=== PATIENT | male | born 1965 | race African-American/Black ===

== ENCOUNTER 2017-04-01 13:53 | Inpatient (IN) | payer OTHER ==
[2017-04-01 14:19] VITALS: BMI 39.5
[2017-04-01] MEDS ORDERED: NITROGLYCERIN SUBLINGUAL 1/150 0.4 MG TAB SL ONE (14:21)
[2017-04-01] MEDS ORDERED: ASPIRIN 325 MG TABLET PO ONE (14:21)
--- NOTE | 2017-04-01 14:27 | PDOC ---
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 He had the same symptom yesterday which resolved with rest and 81 mg ASA, and positioning on his side. He notes SOB ( like he is unable to take a full breath) and mild nausea, but denies any sweats , arm pain, shoulder pain, neck pain, or jaw pain. He has had similar pain before in his life but it has always resolved within minutes. He took an 81 mg ASA yesterday and tried TUMS, both without relief. He also has had worsening leg edema over the past several days and took a Lasix pill yesterday as well as Thursday. He denies recent fever, chills, cough, sore throat, vomiting, diarrhea, constipation (last BM today was small but dark brown and nonbloody), or other symptoms. Past History - Past Medical History Allergies/Adverse Reactions: Allergies Allergy/AdvReac Type Severity Reaction Status Date / Time No Known Allergies Allergy Verified 04/01/17 15:39 Home Medications: Ambulatory Orders NK [No Known Home Medication] 04/01/17 CVA: No COPD: No Disorders: Yes (chronic kidney) HTN: Yes Hypercholesterolemia: Yes - Suicide/Smoking/Psychosocial Hx Smoking History: Former smoker Have you smoked in the past 12 months: No Information on smoking cessation initiated: No Hx Alcohol Use: No (past) Drug/Substance Use Hx: No (past) Review of Systems - Review of Systems Able to Perform ROS?: Yes Constitutional: No: Chills, Fever, Unexplained wgt Loss HEENTM: No: Nose Congestion, Throat Pain Respiratory: Yes: Shortness of Breath. No: Cough Cardiac (ROS): Yes: Chest Pain, Edema. No: Palpitations ABD/GI: Yes: Nausea. No: Constipated, Diarrhea, Vomiting : No: Burning, Dysuria Musculoskeletal: No: Back Pain, Neck Pain Integumentary: No: Bruising, Rash Neurological: No: Headache, Numbness, Tingling, Weakness, Dizziness Endocrine: No: Unexplained Weight Gain, Unexplained Weight Loss *Physical Exam - Vital Signs Last Vital Signs Temp Pulse Resp BP Pulse Ox 70 15 191/94 100 04/01/17 17:00 04/01/17 17:00 04/01/17 17:00 04/01/17 17:00 - Physical Exam General Appearance: Yes: Nourished, Appropriately Dressed, Obese, Other (very pleasant adult male answering questions appropriately). No: Apparent Distress HEENT: positive: EOMI, Normal Voice, Hearing Grossly Normal. negative: Scleral Icterus (R), Scleral Icterus (L), Nasal Congestion Neck: positive: Trachea midline, Supple. negative: Tender, Rigid, Stridor Respiratory/Chest: positive: Lungs Clear, Normal Breath Sounds. negative: Chest Tender, Respiratory Distress, Crackles, Rhonchi, Stridor, Wheezing Cardiovascular: positive: Regular Rhythm, Regular Rate, S1, S2, Edema (2+ to 3+ pitting edema BLE). negative: Murmur Gastrointestinal/Abdominal: positive: Normal Bowel Sounds, Soft. negative: Tender, Organomegaly, Pulsatile Mass, Guarding Musculoskeletal: positive: Normal Inspection. negative: Decreased Range of Motion, Vertebral Tenderness Extremity: positive: Normal Capillary Refill, Normal Inspection, Normal Range of Motion. negative: Tender, Cyanosis Integumentary: positive: Normal Color, Dry, Warm. negative: Erythema, Rash, Bruising Neurologic: positive: workers compensation coordinator II-XII NML intact, Fully Oriented, Alert, Normal Mood/ Affect, Normal Response, Motor Strength 5/5 Heart Score/ECG Review - History History: Moderately suspicious - Electrocardiogram EKG: Significant ST-depression - Age Age: 45-65 - Risk Factors Risk Factors Heart Score: Yes Hx Hypercholesterolemia, Yes Hx Hypertension, Yes Hx Diabetes, Yes Smoking History, Yes Hx Obesity Based on the list above the patient has:: >/=3 risk factors or Hx atherosclerotic disease #1 ECG reviewed & interpreted by me at: 14:45 Sinus rhythm, rate of 79, flipped t-waves in I, II, aVL, V5, and V6, prolonged QTc at 495 ED Treatment Course - LABORATORY CBC & Chemistry Diagram: 04/01/17 14:50 04/01/17 14:50 - ADDITIONAL ORDERS Additional order review: Laboratory Results 04/01/17 04/01/17 04/01/17 14:50 14:50 14:21 PT with INR 10.70 INR 0.95 D-Dimer 827 H Sodium 142 Potassium 3.6 Chloride 107 Carbon Dioxide 26 Anion Gap 9 BUN 33 H Creatinine 6.3 H Creat Clearance w eGFR 9.34 Random Glucose 143 H Calcium 6.8 L* Magnesium 1.8 Total Bilirubin 0.2 AST 11 L ALT 18 Alkaline Phosphatase 83 Creatine Kinase 632 H Creatine Kinase Index 1.3 CK-MB (CK-2) 8.264 H Troponin I 0.10 H B-Natriuretic Peptide 4353.80 H Total Protein 5.6 L Albumin 2.4 L Lipase 135 Blood Type O POSITIVE Antibody Screen Negative 04/01/17 14:50 RBC 5.08 MCV 67.6 L MCHC 30.9 L RDW 17.6 H MPV 9.6 Neutrophils % 67.1 Lymphocytes % 24.3 Monocytes % 5.6 Eosinophils % 2.4 Basophils % 0.6 - RADIOLOGY Radiology Studies Ordered: Category Date Time Status CHEST X-RAY PORTABLE* [RAD] Stat Radiology 04/01/17 14:21 Completed - Medications Given in the ED: ED Medications Discontinued Medications Generic Name Dose Route Start Last Admin Trade Name Sergoq PRN Reason Stop Dose Admin Aspirin 325 mg 04/01/17 14:21 04/01/17 14:30 Asa - PO 04/01/17 14:22 325 mg ONCE ONE Administration Calcium Gluconate 1,000 mg 04/01/17 15:48 04/01/17 16:52 Calcium Gluconate 10% - IVPB 04/01/17 15:49 1,000 mg ONCE ONE Administration Labetalol HCl 10 mg 04/01/17 15:22 04/01/17 15:37 Normodyne Injection - IVPUSH 04/01/17 15:23 10 mg ONCE ONE Administration Labetalol HCl 200 mg 04/01/17 16:35 04/01/17 16:52 Normodyne - PO 04/01/17 16:36 200 mg ONCE ONE Administration Labetalol HCl 10 mg 04/01/17 16:35 04/01/17 16:52 Normodyne Injection - IVPUSH 04/01/17 16:36 10 mg ONCE ONE Administration Nitroglycerin 0.4 mg 04/01/17 14:21 04/01/17 14:25 Nitrostat - SL 04/01/17 14:22 0.4 mg ONCE ONE Administration Medical Decision Making - Medical Decision Making 52 YOM with CKD, HTN, HLD, DM, p/w left lower chest pressure x1 day. On exam he is very hypertensive (217/123), otherwise VS wnl. 04/01/17 16:[address] Sanchez who states very high risk of contrast-induced nephropathy. If suspicion for AD is very high, may give bicarb drip for 1-2 hours. If no widened mediastinum on CXR or suspicion is low and CTA can wait, can do NS for 5-6 hours. 04/01/17 16:43 Dr. Sanchez seeing patient in the ED now, recs appreciated. Consult order placed. Symphony microblogged for admission to IP tele. 04/01/17 17:21 Patient has been admitted to Dr. Costello, IP Tele. *DC/Admit/Observation/Transfer Diagnosis at time of Disposition: Hypertensive emergency, Hypocalcemia, Troponin level elevated, D-dimer, elevated Chronic kidney disease (CKD) Qualifiers: Chronic kidney disease stage: unspecified stage Qualified Code(s): N18.9 - Chronic kidney disease, unspecified Chest pain Qualifiers: Chest pain type: unspecified Qualified Code(s): R07.9 - Chest pain, unspecified CHF (congestive heart failure) Qualifiers: Congestive heart failure type: unspecified Congestive heart failure chronicity : unspecified Qualified Code(s): I50.9 - Heart failure, unspecified - Discharge Dispostion Condition at time of disposition: Guarded Admit: Yes Decision to Admit order Date/Time: Decision to Admit Order Category Date Time Status Decision to Admit to Hospital Routine Admission 04/01/17 17:12 Ordered - Referrals Referrals: Ángela Worthington [Primary Care Provider] - - Patient Instructions - Post Discharge Activity
[2017-04-01 15:09] LABS: BASO % 0.6 % (0-2.0); EOS % 2.4 % (0-4.5); HEMATOCRIT 34.3 % (35.4-49); HEMOGLOBIN 10.6 GM/dL (11.7-16.9); LYMPH % 24.3 % (8-40); MCH 20.9 pg (25.7-33.7); MCHC 30.9 g/dl (32.0-35.9); MEAN CELL VOLUME 67.6 fl (80-96); MEAN PLT VOLUME 9.6 fl (7.5-11.1); MONO % 5.6 % (3.8-10.2); NEUT % 67.1 % (42.8-82.8); PLATELET COUNT 253 K/MM3 (134-434); RBC 5.08 M/mm3 (4.00-5.60); RDW 17.6 % (11.9-15.9); WHITE BLOOD COUNT 7.2 K/mm3 (4.0-10.0)
[2017-04-01 15:14] LABS: ADD RBC MORPHOLOGY YES
[2017-04-01] MEDS ORDERED: LABETALOL HCL 5 MG/1 ML (100MG/20 ML VIAL) IVPUSH ONE ×2 (15:22→16:35)
[2017-04-01 15:23] LABS: INR 0.95 (0.82-1.09); PROTHROMBIN TIME (PATIENT) 10.7 SEC (9.98-11.88)
[2017-04-01 15:29] LABS: ALBUMIN 2.4 g/dl (3.4-5.0); ANION GAP 9 (8-16); BILIRUBIN,TOTAL 0.2 mg/dL (0.2-1.0); BLOOD UREA NITROGEN 33 mg/dL (7-18); CHLORIDE 107 mmol/L (98-107); CO2 26 mmol/L (21-32); CREATININE 6.3 mg/dL (0.7-1.3); GLUCOSE,RANDOM 143 mg/dL (74-106); LIPASE 135 U/L (73-393); MAGNESIUM 1.8 mg/dL (1.8-2.4); POTASSIUM 3.6 mmol/L (3.5-5.1); SGOT/AST 11 U/L (15-37); SGPT/ALT 18 U/L (12-78); SODIUM 142 mmol/L (136-145); TOT PROT 5.6 g/dl (6.4-8.2)
[2017-04-01 15:32] LABS: ALK PHOS 83 U/L (45-117)
[2017-04-01] MEDS ORDERED: LABETALOL HCL 5 MG/1 ML (200MG/40ML VIAL) IVPB ONE (15:32)
[2017-04-01 15:34] LABS: CALCIUM 6.8 mg/dL (8.5-10.1)
[2017-04-01] MEDS ORDERED: CALCIUM GLUCONATE 10% - 1,000 MG/10 ML VIAL IVPB ONE (15:48)
[2017-04-01] MEDS ORDERED: LABETALOL HCL 200 MG TABLET (FP) PO ONE (16:35)
--- NOTE | 2017-04-01 16:37 | PDOC ---
Attending Attestation - Resident Resident Name: Lubna Tinoco - ED Attending Attestation I have performed the following: I have examined & evaluated the patient, The case was reviewed & discussed with the resident, I agree w/resident's findings & plan, Exceptions are as noted - HPI HPI: 04/01/17 16:31 The patient is a 52 year old male, with a significant past medical history of diabetes, CKD, hypertension, hypercholesterolemia, who presents to the emergency department with left sided chest pain since yesterday. He reports the pain is located to the left chest wrapping around his side, 5/10 in severity now. He denies arm or jaw pain or tingling. He endorses mild OLVERA but no SOB at rest. He also reports slight increase in his bilateral lower extremity edema recently. The patient states he has not been taking any of his medications due to "feeling healthy". He reportedly does not follow-up with his primary physicians. He states he took lasix yesterday for his leg swelling with minimal improvement. LNBM: today The patient denies headache and dizziness. The patient denies fever, chills, nausea, vomit, diarrhea and constipation. The patient denies dysuria, frequency, urgency and hematuria. Allergies: NKDA " - Physicial Exam PE: 04/01/17 16:34 """GENERAL: Awake, alert, and fully oriented, in no acute distress HEAD: No signs of trauma EYES: PERRLA, EOMI, sclera anicteric, conjunctiva clear ENT: Auricles normal inspection, hearing grossly normal, nares patent, oropharynx clear without exudates. Moist mucosa NECK: Nontender, no stepoffs, Normal ROM, supple, no lymphadenopathy, JVD, or masses LUNGS: Breath sounds equal, clear to auscultation bilaterally. No wheezes, and no crackles HEART: Regular rate and rhythm, normal S1 and S2, no murmurs, rubs or gallops ABDOMEN: Soft, nontender, normoactive bowel sounds. No guarding, no rebound. No masses EXTREMITIES: (+) +2 pitting edema to bilateral lower extremties. Normal range of motion, No clubbing or cyanosis. No cords, erythema, or tenderness NEUROLOGICAL: Cranial nerves II through XII intact. 5/5 strength and sensation in all extremities, Normal speech, normal gait SKIN: Warm, Dry, normal turgor, no rashes or lesions noted. """ - Medical Decision Making 04/01/17 16:34 52 M with chest pain, found to be hypertensive to >200 systolic in ED. Possible hypertensive emergency. PE is consideration but less likely as pt with no asymmetric leg swelling, no hypoxia, no tachycardia. Pt is at risk for dissection given severely elevated BP, but does not have tearing chest pain and has equal pulses in both arms. Pt also at high risk for ICH but has no BOSS/N/V, with normal neuro exam. - Labs - Labetalol IV PRN for BP control Labs notable for Cr 6, Trop 0.10 Pt admitted to hospitalist for further management of BP and hypertensive emergency. <Alfie Acuna - Last Filed: 04/02/17 14:29> - HPI HPI: 04/02/17 18:33 Dr. Feldman was paged and notified via phone service. <Kassie Vallecillo - Last Filed: 04/02/17 18:33>
[2017-04-01] MEDS ORDERED: LABETALOL HCL 100 MG TABLET (FP) ONE ×2 (16:48→22:29)
[2017-04-01] MEDS ORDERED: CALCIUM GLUCONATE 10% - 1,000 MG/10 ML VIAL ONE (16:48)
--- NOTE | 2017-04-01 16:50 | PN ---
Progress Note (short form) - Note Progress Note: Renal Consult for Hypertensive Emergency and BRITT/CKD This is a 52 year old gentleman with PMhx of Hypertension, DM, HLD who presented with complains of left sided chest pain with some radiation to back/ flank and found to have hypertensive emergency and BUN/Cr of 33/6.3.Pt reports stopping all his meds including diuretics about 2 months ago. Denies any NSIAD use, ingestions. PMHx: as above Allergies: NKDA Family Hx: [place] Social Hx: Former drug user, clean for 19 years. No Tobacco or Alochol use. Not currently taking any medications. Vital Signs Temperature Pulse Rate 73 04/01/17 15:37 Respiratory Rate 20 04/01/17 15:37 Blood Pressure 208/108 04/01/17 15:37 O2 Sat by Pulse Oximetry (%) 100 04/01/17 15:37 Intake & Output 03/29/17 03/30/17 03/31/17 04/01/17 23:59 23:59 23:59 23:59 Weight 136.078 kg CBC, BMP 04/01/17 14:50 04/01/17 14:50 Laboratory Tests 04/01/17 14:50 Calcium 6.8 L* Magnesium 1.8 Albumin 2.4 L 52 year old gentleman with PMhx of Hypertension, DM, HLD who presented with complains of left sided chest pain with some radiation to back/flank and found to have hypertensive emergency and BUN/Cr of 33/6.3 #Hypertensive Emergency s/p Labetalol IV and PO in the ED if not getting a significant response would consider starting nicardipine gtt would want to reduce BP by 20-25% from presentation would not start TIARA/ARB now given very low eGFR Consider ICU admission #Britt vs. CKD Unknown baseline kidney function was told that he had CKD in the past but was told that he was not close to dialysis check urine studies for feNa and UPCR check US of kidneys to access kidney size and texture pt does not appear hypovolemic and BUN/Cr ratio does not support volume depletion trend BP closely with BP control no acute indication for PERSONAL INSURANCE ADVISOR #Hypocalcemia Corrected Ca is 8.08 no indication for IV Calcium Case discussed with ED resident Full consult to follow Severino Sanchez DO
--- NOTE | 2017-04-01 17:58 | HP ---
Admitting History and Physical - Admission Chief Complaint: left sided chest pain History of Present Illness: This is a 52 year old male with pmhx of HTN, HLD, DM II presented with left sided chest pain since yesterday. He states it felt like gas bubbles yesterday and today a pressure/clogged feeling. Pt reports active symptoms currently with deep breaths and specifically when he moves to the left. He denies OLVERA, sob, cough, lower ext edema. He stopped taking his meds because he felt fine. He was found to have hypertensive emergency on presentation. Pt denies sahni, blurry vision, ams. History Source: Patient Limitations to Obtaining History: No Limitations - Past Medical History Cardiovascular: Yes: HTN, Hyperlipdemia Renal/: Yes: Renal Inusuff Endocrine: Yes: Diabetes Mellitus - Smoking History Smoking history: Former smoker Have you smoked in the past 12 months: No - Alcohol/Substance Use Hx Alcohol Use: No (past) History of Substance Use: reports: None - Social History Usual Living Arrangement: Yes: Alone ADL: Independent Home Medications - Allergies Allergies/Adverse Reactions: Allergies Allergy/AdvReac Type Severity Reaction Status Date / Time No Known Allergies Allergy Verified 04/01/17 15:39 - Home Medications Home Medications: Ambulatory Orders NK [No Known Home Medication] 04/01/17 Review of Systems - Review of Systems Constitutional: reports: No Symptoms Eyes: reports: No Symptoms HENT: reports: No Symptoms Neck: reports: No Symptoms Cardiovascular: reports: Chest Pain Respiratory: reports: No Symptoms Gastrointestinal: reports: No Symptoms Genitourinary: reports: No Symptoms Musculoskeletal: reports: No Symptoms Integumentary: reports: No Symptoms Neurological: reports: No Symptoms Endocrine: reports: No Symptoms Hematology/Lymphatic: reports: No Symptoms Psychiatric: reports: No Symptoms Physical Examination Vital Signs: Vital Signs Temperature Pulse Rate 70 04/01/17 17:00 Respiratory Rate 15 04/01/17 17:00 Blood Pressure 191/94 04/01/17 17:00 O2 Sat by Pulse Oximetry (%) 100 04/01/17 17:00 Constitutional: Yes: Calm Eyes: Yes: Conjunctiva Clear HENT: Yes: Atraumatic Neck: Yes: Supple Cardiovascular: Yes: Regular Rate and Rhythm, S1, S2 Respiratory: Yes: Regular, CTA Bilaterally Gastrointestinal: Yes: Normal Bowel Sounds, Soft Musculoskeletal: Yes: WNL Extremities: Yes: WNL Edema: Yes (non pitting ) Integumentary: Yes: WNL Neurological: Yes: Alert, Oriented, Cran Nerves II-XII Intact Labs: CBC, BMP 04/01/17 14:50 04/01/17 14:50 Imaging - Results Chest X-ray: Report Reviewed, Image Reviewed Problem List - Problems (1) Chest pain Code(s): R07.9 - CHEST PAIN, UNSPECIFIED Qualifiers: Chest pain type: unspecified Qualified Code(s): R07.9 - Chest pain, unspecified (2) Chronic kidney disease (CKD) Code(s): N18.9 - CHRONIC KIDNEY DISEASE, UNSPECIFIED Qualifiers: Chronic kidney disease stage: unspecified stage Qualified Code(s): N18.9 - Chronic kidney disease, unspecified (3) Hypertensive emergency Code(s): I16.1 - HYPERTENSIVE EMERGENCY (4) CHF (congestive heart failure) Code(s): I50.9 - HEART FAILURE, UNSPECIFIED Qualifiers: Congestive heart failure type: unspecified Congestive heart failure chronicity: unspecified Qualified Code(s): I50.9 - Heart failure, unspecified (5) Troponin level elevated Code(s): R74.8 - ABNORMAL LEVELS OF OTHER SERUM ENZYMES Assessment/Plan Assessment: 52 year old male admitted with HTN emergency and chest pain Plan: 1. Chest pain - Elevated trop, continue serial cardiac markers - Admit for ICU monitoring - EKG shows NSR w/ inverted T: I, II, AVL, V5, V6 - ASA given, cont daily - Lipid panel - TSH, hgba1c - ECHO - Cardiology consulted 2. HTN Emergency - s/p labetalol IV and PO in ED - Labetalol 200mg q8hr startr @2200 - Give amlodipine 10mg x1 now - If no improvement start nicardipine gttt - Do not lower more than 25% in 24hrs, goal ~180 systolic 3. LIGIA vs CKD - Urine studies ordered, FeNA - US kidney bladder - Renal consult appreciated 4 Hypocalcemia - Corrected Ca is 8.08 5. DVT - SQ heparin Visit type - Emergency Visit Emergency Visit: Yes Care time: The patient presented to the Emergency Department on the above date and was hospitalized for further evaluation of their emergent condition. - New Patient This patient is new to me today: Yes Date on this admission: 04/01/17 - Critical Care Critical Care patient: No
[2017-04-01] MEDS ORDERED: amLODIPine BESYLATE 10 MG TABLET (FP) PO ONE (18:30)
[2017-04-01] MEDS ORDERED: amLODIPine BESYLATE 5 MG TABLET (FP) ONE (19:54)
[2017-04-01] MEDS: LABETALOL HCL 200 MG TABLET (FP) PO SCH (22:36)
[2017-04-01] MEDS ORDERED: MELATONIN 5 MG TABLETS PO ONE (22:45)
[2017-04-02] MEDS ORDERED: INSULIN (NOVOLOG) ASPART 100 UNITS/ML 10ML VIAL ONE ×3 (00:16→22:24)
[2017-04-02] MEDS: INSULIN SLIDING SCALE (NOVOLOG) 1 VIAL SQ SCH ×5 (00:18→22:28)
[2017-04-02] MEDS: HEPARIN NA (PORCINE) 5,000 UNITS/ML 1ML VIAL SQ SCH ×3 (06:03→22:28)
[2017-04-02] MEDS: LABETALOL HCL 200 MG TABLET (FP) PO SCH ×2 (06:10→13:20)
[2017-04-02 07:14] LABS: BASO % 0.7 % (0-2.0); EOS % 2.5 % (0-4.5); HEMATOCRIT 31.2 % (35.4-49); HEMOGLOBIN 9.7 GM/dL (11.7-16.9); LYMPH % 23.9 % (8-40); MEAN CELL VOLUME 67.8 fl (80-96); MEAN PLT VOLUME 9.5 fl (7.5-11.1); MONO % 6.7 % (3.8-10.2); NEUT % 66.2 % (42.8-82.8); PLATELET COUNT 227 K/MM3 (134-434); RDW 17.2 % (11.9-15.9); WHITE BLOOD COUNT 7.9 K/mm3 (4.0-10.0)
[2017-04-02 08:11] LABS: CHLORIDE 107 mmol/L (98-107); POTASSIUM 3.7 mmol/L (3.5-5.1); SODIUM 142 mmol/L (136-145)
[2017-04-02 08:23] LABS: ALBUMIN 2.2 g/dl (3.4-5.0); ALK PHOS 72 U/L (45-117); ANION GAP 10 (8-16); BILIRUBIN,TOTAL 0.4 mg/dL (0.2-1.0); BLOOD UREA NITROGEN 32 mg/dL (7-18); CHOLESTEROL 218 mg/dL (50-200); CO2 25 mmol/L (21-32); CREATININE 6.2 mg/dL (0.7-1.3); GLUCOSE,RANDOM 143 mg/dL (74-106); HDL CHOLESTEROL 45 mg/dL (40-60); LDL CHOLESTEROL (ONLY SJRH) 158 mg/dL (5-100); MAGNESIUM 1.9 mg/dL (1.8-2.4); PHOSPHOROUS 5.8 mg/dL (2.5-4.9); SGOT/AST 9 U/L (15-37); SGPT/ALT 15 U/L (12-78); TOT PROT 5.1 g/dl (6.4-8.2); TRIGLYCERIDES 80 mg/dL (35-160)
[2017-04-02 08:55] LABS: CALCIUM 6.6 mg/dL (8.5-10.1)
--- NOTE | 2017-04-02 10:24 | CON.CARD ---
Consult Consult Specialty:: Cardiology Referred by:: Hospitalist Medicine Reason for Consultation:: Chest pain, hypertensive urgency - History of Present Illness Chief Complaint: Chest pain, hypertension History of Present Illness: l This is a 52 year old male with pmhx of HTN, HLD, DM II presented with atypical left sided chest pain feeling like indigestion worse lying on left side vs right side. Pt reports active symptoms currently with deep breaths and specifically when he moves to the left. He reports LE edema, denies OLVERA, sob, cough. He stopped taking his meds because he felt fine. He was found to have hypertensive emergency on presentation. Pt denies sahni, blurry vision, ams, NSAID use. - History Source History Provided By: Patient Limitations to Obtaining History: No Limitations - Past Medical History Cardio/Vascular: Yes: HTN, Hyperlipdemia Renal/: Yes: Renal Inusuff Endocrine: Yes: Diabetes Mellitus - Alcohol/Substance Use Hx Alcohol Use: No (past) History of Substance Use: reports: None - Smoking History Smoking history: Former smoker Have you smoked in the past 12 months: No - Social History ADL: Independent Home Medications - Allergies Allergies/Adverse Reactions: Allergies Allergy/AdvReac Type Severity Reaction Status Date / Time No Known Allergies Allergy Verified 04/01/17 15:39 - Home Medications Home Medications: Ambulatory Orders NK [No Known Home Medication] 04/01/17 Review of Systems - Review of Systems Cardiovascular: reports: Chest Pain Vital Signs: Vital Signs Temperature 98.1 F 04/02/17 07:25 Pulse Rate 74 04/02/17 08:32 Respiratory Rate 18 04/02/17 08:32 Blood Pressure 184/100 04/02/17 08:32 O2 Sat by Pulse Oximetry (%) 100 04/02/17 08:32 Constitutional: Yes: No Distress, Calm Neck: Yes: Supple Respiratory: Yes: Regular, Diminished Gastrointestinal: Yes: Normal Bowel Sounds, Soft Cardiovascular: Yes: Regular Rate and Rhythm JVD: No Carotid Bruit: No Heart Sounds: Yes: S1, S2 Murmur: Yes: Systolic Murmur, Grade 1 Edema: Yes Edema: LLE: 1+, RLE: 1+ - Other Data Labs, Other Data: CBC, BMP 04/02/17 06:30 04/02/17 06:30 INR, PTT INR 0.95 (0.82-1.09) 04/01/17 14:50 Troponin, BNP 04/01/17 04/01/17 04/02/17 14:50 21:45 06:30 Troponin I 0.10 H 0.07 H D 0.10 H D B-Natriuretic Peptide 4353.80 H Troponin, BNP 04/01/17 04/01/17 04/02/17 14:50 21:45 06:30 Troponin I 0.10 H 0.07 H D 0.10 H D B-Natriuretic Peptide 4353.80 H Unavailable for review Echo: Pending Ejection Fraction %: LVEF > or = 40 % Imaging - Results Chest X-ray: Report Reviewed (NAD) Cat Scan: Report Reviewed (Chest CT: Small pericardial effusion, mod calcifications along LAD) Problem List - Problems (1) Demand ischemia Code(s): I24.8 - OTHER FORMS OF ACUTE ISCHEMIC HEART DISEASE (2) Hyperlipidemia associated with type 2 diabetes mellitus Code(s): E11.69 - TYPE 2 DIABETES MELLITUS WITH OTHER SPECIFIED COMPLICATION; E78.5 - HYPERLIPIDEMIA, UNSPECIFIED (3) Type 2 diabetes mellitus Code(s): E11.9 - TYPE 2 DIABETES MELLITUS WITHOUT COMPLICATIONS Qualifiers: Diabetes mellitus complication status: with kidney complications Diabetes mellitus complication detail: with chronic kidney disease Diabetes mellitus predatory animal exterminator insulin use: without predatory animal exterminator use Chronic kidney disease stage: stage 5, not on chronic dialysis Qualified Code(s): E11.22 - Type 2 diabetes mellitus with diabetic chronic kidney disease; N18.5 - Chronic kidney disease, stage 5; N18.5 - Chronic kidney disease, stage 5; N18.5 - Chronic kidney disease , stage 5; N18.5 - Chronic kidney disease, stage 5 (4) Chest pain Code(s): R07.9 - CHEST PAIN, UNSPECIFIED Qualifiers: Chest pain type: chest pain on breathing Qualified Code(s): R07.1 - Chest pain on breathing; R07.81 - Pleurodynia (5) Chronic kidney disease (CKD) Code(s): N18.9 - CHRONIC KIDNEY DISEASE, UNSPECIFIED Qualifiers: Chronic kidney disease stage: unspecified stage Qualified Code(s): N18.9 - Chronic kidney disease, unspecified (6) Hypertensive emergency Code(s): I16.1 - HYPERTENSIVE EMERGENCY (7) Troponin level elevated Code(s): R74.8 - ABNORMAL LEVELS OF OTHER SERUM ENZYMES (8) Anemia in chronic kidney disease (CKD) Code(s): N18.9 - CHRONIC KIDNEY DISEASE, UNSPECIFIED; D63.1 - ANEMIA IN CHRONIC KIDNEY DISEASE Qualifiers: Chronic kidney disease stage: stage 5, not on chronic dialysis Qualified Code(s): N18.5 - Chronic kidney disease, stage 5; D63.1 - Anemia in chronic kidney disease; D63.1 - Anemia in chronic kidney disease Assessment/Plan 1. Chest pain syndrome 2. Hypertensive urgency 3. Acute on CKD 4. Medication noncompliance 5. Type 2 DM, poorly controlled 6. Hyperlipidemia 7. Demand ischemia 8. Anemia of CKD P:1. Trops have peaked, f/u echo results, TSH 2. Started on labetolol, ASA, add Procardia with uptitration as tolerated, start Lipitor 3. Given multiple cardiac risk factors, MPI once clinically stable r/o ischemia 4. Thank you for consultative opportunity
[2017-04-02] MEDS ORDERED: NIFEdipine E.R 60 MG TABLET (UD) PO SCH (10:45)
[2017-04-02] MEDS: ASPIRIN COATED 81 MG TABLET.EC PO SCH (11:25)
--- NOTE | 2017-04-02 12:03 | PN ---
Progress Note, Physician Chief Complaint: patient seen and examined awake alert no CP no SOB - Current Medication List Current Medications: Active Medications Aspirin (Ecotrin -) 81 mg PO DAILY [facility] Last Admin: 04/02/17 11:25 Dose: 81 mg Atorvastatin Calcium (Lipitor -) 20 mg PO HS [facility] Heparin Sodium (Porcine) (Heparin -) 5,000 unit SQ TID [facility] Last Admin: 04/02/17 06:03 Dose: 5,000 unit Insulin Aspart (Novolog Vial Sliding Scale -) 1 vial SQ ACHS [facility] PRN Reason: Protocol Labetalol HCl (Normodyne -) 200 mg PO TID [facility] Last Admin: 04/02/17 06:10 Dose: 200 mg Nifedipine (Procardia Xl -) 60 mg PO DAILY [facility] - Objective Vital Signs: Vital Signs Temperature 98.1 F 04/02/17 07:25 Pulse Rate 74 04/02/17 08:32 Respiratory Rate 18 04/02/17 08:32 Blood Pressure 184/100 04/02/17 08:32 O2 Sat by Pulse Oximetry (%) 100 04/02/17 08:32 Constitutional: Yes: Calm Cardiovascular: Yes: Regular Rate and Rhythm, S1, S2 Respiratory: Yes: CTA Bilaterally Gastrointestinal: Yes: Normal Bowel Sounds, Soft Edema: Yes Neurological: Yes: Alert, Oriented Labs: CBC, BMP 04/02/17 06:30 04/02/17 06:30 INR, PTT INR 0.95 (0.82-1.09) 04/01/17 14:50 Problem List - Problems (1) Hypertensive emergency Assessment/Plan: admit to ICU for BP monitoring still elevated will need to monitor closely appreciate cardiology evaluation labetolol and procardia Code(s): I16.1 - HYPERTENSIVE EMERGENCY (2) Anemia in chronic kidney disease (CKD) Assessment/Plan: iron order tracer h/h Code(s): N18.9 - CHRONIC KIDNEY DISEASE, UNSPECIFIED; D63.1 - ANEMIA IN CHRONIC KIDNEY DISEASE Qualifiers: Chronic kidney disease stage: stage 5, not on chronic dialysis Qualified Code(s): N18.5 - Chronic kidney disease, stage 5; D63.1 - Anemia in chronic kidney disease; D63.1 - Anemia in chronic kidney disease (3) Chronic kidney disease (CKD) Assessment/Plan: renal evaluation renal sono Code(s): N18.9 - CHRONIC KIDNEY DISEASE, UNSPECIFIED Qualifiers: Chronic kidney disease stage: unspecified stage Qualified Code(s): N18.9 - Chronic kidney disease, unspecified (4) Hypocalcemia Assessment/Plan: got calcium 1gm yesterday renal on board corrected calcium 8.0 Code(s): E83.51 - HYPOCALCEMIA (5) Troponin level elevated Assessment/Plan: level noted monitoring ck and CKMB trending down Code(s): R74.8 - ABNORMAL LEVELS OF OTHER SERUM ENZYMES (6) Type 2 diabetes mellitus Assessment/Plan: sliding scale hgba1c noted Code(s): E11.9 - TYPE 2 DIABETES MELLITUS WITHOUT COMPLICATIONS Qualifiers: Diabetes mellitus complication status: with kidney complications Diabetes mellitus complication detail: with chronic kidney disease Diabetes mellitus prison insulin use: without termite treater helper use Chronic kidney disease stage: stage 5, not on chronic dialysis Qualified Code(s): E11.22 - Type 2 diabetes mellitus with diabetic chronic kidney disease; N18.5 - Chronic kidney disease, stage 5; N18.5 - Chronic kidney disease, stage 5; N18.5 - Chronic kidney disease , stage 5; N18.5 - Chronic kidney disease, stage 5
--- NOTE | 2017-04-02 12:09 | EKG ---
Test Reason : Blood Pressure : / mmHG Vent. Rate : 079 BPM Atrial Rate : 079 BPM P-R Int : 124 ms QRS Dur : 096 ms QT Int : 432 ms P-R-T Axes : 056 -27 155 degrees QTc Int : 495 ms NORMAL SINUS RHYTHM MINIMAL VOLTAGE CRITERIA FOR LVH, MAY BE NORMAL VARIANT T WAVE ABNORMALITY, CONSIDER LATERAL ISCHEMIA PROLONGED QT ABNORMAL ECG NO PREVIOUS ECGS AVAILABLE Confirmed by JERONIMO SERVIN, TOMAS ([id number]) on 04/02/2017 12:09:17 PM Referred By: Confirmed By:TOMAS DECKER MD
--- NOTE | 2017-04-02 14:06 | PDOC ---
*Physical Exam - Vital Signs Last Vital Signs Temp Pulse Resp BP Pulse Ox 98.1 F 74 18 184/100 100 04/02/17 07:25 04/02/17 08:32 04/02/17 08:32 04/02/17 08:32 04/02/17 08:32 ED Treatment Course - LABORATORY CBC & Chemistry Diagram: 04/06/17 06:40 04/07/17 06:41 - ADDITIONAL ORDERS Additional order review: 04/01/17 14:50 RBC 5.08 MCV 67.6 L MCHC 30.9 L RDW 17.6 H MPV 9.6 Neutrophils % 67.1 Lymphocytes % 24.3 Monocytes % 5.6 Eosinophils % 2.4 Basophils % 0.6 - Medications Given in the ED: ED Medications Discontinued Medications Generic Name Dose Route Start Last Admin Trade Name Freq PRN Reason Stop Dose Admin Amlodipine Besylate 10 mg 04/01/17 18:30 04/01/17 20:24 Norvasc - PO 04/01/17 18:31 10 mg ONCE ONE Administration Aspirin 325 mg 04/01/17 14:21 04/01/17 14:30 Asa - PO 04/01/17 14:22 325 mg ONCE ONE Administration Calcium Gluconate 1,000 mg 04/01/17 15:48 04/01/17 16:52 Calcium Gluconate 10% - IVPB 04/01/17 15:49 1,000 mg ONCE ONE Administration Insulin Aspart 1 vial 04/01/17 22:45 04/02/17 07:10 Novolog Vial Sliding Scale - SQ Not [facility] Protocol Labetalol HCl 10 mg 04/01/17 15:22 04/01/17 15:37 Normodyne Injection - IVPUSH 04/01/17 15:23 10 mg ONCE ONE Administration Labetalol HCl 200 mg 04/01/17 16:35 04/01/17 16:52 Normodyne - PO 04/01/17 16:36 200 mg ONCE ONE Administration Labetalol HCl 10 mg 04/01/17 16:35 04/01/17 16:52 Normodyne Injection - IVPUSH 04/01/17 16:36 10 mg ONCE ONE Administration Melatonin 5 mg 04/01/17 22:45 04/02/17 01:25 Melatonin PO 04/01/17 22:46 5 mg ONCE ONE Administration Nitroglycerin 0.4 mg 04/01/17 14:21 04/01/17 14:25 Nitrostat - SL 04/01/17 14:22 0.4 mg ONCE ONE Administration Medical Decision Making - Medical Decision Making 04/02/17 14:01 52 M admitted yesterday for hypertensive emergency. I was called to the bedside at 1:50PM for acute onset slurred speech and facial droop. Per RN, last known normal was 1:30PM, when she went to check on him. At 1:45, RN noticed the facial droop and slurred speech. Exam at 1:50PM notable for: R facial droop + RUE and RLE weakness + slurred speech Fingerstick at this time 200 BP 115/80 Code Suarez activated. Pt taken for stat head CT. 04/02/17 14:11 CTH without evidence of bleed. Review of medication administration shows pt received labetalol 200mg at 1:20 PM and nifedipine 60mg at 11:30 AM. Last documented BP was 184/100 @ 8:32am. BP now 119/90. Spoke with Dr. Katz, neuro portfolio consultant. Pt likely having ischemic stroke 2/2 hypoperfusion caused by relative hypotension and overly aggressive BP reduction Per discussion with Dr. Katz, will tx with fluid bolus - will hold off on pressors due to evidence of cardiac injury Pt placed in trendelenberg position, NS bolus initiated. TPA NOT indicated as pt's CVA is unlikely to be thromboembolic. Will hold all antihypertensives for now. MRI brain ordered 04/02/17 18:37 Pt reassessed - BP now 130s systolic. Repeat examination shows significant improvement in neuro deficits. Now with mild R facial droop and dysarthria and improved RUE and RLE strength. Discussed case with Dr. Bucio and Dr. Feldman, who agree with plan to downgrade from ICU admission to stroke floor. *DC/Admit/Observation/Transfer Diagnosis at time of Disposition: Hypertensive emergency, Hypocalcemia, Troponin level elevated, D-dimer, elevated Chronic kidney disease (CKD) Qualifiers: Chronic kidney disease stage: unspecified stage Qualified Code(s): N18.9 - Chronic kidney disease, unspecified Chest pain Qualifiers: Chest pain type: chest pain on breathing Qualified Code(s): R07.1 - Chest pain on breathing CHF (congestive heart failure) Qualifiers: Qualified Code(s): I50.9 - Heart failure, unspecified - Discharge Dispostion Disposition: VNS/HOME HEALTH CARE Condition at time of disposition: Improved - Prescriptions - Referrals - Patient Instructions - Post Discharge Activity NIH Stroke Scale - Last Known Well Date/Time & Onset Date Last Known Well: 04/02/17 Time Last Known Well: 13:30 - Initial Evaluation Level of consciousness: Alert Ask patient the month and their age: Answers both correctly Ask patient to open & close eyes; make fist and let go: Obeys both correctly Best gaze (horizontal eye movement): Normal Visual field testing: No visual field loss Facial paresis (Show teeth/raise eyebrows/close eyes tight): Complete paralysis of one or both sides (Upper and lower face) Motor Function: Left Arm: Normal Motor Function: Right Arm: Drift Motor Function: Left Leg: Normal (extends leg 30 degrees for 5 seconds without drift) Motor Function: Right Leg: Drift Limb Ataxia: No ataxia Sensory(Use pinprick test arms,legs,trunk,face/side to side): Normal Best language (Describe picture, name items, read sentences): No Aphasia Dysarthria (read several words): Mild to moderate slurring of words Extinction and Inattention: No abnormality - Total Score NIH Stroke Scale Score: 6
[2017-04-02] MEDS ORDERED: FUROSEMIDE 40 MG/4 ML INJECTABLE VIAL IVPUSH SCH (14:30)
[2017-04-02] MEDS ORDERED: SODIUM CHLORIDE 1,000 ML IV STA (14:54)
--- NOTE | 2017-04-02 15:05 | PN ---
Progress Note (short form) - Note Progress Note: got call from ER attending that patient is slurring ct head done neurology consulted hold anti htn meds( procardia and labetolol) icu mointiring MRI brain carotid doppler Problem List - Problems (1) Hypertensive emergency Code(s): I16.1 - HYPERTENSIVE EMERGENCY (2) Anemia in chronic kidney disease (CKD) Code(s): N18.9 - CHRONIC KIDNEY DISEASE, UNSPECIFIED; D63.1 - ANEMIA IN CHRONIC KIDNEY DISEASE Qualifiers: Chronic kidney disease stage: stage 5, not on chronic dialysis Qualified Code(s): N18.5 - Chronic kidney disease, stage 5; D63.1 - Anemia in chronic kidney disease; D63.1 - Anemia in chronic kidney disease (3) Chronic kidney disease (CKD) Code(s): N18.9 - CHRONIC KIDNEY DISEASE, UNSPECIFIED Qualifiers: Chronic kidney disease stage: unspecified stage Qualified Code(s): N18.9 - Chronic kidney disease, unspecified (4) Hypocalcemia Code(s): E83.51 - HYPOCALCEMIA (5) Troponin level elevated Code(s): R74.8 - ABNORMAL LEVELS OF OTHER SERUM ENZYMES (6) Type 2 diabetes mellitus Code(s): E11.9 - TYPE 2 DIABETES MELLITUS WITHOUT COMPLICATIONS Qualifiers: Diabetes mellitus complication status: with kidney complications Diabetes mellitus complication detail: with chronic kidney disease Diabetes mellitus detention insulin use: without detention use Chronic kidney disease stage: stage 5, not on chronic dialysis Qualified Code(s): E11.22 - Type 2 diabetes mellitus with diabetic chronic kidney disease; N18.5 - Chronic kidney disease, stage 5; N18.5 - Chronic kidney disease, stage 5; N18.5 - Chronic kidney disease , stage 5; N18.5 - Chronic kidney disease, stage 5
[2017-04-02 16:25] LABS: BASO % 0.7 % (0-2.0); EOS % 2.6 % (0-4.5); HEMATOCRIT 34.2 % (35.4-49); HEMOGLOBIN 10.6 GM/dL (11.7-16.9); LYMPH % 24.1 % (8-40); MCHC 30.9 g/dl (32.0-35.9); MEAN PLT VOLUME 10.3 fl (7.5-11.1); MONO % 5.2 % (3.8-10.2); NEUT % 67.4 % (42.8-82.8); PLATELET COUNT 253 K/MM3 (134-434); RBC 5.03 M/mm3 (4.00-5.60); RDW 17.6 % (11.9-15.9); WHITE BLOOD COUNT 7.4 K/mm3 (4.0-10.0)
--- NOTE | 2017-04-02 16:27 | PN ---
Progress Note, Physician Chief Complaint: The patient seen in his bed. Says that he is feeeling "well". " I dont think I have anything really wrong with my kidneys". Reports that several years ago he was seen by a Insurance Follow Up Representative in the [place], ? Name, and he refused to go back there because he did not like the office staff!! ! Has goos urine output. - Current Medication List Current Medications: Active Medications Aspirin (Ecotrin -) 81 mg PO DAILY [facility] Last Admin: 04/02/17 11:25 Dose: 81 mg Atorvastatin Calcium (Lipitor -) 20 mg PO HS [facility] Chlorhexidine Gluconate (Hibiclens For Decolonization -) 1 applic TP HS [facility] Heparin Sodium (Porcine) (Heparin -) 5,000 unit SQ TID [facility] Last Admin: 04/02/17 13:19 Dose: 5,000 unit Insulin Aspart (Novolog Vial Sliding Scale -) 1 vial SQ ACHS [facility] PRN Reason: Protocol Last Admin: 04/02/17 13:19 Dose: 4 units Labetalol HCl (Normodyne -) 200 mg PO TID [facility] Last Admin: 04/02/17 13:20 Dose: 200 mg Melatonin (Melatonin) 5 mg PO HS PRN PRN Reason: INSOMNIA Mupirocin (Bactroban Ointment (For Decolonization) -) 1 applic NS BID [facility] Stop: 04/07/17 21:59 Nifedipine (Procardia Xl -) 60 mg PO DAILY [facility] Last Admin: 04/02/17 11:32 Dose: 60 mg - Objective Vital Signs: Vital Signs Temperature 97.8 F 04/02/17 15:50 Pulse Rate 78 04/02/17 15:50 Respiratory Rate 20 04/02/17 15:50 Blood Pressure 126/80 04/02/17 15:50 O2 Sat by Pulse Oximetry (%) 100 04/02/17 15:50 Constitutional: Yes: Well Nourished, Mild Distress Eyes: Yes: Conjunctiva Clear HENT: Yes: Normocephalic Neck: Yes: Trachea Midline Cardiovascular: Yes: Regular Rate and Rhythm, S1, S2 Respiratory: Yes: Regular, CTA Bilaterally Gastrointestinal: Yes: Normal Bowel Sounds, Soft Genitourinary: No: CVA Tenderness - Left, CVA Tenderness - Right Extremities: No: Calf Tenderness Edema: Yes Edema: LLE: 2+, RLE: 2+ Neurological: Yes: Alert, Oriented Psychiatric: Yes: Alert, Oriented Labs: CBC, BMP 04/02/17 06:30 04/02/17 06:30 INR, PTT INR 0.95 (0.82-1.09) 04/01/17 14:50 Problem List - Problems (1) Stage 4 chronic kidney disease Code(s): N18.4 - CHRONIC KIDNEY DISEASE, STAGE 4 (SEVERE) (2) Anemia in chronic kidney disease (CKD) Code(s): N18.9 - CHRONIC KIDNEY DISEASE, UNSPECIFIED; D63.1 - ANEMIA IN CHRONIC KIDNEY DISEASE Qualifiers: Chronic kidney disease stage: stage 5, not on chronic dialysis Qualified Code(s): N18.5 - Chronic kidney disease, stage 5; D63.1 - Anemia in chronic kidney disease; D63.1 - Anemia in chronic kidney disease (3) CHF (congestive heart failure) Code(s): I50.9 - HEART FAILURE, UNSPECIFIED Qualifiers: Congestive heart failure type: unspecified Congestive heart failure chronicity: unspecified Qualified Code(s): I50.9 - Heart failure, unspecified (4) Chronic kidney disease (CKD) Code(s): N18.9 - CHRONIC KIDNEY DISEASE, UNSPECIFIED Qualifiers: Chronic kidney disease stage: unspecified stage Qualified Code(s): N18.9 - Chronic kidney disease, unspecified (5) Hypocalcemia Code(s): E83.51 - HYPOCALCEMIA (6) Type 2 diabetes mellitus Code(s): E11.9 - TYPE 2 DIABETES MELLITUS WITHOUT COMPLICATIONS Qualifiers: Diabetes mellitus complication status: with kidney complications Diabetes mellitus complication detail: with chronic kidney disease Diabetes mellitus imaging services director insulin use: without [place] [facility] use Chronic kidney disease stage: stage 5, not on chronic dialysis Qualified Code(s): E11.22 - Type 2 diabetes mellitus with diabetic chronic kidney disease; N18.5 - Chronic kidney disease, stage 5; N18.5 - Chronic kidney disease, stage 5; N18.5 - Chronic kidney disease , stage 5; N18.5 - Chronic kidney disease, stage 5 Assessment/Plan This is a 52 year old gentleman with PMhx of Hypertension, Type 2 DM, HLD who presented with complains of left sided chest pain with some radiation to back/ flank and found to have hypertensive emergency and BUN/Cr of 33/6.3. Pt reports stopping all his meds including diuretics about 2 months ago. Has Bialteral edema of the LE. The patient has very poor insight about any of his medical problems. Says that he does not want any specific interventions done at this point. BP better controlled on the current regimen. Should be able to restart the Loop diuretics soon. If the patient agrees, starting dialysis is justified. Will follow with you. Thank you. Irma Rachel MD
--- NOTE | 2017-04-02 19:01 | CON.NEURO ---
Consult - Past Medical History Cardio/Vascular: Yes: HTN, Hyperlipdemia Renal/: Yes: Renal Inusuff Endocrine: Yes: Diabetes Mellitus - Alcohol/Substance Use Hx Alcohol Use: No (past) History of Substance Use: reports: None - Smoking History Smoking history: Former smoker Have you smoked in the past 12 months: No - Social History ADL: Independent Home Medications - Allergies Allergies/Adverse Reactions: Allergies Allergy/AdvReac Type Severity Reaction Status Date / Time No Known Allergies Allergy Verified 04/01/17 15:39 - Home Medications Home Medications: Ambulatory Orders NK [No Known Home Medication] 04/01/17 Physical Exam-Neuro Vital Signs: Vital Signs Temperature 97.8 F 04/02/17 15:50 Pulse Rate 78 04/02/17 15:50 Respiratory Rate 20 04/02/17 15:50 Blood Pressure 126/80 04/02/17 15:50 O2 Sat by Pulse Oximetry (%) 100 04/02/17 15:50 Labs: CBC, BMP 04/02/17 15:43 04/02/17 06:30 INR, PTT INR 0.95 (0.82-1.09) 04/01/17 14:50 Assessment/Plan cc right arm weakness and slurring of speech HPI 52 year old male history of htn, dm, hld , ckd came with very high blood pressure. He also had chest pain and shortness of breadth and his bp was in 200s. He was given labetalol and his blood pressure dropped to 110s and he developed right arm weakness and slurring of speech. Following that he had ct scan was unremarkable and medication were on hold and he is feeling better and weakness of arm got better. Patient was not given tpa as it was thouhgt to be related to low blood pressure. Past Medical History as above SH, ROS FH reviewed in chart Medication- procardia, lipitor, lasix, aspirin NKDA Neurological Examination BP 138/86 Alert oriented x 3, speech is dysarthric and able to follow command CN all intact, eomi, pupils is reactive and no face asymmetry right upper extreity is grade 5- lower extremity is normal strength ct head unremarkable Assessment- Right sided weakness and dysarthria due to cerebral ischemia due to sudden onset hypotension, since his bp medication were held and was given iv fluid his symptoms has improved. He was not given tpa , as pathophysilogy was thought to be due to hypotension. Spoke to ED attending and we concur with managment Plan-- MRI of brain - carotid ultrasound is unremarkable - hold antihypertensive mediation for 24 hour - speech, dvt prophylaxis, and pt - continue aspirin and statin Thanking you so much Jaspreet Katz MD
[2017-04-02] MEDS ORDERED: LORazepam 2 MG/ML SDV VIAL ONE (19:42)
[2017-04-02 20:40] LABS: ADD RBC MORPHOLOGY YES
[2017-04-02 20:41] LABS: ANISOCYTOSIS 2+; PLATELET ESTIMATE ADEQUATE
[2017-04-02] MEDS ORDERED: CHLORHEXIDINE GLUCONATE 4% CLEANSER FOR DECOLONIZATION TP SCH (22:00)
[2017-04-02] MEDS ORDERED: MUPIROCIN 2% TOPICAL OINTMENT FOR DECOLONIZATION NS SCH (22:00)
[2017-04-02] MEDS: ATORVASTATIN CA 20 MG TABLET (FP) PO SCH (22:28)
[2017-04-02] MEDS: MELATONIN 5 MG TABLETS PO PRN (23:18)
[2017-04-03] MEDS: INSULIN SLIDING SCALE (NOVOLOG) 1 VIAL SQ SCH ×4 (06:42→22:23)
[2017-04-03] MEDS: HEPARIN NA (PORCINE) 5,000 UNITS/ML 1ML VIAL SQ SCH ×3 (06:42→22:23)
[2017-04-03 07:51] LABS: PHOSPHOROUS 5.8 mg/dL (2.5-4.9); URIC ACID 6.5 mg/dL (2.6-7.2)
[2017-04-03 07:52] LABS: ALBUMIN 2.3 g/dl (3.4-5.0); ANION GAP 11 (8-16); BILIRUBIN,TOTAL 0.2 mg/dL (0.2-1.0); BLOOD UREA NITROGEN 33 mg/dL (7-18); CHLORIDE 108 mmol/L (98-107); CO2 24 mmol/L (21-32); CREATININE 6.3 mg/dL (0.7-1.3); GLUCOSE,RANDOM 142 mg/dL (74-106); POTASSIUM 3.5 mmol/L (3.5-5.1); SGOT/AST 8 U/L (15-37); SGPT/ALT 15 U/L (12-78); SODIUM 143 mmol/L (136-145); TOT PROT 5.1 g/dl (6.4-8.2)
[2017-04-03 07:57] LABS: ALK PHOS 75 U/L (45-117)
[2017-04-03 08:19] LABS: CALCIUM 6.6 mg/dL (8.5-10.1)
--- NOTE | 2017-04-03 09:31 | PN ---
Progress Note, Physician - Current Medication List Current Medications: Active Medications Aspirin (Ecotrin -) 81 mg PO DAILY [facility] Last Admin: 04/02/17 11:25 Dose: 81 mg Atorvastatin Calcium (Lipitor -) 20 mg PO HS [facility] Last Admin: 04/02/17 22:28 Dose: 20 mg Heparin Sodium (Porcine) (Heparin -) 5,000 unit SQ TID [facility] Last Admin: 04/03/17 06:42 Dose: 5,000 unit Insulin Aspart (Novolog Vial Sliding Scale -) 1 vial SQ ACHS [facility] PRN Reason: Protocol Last Admin: 04/03/17 06:42 Dose: 2 units Labetalol HCl (Normodyne -) 200 mg PO TID [facility] Last Admin: 04/02/17 13:20 Dose: 200 mg Melatonin (Melatonin) 5 mg PO HS PRN PRN Reason: INSOMNIA Last Admin: 04/02/17 23:18 Dose: 5 mg Nifedipine (Procardia Xl -) 60 mg PO DAILY [facility] Last Admin: 04/02/17 11:32 Dose: 60 mg - Objective Vital Signs: Vital Signs Temperature 98.2 F 04/03/17 09:00 Pulse Rate 74 04/03/17 09:00 Respiratory Rate 16 04/03/17 09:00 Blood Pressure 188/96 04/03/17 09:00 O2 Sat by Pulse Oximetry (%) 99 04/02/17 21:00 Labs: CBC, BMP 04/02/17 15:43 04/03/17 06:20 INR, PTT INR 0.95 (0.82-1.09) 04/01/17 14:50 Assessment/Plan - Problems (1) Hypertensive emergency Assessment/Plan: admited to tele still elevated will need to monitor closely appreciate cardiology evaluation restart labetolol 100 bid if ok with neuro Code(s): I16.1 - HYPERTENSIVE EMERGENCY (2) Anemia in chronic kidney disease (CKD) Assessment/Plan: iron quality assurance monitor final h/h Code(s): N18.9 - CHRONIC KIDNEY DISEASE, UNSPECIFIED; D63.1 - ANEMIA IN CHRONIC KIDNEY DISEASE Qualifiers: Chronic kidney disease stage: stage 5, not on chronic dialysis Qualified Code(s): N18.5 - Chronic kidney disease, stage 5; D63.1 - Anemia in chronic kidney disease; D63.1 - Anemia in chronic kidney disease (3) Chronic kidney disease (CKD) Assessment/Plan: renal evaluation renal sono Code(s): N18.9 - CHRONIC KIDNEY DISEASE, UNSPECIFIED Qualifiers: Chronic kidney disease stage: unspecified stage Qualified Code(s): N18.9 - Chronic kidney disease, unspecified (4) Hypocalcemia Assessment/Plan: got calcium 1gm renal on board corrected calcium 8.0 endo Code(s): E83.51 - HYPOCALCEMIA (5) Troponin level elevated Assessment/Plan: level noted monitoring ck and CKMB trending down Code(s): R74.8 - ABNORMAL LEVELS OF OTHER SERUM ENZYMES (6) Type 2 diabetes mellitus Assessment/Plan: sliding scale endo hgba1c noted Code(s): E11.9 - TYPE 2 DIABETES MELLITUS WITHOUT COMPLICATIONS Qualifiers: Diabetes mellitus complication status: with kidney complications Diabetes mellitus complication detail: with chronic kidney disease Diabetes mellitus fpc insulin use: without terminal operator use Chronic kidney disease stage: stage 5, not on chronic dialysis Qualified Code(s): E11.22 - Type 2 diabetes mellitus with diabetic chronic kidney disease; N18.5 - Chronic kidney disease, stage 5; N18.5 - Chronic kidney disease, stage 5; N18.5 - Chronic kidney disease , stage 5; N18.5 - Chronic kidney disease, stage 5 (7) CVA--Acute Assessment/Plan: on asa monitor bp neuro on board on statin
[2017-04-03] MEDS: ASPIRIN COATED 81 MG TABLET.EC PO SCH (09:47)
--- NOTE | 2017-04-03 10:04 | PN ---
Progress Note, Physician History of Present Illness: l Atypical left sided chest pain, right sided weakness and dysarthria resolved, BP elevated once again, reports bilateral lower extremity edema, requests diuresis. - Current Medication List Current Medications: Active Medications Aspirin (Ecotrin -) 81 mg PO DAILY [facility] Last Admin: 04/03/17 09:47 Dose: 81 mg Atorvastatin Calcium (Lipitor -) 20 mg PO HS [facility] Last Admin: 04/02/17 22:28 Dose: 20 mg Heparin Sodium (Porcine) (Heparin -) 5,000 unit SQ TID [facility] Last Admin: 04/03/17 06:42 Dose: 5,000 unit Insulin Aspart (Novolog Vial Sliding Scale -) 1 vial SQ ACHS [facility] PRN Reason: Protocol Last Admin: 04/03/17 06:42 Dose: 2 units Labetalol HCl (Normodyne -) 100 mg PO BID [facility] Melatonin (Melatonin) 5 mg PO HS PRN PRN Reason: INSOMNIA Last Admin: 04/02/17 23:18 Dose: 5 mg - Objective Vital Signs: Vital Signs Temperature 98.2 F 04/03/17 09:00 Pulse Rate 74 04/03/17 09:00 Respiratory Rate 16 04/03/17 09:00 Blood Pressure 188/96 04/03/17 09:00 O2 Sat by Pulse Oximetry (%) 99 04/02/17 21:00 Constitutional: Yes: No Distress, Calm Neck: Yes: Supple Cardiovascular: Yes: Regular Rate and Rhythm Respiratory: Yes: Regular, Diminished Gastrointestinal: Yes: Normal Bowel Sounds, Soft Edema: Yes Edema: LLE: 2+, RLE: 2+ Labs: CBC, BMP 04/02/17 15:43 04/03/17 06:20 INR, PTT INR 0.95 (0.82-1.09) 04/01/17 14:50 - ....Imaging Ultrasound: Report Reviewed (No sig stenosis) MRI: Report Reviewed (04/02/2017 Small acute left thalamic and right globus pallidus infarcts) EKG: Report Reviewed (Tele: SR w/o PAF) Problem List - Problems (1) Demand ischemia Code(s): I24.8 - OTHER FORMS OF ACUTE ISCHEMIC HEART DISEASE (2) Hyperlipidemia associated with type 2 diabetes mellitus Code(s): E11.69 - TYPE 2 DIABETES MELLITUS WITH OTHER SPECIFIED COMPLICATION; E78.5 - HYPERLIPIDEMIA, UNSPECIFIED (3) Type 2 diabetes mellitus Code(s): E11.9 - TYPE 2 DIABETES MELLITUS WITHOUT COMPLICATIONS Qualifiers: Diabetes mellitus complication status: with kidney complications Diabetes mellitus complication detail: with chronic kidney disease Diabetes mellitus group home insulin use: without group home use Chronic kidney disease stage: stage 5, not on chronic dialysis Qualified Code(s): E11.22 - Type 2 diabetes mellitus with diabetic chronic kidney disease; N18.5 - Chronic kidney disease, stage 5; N18.5 - Chronic kidney disease, stage 5; N18.5 - Chronic kidney disease , stage 5; N18.5 - Chronic kidney disease, stage 5 (4) Chest pain Code(s): R07.9 - CHEST PAIN, UNSPECIFIED Qualifiers: Chest pain type: chest pain on breathing Qualified Code(s): R07.1 - Chest pain on breathing; R07.81 - Pleurodynia (5) Chronic kidney disease (CKD) Code(s): N18.9 - CHRONIC KIDNEY DISEASE, UNSPECIFIED Qualifiers: Chronic kidney disease stage: unspecified stage Qualified Code(s): N18.9 - Chronic kidney disease, unspecified (6) Hypertensive emergency Code(s): I16.1 - HYPERTENSIVE EMERGENCY (7) Troponin level elevated Code(s): R74.8 - ABNORMAL LEVELS OF OTHER SERUM ENZYMES (8) Anemia in chronic kidney disease (CKD) Code(s): N18.9 - CHRONIC KIDNEY DISEASE, UNSPECIFIED; D63.1 - ANEMIA IN CHRONIC KIDNEY DISEASE Qualifiers: Chronic kidney disease stage: stage 5, not on chronic dialysis Qualified Code(s): N18.5 - Chronic kidney disease, stage 5; D63.1 - Anemia in chronic kidney disease; D63.1 - Anemia in chronic kidney disease (9) Cerebrovascular small vessel disease Code(s): I67.9 - CEREBROVASCULAR DISEASE, UNSPECIFIED Assessment/Plan 04/02/2017 Echo: severe cLVH, normal biventricular size and fxn, mild MR, TR 1. Cerebral ischemia and hypoperfusion due to hemodynamic alterations since resolved 2. Chest pain syndrome 2. Hypertensive urgency 3. Acute on CKD 4. Medication noncompliance 5. Type 2 DM, poorly controlled 6. Hyperlipidemia 7. Demand ischemia 8. Anemia of CKD P: 1. Resumed labetolol 100 bid, ASA 81 qd, Lipitor 20 qhs with judicious uptitration as tolerated 2. Diuretics per renal input 3. Given multiple cardiac risk factors, MPI once clinically stable r/o ischemia 4. DVT prophylaxis
[2017-04-03] MEDS: LABETALOL HCL 100 MG TABLET (FP) PO SCH ×3 (10:53→22:23)
[2017-04-03] MEDS: FUROSEMIDE 40 MG TABLET (FP) PO SCH (11:00)
[2017-04-03] MEDS ORDERED: INSULIN (NOVOLOG) ASPART 100 UNITS/ML 10ML VIAL ONE (11:37)
--- NOTE | 2017-04-03 12:16 | CONSULT ---
Admitting History and Physical - Primary Care Physician PCP: Ramu Gatica - Admission History Source: Patient, Medical Record Limitations to Obtaining History: No Limitations - Past Medical History Cardiovascular: Yes: HTN, Hyperlipdemia Renal/: Yes: Renal Inusuff Endocrine: Yes: Diabetes Mellitus - Smoking History Smoking history: Former smoker Have you smoked in the past 12 months: No - Alcohol/Substance Use Hx Alcohol Use: No (past) History of Substance Use: reports: None - Social History ADL: Independent History - Admission Reason For Visit: HYPERTENSIVE EMERGENCY; CHF; CKD; HYPOCALEMIA - Diagnostics X-ray: Report Reviewed CT Scan: Report Reviewed MRI: Report Reviewed - General Mental Status: Alert and Oriented, Awake and Alert, Able to Follow Commands Attention: Intact Ability to Follow Directions: Good Head/Neck Control: WFL - Hearing Hearing: Normal Speech Evaluation - Communication Primary Language: FAROESE Communication: Yes: Dysarthria Oral Expression Ability: Yes: Mild Impairment (Speech production improving.) - Speech Production Able to Make Needs Known: Yes: Mildly Impaired Intelligibility: Yes: Mildly Impaired - Speech Characteristics Voice Loudness: Normal Voice Pitch: Yes: Normal Voice Phonatory-based Quality: Yes: Normal Speech Clarity: < 75% Nasal Resonance: Normal Articulation: Yes: Imprecise (edentulous. May be close to baseline, per pt. Rapid, imprecise articulation.No clear evidence of articulatory weakness or assymetry.) Rate of Speech: Too Fast - Language/Auditory Comprehension Follows: Yes: 1 Stage Simple Commands - Language/Verbal Expression Able to Respond to Simple Queries: Yes: WNL Able to Communicate Wants and Needs: Yes: WNL Functional Communication Status: Yes: WNL Attention: Yes: Intact - Memory/Perception CH[facility] Memory: Yes: WNL Short Term Memory: Yes: WNL - Swallow Evaluation/Bedside Assessment Current Nutritional Intake: Regular, Thin Liquids Oral Secretions: Yes: WFL Dentition: Yes: Edentulous Facial Symmetry at Rest: Symmetrical Facial Symmetry on Retraction: Symmetrical Facial Movement: Controlled Against Resistance Opening: Normal Against Resistance Closing: Normal Pucker Lips: Normal Smile: Normal Lingual Movement: Normal, Symmetric Lingual Speed of Movement: Normal Lingual Movement Strgth Against Opposition: Normal Lingual Movement Characteristics: Normal Velopharyngeal Movement: Normal Laryngeal Elevation: WFL Laryngeal Movement: Able to Palpate Rate of Intake: WFL Bolus Size: WFL Labial Seal: WFL Chewing: WFL (suspected at baseline.) Oral Prep Time: WFL A-P Transit: WFL Pocketing: None Timing of Swallow: WFL Coughing/Throat Clear: No Change in Voice: No Recommendations - Speech Evaluation, Impression/Plan Impression: Acute BG infarct. M/V changes.Pt is edentulous.Mild dysarthria, improving spontaneously. Speech may be close to baseline, per pt. Rapid, imprecise articulation.No clear evidence of articulatory weakness or assymetry. Swallowing overtly intact. - Dysphagia Impressions/Plan Dysphagia Impressions: Minimal Impairment *Silent aspiration: cannot be R/O at bedside Recommendations: Other (OPD speech therapy if determined persistent dysarthria.) - Recommendations Diet Consistency: Regular (soft) Medication Administration: Whole with water Liquids: Thin Liquids
--- NOTE | 2017-04-03 12:58 | PN ---
Progress Note (short form) - Note Progress Note: Renal Follow up for BRITT/CKD with hypertensive emergency Pt seen and examined at the bedside reports feeling better no sob, chest pain, abd pain, N/V making urine Vital Signs Temperature 98.2 F 04/03/17 09:00 Pulse Rate 74 04/03/17 09:00 Respiratory Rate 16 04/03/17 09:00 Blood Pressure 188/96 04/03/17 09:00 O2 Sat by Pulse Oximetry (%) 99 04/02/17 21:00 NAD awake and alert RRR CTA 2+ LE edmea no clubbing or cyanosis CBC, BMP 04/02/17 15:43 04/03/17 06:20 Current Medications Aspirin (Ecotrin -) 81 mg PO DAILY [facility] Last Admin: 04/03/17 09:47 Dose: 81 mg Atorvastatin Calcium (Lipitor -) 20 mg PO HS [facility] Last Admin: 04/02/17 22:28 Dose: 20 mg Furosemide (Lasix -) 80 mg PO DAILY [facility] Last Admin: 04/03/17 11:00 Dose: 80 mg Heparin Sodium (Porcine) (Heparin -) 5,000 unit SQ TID [facility] Last Admin: 04/03/17 06:42 Dose: 5,000 unit Insulin Aspart (Novolog Vial Sliding Scale -) 1 vial SQ ACHS [facility] PRN Reason: Protocol Last Admin: 04/03/17 11:48 Dose: 4 units Labetalol HCl (Normodyne -) 100 mg PO BID [facility] Last Admin: 04/03/17 10:53 Dose: 100 mg Melatonin (Melatonin) 5 mg PO HS PRN PRN Reason: INSOMNIA Last Admin: 04/02/17 23:18 Dose: 5 mg 52 year old gentleman with PMhx of Hypertension, DM, HLD who presented with complains of left sided chest pain with some radiation to back/flank and found to have hypertensive emergency and BUN/Cr of 33/6.3 #Hypertensive Emergency BP improved on oral meds continue Labetalol and titrate dose to obtain goal BP of < 140/90 start Lasix 80mg PO Daily #Britt vs. CKD Renal function unchanged thus far as inpatient US showed preserved kidney size urine studies are pending likely has underlying CKD due to diabetic nephropathy check JORDAN, HIV, Hepatitis, SPEP to r/o other etiologies fo CKD with preserved kidney size no acute indication for dialysis at this time but pt will likely warrent dialysis in the near future if there is no significant improvement in kidney function Severino Sanchez DO
--- NOTE | 2017-04-03 13:10 | PN ---
Progress Note (short form) - Note Progress Note: PULMONARY CONSULTATION DICTATED 04/03/17 IMP HYPERTENSIVE EMERGENCY CHEST PAIN SYNDROME + TROPONINS CEREBRAL ISCGEMIA DM MEDISTIONAL ADENOPATHY ?INFLAMMATORY,? SARCOID,MALIGNANT OSAS NOT ON CPAP CKD PLAN TITRATE BP MEDS PER CARDIOLOGY MONITOR LYTES,RENAL FUNCTION,BLOOD SUGARS MONITOR BP SLEEP STUDIES OUTPATIENT F/U CHEST CT OUTPATIENT DR LUCAS Problem List - Problems (1) Mediastinal adenopathy Code(s): R59.0 - LOCALIZED ENLARGED LYMPH NODES (2) Anemia in chronic kidney disease (CKD) Code(s): N18.9 - CHRONIC KIDNEY DISEASE, UNSPECIFIED; D63.1 - ANEMIA IN CHRONIC KIDNEY DISEASE Qualifiers: Chronic kidney disease stage: stage 5, not on chronic dialysis Qualified Code(s): N18.5 - Chronic kidney disease, stage 5; D63.1 - Anemia in chronic kidney disease; D63.1 - Anemia in chronic kidney disease (3) Chest pain Code(s): R07.9 - CHEST PAIN, UNSPECIFIED Qualifiers: Chest pain type: chest pain on breathing Qualified Code(s): R07.1 - Chest pain on breathing; R07.81 - Pleurodynia (4) Chronic kidney disease (CKD) Code(s): N18.9 - CHRONIC KIDNEY DISEASE, UNSPECIFIED Qualifiers: Chronic kidney disease stage: unspecified stage Qualified Code(s): N18.9 - Chronic kidney disease, unspecified (5) Demand ischemia Code(s): I24.8 - OTHER FORMS OF ACUTE ISCHEMIC HEART DISEASE (6) Hyperlipidemia associated with type 2 diabetes mellitus Code(s): E11.69 - TYPE 2 DIABETES MELLITUS WITH OTHER SPECIFIED COMPLICATION; E78.5 - HYPERLIPIDEMIA, UNSPECIFIED (7) Hypertensive emergency Code(s): I16.1 - HYPERTENSIVE EMERGENCY (8) Troponin level elevated Code(s): R74.8 - ABNORMAL LEVELS OF OTHER SERUM ENZYMES
--- NOTE | 2017-04-03 13:45 | CONS ---
DATE OF CONSULTATION: 04/03/2017 REFERRING PHYSICIAN: Kassie Costello MD The patient is a 52-year-old black male with a past medical history of hypertension, hyperlipidemia, type 2 diabetes, obstructive sleep apnea, not on CPAP, admitted to [facility] with complaint of atypical left-sided chest pain associated with lying down and lying on the left side. He also complained of shortness of breath with occasional increasing with deep breaths. He denied any fevers, chills, nausea, vomiting. In the emergency room the patient was found to be markedly hypertensive on admission with a blood pressure of 217/123. At the time he was started on labetalol with good clinical response. He denied any visual problems or headaches at the time. He was admitted to the floor for further management. The patient underwent a CT scan of the chest which revealed evidence of mediastinal adenopathy of indeterminate etiology. Patient denies a history of COPD or asthma in the past, denies any history of occupational exposures, and he is a nonsmoker. HOSPITALIZATIONS: He was also evaluated by Dr. Acuña for cardiology consultation as well as Dr. Rachel for renal consultation. PAST MEDICAL HISTORY: Includes hypertension; obstructive sleep apnea, not on CPAP; hyperlipidemia, type 2 diabetes mellitus, chronic kidney disease. SOCIAL HISTORY: Nonsmoker, history of no occupational exposures. CURRENT MEDICATIONS: Include , Lipitor, NovoLog, Lasix, Ecotrin, and melatonin. REVIEW OF SYSTEMS: No orthopnea, no PND, no chest pain, no palpitation, no shortness of breath, no cough, no hemoptysis, no abdominal pain. PHYSICAL EXAMINATION: General: The patient is a well-developed, well-nourished male, awake, alert, in no acute distress. Vital Signs: He is currently afebrile. Blood pressure 188/96, respiratory rate 16, O2 saturation 99% on room air. HEENT: His head is normocephalic, atraumatic. Neck: Supple. Heart: Regular with S1, S2. Chest: Clear. Abdomen: Soft. Bowel sounds positive. Extremities: No cyanosis or edema. LABORATORY: WBC 7.4, hemoglobin 10.6, hematocrit 34.2, with a platelet count of 253,000. INR is 1.95, D-dimer 827, BUN 33, creatinine 6.3. Troponin is 0.08. Chest CT again as noted. There is evidence of mediastinal adenopathy. No masses are appreciated. There is a small cluster of noncalcified nodular opacities of the apex, 3 mm. IMPRESSION: 1. Hypertensive emergency. 2. Positive troponins. 3. Obstructive sleep apnea, not on continuous positive airway pressure. 4. Mediastinal adenopathy, etiology to be determined, inflammatory, possible sarcoid, or possible malignancy. 5. Chronic kidney disease. 6. Positive troponins. 7. Diabetes mellitus, poorly controlled. PLAN: 1. BP control as per cardiology. 2. Monitor kidney function. 3. Monitor troponins. 4. Get a followup sleep study as outpatient. 5. DVT prophylaxis. 6. Monitor blood sugars. Thank you. Will follow closely with you. GENARO LUCAS M.D. [id number]
--- NOTE | 2017-04-03 14:16 | EKG ---
Test Reason : Blood Pressure : / mmHG Vent. Rate : 079 BPM Atrial Rate : 079 BPM P-R Int : 136 ms QRS Dur : 104 ms QT Int : 448 ms P-R-T Axes : 055 -07 172 degrees QTc Int : 513 ms NORMAL SINUS RHYTHM T WAVE ABNORMALITY, CONSIDER INFEROLATERAL ISCHEMIA PROLONGED QT ABNORMAL ECG WHEN COMPARED WITH ECG OF 01-APR-2017 14:11, NO SIGNIFICANT CHANGE WAS FOUND Confirmed by SONIA CARMONA MD ([id number]) on 04/03/2017 2:16:03 PM Referred By: Confirmed By:SONIA CARMONA MD
--- NOTE | 2017-04-03 17:04 | PN ---
Progress Note (short form) - Note Progress Note: 52 year old male history of htn, dm, hld , ckd came with very high blood pressure. He also had chest pain and shortness of breadth and his bp was in 200s. He was given labetalol and his blood pressure dropped to 110s and he developed right arm weakness and slurring of speech. Following that he had ct scan was unremarkable and medication were on hold and he is feeling better and weakness of arm got better. Patient was not given tpa as it was thouhgt to be related to low blood pressure. mri of brain showed left basal ganglia stroke, now symptoms are resolved and his speech is normal and arm is normal Neurological Examination BP 166/88 Alert oriented x 3, speech is back to normal CN all intact, eomi, pupils is reactive and no face asymmetry right upper extremity is back to normal lower extremity is normal strength ct head unremarkable carotid ultrasound was normal mri showed left sided basal ganglia ischemic lesion Assessment- Right sided weakness and dysarthria due to cerebral ischemia due to sudden onset hypotension, s symptoms resolved and mri of brain reviewed there is no carotid stenosis Plan-- MRI of brain - now symptoms resolved and bp medication can be resumed - continue aspirin and statin Thanking you so much Jaspreet Katz MD
[2017-04-03 17:09] LABS: BASO % 0.8 % (0-2.0); EOS % 3.1 % (0-4.5); HEMATOCRIT 30.2 % (35.4-49); HEMOGLOBIN 9.5 GM/dL (11.7-16.9); LYMPH % 27.6 % (8-40); MCH 21.2 pg (25.7-33.7); MCHC 31.4 g/dl (32.0-35.9); MEAN CELL VOLUME 67.6 fl (80-96); MEAN PLT VOLUME 9.8 fl (7.5-11.1); MONO % 4.9 % (3.8-10.2); NEUT % 63.6 % (42.8-82.8); PLATELET COUNT 235 K/MM3 (134-434); RBC 4.47 M/mm3 (4.00-5.60); RDW 17.6 % (11.9-15.9); WHITE BLOOD COUNT 6.9 K/mm3 (4.0-10.0)
[2017-04-03 19:52] LABS: URINE APPEARANCE CLEAR; URINE BILIRUBIN NEGATIVE (NEGATIVE); URINE BLOOD NEGATIVE (NEGATIVE); URINE COLOR COLORLESS; URINE GLUCOSE (UA) 2+ (NEGATIVE); URINE KETONE NEGATIVE (NEGATIVE); URINE LEUK ESTERASE NEGATIVE (NEGATIVE); URINE NITRITE NEGATIVE (NEGATIVE); URINE UROBILINOGEN NEGATIVE mg/dL (0.2-1.0)
[2017-04-03 19:58] LABS: URINE PROTEIN 3+ (NEGATIVE)
[2017-04-03 20:00] LABS: EPI CELLS RARE /HPF (FEW); URINE MUCUS RARE
[2017-04-03 20:36] LABS: URINE CREATININE 48.8 mg/dL (20-370)
[2017-04-03] MEDS ORDERED: PT OWN MED DRAWER 7, Y5N ONE (22:21)
[2017-04-03] MEDS: ATORVASTATIN CA 20 MG TABLET (FP) PO SCH (22:23)
[2017-04-03] MEDS: MELATONIN 5 MG TABLETS PO PRN (23:00)
[2017-04-04 06:07] LABS: HBsAG SCREEN Negative (Negative); SERUM IRON SATURATION 10 % (15-55); TOTAL IRON BINDING CAPACITY 253 ug/dL (250-450); UIBC 227 ug/dL (111-343)
[2017-04-04 06:40] LABS: BASO % 0.7 % (0-2.0); EOS % 2.7 % (0-4.5); HEMATOCRIT 31.9 % (35.4-49); HEMOGLOBIN 10.1 GM/dL (11.7-16.9); LYMPH % 27.3 % (8-40); MCH 21.3 pg (25.7-33.7); MCHC 31.5 g/dl (32.0-35.9); MEAN CELL VOLUME 67.6 fl (80-96); MEAN PLT VOLUME 10.2 fl (7.5-11.1); MONO % 4.8 % (3.8-10.2); NEUT % 64.5 % (42.8-82.8); PLATELET COUNT 263 K/MM3 (134-434); RBC 4.72 M/mm3 (4.00-5.60); RDW 17.6 % (11.9-15.9); WHITE BLOOD COUNT 6.7 K/mm3 (4.0-10.0)
[2017-04-04 07:03] LABS: CHLORIDE 108 mmol/L (98-107); POTASSIUM 3.8 mmol/L (3.5-5.1); SODIUM 143 mmol/L (136-145)
[2017-04-04] MEDS: HEPARIN NA (PORCINE) 5,000 UNITS/ML 1ML VIAL SQ SCH ×3 (07:03→21:58)
[2017-04-04] MEDS: INSULIN SLIDING SCALE (NOVOLOG) 1 VIAL SQ SCH ×4 (07:03→21:58)
[2017-04-04 07:15] LABS: ALBUMIN 2.3 g/dl (3.4-5.0); ALK PHOS 73 U/L (45-117); ANION GAP 7 (8-16); BILIRUBIN,TOTAL 0.3 mg/dL (0.2-1.0); BLOOD UREA NITROGEN 33 mg/dL (7-18); CO2 28 mmol/L (21-32); CREATININE 6.6 mg/dL (0.7-1.3); GLUCOSE,RANDOM 147 mg/dL (74-106); MAGNESIUM 1.9 mg/dL (1.8-2.4); PHOSPHOROUS 6.1 mg/dL (2.5-4.9); SGOT/AST 6 U/L (15-37); SGPT/ALT 14 U/L (12-78); TOT PROT 5.2 g/dl (6.4-8.2)
[2017-04-04 07:33] LABS: CALCIUM 6.9 mg/dL (8.5-10.1)
[2017-04-04] MEDS: LABETALOL HCL 100 MG TABLET (FP) PO SCH (08:45)
[2017-04-04] MEDS: ASPIRIN COATED 81 MG TABLET.EC PO SCH (09:51)
[2017-04-04] MEDS: FUROSEMIDE 40 MG TABLET (FP) PO SCH (09:51)
--- NOTE | 2017-04-04 10:14 | PN ---
Progress Note, Physician History of Present Illness: PULMONARY ALERT,FEELING BETTER,-CP,-SOB,-HEADACHE - Current Medication List Current Medications: Active Medications Aspirin (Ecotrin -) 81 mg PO DAILY [facility] Last Admin: 04/04/17 09:51 Dose: 81 mg Atorvastatin Calcium (Lipitor -) 20 mg PO HS [facility] Last Admin: 04/03/17 22:23 Dose: 20 mg Furosemide (Lasix -) 80 mg PO DAILY [facility] Last Admin: 04/04/17 09:51 Dose: 80 mg Heparin Sodium (Porcine) (Heparin -) 5,000 unit SQ TID [facility] Last Admin: 04/04/17 07:03 Dose: 5,000 unit Insulin Aspart (Novolog Vial Sliding Scale -) 1 vial SQ ACHS [facility] PRN Reason: Protocol Last Admin: 04/04/17 07:03 Dose: Not Given Labetalol HCl (Normodyne -) 200 mg PO BID [facility] Melatonin (Melatonin) 5 mg PO HS PRN PRN Reason: INSOMNIA Last Admin: 04/03/17 23:00 Dose: 5 mg - Objective Vital Signs: Vital Signs Temperature 98.2 F 04/04/17 08:20 Pulse Rate 74 04/04/17 08:20 Respiratory Rate 16 04/04/17 08:20 Blood Pressure 184/90 04/04/17 08:20 O2 Sat by Pulse Oximetry (%) 99 04/03/17 09:00 Constitutional: Yes: Well Nourished, Calm Eyes: Yes: WNL HENT: Yes: WNL Neck: Yes: WNL Cardiovascular: Yes: Regular Rate and Rhythm, S1, S2 Respiratory: Yes: CTA Bilaterally Gastrointestinal: Yes: Normal Bowel Sounds, Soft Extremities: Yes: WNL Edema: No Labs: CBC, BMP 04/04/17 05:05 04/04/17 05:05 INR, PTT INR 0.95 (0.82-1.09) 04/01/17 14:50 Problem List - Problems (1) Mediastinal adenopathy Code(s): R59.0 - LOCALIZED ENLARGED LYMPH NODES (2) Anemia in chronic kidney disease (CKD) Code(s): N18.9 - CHRONIC KIDNEY DISEASE, UNSPECIFIED; D63.1 - ANEMIA IN CHRONIC KIDNEY DISEASE Qualifiers: Chronic kidney disease stage: stage 5, not on chronic dialysis Qualified Code(s): N18.5 - Chronic kidney disease, stage 5; D63.1 - Anemia in chronic kidney disease; D63.1 - Anemia in chronic kidney disease (3) Chest pain Code(s): R07.9 - CHEST PAIN, UNSPECIFIED Qualifiers: Chest pain type: chest pain on breathing Qualified Code(s): R07.1 - Chest pain on breathing; R07.81 - Pleurodynia (4) Chronic kidney disease (CKD) Code(s): N18.9 - CHRONIC KIDNEY DISEASE, UNSPECIFIED Qualifiers: Chronic kidney disease stage: unspecified stage Qualified Code(s): N18.9 - Chronic kidney disease, unspecified (5) Demand ischemia Code(s): I24.8 - OTHER FORMS OF ACUTE ISCHEMIC HEART DISEASE (6) Hyperlipidemia associated with type 2 diabetes mellitus Code(s): E11.69 - TYPE 2 DIABETES MELLITUS WITH OTHER SPECIFIED COMPLICATION; E78.5 - HYPERLIPIDEMIA, UNSPECIFIED (7) Hypertensive emergency Code(s): I16.1 - HYPERTENSIVE EMERGENCY (8) Troponin level elevated Code(s): R74.8 - ABNORMAL LEVELS OF OTHER SERUM ENZYMES Assessment/Plan IMP HYPERTENSIVE EMERGENCY CHEST PAIN SYNDROME + TROPONINS CEREBRAL ISCGEMIA DM MEDISTIONAL ADENOPATHY ?INFLAMMATORY,? SARCOID,MALIGNANT OSAS NOT ON CPAP CKD PLAN TITRATE BP MEDS PER CARDIOLOGY MONITOR LYTES,RENAL FUNCTION,BLOOD SUGARS MONITOR BP SLEEP STUDIES OUTPATIENT SLEEP SCREEM ONIGHT F/U CHEST CT OUTPATIENT DR LUCAS Problem List - Problems (1) Mediastinal adenopathy Code(s): R59.0 - LOCALIZED ENLARGED LYMPH NODES (2) Anemia in chronic kidney disease (CKD) Code(s): N18.9 - CHRONIC KIDNEY DISEASE, UNSPECIFIED; D63.1 - ANEMIA IN CHRONIC KIDNEY DISEASE Qualifiers: Chronic kidney disease stage: stage 5, not on chronic dialysis Qualified Code(s): N18.5 - Chronic kidney disease, stage 5; D63.1 - Anemia in chronic kidney disease; D63.1 - Anemia in chronic kidney disease (3) Chest pain Code(s): R07.9 - CHEST PAIN, UNSPECIFIED Qualifiers: Chest pain type: chest pain on breathing Qualified Code(s): R07.1 - Chest pain on breathing; R07.81 - Pleurodynia (4) Chronic kidney disease (CKD) Code(s): N18.9 - CHRONIC KIDNEY DISEASE, UNSPECIFIED Qualifiers: Chronic kidney disease stage: unspecified stage Qualified Code(s): N18.9 - Chronic kidney disease, unspecified (5) Demand ischemia Code(s): I24.8 - OTHER FORMS OF ACUTE ISCHEMIC HEART DISEASE (6) Hyperlipidemia associated with type 2 diabetes mellitus Code(s): E11.69 - TYPE 2 DIABETES MELLITUS WITH OTHER SPECIFIED COMPLICATION; E78.5 - HYPERLIPIDEMIA, UNSPECIFIED (7) Hypertensive emergency Code(s): I16.1 - HYPERTENSIVE EMERGENCY (8) Troponin level elevated Code(s): R74.8 - ABNORMAL LEVELS OF OTHER SERUM ENZYMES
--- NOTE | 2017-04-04 11:26 | PN ---
Progress Note, Physician Chief Complaint: The patient seen in Telemetry. Comfortable. BP tends to run high. Denies any chest pain, shortness of breath. No urinary complaints. - Current Medication List Current Medications: Active Medications Aspirin (Ecotrin -) 81 mg PO DAILY [facility] Last Admin: 04/04/17 09:51 Dose: 81 mg Atorvastatin Calcium (Lipitor -) 20 mg PO HS [facility] Last Admin: 04/03/17 22:23 Dose: 20 mg Furosemide (Lasix -) 80 mg PO DAILY [facility] Last Admin: 04/04/17 09:51 Dose: 80 mg Heparin Sodium (Porcine) (Heparin -) 5,000 unit SQ TID [facility] Last Admin: 04/04/17 07:03 Dose: 5,000 unit Insulin Aspart (Novolog Vial Sliding Scale -) 1 vial SQ ACHS [facility] PRN Reason: Protocol Last Admin: 04/04/17 07:03 Dose: Not Given Labetalol HCl (Normodyne -) 200 mg PO BID [facility] Melatonin (Melatonin) 5 mg PO HS PRN PRN Reason: INSOMNIA Last Admin: 04/03/17 23:00 Dose: 5 mg Nifedipine (Procardia Xl -) 30 mg PO DAILY [facility] - Objective Vital Signs: Vital Signs Temperature 98.2 F 04/04/17 08:20 Pulse Rate 74 04/04/17 08:20 Respiratory Rate 16 04/04/17 08:20 Blood Pressure 184/90 04/04/17 08:20 O2 Sat by Pulse Oximetry (%) 99 04/03/17 09:00 Constitutional: Yes: Calm HENT: Yes: Atraumatic Neck: Yes: Trachea Midline Cardiovascular: Yes: S1, S2 Respiratory: Yes: CTA Bilaterally, Diminished Gastrointestinal: Yes: Normal Bowel Sounds, Soft Genitourinary: No: CVA Tenderness - Left, CVA Tenderness - Right, Hematuria Musculoskeletal: Yes: Back Pain Edema: Yes Edema: LLE: 2+, RLE: 2+ Labs: CBC, BMP 04/04/17 05:05 04/04/17 05:05 INR, PTT INR 0.95 (0.82-1.09) 04/01/17 14:50 Problem List - Problems (1) Stage 4 chronic kidney disease Code(s): N18.4 - CHRONIC KIDNEY DISEASE, STAGE 4 (SEVERE) (2) Anemia in chronic kidney disease (CKD) Code(s): N18.9 - CHRONIC KIDNEY DISEASE, UNSPECIFIED; D63.1 - ANEMIA IN CHRONIC KIDNEY DISEASE Qualifiers: Chronic kidney disease stage: stage 5, not on chronic dialysis Qualified Code(s): N18.5 - Chronic kidney disease, stage 5; D63.1 - Anemia in chronic kidney disease; D63.1 - Anemia in chronic kidney disease (3) CHF (congestive heart failure) Code(s): I50.9 - HEART FAILURE, UNSPECIFIED Qualifiers: Congestive heart failure type: unspecified Congestive heart failure chronicity: unspecified Qualified Code(s): I50.9 - Heart failure, unspecified (4) Chronic kidney disease (CKD) Code(s): N18.9 - CHRONIC KIDNEY DISEASE, UNSPECIFIED Qualifiers: Chronic kidney disease stage: unspecified stage Qualified Code(s): N18.9 - Chronic kidney disease, unspecified (5) Hypocalcemia Code(s): E83.51 - HYPOCALCEMIA (6) Type 2 diabetes mellitus Code(s): E11.9 - TYPE 2 DIABETES MELLITUS WITHOUT COMPLICATIONS Qualifiers: Diabetes mellitus complication status: with kidney complications Diabetes mellitus complication detail: with chronic kidney disease Diabetes mellitus longterm insulin use: without termite exterminator use Chronic kidney disease stage: stage 5, not on chronic dialysis Qualified Code(s): E11.22 - Type 2 diabetes mellitus with diabetic chronic kidney disease; N18.5 - Chronic kidney disease, stage 5; N18.5 - Chronic kidney disease, stage 5; N18.5 - Chronic kidney disease , stage 5; N18.5 - Chronic kidney disease, stage 5 Assessment/Plan This is a 52 year old gentleman with PMhx of Hypertension, Type 2 DM, HLD who presented with complains of left sided chest pain with some radiation to back/ flank and found to have hypertensive emergency and BUN/Cr of 33/6.3. The patient was taking no medications on admission. The patient has very poor insight about any of his medical problems. BP remains suboptimally controlled. On Lasix 80 mg daily. Will add Procardia XL, and titrate the dose. 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 Will follow with you. Thank you. Irma Rachel MD
[2017-04-04] MEDS: NIFEdipine E.R. 30 MG TABLET (FP) PO SCH (11:46)
--- NOTE | 2017-04-04 13:19 | PN ---
Progress Note, Physician - Current Medication List Current Medications: Active Medications Aspirin (Ecotrin -) 81 mg PO DAILY [facility] Last Admin: 04/04/17 09:51 Dose: 81 mg Atorvastatin Calcium (Lipitor -) 20 mg PO HS [facility] Last Admin: 04/03/17 22:23 Dose: 20 mg Furosemide (Lasix -) 80 mg PO DAILY [facility] Last Admin: 04/04/17 09:51 Dose: 80 mg Heparin Sodium (Porcine) (Heparin -) 5,000 unit SQ TID [facility] Last Admin: 04/04/17 07:03 Dose: 5,000 unit Insulin Aspart (Novolog Vial Sliding Scale -) 1 vial SQ ACHS [facility] PRN Reason: Protocol Last Admin: 04/04/17 11:46 Dose: 2 units Labetalol HCl (Normodyne -) 200 mg PO BID [facility] Melatonin (Melatonin) 5 mg PO HS PRN PRN Reason: INSOMNIA Last Admin: 04/03/17 23:00 Dose: 5 mg Nifedipine (Procardia Xl -) 30 mg PO DAILY [facility] Last Admin: 04/04/17 11:46 Dose: 30 mg - Objective Vital Signs: Vital Signs Temperature 98.2 F 04/04/17 08:20 Pulse Rate 74 04/04/17 08:20 Respiratory Rate 16 04/04/17 09:00 Blood Pressure 184/90 04/04/17 08:20 O2 Sat by Pulse Oximetry (%) 99 04/04/17 09:00 Cardiovascular: Yes: S1, S2 Respiratory: Yes: Regular, CTA Bilaterally Gastrointestinal: Yes: Normal Bowel Sounds, Soft Edema: No Labs: CBC, BMP 04/04/17 05:05 04/04/17 05:05 INR, PTT INR 0.95 (0.82-1.09) 04/01/17 14:50 Assessment/Plan - Problems (1) Hypertensive emergency Assessment/Plan: admitted to [facility] still elevated will need to monitor closely appreciate cardiology evaluation restart labetolol 100 bid if ok with neuro Code(s): I16.1 - HYPERTENSIVE EMERGENCY (2) Anemia in chronic kidney disease (CKD) 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 Code(s): N18.9 - CHRONIC KIDNEY DISEASE, UNSPECIFIED; D63.1 - ANEMIA IN CHRONIC KIDNEY DISEASE Qualifiers: Chronic kidney disease stage: stage 5, not on chronic dialysis Qualified Code(s): N18.5 - Chronic kidney disease, stage 5; D63.1 - Anemia in chronic kidney disease; D63.1 - Anemia in chronic kidney disease (3) Chronic kidney disease (CKD) Assessment/Plan: renal evaluation renal sono Code(s): N18.9 - CHRONIC KIDNEY DISEASE, UNSPECIFIED Qualifiers: Chronic kidney disease stage: unspecified stage Qualified Code(s): N18.9 - Chronic kidney disease, unspecified (4) Hypocalcemia Assessment/Plan: got calcium 1gm renal on board corrected calcium 8.0 endo Code(s): E83.51 - HYPOCALCEMIA (5) Troponin level elevated Assessment/Plan: level noted monitoring ck and CKMB trending down Code(s): R74.8 - ABNORMAL LEVELS OF OTHER SERUM ENZYMES (6) Type 2 diabetes mellitus Assessment/Plan: sliding scale endo [id number] noted Code(s): E11.9 - TYPE 2 DIABETES MELLITUS WITHOUT COMPLICATIONS Qualifiers: Diabetes mellitus complication status: with kidney complications Diabetes mellitus complication detail: with chronic kidney disease Diabetes mellitus intermediate insulin use: without intermediate use Chronic kidney disease stage: stage 5, not on chronic dialysis Qualified Code(s): E11.22 - Type 2 diabetes mellitus with diabetic chronic kidney disease; N18.5 - Chronic kidney disease, stage 5; N18.5 - Chronic kidney disease, stage 5; N18.5 - Chronic kidney disease , stage 5; N18.5 - Chronic kidney disease, stage 5 (7) CVA--Acute Assessment/Plan: on asa monitor bp neuro on board on statin
--- NOTE | 2017-04-04 14:21 | PN ---
Progress Note, Physician History of Present Illness: l Chest pain, dyspnea and bilateral lower extremity edema improving with diuresis and BP control. - Current Medication List Current Medications: Active Medications Aspirin (Ecotrin -) 81 mg PO DAILY [facility] Last Admin: 04/04/17 09:51 Dose: 81 mg Atorvastatin Calcium (Lipitor -) 20 mg PO HS [facility] Last Admin: 04/03/17 22:23 Dose: 20 mg Furosemide (Lasix -) 80 mg PO DAILY [facility] Last Admin: 04/04/17 09:51 Dose: 80 mg Heparin Sodium (Porcine) (Heparin -) 5,000 unit SQ TID [facility] Last Admin: 04/04/17 07:03 Dose: 5,000 unit Insulin Aspart (Novolog Vial Sliding Scale -) 1 vial SQ ACHS [facility] PRN Reason: Protocol Last Admin: 04/04/17 11:46 Dose: 2 units Labetalol HCl (Normodyne -) 200 mg PO BID [facility] Melatonin (Melatonin) 5 mg PO HS PRN PRN Reason: INSOMNIA Last Admin: 04/03/17 23:00 Dose: 5 mg Nifedipine (Procardia Xl -) 30 mg PO DAILY [facility] Last Admin: 04/04/17 11:46 Dose: 30 mg - Objective Vital Signs: Vital Signs Temperature 98.2 F 04/04/17 08:20 Pulse Rate 74 04/04/17 08:20 Respiratory Rate 16 04/04/17 09:00 Blood Pressure 184/90 04/04/17 08:20 O2 Sat by Pulse Oximetry (%) 99 04/04/17 09:00 Constitutional: Yes: No Distress, Calm Neck: Yes: Supple Cardiovascular: Yes: Regular Rate and Rhythm Respiratory: Yes: Regular, Diminished Gastrointestinal: Yes: Normal Bowel Sounds, Soft Edema: Yes Edema: LLE: 1+, RLE: 1+ Labs: CBC, BMP 04/04/17 05:05 04/04/17 05:05 INR, PTT INR 0.95 (0.82-1.09) 04/01/17 14:50 - ....Imaging EKG: Report Reviewed (Tele: NSR) Problem List - Problems (1) Demand ischemia Code(s): I24.8 - OTHER FORMS OF ACUTE ISCHEMIC HEART DISEASE (2) Hyperlipidemia associated with type 2 diabetes mellitus Code(s): E11.69 - TYPE 2 DIABETES MELLITUS WITH OTHER SPECIFIED COMPLICATION; E78.5 - HYPERLIPIDEMIA, UNSPECIFIED (3) Type 2 diabetes mellitus Code(s): E11.9 - TYPE 2 DIABETES MELLITUS WITHOUT COMPLICATIONS Qualifiers: Diabetes mellitus complication status: with kidney complications Diabetes mellitus complication detail: with chronic kidney disease Diabetes mellitus usp insulin use: without intermediate accountant use Chronic kidney disease stage: stage 5, not on chronic dialysis Qualified Code(s): E11.22 - Type 2 diabetes mellitus with diabetic chronic kidney disease; N18.5 - Chronic kidney disease, stage 5; N18.5 - Chronic kidney disease, stage 5; N18.5 - Chronic kidney disease , stage 5; N18.5 - Chronic kidney disease, stage 5 (4) Chest pain Code(s): R07.9 - CHEST PAIN, UNSPECIFIED Qualifiers: Chest pain type: chest pain on breathing Qualified Code(s): R07.1 - Chest pain on breathing; R07.81 - Pleurodynia (5) Chronic kidney disease (CKD) Code(s): N18.9 - CHRONIC KIDNEY DISEASE, UNSPECIFIED Qualifiers: Chronic kidney disease stage: unspecified stage Qualified Code(s): N18.9 - Chronic kidney disease, unspecified (6) Hypertensive emergency Code(s): I16.1 - HYPERTENSIVE EMERGENCY (7) Troponin level elevated Code(s): R74.8 - ABNORMAL LEVELS OF OTHER SERUM ENZYMES (8) Anemia in chronic kidney disease (CKD) Code(s): N18.9 - CHRONIC KIDNEY DISEASE, UNSPECIFIED; D63.1 - ANEMIA IN CHRONIC KIDNEY DISEASE Qualifiers: Chronic kidney disease stage: stage 5, not on chronic dialysis Qualified Code(s): N18.5 - Chronic kidney disease, stage 5; D63.1 - Anemia in chronic kidney disease; D63.1 - Anemia in chronic kidney disease (9) Cerebrovascular small vessel disease Code(s): I67.9 - CEREBROVASCULAR DISEASE, UNSPECIFIED Assessment/Plan 04/02/2017 Echo: severe cLVH, normal biventricular size and fxn, mild MR, TR 1. Cerebral ischemia and hypoperfusion due to hemodynamic alterations since resolved 2. Chest pain syndrome 2. Hypertensive urgency 3. Acute on CKD 4. Medication noncompliance 5. Type 2 DM, poorly controlled 6. Hyperlipidemia 7. Demand ischemia 8. Anemia of CKD 9. Possible OSAS P: 1. Continue on labetolol 200 bid, ASA 81 qd, Lipitor 20 qhs, Procardia XL 30 qd started with judicious uptitration as tolerated 2. Lasix 80 qd per renal input 3. Given multiple cardiac risk factors, MPI once clinically stable r/o ischemia 4. DVT prophylaxis 5. PSG as outpatient
--- NOTE | 2017-04-04 16:22 | PN ---
Progress Note (short form) - Note Progress Note: 52 year old male history of htn, dm, hld , ckd came with very high blood pressure. He also had chest pain and shortness of breadth and his bp was in 200s. He was given labetalol and his blood pressure dropped to 110s and he developed right arm weakness and slurring of speech. Following that he had ct scan was unremarkable and medication were on hold and he is feeling better and weakness of arm got better. Patient was not given tpa as it was thouhgt to be related to low blood pressure. mri of brain showed left basal ganglia stroke, now symptoms are resolved and his speech is normal and arm is normal no new symptoms since yesterday Neurological Examination Alert oriented x 3, speech is back to normal CN all intact, eomi, pupils is reactive and no face asymmetry right upper extremity is back to normal lower extremity is normal strength ct head unremarkable carotid ultrasound was normal mri showed left sided basal ganglia ischemic lesion Assessment- transient Right sided weakness and dysarthria due to cerebral ischemia due Low BP,symptoms resolved and mri of brain reviewed there is no carotid stenosis Plan-- - now symptoms resolved and bp medication can be resumed - continue aspirin and statin Thanking you so much Jaspreet Katz MD
[2017-04-04] MEDS: MELATONIN 5 MG TABLETS PO PRN (21:58)
[2017-04-04] MEDS: LABETALOL HCL 200 MG TABLET (FP) PO SCH (21:58)
[2017-04-04] MEDS: ATORVASTATIN CA 20 MG TABLET (FP) PO SCH (21:58)
[2017-04-05] MEDS: HEPARIN NA (PORCINE) 5,000 UNITS/ML 1ML VIAL SQ SCH ×3 (05:53→22:03)
[2017-04-05] MEDS: INSULIN SLIDING SCALE (NOVOLOG) 1 VIAL SQ SCH ×4 (06:23→22:03)
[2017-04-05] MEDS: NIFEdipine E.R. 30 MG TABLET (FP) PO SCH (09:03)
[2017-04-05] MEDS: LABETALOL HCL 200 MG TABLET (FP) PO SCH ×2 (09:03→22:02)
[2017-04-05] MEDS: ASPIRIN COATED 81 MG TABLET.EC PO SCH (09:03)
[2017-04-05] MEDS: FUROSEMIDE 40 MG TABLET (FP) PO SCH (09:05)
--- NOTE | 2017-04-05 10:45 | PN ---
Progress Note, Physician History of Present Illness: PULMONARY ALERT,NAD,-HEADACHES,-CP,-SOB. SLEEP SCREEN AHI 65.5 C/W SEVERE OSAS - Current Medication List Current Medications: Active Medications Aspirin (Ecotrin -) 81 mg PO DAILY [facility] Last Admin: 04/05/17 09:03 Dose: 81 mg Atorvastatin Calcium (Lipitor -) 20 mg PO HS [facility] Last Admin: 04/04/17 21:58 Dose: 20 mg Furosemide (Lasix -) 80 mg PO DAILY [facility] Last Admin: 04/05/17 09:05 Dose: 80 mg Heparin Sodium (Porcine) (Heparin -) 5,000 unit SQ TID [facility] Last Admin: 04/05/17 05:53 Dose: 5,000 unit Insulin Aspart (Novolog Vial Sliding Scale -) 1 vial SQ ACHS [facility] PRN Reason: Protocol Last Admin: 04/05/17 06:23 Dose: Not Given Labetalol HCl (Normodyne -) 200 mg PO BID [facility] Last Admin: 04/05/17 09:03 Dose: 200 mg Melatonin (Melatonin) 5 mg PO HS PRN PRN Reason: INSOMNIA Last Admin: 04/04/17 21:58 Dose: 5 mg Nifedipine (Procardia Xl -) 30 mg PO DAILY [facility] Last Admin: 04/05/17 09:03 Dose: 30 mg - Objective Vital Signs: Vital Signs Temperature 98.1 F 04/05/17 07:55 Pulse Rate 80 04/05/17 07:55 Respiratory Rate 20 04/05/17 07:55 Blood Pressure 191/112 04/05/17 07:55 O2 Sat by Pulse Oximetry (%) 97 04/04/17 20:37 Constitutional: Yes: Well Nourished, Calm Eyes: Yes: WNL HENT: Yes: WNL Neck: Yes: WNL Cardiovascular: Yes: Regular Rate and Rhythm, S1, S2 Respiratory: Yes: CTA Bilaterally Gastrointestinal: Yes: Normal Bowel Sounds, Soft Extremities: Yes: WNL Edema: No Labs: CBC, BMP 04/04/17 05:05 04/04/17 05:05 INR, PTT INR 0.95 (0.82-1.09) 04/01/17 14:50 Problem List - Problems (1) Mediastinal adenopathy Code(s): R59.0 - LOCALIZED ENLARGED LYMPH NODES (2) Anemia in chronic kidney disease (CKD) Code(s): N18.9 - CHRONIC KIDNEY DISEASE, UNSPECIFIED; D63.1 - ANEMIA IN CHRONIC KIDNEY DISEASE Qualifiers: Chronic kidney disease stage: stage 5, not on chronic dialysis Qualified Code(s): N18.5 - Chronic kidney disease, stage 5; D63.1 - Anemia in chronic kidney disease; D63.1 - Anemia in chronic kidney disease (3) Chest pain Code(s): R07.9 - CHEST PAIN, UNSPECIFIED Qualifiers: Chest pain type: chest pain on breathing Qualified Code(s): R07.1 - Chest pain on breathing; R07.81 - Pleurodynia (4) Chronic kidney disease (CKD) Code(s): N18.9 - CHRONIC KIDNEY DISEASE, UNSPECIFIED Qualifiers: Chronic kidney disease stage: unspecified stage Qualified Code(s): N18.9 - Chronic kidney disease, unspecified (5) Demand ischemia Code(s): I24.8 - OTHER FORMS OF ACUTE ISCHEMIC HEART DISEASE (6) Hyperlipidemia associated with type 2 diabetes mellitus Code(s): E11.69 - TYPE 2 DIABETES MELLITUS WITH OTHER SPECIFIED COMPLICATION; E78.5 - HYPERLIPIDEMIA, UNSPECIFIED (7) Hypertensive emergency Code(s): I16.1 - HYPERTENSIVE EMERGENCY (8) Troponin level elevated Code(s): R74.8 - ABNORMAL LEVELS OF OTHER SERUM ENZYMES Assessment/Plan IMP HYPERTENSIVE EMERGENCY CHEST PAIN SYNDROME + TROPONINS CEREBRAL ISCHEMIA DM MEDISTIONAL ADENOPATHY ?INFLAMMATORY,? SARCOID,MALIGNANT OSAS NOT ON CPAP CKD PLAN TITRATE BP MEDS PER CARDIOLOGY MONITOR LYTES,RENAL FUNCTION,BLOOD SUGARS MONITOR BP SLEEP STUDIES OUTPATIENT F/U CHEST CT OUTPATIENT BIPAP AT NIGHT DR LUCAS Problem List - Problems (1) Mediastinal adenopathy Code(s): R59.0 - LOCALIZED ENLARGED LYMPH NODES (2) Anemia in chronic kidney disease (CKD) Code(s): N18.9 - CHRONIC KIDNEY DISEASE, UNSPECIFIED; D63.1 - ANEMIA IN CHRONIC KIDNEY DISEASE Qualifiers: Chronic kidney disease stage: stage 5, not on chronic dialysis Qualified Code(s): N18.5 - Chronic kidney disease, stage 5; D63.1 - Anemia in chronic kidney disease; D63.1 - Anemia in chronic kidney disease (3) Chest pain Code(s): R07.9 - CHEST PAIN, UNSPECIFIED Qualifiers: Chest pain type: chest pain on breathing Qualified Code(s): R07.1 - Chest pain on breathing; R07.81 - Pleurodynia (4) Chronic kidney disease (CKD) Code(s): N18.9 - CHRONIC KIDNEY DISEASE, UNSPECIFIED Qualifiers: Chronic kidney disease stage: unspecified stage Qualified Code(s): N18.9 - Chronic kidney disease, unspecified (5) Demand ischemia Code(s): I24.8 - OTHER FORMS OF ACUTE ISCHEMIC HEART DISEASE (6) Hyperlipidemia associated with type 2 diabetes mellitus Code(s): E11.69 - TYPE 2 DIABETES MELLITUS WITH OTHER SPECIFIED COMPLICATION; E78.5 - HYPERLIPIDEMIA, UNSPECIFIED (7) Hypertensive emergency Code(s): I16.1 - HYPERTENSIVE EMERGENCY (8) Troponin level elevated Code(s): R74.8 - ABNORMAL LEVELS OF OTHER SERUM ENZYMES
[2017-04-05] MEDS ORDERED: INSULIN (NOVOLOG) ASPART 100 UNITS/ML 10ML VIAL ONE ×2 (12:31→21:57)
--- NOTE | 2017-04-05 13:56 | PN ---
Progress Note, Physician Chief Complaint: HTN, Stroke History of Present Illness: NAD< feeling better seen by Cardiology and Neurology - Current Medication List Current Medications: Active Medications Aspirin (Ecotrin -) 81 mg PO DAILY [facility] Last Admin: 04/05/17 09:03 Dose: 81 mg Atorvastatin Calcium (Lipitor -) 20 mg PO HS [facility] Last Admin: 04/04/17 21:58 Dose: 20 mg Furosemide (Lasix -) 80 mg PO DAILY [facility] Last Admin: 04/05/17 09:05 Dose: 80 mg Heparin Sodium (Porcine) (Heparin -) 5,000 unit SQ TID [facility] Last Admin: 04/05/17 05:53 Dose: 5,000 unit Insulin Aspart (Novolog Vial Sliding Scale -) 1 vial SQ ACHS [facility] PRN Reason: Protocol Last Admin: 04/05/17 12:23 Dose: 2 units Labetalol HCl (Normodyne -) 200 mg PO BID [facility] Last Admin: 04/05/17 09:03 Dose: 200 mg Melatonin (Melatonin) 5 mg PO HS PRN PRN Reason: INSOMNIA Last Admin: 04/04/17 21:58 Dose: 5 mg Nifedipine (Procardia Xl -) 30 mg PO DAILY [facility] Last Admin: 04/05/17 09:03 Dose: 30 mg - Objective Vital Signs: Vital Signs Temperature 98.1 F 04/05/17 07:55 Pulse Rate 80 04/05/17 07:55 Respiratory Rate 20 04/05/17 08:00 Blood Pressure 191/112 04/05/17 07:55 O2 Sat by Pulse Oximetry (%) 98 04/05/17 08:00 Constitutional: Yes: Well Nourished, No Distress, Calm Cardiovascular: Yes: Regular Rate and Rhythm Respiratory: Yes: Regular Gastrointestinal: Yes: Normal Bowel Sounds, Soft Musculoskeletal: Yes: WNL Extremities: Yes: WNL Edema: No Peripheral Pulses WNL: Yes Neurological: Yes: Alert, Oriented Psychiatric: Yes: Alert, Oriented Labs: CBC, BMP 04/04/17 05:05 04/04/17 05:05 INR, PTT INR 0.95 (0.82-1.09) 04/01/17 14:50 Problem List - Problems (1) CVA (cerebral vascular accident) Assessment/Plan: ct head unremarkable carotid ultrasound was normal mri showed left sided basal ganglia ischemic lesion Code(s): I63.9 - CEREBRAL INFARCTION, UNSPECIFIED (2) Anemia in chronic kidney disease (CKD) Assessment/Plan: -seen by nephrology -no Dialysis at this time -furosemide Code(s): N18.9 - CHRONIC KIDNEY DISEASE, UNSPECIFIED; D63.1 - ANEMIA IN CHRONIC KIDNEY DISEASE Qualifiers: Chronic kidney disease stage: stage 5, not on chronic dialysis Qualified Code(s): N18.5 - Chronic kidney disease, stage 5; D63.1 - Anemia in chronic kidney disease; D63.1 - Anemia in chronic kidney disease (3) Hypertensive emergency Assessment/Plan: fluctuating -seen by Cardiology -on Labetalol Code(s): I16.1 - HYPERTENSIVE EMERGENCY (4) Stage 4 chronic kidney disease Assessment/Plan: -nephrology consult Code(s): N18.4 - CHRONIC KIDNEY DISEASE, STAGE 4 (SEVERE) (5) Troponin level elevated Assessment/Plan: -likely secondary to CKD Code(s): R74.8 - ABNORMAL LEVELS OF OTHER SERUM ENZYMES (6) Type 2 diabetes mellitus Code(s): E11.9 - TYPE 2 DIABETES MELLITUS WITHOUT COMPLICATIONS Qualifiers: Diabetes mellitus complication status: with kidney complications Diabetes mellitus complication detail: with chronic kidney disease Diabetes mellitus prison insulin use: without ad terminal makeup operator use Chronic kidney disease stage: stage 5, not on chronic dialysis Qualified Code(s): E11.22 - Type 2 diabetes mellitus with diabetic chronic kidney disease; N18.5 - Chronic kidney disease, stage 5; N18.5 - Chronic kidney disease, stage 5; N18.5 - Chronic kidney disease , stage 5; N18.5 - Chronic kidney disease, stage 5 Assessment/Plan see problem list, walked well with PT
--- NOTE | 2017-04-05 14:43 | PN ---
Progress Note, Physician History of Present Illness: l Chest pain, dyspnea and bilateral lower extremity edema improving with diuresis and BP control. - Current Medication List Current Medications: Active Medications Aspirin (Ecotrin -) 81 mg PO DAILY [facility] Last Admin: 04/05/17 09:03 Dose: 81 mg Atorvastatin Calcium (Lipitor -) 20 mg PO HS [facility] Last Admin: 04/04/17 21:58 Dose: 20 mg Furosemide (Lasix -) 80 mg PO DAILY [facility] Last Admin: 04/05/17 09:05 Dose: 80 mg Heparin Sodium (Porcine) (Heparin -) 5,000 unit SQ TID [facility] Last Admin: 04/05/17 13:51 Dose: 5,000 unit Insulin Aspart (Novolog Vial Sliding Scale -) 1 vial SQ ACHS [facility] PRN Reason: Protocol Last Admin: 04/05/17 12:23 Dose: 2 units Labetalol HCl (Normodyne -) 200 mg PO BID [facility] Last Admin: 04/05/17 09:03 Dose: 200 mg Melatonin (Melatonin) 5 mg PO HS PRN PRN Reason: INSOMNIA Last Admin: 04/04/17 21:58 Dose: 5 mg Nifedipine (Procardia Xl -) 30 mg PO DAILY [facility] Last Admin: 04/05/17 09:03 Dose: 30 mg - Objective Vital Signs: Vital Signs Temperature 98.1 F 04/05/17 07:55 Pulse Rate 80 04/05/17 07:55 Respiratory Rate 20 04/05/17 08:00 Blood Pressure 191/112 04/05/17 07:55 O2 Sat by Pulse Oximetry (%) 98 04/05/17 08:00 Constitutional: Yes: No Distress, Calm Neck: Yes: Supple Cardiovascular: Yes: Regular Rate and Rhythm Respiratory: Yes: Regular, CTA Bilaterally Gastrointestinal: Yes: Normal Bowel Sounds, Soft Edema: No Labs: CBC, BMP 04/04/17 05:05 04/04/17 05:05 INR, PTT INR 0.95 (0.82-1.09) 04/01/17 14:50 Problem List - Problems (1) Demand ischemia Code(s): I24.8 - OTHER FORMS OF ACUTE ISCHEMIC HEART DISEASE (2) Hyperlipidemia associated with type 2 diabetes mellitus Code(s): E11.69 - TYPE 2 DIABETES MELLITUS WITH OTHER SPECIFIED COMPLICATION; E78.5 - HYPERLIPIDEMIA, UNSPECIFIED (3) Type 2 diabetes mellitus Code(s): E11.9 - TYPE 2 DIABETES MELLITUS WITHOUT COMPLICATIONS Qualifiers: Diabetes mellitus complication status: with kidney complications Diabetes mellitus complication detail: with chronic kidney disease Diabetes mellitus penitentiary insulin use: without penitentiary use Chronic kidney disease stage: stage 5, not on chronic dialysis Qualified Code(s): E11.22 - Type 2 diabetes mellitus with diabetic chronic kidney disease; N18.5 - Chronic kidney disease, stage 5; N18.5 - Chronic kidney disease, stage 5; N18.5 - Chronic kidney disease , stage 5; N18.5 - Chronic kidney disease, stage 5 (4) Chest pain Code(s): R07.9 - CHEST PAIN, UNSPECIFIED Qualifiers: Chest pain type: chest pain on breathing Qualified Code(s): R07.1 - Chest pain on breathing; R07.81 - Pleurodynia (5) Chronic kidney disease (CKD) Code(s): N18.9 - CHRONIC KIDNEY DISEASE, UNSPECIFIED Qualifiers: Chronic kidney disease stage: unspecified stage Qualified Code(s): N18.9 - Chronic kidney disease, unspecified (6) Hypertensive emergency Code(s): I16.1 - HYPERTENSIVE EMERGENCY (7) Troponin level elevated Code(s): R74.8 - ABNORMAL LEVELS OF OTHER SERUM ENZYMES (8) Anemia in chronic kidney disease (CKD) Code(s): N18.9 - CHRONIC KIDNEY DISEASE, UNSPECIFIED; D63.1 - ANEMIA IN CHRONIC KIDNEY DISEASE Qualifiers: Chronic kidney disease stage: stage 5, not on chronic dialysis Qualified Code(s): N18.5 - Chronic kidney disease, stage 5; D63.1 - Anemia in chronic kidney disease; D63.1 - Anemia in chronic kidney disease (9) Cerebrovascular small vessel disease Code(s): I67.9 - CEREBROVASCULAR DISEASE, UNSPECIFIED Assessment/Plan 04/02/2017 Echo: severe cLVH, normal biventricular size and fxn, mild MR, TR 1. Cerebral ischemia and hypoperfusion due to hemodynamic alterations since resolved 2. Chest pain syndrome 3. Hypertensive urgency 4. Acute on CKD 5. Medication noncompliance 6. Type 2 DM, poorly controlled 7. Hyperlipidemia 8. Demand ischemia 9. Anemia of CKD 10. Severe OSAS (AHI 65.5) not on cpap P: 1. Continue on labetolol 200 bid, ASA 81 qd, Lipitor 20 qhs, increase Procardia XL 60 qd with judicious uptitration as tolerated 2. Lasix 80 qd per renal input 3. Given multiple cardiac risk factors, MPI once clinically stable r/o ischemia 4. DVT prophylaxis 5. cpap 6. D/c planning I
[2017-04-05] MEDS ORDERED: NIFEdipine E.R. 30 MG TABLET (FP) PO ONE (14:48)
--- NOTE | 2017-04-05 15:25 | PN ---
Progress Note, Physician Chief Complaint: The patient seen in Telemetry.Comfortable. Overall doing much better. BP tends to run high. Denies any chest pain, shortness of breath. No urinary complaints. - Current Medication List Current Medications: Active Medications Aspirin (Ecotrin -) 81 mg PO DAILY [facility] Last Admin: 04/05/17 09:03 Dose: 81 mg Atorvastatin Calcium (Lipitor -) 20 mg PO HS [facility] Last Admin: 04/04/17 21:58 Dose: 20 mg Furosemide (Lasix -) 80 mg PO DAILY [facility] Last Admin: 04/05/17 09:05 Dose: 80 mg Heparin Sodium (Porcine) (Heparin -) 5,000 unit SQ TID [facility] Last Admin: 04/05/17 13:51 Dose: 5,000 unit Insulin Aspart (Novolog Vial Sliding Scale -) 1 vial SQ ACHS [facility] PRN Reason: Protocol Last Admin: 04/05/17 12:23 Dose: 2 units Labetalol HCl (Normodyne -) 200 mg PO BID [facility] Last Admin: 04/05/17 09:03 Dose: 200 mg Melatonin (Melatonin) 5 mg PO HS PRN PRN Reason: INSOMNIA Last Admin: 04/04/17 21:58 Dose: 5 mg Nifedipine (Procardia Xl -) 60 mg PO DAILY [facility] - Objective Vital Signs: Vital Signs Temperature 98.1 F 04/05/17 07:55 Pulse Rate 80 04/05/17 07:55 Respiratory Rate 20 04/05/17 08:00 Blood Pressure 191/112 04/05/17 07:55 O2 Sat by Pulse Oximetry (%) 98 04/05/17 08:00 Labs: CBC, BMP 04/04/17 05:05 04/04/17 05:05 INR, PTT INR 0.95 (0.82-1.09) 04/01/17 14:50 Problem List - Problems (1) Stage 4 chronic kidney disease Code(s): N18.4 - CHRONIC KIDNEY DISEASE, STAGE 4 (SEVERE) (2) Anemia in chronic kidney disease (CKD) Code(s): N18.9 - CHRONIC KIDNEY DISEASE, UNSPECIFIED; D63.1 - ANEMIA IN CHRONIC KIDNEY DISEASE Qualifiers: Chronic kidney disease stage: stage 5, not on chronic dialysis Qualified Code(s): N18.5 - Chronic kidney disease, stage 5; D63.1 - Anemia in chronic kidney disease; D63.1 - Anemia in chronic kidney disease (3) CHF (congestive heart failure) Code(s): I50.9 - HEART FAILURE, UNSPECIFIED Qualifiers: Congestive heart failure type: unspecified Congestive heart failure chronicity: unspecified Qualified Code(s): I50.9 - Heart failure, unspecified (4) Chronic kidney disease (CKD) Code(s): N18.9 - CHRONIC KIDNEY DISEASE, UNSPECIFIED Qualifiers: Chronic kidney disease stage: unspecified stage Qualified Code(s): N18.9 - Chronic kidney disease, unspecified (5) Hypocalcemia Code(s): E83.51 - HYPOCALCEMIA (6) Type 2 diabetes mellitus Code(s): E11.9 - TYPE 2 DIABETES MELLITUS WITHOUT COMPLICATIONS Qualifiers: Diabetes mellitus complication status: with kidney complications Diabetes mellitus complication detail: with chronic kidney disease Diabetes mellitus halfway insulin use: without exterminator helper termite use Chronic kidney disease stage: stage 5, not on chronic dialysis Qualified Code(s): E11.22 - Type 2 diabetes mellitus with diabetic chronic kidney disease; N18.5 - Chronic kidney disease, stage 5; N18.5 - Chronic kidney disease, stage 5; N18.5 - Chronic kidney disease , stage 5; N18.5 - Chronic kidney disease, stage 5 Assessment/Plan This is a 52 year old gentleman with PMhx of Hypertension, Type 2 DM, HLD who presented with complains of left sided chest pain with some radiation to back/ flank and found to have hypertensive emergency and BUN/Cr of 33/6.3. The patient was taking no medications on admission. The patient has very poor insight about any of his medical problems. BP remains suboptimally controlled. On Labetalol and Procardia XL. Will add Hydralazine. The patient not keen on starting [employer] at this time. Will follow with you. Thank you. Irma Rachel MD
--- NOTE | 2017-04-05 17:44 | PN ---
Progress Note (short form) - Note Progress Note: 52 year old male history of htn, dm, hld , ckd came with very high blood pressure. He also had chest pain and shortness of breadth and his bp was in 200s. He was given labetalol and his blood pressure dropped to 110s and he developed right arm weakness and slurring of speech. Following that he had ct scan was unremarkable and medication were on hold and he is feeling better and weakness of arm got better. Patient was not given tpa as it was thouhgt to be related to low blood pressure. mri of brain showed left basal ganglia stroke, now symptoms are resolved and his speech is normal and arm is normal denies any new symptoms and previous symptoms completely resolved Neurological Examination Alert oriented x 3, speech is back to normal CN all intact, eomi, pupils is reactive and no face asymmetry right upper extremity is back to normal lower extremity is normal strength ct head unremarkable carotid ultrasound was normal mri showed left sided basal ganglia ischemic lesion Assessment- transient Right sided weakness and dysarthria due to cerebral ischemia due Low BP, clinically stable , no new symptoms Plan-- - continue aspirin and statin Thanking you so much Jaspreet Katz MD
--- NOTE | 2017-04-05 19:56 | CONSULT ---
Consult Consult Specialty:: endocrine Referred by:: dr.ammir madrigal Reason for Consultation:: diabetes mellitus - History of Present Illness Chief Complaint: high sugars History of Present Illness: 52 year old male, with a significant past medical history of diabetes, CKD, hypertension, hypercholesterolemia, who presents to the emergency department with left sided chest pain since yesterday. He reports the pain is located to the left chest wrapping around his side, 5/10 in severity now. He denies arm or jaw pain or tingling. He endorses mild OLVERA but no SOB at rest. He also reports slight increase in his bilateral lower extremity edema recently. The patient states he has not been taking meds properly,will need to get back to healthy life style,check his sugars and maintain good diet. - History Source History Provided By: Patient - Past Medical History Cardio/Vascular: Yes: HTN, Hyperlipdemia Renal/: Yes: Renal Inusuff Endocrine: Yes: Diabetes Mellitus - Alcohol/Substance Use Hx Alcohol Use: No (past) History of Substance Use: reports: None - Smoking History Smoking history: Former smoker Have you smoked in the past 12 months: No - Social History ADL: Independent Home Medications - Allergies Allergies/Adverse Reactions: Allergies Allergy/AdvReac Type Severity Reaction Status Date / Time No Known Allergies Allergy Verified 04/01/17 15:39 - Home Medications Home Medications: Ambulatory Orders Aspirin [Aspirin EC] 81 mg PO DAILY 04/03/17 Calcium Carbonate 600 mg PO BID 04/03/17 Cholecalciferol (Vitamin D3) [Vitamin D3] 10,000 unit PO DAILY 04/03/17 Diltiazem HCl [Diltiazem 24Hr Cd] 300 mg PO DAILY 04/03/17 Doxazosin Mesylate 4 mg PO DAILY 04/03/17 Furosemide [Lasix] 80 mg PO BID 04/03/17 Gabapentin 300 mg PO TID 04/03/17 Hydralazine HCl 100 mg PO BID 04/03/17 Insulin Glargine,Hum.rec.anlog 30 units 04/03/17 Insulin Lispro [Humalog] 12 - 14 unit SQ 04/03/17 Labetalol HCl [Normodyne -] 200 mg PO BID 04/03/17 Metolazone 5 mg PO 04/03/17 Potassium Chloride 20 meq PO BID 04/03/17 Review of Systems - Review of Systems Constitutional: reports: Lethargy, Weakness Eyes: reports: No Symptoms HENT: reports: No Symptoms Neck: reports: No Symptoms Cardiovascular: reports: No Symptoms Respiratory: reports: No Symptoms Gastrointestinal: reports: No Symptoms Genitourinary: reports: No Symptoms Breasts: reports: No Symptoms Reported Musculoskeletal: reports: No Symptoms, Muscle Weakness Integumentary: reports: No Symptoms Neurological: reports: No Symptoms Endocrine: reports: Unexplained Weight Gain Physical Exam Vital Signs: Vital Signs Temperature 97.9 F 04/05/17 18:00 Pulse Rate 71 04/05/17 18:00 Respiratory Rate 20 04/05/17 18:00 Blood Pressure 176/111 04/05/17 18:00 O2 Sat by Pulse Oximetry (%) 98 04/05/17 08:00 Constitutional: Yes: Anxious Eyes: Yes: EOM Intact HENT: Yes: Normocephalic Neck: Yes: Trachea Midline Cardiovascular: Yes: Regular Rate and Rhythm Respiratory: Yes: CTA Bilaterally Gastrointestinal: Yes: Normal Bowel Sounds ...Rectal Exam: Yes: Deferred Renal/: Yes: WNL Breast(s): Yes: WNL Musculoskeletal: Yes: WNL, Muscle Pain, Muscle Weakness Edema: No Peripheral Pulses WNL: No ( ) Integumentary: Yes: WNL Neurological: Yes: Alert, Oriented Labs: CBC, BMP 04/04/17 05:05 04/04/17 05:05 Problem List - Problems (1) Diabetes Code(s): E11.9 - TYPE 2 DIABETES MELLITUS WITHOUT COMPLICATIONS (2) Anemia in chronic kidney disease (CKD) Code(s): N18.9 - CHRONIC KIDNEY DISEASE, UNSPECIFIED; D63.1 - ANEMIA IN CHRONIC KIDNEY DISEASE Qualifiers: Chronic kidney disease stage: stage 5, not on chronic dialysis Qualified Code(s): N18.5 - Chronic kidney disease, stage 5; D63.1 - Anemia in chronic kidney disease; D63.1 - Anemia in chronic kidney disease (3) CHF (congestive heart failure) Code(s): I50.9 - HEART FAILURE, UNSPECIFIED Qualifiers: Congestive heart failure type: unspecified Congestive heart failure chronicity: unspecified Qualified Code(s): I50.9 - Heart failure, unspecified (4) Cerebrovascular small vessel disease Code(s): I67.9 - CEREBROVASCULAR DISEASE, UNSPECIFIED (5) Chest pain Code(s): R07.9 - CHEST PAIN, UNSPECIFIED Qualifiers: Chest pain type: chest pain on breathing Qualified Code(s): R07.1 - Chest pain on breathing; R07.81 - Pleurodynia (6) Chronic kidney disease (CKD) Code(s): N18.9 - CHRONIC KIDNEY DISEASE, UNSPECIFIED Qualifiers: Chronic kidney disease stage: unspecified stage Qualified Code(s): N18.9 - Chronic kidney disease, unspecified (7) D-dimer, elevated Code(s): R79.89 - OTHER SPECIFIED ABNORMAL FINDINGS OF BLOOD CHEMISTRY Assessment/Plan Current Active Problems Anemia in chronic kidney disease (CKD) (Acute) CHF (congestive heart failure) (Acute) CVA (cerebral vascular accident) (Acute) Cerebrovascular small vessel disease (Acute) Chest pain (Acute) Chronic kidney disease (CKD) (Acute) D-dimer, elevated (Acute) Demand ischemia (Acute) Hyperlipidemia associated with type 2 diabetes mellitus (Acute) Hypertensive emergency (Acute) Hypocalcemia (Acute) Mediastinal adenopathy (Acute) Stage 4 chronic kidney disease (Acute) Troponin level elevated (Acute) Type 2 diabetes mellitus (Acute) diabetes mellitus hyperglycmia Laboratory Results - last 24 hr 04/05/17 04/05/17 04/05/17 05:40 11:47 16:54 POC Glucometer 123 155 140 Laboratory Tests 04/02/17 04/03/17 04/04/17 06:30 06:20 05:05 WBC 6.7 RBC 4.72 Hgb 10.1 L MCV 67.6 L MCH 21.3 L MCHC 31.5 L RDW 17.6 H Plt Count 263 MPV 10.2 Neutrophils % 64.5 Sodium Potassium Chloride Carbon Dioxide Anion Gap BUN Creatinine Creat Clearance w eGFR POC Glucometer Hemoglobin A1c % 8.8 H TSH 1.65 04/04/17 04/04/17 04/04/17 05:05 07:01 11:00 WBC RBC Hgb MCV MCH MCHC RDW Plt Count MPV Neutrophils % Sodium 143 Potassium 3.8 Chloride 108 H Carbon Dioxide 28 Anion Gap 7 L BUN 33 H Creatinine 6.6 H Creat Clearance w eGFR 8.86 POC Glucometer 154 189 Hemoglobin A1c % TSH 04/05/17 04/05/17 04/05/17 05:40 11:47 16:54 WBC RBC Hgb MCV MCH MCHC RDW Plt Count MPV Neutrophils % Sodium Potassium Chloride Carbon Dioxide Anion Gap BUN Creatinine Creat Clearance w eGFR POC Glucometer 123 155 140 Hemoglobin A1c % TSH plan: bgm ac hs novolog insulin dose schedule use levemir 10 units am
[2017-04-05] MEDS: MELATONIN 5 MG TABLETS PO PRN (22:01)
[2017-04-05] MEDS: ATORVASTATIN CA 20 MG TABLET (FP) PO SCH (22:01)
[2017-04-05] MEDS: hydrALAZINE HCL 25 MG TABLET (FP) PO SCH (22:02)
[2017-04-06] MEDS: HEPARIN NA (PORCINE) 5,000 UNITS/ML 1ML VIAL SQ SCH ×3 (06:27→21:18)
[2017-04-06] MEDS: INSULIN SLIDING SCALE (NOVOLOG) 1 VIAL SQ SCH ×4 (06:28→21:19)
[2017-04-06] MEDS: INSULIN DETEMIR 100 UNITS/ML MDV SQ SCH (06:46)
[2017-04-06 07:09] LABS: BASO % 0.7 % (0-2.0); HEMATOCRIT 32.6 % (35.4-49); HEMOGLOBIN 9.9 GM/dL (11.7-16.9); LYMPH % 32.4 % (8-40); MCH 20.7 pg (25.7-33.7); MCHC 30.5 g/dl (32.0-35.9); MEAN PLT VOLUME 9.7 fl (7.5-11.1); MONO % 5.6 % (3.8-10.2); NEUT % 58.3 % (42.8-82.8); PLATELET COUNT 234 K/MM3 (134-434); RBC 4.79 M/mm3 (4.00-5.60); RDW 17.4 % (11.9-15.9); WHITE BLOOD COUNT 8.2 K/mm3 (4.0-10.0)
[2017-04-06 07:27] LABS: ALBUMIN 2.3 g/dl (3.4-5.0); ANION GAP 9 (8-16); BLOOD UREA NITROGEN 40 mg/dL (7-18); CALCIUM 7.4 mg/dL (8.5-10.1); CHLORIDE 106 mmol/L (98-107); CO2 27 mmol/L (21-32); CREATININE 6.8 mg/dL (0.7-1.3); GLUCOSE,RANDOM 187 mg/dL (74-106); PHOSPHOROUS 5.7 mg/dL (2.5-4.9); POTASSIUM 3.7 mmol/L (3.5-5.1); SGOT/AST 9 U/L (15-37); SGPT/ALT 16 U/L (12-78); SODIUM 142 mmol/L (136-145)
[2017-04-06 07:29] LABS: ALK PHOS 80 U/L (45-117); BILIRUBIN,TOTAL 0.3 mg/dL (0.2-1.0); TOT PROT 5.5 g/dl (6.4-8.2)
[2017-04-06] MEDS: FUROSEMIDE 40 MG TABLET (FP) PO SCH (09:33)
[2017-04-06] MEDS: NIFEdipine E.R 60 MG TABLET (UD) PO SCH (09:40)
[2017-04-06] MEDS: ASPIRIN COATED 81 MG TABLET.EC PO SCH (09:40)
[2017-04-06] MEDS: LABETALOL HCL 200 MG TABLET (FP) PO SCH ×3 (09:41→21:32)
[2017-04-06] MEDS: hydrALAZINE HCL 25 MG TABLET (FP) PO SCH ×2 (09:41→21:19)
--- NOTE | 2017-04-06 10:26 | PN ---
Progress Note, Physician Chief Complaint: Events noted Not in distress History of Present Illness: Patient was seen and examined. Awake and alert. Chart was reviewed Denies chest pain, SOB or palpitations - Current Medication List Current Medications: Active Medications Aspirin (Ecotrin -) 81 mg PO DAILY [facility] Last Admin: 04/06/17 09:40 Dose: 81 mg Atorvastatin Calcium (Lipitor -) 20 mg PO HS [facility] Last Admin: 04/05/17 22:01 Dose: 20 mg Furosemide (Lasix -) 80 mg PO DAILY [facility] Last Admin: 04/06/17 09:33 Dose: 80 mg Heparin Sodium (Porcine) (Heparin -) 5,000 unit SQ TID [facility] Last Admin: 04/06/17 06:27 Dose: 5,000 unit Hydralazine HCl (Apresoline -) 25 mg PO BID [facility] Last Admin: 04/06/17 09:41 Dose: 25 mg Insulin Aspart (Novolog Vial Sliding Scale -) 1 vial SQ ACHS [facility] PRN Reason: Protocol Last Admin: 04/06/17 06:28 Dose: 4 units Insulin Detemir (Levemir Vial) 10 units SQ AM [facility] Last Admin: 04/06/17 06:46 Dose: 10 units Labetalol HCl (Normodyne -) 200 mg PO BID [facility] Last Admin: 04/06/17 09:41 Dose: 200 mg Melatonin (Melatonin) 5 mg PO HS PRN PRN Reason: INSOMNIA Last Admin: 04/05/17 22:01 Dose: 5 mg Nifedipine (Procardia Xl -) 60 mg PO DAILY [facility] Last Admin: 04/06/17 09:40 Dose: 60 mg - Objective Vital Signs: Vital Signs Temperature 98.1 F 04/06/17 05:49 Pulse Rate 72 04/06/17 05:49 Respiratory Rate 18 04/06/17 05:49 Blood Pressure 155/74 04/06/17 05:49 O2 Sat by Pulse Oximetry (%) 96 04/05/17 21:00 Eyes: Yes: PERRL HENT: Yes: Atraumatic Neck: Yes: Supple Cardiovascular: Yes: Regular Rate and Rhythm, S1, S2. No: Murmur Respiratory: Yes: CTA Bilaterally Gastrointestinal: Yes: Normal Bowel Sounds, Soft. No: Tenderness Edema: No Additional Findings/Remarks: - Review of Systems Constitutional: denies: Chills, Fever Cardiovascular: denies: Chest Pain, Palpitations, (+) Shortness of Breath Respiratory: denies: Cough, Hemoptysis, Orthopnea, PND, (-) SOB, SOB on Exertion Gastrointestinal: denies: Abdominal Pain, Constipation, Diarrhea, Melena, Nausea , Rectal Bleeding, Vomiting Neurological: denies: Weakness, (-) Dizziness, Headache, (-) Seizure, (-) Syncope Labs: CBC, BMP 04/06/17 06:40 04/06/17 06:40 Problem List - Problems (1) Anemia in chronic kidney disease (CKD) Code(s): N18.9 - CHRONIC KIDNEY DISEASE, UNSPECIFIED; D63.1 - ANEMIA IN CHRONIC KIDNEY DISEASE Qualifiers: Chronic kidney disease stage: stage 5, not on chronic dialysis Qualified Code(s): N18.5 - Chronic kidney disease, stage 5; D63.1 - Anemia in chronic kidney disease; D63.1 - Anemia in chronic kidney disease (2) CVA (cerebral vascular accident) Code(s): I63.9 - CEREBRAL INFARCTION, UNSPECIFIED Qualifiers: Precerebral and cerebral artery: unspecified precerebral artery (3) Chest pain Code(s): R07.9 - CHEST PAIN, UNSPECIFIED Qualifiers: Chest pain type: chest pain on breathing Qualified Code(s): R07.1 - Chest pain on breathing; R07.81 - Pleurodynia (4) Chronic kidney disease (CKD) Code(s): N18.9 - CHRONIC KIDNEY DISEASE, UNSPECIFIED Qualifiers: Chronic kidney disease stage: unspecified stage Qualified Code(s): N18.9 - Chronic kidney disease, unspecified (5) Demand ischemia Code(s): I24.8 - OTHER FORMS OF ACUTE ISCHEMIC HEART DISEASE (6) Hyperlipidemia associated with type 2 diabetes mellitus Code(s): E11.69 - TYPE 2 DIABETES MELLITUS WITH OTHER SPECIFIED COMPLICATION; E78.5 - HYPERLIPIDEMIA, UNSPECIFIED (7) Hypertensive emergency Code(s): I16.1 - HYPERTENSIVE EMERGENCY (8) Type 2 diabetes mellitus Code(s): E11.9 - TYPE 2 DIABETES MELLITUS WITHOUT COMPLICATIONS Qualifiers: Diabetes mellitus complication status: with kidney complications Diabetes mellitus complication detail: with chronic kidney disease Diabetes mellitus mcfp insulin use: without vermin exterminator use Chronic kidney disease stage: stage 5, not on chronic dialysis Qualified Code(s): E11.22 - Type 2 diabetes mellitus with diabetic chronic kidney disease; N18.5 - Chronic kidney disease, stage 5; N18.5 - Chronic kidney disease, stage 5; N18.5 - Chronic kidney disease , stage 5; N18.5 - Chronic kidney disease, stage 5 Assessment/Plan 1. Cerebral ischemia and hypoperfusion 2. Chest pain syndrome - currently stable 3. Hypertensive urgency 4. Acute on CKD 5. Medication noncompliance 6. Type 2 DM, poorly controlled 7. Hyperlipidemia 8. Demand ischemia 9. Anemia of CKD 10. Severe OSAS not on cpap PLAN: 1. Continue on Labetolol 200 bid, ASA 81 qd, Lipitor 20 qhs and Procardia XL 60 qd (uptitrate as needed) 2. Continue Lasix 3. Given multiple cardiac risk factors, nuclear myocardial perfusion imaging study once clinically stable 4. DVT prophylaxis 5. Consider CPAP Further plans are to follow Geronimo Gonzalez MD
--- NOTE | 2017-04-06 10:59 | PN ---
Progress Note, EMBEDDED DEVELOPER - Note Progress Note: Selected Entries 04/02/17 04/02/17 04/02/17 06:05 07:25 11:30 Breakfast Lunch Supper Temperature 97.7 F 98.1 F 97.9 F 04/02/17 04/02/17 04/03/17 15:50 21:00 02:00 Breakfast Lunch Supper Temperature 97.8 F 98.0 F 98.4 F 04/03/17 04/03/17 04/03/17 06:00 09:00 10:38 Breakfast 100% Lunch Supper Temperature 98.3 F 98.2 F 04/05/17 04/05/17 04/05/17 01:19 05:45 07:55 Breakfast Lunch Supper Temperature 98.6 F 979 F H 98.1 F 04/05/17 04/05/17 04/05/17 11:58 15:00 18:00 Breakfast 100% Lunch 100% Supper Temperature 98.2 F 97.9 F 04/05/17 04/05/17 04/06/17 19:56 22:05 02:02 Breakfast Lunch Supper 100% Temperature 98.1 F 98.1 F 04/06/17 05:49 Breakfast Lunch Supper Temperature 98.1 F Laboratory Tests 04/02/17 06:30 WBC 7.9 Speech still imprecise. Pt reports speech is at baseline.
--- NOTE | 2017-04-06 11:00 | PN ---
Progress Note, Physician History of Present Illness: PULMONARY ALERT,NAD,PT REFUSED USE BIPAP LAST NIGHT - Current Medication List Current Medications: Active Medications Aspirin (Ecotrin -) 81 mg PO DAILY [facility] Last Admin: 04/06/17 09:40 Dose: 81 mg Atorvastatin Calcium (Lipitor -) 20 mg PO HS [facility] Last Admin: 04/05/17 22:01 Dose: 20 mg Furosemide (Lasix -) 80 mg PO DAILY [facility] Last Admin: 04/06/17 09:33 Dose: 80 mg Heparin Sodium (Porcine) (Heparin -) 5,000 unit SQ TID [facility] Last Admin: 04/06/17 06:27 Dose: 5,000 unit Hydralazine HCl (Apresoline -) 25 mg PO BID [facility] Last Admin: 04/06/17 09:41 Dose: 25 mg Insulin Aspart (Novolog Vial Sliding Scale -) 1 vial SQ ACHS [facility] PRN Reason: Protocol Last Admin: 04/06/17 06:28 Dose: 4 units Insulin Detemir (Levemir Vial) 10 units SQ AM [facility] Last Admin: 04/06/17 06:46 Dose: 10 units Labetalol HCl (Normodyne -) 200 mg PO BID [facility] Last Admin: 04/06/17 09:41 Dose: 200 mg Melatonin (Melatonin) 5 mg PO HS PRN PRN Reason: INSOMNIA Last Admin: 04/05/17 22:01 Dose: 5 mg Nifedipine (Procardia Xl -) 60 mg PO DAILY [facility] Last Admin: 04/06/17 09:40 Dose: 60 mg - Objective Vital Signs: Vital Signs Temperature 98.1 F 04/06/17 05:49 Pulse Rate 72 04/06/17 05:49 Respiratory Rate 18 04/06/17 05:49 Blood Pressure 155/74 04/06/17 05:49 O2 Sat by Pulse Oximetry (%) 96 04/05/17 21:00 Constitutional: Yes: Well Nourished, Calm Eyes: Yes: WNL HENT: Yes: WNL Neck: Yes: WNL Cardiovascular: Yes: Regular Rate and Rhythm, S1, S2 Respiratory: Yes: CTA Bilaterally Gastrointestinal: Yes: Normal Bowel Sounds, Soft Extremities: Yes: WNL Edema: No Labs: CBC, BMP 04/06/17 06:40 04/06/17 06:40 INR, PTT INR 0.95 (0.82-1.09) 04/01/17 14:50 Problem List - Problems (1) Mediastinal adenopathy Code(s): R59.0 - LOCALIZED ENLARGED LYMPH NODES (2) Anemia in chronic kidney disease (CKD) Code(s): N18.9 - CHRONIC KIDNEY DISEASE, UNSPECIFIED; D63.1 - ANEMIA IN CHRONIC KIDNEY DISEASE Qualifiers: Chronic kidney disease stage: stage 5, not on chronic dialysis Qualified Code(s): N18.5 - Chronic kidney disease, stage 5; D63.1 - Anemia in chronic kidney disease; D63.1 - Anemia in chronic kidney disease (3) Chest pain Code(s): R07.9 - CHEST PAIN, UNSPECIFIED Qualifiers: Chest pain type: chest pain on breathing Qualified Code(s): R07.1 - Chest pain on breathing; R07.81 - Pleurodynia (4) Chronic kidney disease (CKD) Code(s): N18.9 - CHRONIC KIDNEY DISEASE, UNSPECIFIED Qualifiers: Chronic kidney disease stage: unspecified stage Qualified Code(s): N18.9 - Chronic kidney disease, unspecified (5) Demand ischemia Code(s): I24.8 - OTHER FORMS OF ACUTE ISCHEMIC HEART DISEASE (6) Hyperlipidemia associated with type 2 diabetes mellitus Code(s): E11.69 - TYPE 2 DIABETES MELLITUS WITH OTHER SPECIFIED COMPLICATION; E78.5 - HYPERLIPIDEMIA, UNSPECIFIED (7) Hypertensive emergency Code(s): I16.1 - HYPERTENSIVE EMERGENCY (8) Troponin level elevated Code(s): R74.8 - ABNORMAL LEVELS OF OTHER SERUM ENZYMES Assessment/Plan IMP HYPERTENSIVE EMERGENCY CHEST PAIN SYNDROME + TROPONINS CEREBRAL ISCHEMIA DM MEDISTIONAL ADENOPATHY ?INFLAMMATORY,? SARCOID,MALIGNANT SEVERE OSAS AHI 65.5 CKD PLAN TITRATE BP MEDS PER CARDIOLOGY MONITOR LYTES,RENAL FUNCTION,BLOOD SUGARS MONITOR BP FORMAL SLEEP STUDIES OUTPATIENT F/U CHEST CT OUTPATIENT BIPAP AT NIGHT IF PT COMPLIES DR LUCAS Problem List - Problems (1) Mediastinal adenopathy Code(s): R59.0 - LOCALIZED ENLARGED LYMPH NODES (2) Anemia in chronic kidney disease (CKD) Code(s): N18.9 - CHRONIC KIDNEY DISEASE, UNSPECIFIED; D63.1 - ANEMIA IN CHRONIC KIDNEY DISEASE Qualifiers: Chronic kidney disease stage: stage 5, not on chronic dialysis Qualified Code(s): N18.5 - Chronic kidney disease, stage 5; D63.1 - Anemia in chronic kidney disease; D63.1 - Anemia in chronic kidney disease (3) Chest pain Code(s): R07.9 - CHEST PAIN, UNSPECIFIED Qualifiers: Chest pain type: chest pain on breathing Qualified Code(s): R07.1 - Chest pain on breathing; R07.81 - Pleurodynia (4) Chronic kidney disease (CKD) Code(s): N18.9 - CHRONIC KIDNEY DISEASE, UNSPECIFIED Qualifiers: Chronic kidney disease stage: unspecified stage Qualified Code(s): N18.9 - Chronic kidney disease, unspecified (5) Demand ischemia Code(s): I24.8 - OTHER FORMS OF ACUTE ISCHEMIC HEART DISEASE (6) Hyperlipidemia associated with type 2 diabetes mellitus Code(s): E11.69 - TYPE 2 DIABETES MELLITUS WITH OTHER SPECIFIED COMPLICATION; E78.5 - HYPERLIPIDEMIA, UNSPECIFIED (7) Hypertensive emergency Code(s): I16.1 - HYPERTENSIVE EMERGENCY (8) Troponin level elevated Code(s): R74.8 - ABNORMAL LEVELS OF OTHER SERUM ENZYMES
[2017-04-06] MEDS ORDERED: FUROSEMIDE 40 MG/4 ML INJECTABLE VIAL ONE (13:45)
[2017-04-06] MEDS ORDERED: SODIUM CHLORIDE 500 ML IV ONE (14:30)
[2017-04-06] MEDS ORDERED: ASPIRIN 81 MG CHEWABLE TABLETS PO ONE (14:30)
[2017-04-06] MEDS ORDERED: ASPIRIN 81 MG CHEWABLE TABLETS ONE (14:40)
--- NOTE | 2017-04-06 15:05 | PN ---
Progress Note, Physician Chief Complaint: CHART AND EVENTS REVIEWED C/O RIGHT LEG WEAKNESS AND NUMBNESS NEUROLOGY NOTIFIED AND ASA GIVEN CT HEAD ORDERED PATIENT AWAKE ALERT TALKING AND SITTING UP NAD - Current Medication List Current Medications: Active Medications Aspirin (Ecotrin -) 81 mg PO DAILY [facility] Last Admin: 04/06/17 09:40 Dose: 81 mg Atorvastatin Calcium (Lipitor -) 20 mg PO HS [facility] Last Admin: 04/05/17 22:01 Dose: 20 mg Furosemide (Lasix -) 80 mg PO DAILY [facility] Last Admin: 04/06/17 09:33 Dose: 80 mg Heparin Sodium (Porcine) (Heparin -) 5,000 unit SQ TID [facility] Last Admin: 04/06/17 06:27 Dose: 5,000 unit Hydralazine HCl (Apresoline -) 25 mg PO BID [facility] Last Admin: 04/06/17 09:41 Dose: 25 mg Insulin Aspart (Novolog Vial Sliding Scale -) 1 vial SQ ACHS [facility] PRN Reason: Protocol Last Admin: 04/06/17 11:23 Dose: Not Given Insulin Detemir (Levemir Vial) 10 units SQ AM [facility] Last Admin: 04/06/17 06:46 Dose: 10 units Labetalol HCl (Normodyne -) 200 mg PO BID [facility] Last Admin: 04/06/17 09:41 Dose: 200 mg Melatonin (Melatonin) 5 mg PO HS PRN PRN Reason: INSOMNIA Last Admin: 04/05/17 22:01 Dose: 5 mg Nifedipine (Procardia Xl -) 60 mg PO DAILY [facility] Last Admin: 04/06/17 09:40 Dose: 60 mg - Objective Vital Signs: Vital Signs Temperature 98.2 F 04/06/17 10:00 Pulse Rate 73 04/06/17 10:00 Respiratory Rate 18 04/06/17 10:00 Blood Pressure 176/90 04/06/17 10:00 O2 Sat by Pulse Oximetry (%) 96 04/06/17 09:00 Constitutional: Yes: Mild Distress Eyes: Yes: WNL HENT: Yes: WNL Neck: Yes: WNL Cardiovascular: Yes: WNL Respiratory: Yes: WNL Gastrointestinal: Yes: WNL Genitourinary: Yes: WNL Musculoskeletal: Yes: Muscle Weakness Extremities: Yes: WNL Edema: No Peripheral Pulses WNL: Yes Integumentary: Yes: WNL Wound/Incision: Yes: Clean/Dry Neurological: Yes: Weakness ...Motor Strength: RUE, RLE Psychiatric: Yes: Other Labs: CBC, BMP 04/06/17 06:40 04/06/17 06:40 INR, PTT INR 0.95 (0.82-1.09) 04/01/17 14:50 Problem List - Problems (1) Anemia in chronic kidney disease (CKD) Code(s): N18.9 - CHRONIC KIDNEY DISEASE, UNSPECIFIED; D63.1 - ANEMIA IN CHRONIC KIDNEY DISEASE Qualifiers: Chronic kidney disease stage: stage 5, not on chronic dialysis Qualified Code(s): N18.5 - Chronic kidney disease, stage 5; D63.1 - Anemia in chronic kidney disease; D63.1 - Anemia in chronic kidney disease (2) CHF (congestive heart failure) Code(s): I50.9 - HEART FAILURE, UNSPECIFIED Qualifiers: Qualified Code(s): I50.9 - Heart failure, unspecified (3) CVA (cerebral vascular accident) Code(s): I63.9 - CEREBRAL INFARCTION, UNSPECIFIED Qualifiers: Precerebral and cerebral artery: unspecified precerebral artery (4) Cerebrovascular small vessel disease Code(s): I67.9 - CEREBROVASCULAR DISEASE, UNSPECIFIED (5) Chronic kidney disease (CKD) Code(s): N18.9 - CHRONIC KIDNEY DISEASE, UNSPECIFIED Qualifiers: Chronic kidney disease stage: unspecified stage Qualified Code(s): N18.9 - Chronic kidney disease, unspecified (6) D-dimer, elevated Code(s): R79.89 - OTHER SPECIFIED ABNORMAL FINDINGS OF BLOOD CHEMISTRY (7) Diabetes Code(s): E11.9 - TYPE 2 DIABETES MELLITUS WITHOUT COMPLICATIONS Qualifiers: Diabetes mellitus type: type 2 (8) Hyperlipidemia associated with type 2 diabetes mellitus Code(s): E11.69 - TYPE 2 DIABETES MELLITUS WITH OTHER SPECIFIED COMPLICATION; E78.5 - HYPERLIPIDEMIA, UNSPECIFIED (9) Type 2 diabetes mellitus Code(s): E11.9 - TYPE 2 DIABETES MELLITUS WITHOUT COMPLICATIONS Qualifiers: Diabetes mellitus complication status: with kidney complications Diabetes mellitus complication detail: with chronic kidney disease Diabetes mellitus usp insulin use: without usp use Chronic kidney disease stage: stage 5, not on chronic dialysis Qualified Code(s): E11.22 - Type 2 diabetes mellitus with diabetic chronic kidney disease; N18.5 - Chronic kidney disease, stage 5; N18.5 - Chronic kidney disease, stage 5; N18.5 - Chronic kidney disease , stage 5; N18.5 - Chronic kidney disease, stage 5 Assessment/Plan PATIENT WANTS TO STOP BP MEDS BC HE FEELS THATS CAUSING HIS SYMPTOMS OF NUMBNESS CT HEAD PENDING ASA GIVEN AGAIN AWAIT NEUROLOGY EVAL PT MARIAMAL WILL D/W CARDIOLOGY FOR BP MEDS
--- NOTE | 2017-04-06 16:53 | PN ---
Progress Note (short form) - Note Progress Note: Renal Follow up for BRITT/CKD with hypertensive emergency Pt seen and examined at the bedside awake and alert reports weakness in his legs when trying to stand no sob, chest pain, abd pain wants to go home Vital Signs Temperature 98 F 04/06/17 14:00 Pulse Rate 84 04/06/17 14:00 Respiratory Rate 20 04/06/17 14:00 Blood Pressure 170/87 04/06/17 14:00 O2 Sat by Pulse Oximetry (%) 96 04/06/17 09:00 Intake & Output 04/03/17 04/04/17 04/05/17 04/06/17 23:59 23:59 23:59 23:59 Intake Total 600 1700 1010 980 Output Total 400 500 Balance 200 1200 1010 980 Weight 130.09 kg 127.55 kg 128.026 kg 126.552 kg NAD awake and alert RRR CTA + edema CBC, BMP 04/06/17 06:40 02 06:40 Current Medications Aspirin (Ecotrin -) 81 mg PO DAILY [facility] Last Admin: 04/06/17 09:40 Dose: 81 mg Atorvastatin Calcium (Lipitor -) 20 mg PO HS [facility] Last Admin: 04/05/17 22:01 Dose: 20 mg Furosemide (Lasix -) 80 mg PO DAILY [facility] Last Admin: 04/06/17 09:33 Dose: 80 mg Heparin Sodium (Porcine) (Heparin -) 5,000 unit SQ TID [facility] Last Admin: 04/06/17 06:27 Dose: 5,000 unit Hydralazine HCl (Apresoline -) 25 mg PO BID [facility] Last Admin: 04/06/17 09:41 Dose: 25 mg Insulin Aspart (Novolog Vial Sliding Scale -) 1 vial SQ ACHS [facility] PRN Reason: Protocol Last Admin: 04/06/17 11:23 Dose: Not Given Insulin Detemir (Levemir Vial) 10 units SQ AM [facility] Last Admin: 04/06/17 06:46 Dose: 10 units Labetalol HCl (Normodyne -) 200 mg PO BID [facility] Last Admin: 04/06/17 09:41 Dose: 200 mg Melatonin (Melatonin) 5 mg PO HS PRN PRN Reason: INSOMNIA Last Admin: 04/05/17 22:01 Dose: 5 mg Nifedipine (Procardia Xl -) 60 mg PO DAILY [facility] Last Admin: 04/06/17 09:40 Dose: 60 mg 52 year old gentleman with PMhx of Hypertension, DM, HLD who presented with complains of left sided chest pain with some radiation to back/flank and found to have hypertensive emergency and BUN/Cr of 33/6.3 #Hypertensive Emergency BP improved continue Labetalol, NIfedpine, Hydralazine goal BP < 140/90 titrate meds as needed to achieve goal #Britt vs. CKD Renal function unchanged thus far as inpatient US showed preserved kidney size but may be slighly small as pt has a large frame serologic studies sent pt does not need dialysis acutely but may need it in the near future this was discussed with the patient pt will need close outpatient follow up on discharge Dose all meds for CrCl less then 15 continue lasix 80mg daily Severino Sanchez DO
--- NOTE | 2017-04-06 18:02 | PN ---
Progress Note (short form) - Note Progress Note: 52 year old male history of htn, dm, hld , ckd came with very high blood pressure. He also had chest pain and shortness of breadth and his bp was in 200s. He was given labetalol and his blood pressure dropped to 110s and he developed right arm weakness and slurring of speech. Following that he had ct scan was unremarkable and medication were on hold and he is feeling better and weakness of arm got better. Patient was not given tpa as it was thouhgt to be related to low blood pressure. mri of brain showed left basal ganglia stroke, now symptoms are resolved and his speech is normal and arm is normal He was started on hydralazine last night and after giving labetalol his right arm and leg became weak, His strength is better after giving iv fluid Neurological Examination Alert oriented x 3, speech is normal CN all intact, eomi, pupils is reactive and no face asymmetry right upper extremity grade 4+ and right lower extremity is grade 5- ct head unremarkable carotid ultrasound was normal mri showed left sided basal ganglia ischemic lesion repeat ct scan is normal Assessment- mild worsening of right arm and leg, now improving, repeat ct scan is normal, hi sbp was dopped to 125/76 and now back up again, Plan-- - continue aspirin and statin - his symptooms improved after giving iv fluid , advise to be less agressive with bp medication Thanking you so much Jaspreet Katz MD
[2017-04-06] MEDS: ATORVASTATIN CA 20 MG TABLET (FP) PO SCH (21:18)
[2017-04-06] MEDS ORDERED: PT OWN MED DRAWER 7, Y5N ONE (21:21)
[2017-04-06] MEDS: MELATONIN 5 MG TABLETS PO PRN (21:22)
[2017-04-07] MEDS: HEPARIN NA (PORCINE) 5,000 UNITS/ML 1ML VIAL SQ SCH ×2 (05:01→14:49)
[2017-04-07] MEDS: INSULIN DETEMIR 100 UNITS/ML MDV SQ SCH (05:59)
[2017-04-07] MEDS: INSULIN SLIDING SCALE (NOVOLOG) 1 VIAL SQ SCH ×3 (05:59→17:47)
[2017-04-07] MEDS: LABETALOL HCL 200 MG TABLET (FP) PO SCH ×2 (06:06→11:29)
[2017-04-07 07:30] LABS: ANION GAP 9 (8-16); BLOOD UREA NITROGEN 38 mg/dL (7-18); CHLORIDE 107 mmol/L (98-107); CO2 24 mmol/L (21-32); CREATININE 7.1 mg/dL (0.7-1.3); GLUCOSE,RANDOM 126 mg/dL (74-106); MAGNESIUM 1.7 mg/dL (1.8-2.4); PHOSPHOROUS 6.1 mg/dL (2.5-4.9); POTASSIUM 3.7 mmol/L (3.5-5.1); SODIUM 140 mmol/L (136-145)
[2017-04-07 07:38] LABS: CALCIUM 6.7 mg/dL (8.5-10.1)
--- NOTE | 2017-04-07 08:39 | PN ---
Progress Note, Physician History of Present Illness: l Chest pain, dyspnea and bilateral lower extremity edema improving with diuresis and BP control. Tolerated bipap overnight. - Current Medication List Current Medications: Active Medications Aspirin (Ecotrin -) 81 mg PO DAILY [facility] Last Admin: 04/06/17 09:40 Dose: 81 mg Atorvastatin Calcium (Lipitor -) 20 mg PO HS [facility] Last Admin: 04/06/17 21:18 Dose: 20 mg Furosemide (Lasix -) 80 mg PO DAILY [facility] Last Admin: 04/06/17 09:33 Dose: 80 mg Heparin Sodium (Porcine) (Heparin -) 5,000 unit SQ TID [facility] Last Admin: 04/07/17 05:01 Dose: 5,000 unit Hydralazine HCl (Apresoline -) 25 mg PO BID [facility] Last Admin: 04/06/17 21:19 Dose: Not Given Insulin Aspart (Novolog Vial Sliding Scale -) 1 vial SQ ACHS [facility] PRN Reason: Protocol Last Admin: 04/07/17 05:59 Dose: Not Given Insulin Detemir (Levemir Vial) 10 units SQ AM [facility] Last Admin: 04/07/17 05:59 Dose: 10 units Labetalol HCl (Normodyne -) 200 mg PO BID [facility] Last Admin: 04/07/17 06:06 Dose: 200 mg Melatonin (Melatonin) 5 mg PO HS PRN PRN Reason: INSOMNIA Last Admin: 04/06/17 21:22 Dose: 5 mg Nifedipine (Procardia Xl -) 60 mg PO DAILY [facility] Last Admin: 04/06/17 09:40 Dose: 60 mg - Objective Vital Signs: Vital Signs Temperature 97.8 F 04/07/17 05:00 Pulse Rate 69 04/07/17 05:00 Respiratory Rate 20 04/07/17 05:00 Blood Pressure 188/92 04/07/17 05:00 O2 Sat by Pulse Oximetry (%) 96 04/06/17 21:00 Constitutional: Yes: No Distress, Calm Neck: Yes: Supple Cardiovascular: Yes: Regular Rate and Rhythm Respiratory: Yes: Regular, CTA Bilaterally Gastrointestinal: Yes: Normal Bowel Sounds, Soft Edema: No Labs: CBC, BMP 04/06/17 06:40 04/07/17 06:41 INR, PTT INR 0.95 (0.82-1.09) 04/01/17 14:50 Problem List - Problems (1) Demand ischemia Code(s): I24.8 - OTHER FORMS OF ACUTE ISCHEMIC HEART DISEASE (2) Hyperlipidemia associated with type 2 diabetes mellitus Code(s): E11.69 - TYPE 2 DIABETES MELLITUS WITH OTHER SPECIFIED COMPLICATION; E78.5 - HYPERLIPIDEMIA, UNSPECIFIED (3) Type 2 diabetes mellitus Code(s): E11.9 - TYPE 2 DIABETES MELLITUS WITHOUT COMPLICATIONS Qualifiers: Diabetes mellitus complication status: with kidney complications Diabetes mellitus complication detail: with chronic kidney disease Diabetes mellitus snf insulin use: without snf use Chronic kidney disease stage: stage 5, not on chronic dialysis Qualified Code(s): E11.22 - Type 2 diabetes mellitus with diabetic chronic kidney disease; N18.5 - Chronic kidney disease, stage 5; N18.5 - Chronic kidney disease, stage 5; N18.5 - Chronic kidney disease , stage 5; N18.5 - Chronic kidney disease, stage 5 (4) Chest pain Code(s): R07.9 - CHEST PAIN, UNSPECIFIED Qualifiers: Chest pain type: chest pain on breathing Qualified Code(s): R07.1 - Chest pain on breathing; R07.81 - Pleurodynia (5) Chronic kidney disease (CKD) Code(s): N18.9 - CHRONIC KIDNEY DISEASE, UNSPECIFIED Qualifiers: Chronic kidney disease stage: unspecified stage Qualified Code(s): N18.9 - Chronic kidney disease, unspecified (6) Hypertensive emergency Code(s): I16.1 - HYPERTENSIVE EMERGENCY (7) Troponin level elevated Code(s): R74.8 - ABNORMAL LEVELS OF OTHER SERUM ENZYMES (8) Anemia in chronic kidney disease (CKD) Code(s): N18.9 - CHRONIC KIDNEY DISEASE, UNSPECIFIED; D63.1 - ANEMIA IN CHRONIC KIDNEY DISEASE Qualifiers: Chronic kidney disease stage: stage 5, not on chronic dialysis Qualified Code(s): N18.5 - Chronic kidney disease, stage 5; D63.1 - Anemia in chronic kidney disease; D63.1 - Anemia in chronic kidney disease (9) Cerebrovascular small vessel disease Code(s): I67.9 - CEREBROVASCULAR DISEASE, UNSPECIFIED (10) Obstructive sleep apnea hypopnea, severe Code(s): G47.33 - OBSTRUCTIVE SLEEP APNEA (ADULT) (PEDIATRIC) Assessment/Plan 04/02/2017 Echo: severe cLVH, normal biventricular size and fxn, mild MR, TR 1. Cerebral ischemia and hypoperfusion due to hemodynamic alterations since resolved 2. Chest pain syndrome 3. Hypertensive urgency 4. Acute on CKD 5. Medication noncompliance 6. Type 2 DM, poorly controlled 7. Hyperlipidemia 8. Demand ischemia 9. Anemia of CKD 10. Severe OSAS (AHI 65.5) not on cpap P: 1. Continue on labetolol 200 bid, ASA 81 qd, Lipitor 20 qhs, Procardia XL 60 qd with judicious uptitration as tolerated, d/c hydralazine 2. Lasix 80 qd per renal input 3. Given multiple cardiac risk factors, MPI once clinically stable r/o ischemia 4. DVT prophylaxis 5. Formal outpatient PSG 6. D/c planning I
--- NOTE | 2017-04-07 10:36 | PN ---
Progress Note, TRANSPORT ASSISTANT - Note Progress Note: Speech still imprecise. Pt reports speech is at baseline. He reports that his right arm and leg were weak yesterday, improved but still feels "tired". Pt denies change in speech and swallowing.Tongue midline. Language intact.
[2017-04-07] MEDS: NIFEdipine E.R 60 MG TABLET (UD) PO SCH (11:28)
[2017-04-07] MEDS: ASPIRIN COATED 81 MG TABLET.EC PO SCH (11:28)
[2017-04-07] MEDS: FUROSEMIDE 40 MG TABLET (FP) PO SCH (11:28)
[2017-04-07] MEDS ORDERED: MAGNESIUM SULF 50% (8.12 MEQ/2 ML-1 GM VIAL) IVPB ONE (11:32)
[2017-04-07] MEDS ORDERED: INSULIN (NOVOLOG) ASPART 100 UNITS/ML 10ML VIAL ONE (12:30)
[2017-04-07] MEDS: CALCIUM ACETATE 667 MG CAPSULE (FP) PO SCH ×2 (12:48→17:48)
[2017-04-07] MEDS ORDERED: MAGNESIUM 1GM/D5W - 1 GM/100 ML IVPB IVPB ONE (13:00)
--- NOTE | 2017-04-07 15:22 | PN ---
Progress Note (short form) - Note Progress Note: Appears overall stable. Apparently did not use NIPPV overnight. No CP or SOB. Intake & Output 04/04/17 04/05/17 04/06/17 04/07/17 23:59 23:59 23:59 23:59 Intake Total 1700 1010 1400 600 Output Total 500 600 Balance 1200 1010 1400 0 Weight 281 lb 3.2 oz 282 lb 4 oz 279 lb 279 lb 4 oz Last Vital Signs Temp Pulse Resp BP Pulse Ox 98.3 F 73 16 169/95 92 L 04/07/17 14:00 04/07/17 14:00 04/07/17 08:00 04/07/17 14:00 04/07/17 08:00 Active Medications Aspirin (Ecotrin -) 81 mg PO DAILY [facility] Last Admin: 04/07/17 11:28 Dose: 81 mg Atorvastatin Calcium (Lipitor -) 20 mg PO HS [facility] Last Admin: 04/06/17 21:18 Dose: 20 mg Calcium Acetate (Phoslo -) 667 mg PO TIDCM [facility] Last Admin: 04/07/17 12:48 Dose: 667 mg Furosemide (Lasix -) 80 mg PO DAILY [facility] Last Admin: 04/07/17 11:28 Dose: 80 mg Heparin Sodium (Porcine) (Heparin -) 5,000 unit SQ TID [facility] Last Admin: 04/07/17 14:49 Dose: 5,000 unit Insulin Aspart (Novolog Vial Sliding Scale -) 1 vial SQ ACHS [facility] PRN Reason: Protocol Last Admin: 04/07/17 11:29 Dose: 2 units Insulin Detemir (Levemir Vial) 10 units SQ AM [facility] Last Admin: 04/07/17 05:59 Dose: 10 units Labetalol HCl (Normodyne -) 200 mg PO BID [facility] Last Admin: 04/07/17 11:29 Dose: Not Given Melatonin (Melatonin) 5 mg PO HS PRN PRN Reason: INSOMNIA Last Admin: 04/06/17 21:22 Dose: 5 mg Nifedipine (Procardia Xl -) 60 mg PO DAILY [facility] Last Admin: 04/07/17 11:28 Dose: Not Given Constitutional: Yes: NAD Eyes: Yes: WNL HENT: Yes: WNL Neck: Yes: WNL Cardiovascular: Yes: Regular Rate and Rhythm, S1, S2 Respiratory: Yes: Clear Gastrointestinal: Yes: Normal Bowel Sounds, Soft Extremities: Yes: WNL Edema: No Labs: Laboratory Results - last 24 hr 04/04/17 04/06/17 04/06/17 05:05 17:09 21:11 Sodium Potassium Chloride Carbon Dioxide Anion Gap BUN Creatinine POC Glucometer 190 204 Random Glucose Calcium Phosphorus Magnesium Total Protein (PEP) 5.1 L Albumin (PEP) 2.4 L Globulin 2.7 Albumin/Globulin Ratio 0.9 Beta Globulins 1.0 HONEY M-Edu Not observed JORDAN Screen Negative Hepatitis A IgM Ab Negative Hep Bs Antigen Negative Hep B Core IgM Ab Negative Hepatitis C Antibody <0.1 04/07/17 04/07/17 04/07/17 04:55 06:41 11:28 Sodium 140 Potassium 3.7 Chloride 107 Carbon Dioxide 24 Anion Gap 9 BUN 38 H Creatinine 7.1 H POC Glucometer 124 160 Random Glucose 126 H D Calcium 6.7 L* Phosphorus 6.1 H Magnesium 1.7 L Total Protein (PEP) Albumin (PEP) Globulin Albumin/Globulin Ratio Beta Globulins HONEY M-Edu JORDAN Screen Hepatitis A IgM Ab Hep Bs Antigen Hep B Core IgM Ab Hepatitis C Antibody Problem List - Problems (1) Mediastinal adenopathy Code(s): R59.0 - LOCALIZED ENLARGED LYMPH NODES (2) Anemia in chronic kidney disease (CKD) Code(s): N18.9 - CHRONIC KIDNEY DISEASE, UNSPECIFIED; D63.1 - ANEMIA IN CHRONIC KIDNEY DISEASE Qualifiers: Chronic kidney disease stage: stage 5, not on chronic dialysis Qualified Code(s): N18.5 - Chronic kidney disease, stage 5; D63.1 - Anemia in chronic kidney disease; D63.1 - Anemia in chronic kidney disease (3) Chest pain Code(s): R07.9 - CHEST PAIN, UNSPECIFIED Qualifiers: Chest pain type: chest pain on breathing Qualified Code(s): R07.1 - Chest pain on breathing; R07.81 - Pleurodynia (4) Chronic kidney disease (CKD) Code(s): N18.9 - CHRONIC KIDNEY DISEASE, UNSPECIFIED Qualifiers: Chronic kidney disease stage: unspecified stage Qualified Code(s): N18.9 - Chronic kidney disease, unspecified (5) Demand ischemia Code(s): I24.8 - OTHER FORMS OF ACUTE ISCHEMIC HEART DISEASE (6) Hyperlipidemia associated with type 2 diabetes mellitus Code(s): E11.69 - TYPE 2 DIABETES MELLITUS WITH OTHER SPECIFIED COMPLICATION; E78.5 - HYPERLIPIDEMIA, UNSPECIFIED (7) Hypertensive emergency Code(s): I16.1 - HYPERTENSIVE EMERGENCY (8) Troponin level elevated Code(s): R74.8 - ABNORMAL LEVELS OF OTHER SERUM ENZYMES Assessment/Plan IMP HYPERTENSIVE EMERGENCY CHEST PAIN SYNDROME + TROPONINS CEREBRAL ISCHEMIA DM MEDISTIONAL ADENOPATHY ?INFLAMMATORY,? SARCOID,MALIGNANT SEVERE OSAS AHI 65.5 CKD PLAN TITRATE BP MEDS PER CARDIOLOGY MONITOR LYTES,RENAL FUNCTION,BLOOD SUGARS FORMAL SLEEP STUDIES OUTPATIENT F/U CHEST CT OUTPATIENT NIPPV IF PT COMPLIES DR PEREZ
--- NOTE | 2017-04-07 15:32 | DS ---
Physical Examination Vital Signs: Vital Signs Temperature 98.3 F 04/07/17 14:00 Pulse Rate 73 04/07/17 14:00 Respiratory Rate 16 04/07/17 08:00 Blood Pressure 169/95 04/07/17 14:00 O2 Sat by Pulse Oximetry (%) 92 L 04/07/17 08:00 Findings/Remarks: [place] ALERT, NON-COMPLIANT WITH MEDS TAKING THEM HE FEELS LIKE WARNED THAT IT IS IMPORTANT TO TAKE HIS MEDS DIRECTED PATIENT HAS COMPETENCY TO TAKE MEDS Constitutional: Yes: No Distress Eyes: Yes: WNL HENT: Yes: WNL Neck: Yes: WNL Cardiovascular: Yes: WNL Respiratory: Yes: WNL Gastrointestinal: Yes: WNL Renal/: Yes: WNL Musculoskeletal: Yes: Muscle Weakness Extremities: Yes: WNL Edema: No Peripheral Pulses WNL: Yes Integumentary: Yes: WNL Wound/Incision: Yes: Clean/Dry Neurological: Yes: Pre-Existing Deficit, Weakness ...Motor Strength: RUE, RLE Psychiatric: Yes: Agitated Labs: CBC, BMP 04/06/17 06:40 04/07/17 06:41 Discharge Summary Reason For Visit: HYPERTENSIVE EMERGENCY; CHF; CKD; HYPOCALEMIA Current Active Problems Anemia in chronic kidney disease (CKD) (Acute) CHF (congestive heart failure) (Acute) CVA (cerebral vascular accident) (Acute) Cerebrovascular small vessel disease (Acute) Chest pain (Acute) Chronic kidney disease (CKD) (Acute) D-dimer, elevated (Acute) Demand ischemia (Acute) Diabetes (Acute) Hyperlipidemia associated with type 2 diabetes mellitus (Acute) Hypertensive emergency (Acute) Hypocalcemia (Acute) Mediastinal adenopathy (Acute) Obstructive sleep apnea hypopnea, severe (Acute) Stage 4 chronic kidney disease (Acute) Troponin level elevated (Acute) Type 2 diabetes mellitus (Acute) Procedures: Principal: CT HEAD/MRI BRAIN Hospital Course: ADMITTED ACUTE CVA, BP CONTROL, CRG, NON-COMPLAINCE, WILL FOLLOW UP WITH HIS DOCTOR TOMORROW, NEEDS BP CHECK IN 24 HOURS INSTRUCTED TO WALKIN TO HIS PMD'S OFFICE FOR BP CHECK Condition: Improved - Instructions Diet, Activity, Other Instructions: LOW SALT ADA LOW FAT SEE PMD TOMORROW FOR BP CHECK Referrals: Ángela Worthington [Primary Care Provider] - Disposition: VNS/HOME HEALTH CARE - Home Medications Comprehensive Discharge Medication List: Ambulatory Orders Aspirin [Aspirin EC] 81 mg PO DAILY 04/03/17 Calcium Carbonate 600 mg PO BID 04/03/17 Cholecalciferol (Vitamin D3) [Vitamin D3] 10,000 unit PO DAILY 04/03/17 Furosemide [Lasix] 80 mg PO BID 04/03/17 Gabapentin 300 mg PO TID 04/03/17 Insulin Glargine,Hum.rec.anlog 30 units 04/03/17 Insulin Lispro [Humalog Kwikpen U-100] 12 - 14 unit SQ 04/03/17 Labetalol HCl [Normodyne -] 200 mg PO BID 04/03/17 Potassium Chloride 20 meq PO BID 04/03/17 Aspirin Coated [Ecotrin -] 81 mg PO DAILY #30 tablet.ec 04/07/17 Atorvastatin Ca [Lipitor] 20 mg PO HS #30 tablet 04/07/17 Calcium Acetate [Phoslo -] 667 mg PO TIDCM #90 capsule 04/07/17 Furosemide [Lasix -] 80 mg PO DAILY #30 tablet 04/07/17 Labetalol HCl [Normodyne -] 200 mg PO BID #60 tablet 04/07/17 Melatonin 5 mg PO HS PRN #30 tab 04/07/17 Nifedipine ER [Procardia XL -] 60 mg PO DAILY #30 tab.er.24 04/07/17 hydrALAZINE HCL [Apresoline -] 25 mg PO BID #60 tablet 04/07/17
--- NOTE | 2017-04-07 15:56 | PN ---
Progress Note (short form) - Note Progress Note: Renal Follow up for BRITT/CKD with hypertensive emergency Pt seen and examined at the bedside awake and alert no acute complaints for discharge home today no sob, chest pain, abd pain, N/V/D Vital Signs Temperature 98.3 F 04/07/17 14:00 Pulse Rate 73 04/07/17 14:00 Respiratory Rate 16 04/07/17 08:00 Blood Pressure 169/95 04/07/17 14:00 O2 Sat by Pulse Oximetry (%) 92 L 04/07/17 08:00 Intake & Output 04/04/17 04/05/17 04/06/17 04/07/17 23:59 23:59 23:59 23:59 Intake Total 1700 1010 1400 600 Output Total 500 600 Balance 1200 1010 1400 0 Weight 127.55 kg 128.026 kg 126.552 kg 126.666 kg NAD awake and alert RRR CTA + edema CBC, BMP 04/06/17 06:40 04/07/17 06:41 Current Medications Aspirin (Ecotrin -) 81 mg PO DAILY [facility] Last Admin: 04/07/17 11:28 Dose: 81 mg Atorvastatin Calcium (Lipitor -) 20 mg PO HS [facility] Last Admin: 04/06/17 21:18 Dose: 20 mg Calcium Acetate (Phoslo -) 667 mg PO TIDCM [facility] Last Admin: 04/07/17 12:48 Dose: 667 mg Furosemide (Lasix -) 80 mg PO DAILY [facility] Last Admin: 04/07/17 11:28 Dose: 80 mg Heparin Sodium (Porcine) (Heparin -) 5,000 unit SQ TID [facility] Last Admin: 04/07/17 14:49 Dose: 5,000 unit Insulin Aspart (Novolog Vial Sliding Scale -) 1 vial SQ ACHS [facility] PRN Reason: Protocol Last Admin: 04/07/17 11:29 Dose: 2 units Insulin Detemir (Levemir Vial) 10 units SQ AM [facility] Last Admin: 04/07/17 05:59 Dose: 10 units Labetalol HCl (Normodyne -) 200 mg PO BID [facility] Last Admin: 04/07/17 11:29 Dose: Not Given Melatonin (Melatonin) 5 mg PO HS PRN PRN Reason: INSOMNIA Last Admin: 04/06/17 21:22 Dose: 5 mg Nifedipine (Procardia Xl -) 60 mg PO DAILY [facility] Last Admin: 04/07/17 11:28 Dose: Not Given 52 year old gentleman with PMhx of Hypertension, DM, HLD who presented with complains of left sided chest pain with some radiation to back/flank and found to have hypertensive emergency and BUN/Cr of 33/6.3 #Hypertensive Emergency BP improved continue Labetalol, NIfedpine, Hydralazine goal BP < 140/90 will continue to titrate meds as outpatient #Britt vs. 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
[2017-04-07 17:55] VITALS: BP 184/99; PULSE 72; TEMP 97.9
== END 2017-04-07 19:31 | disposition home health service (06) | DRG 45 ==
LOC: JER 13:53 → JERBED 17:12 → J4W 04-02 20:43
PROVIDERS: ADMIT Internal Medicine; ATTEND Family Medicine
DX: I63.9 Cerebral infarction, unspecified (principal); I13.0 Hypertensive heart and chronic kidney disease with heart failure and stage 1 through stage 4 chronic kidney disease, or unspecified chronic kidney disease; I50.9 Heart failure, unspecified; N17.9 Acute kidney failure, unspecified; E83.51 Hypocalcemia; I16.1 Hypertensive emergency; G47.33 Obstructive sleep apnea (adult) (pediatric); D63.1 Anemia in chronic kidney disease; R07.89 Other chest pain; I24.8 Other forms of acute ischemic heart disease; E78.5 Hyperlipidemia, unspecified; E11.22 Type 2 diabetes mellitus with diabetic chronic kidney disease; E11.65 Type 2 diabetes mellitus with hyperglycemia; Z91.14 Patient's other noncompliance with medication regimen; R59.0 Localized enlarged lymph nodes; N18.5 Chronic kidney disease, stage 5
CPT/HCPCS: 36415; 70450-TC; 70551-TC; 71045-TC-FY; 71250-TC; 76775-TC; 80048; 80053; 80061; 80074; 81003; 81015; 82550; 82553; 82570; 82728; 82746; 82962; 83036; 83540; 83550; 83690; 83721; 83735; 83880; 84100; 84155; 84156; 84165; 84443; 84484; 84550; 85025; 85379; 85610; 86038; 86850; 86900; 86901; 87086; 87340; 87389; 93005; 93010; 93306-TC; 93880-TC; 94660; 97116-GP; 97161-GP; 99285-25; J1644

== ENCOUNTER 2017-12-16 07:34 | Day surgery (SDC) | payer OTHER ==
[2017-12-15 18:20] VITALS: BMI 35.6
[~2017-12-16 07:34] MED LIST: POVIDONE-IODINE OINTMENT 10% - 28.4 GM TUBE TP ONE
[2017-12-16 08:11] LABS: BASO % 0.8 % (0-2.0); EOS % 3.1 % (0-4.5); HEMATOCRIT 29.8 % (35.4-49); HEMOGLOBIN 9.2 GM/dL (11.7-16.9); LYMPH % 29.6 % (8-40); MCH 21.5 pg (25.7-33.7); MCHC 30.7 g/dl (32.0-35.9); MEAN PLT VOLUME 9.5 fl (7.5-11.1); MONO % 6.9 % (3.8-10.2); NEUT % 59.6 % (42.8-82.8); PLATELET COUNT 216 K/MM3 (134-434); RBC 4.26 M/mm3 (4.00-5.60); RDW 18.3 % (11.9-15.9); WHITE BLOOD COUNT 6.6 K/mm3 (4.0-10.0)
[2017-12-16 08:17] LABS: INR 0.94 (0.83-1.09); PROTHROMBIN TIME (PATIENT) 11.1 SEC (9.7-13.0)
[2017-12-16 08:44] LABS: ALK PHOS 54 U/L (45-117); ANION GAP 9 MMOL/L (8-16); BILIRUBIN,TOTAL 0.3 mg/dL (0.2-1); BLOOD UREA NITROGEN 60 mg/dL (7-18); CALCIUM 7.1 mg/dL (8.5-10.1); CHLORIDE 109 mmol/L (98-107); CO2 25 mmol/L (21-32); GLUCOSE,RANDOM 93 mg/dL (74-106); POTASSIUM 4.6 mmol/L (3.5-5.1); SGOT/AST 12 U/L (15-37); SGPT/ALT 18 U/L (13-61); SODIUM 143 mmol/L (136-145); TOT PROT 5.9 g/dl (6.4-8.2)
[2017-12-16 09:12] LABS: CREATININE 10.3 mg/dL (0.55-1.3)
--- NOTE | 2017-12-16 09:15 | HP ---
History & Physical Update - History History: No Change - Physical Physical: No Change - Assessment Assessment: No Change - Plan Plan: No Change (H&P in chart from 12/08/2017)
[2017-12-16] MEDS ORDERED: HEPARIN NA (PORCINE) 5,000 UNITS/ML 1ML VIAL ONE (09:38)
[2017-12-16] MEDS ORDERED: LIDOCAINE HCL 1%, 10 MG/ML (20ML VIAL) ONE (09:38)
[2017-12-16] MEDS ORDERED: MIDAZOLAM HCL 2 MG/2 ML SINGLE DOSE VIAL ONE ×4 (09:38→11:11)
[2017-12-16] MEDS ORDERED: POVIDONE-IODINE OINTMENT 10% - 28.4 GM TUBE ONE (09:39)
[2017-12-16] MEDS ORDERED: PAPAVERINE HCL 30 MG/1 ML 10 ML VIAL NR ONE (09:42)
[2017-12-16] MEDS ORDERED: hydrALAZINE HCL 20 MG/ML VIAL ONE (10:13)
[2017-12-16] MEDS ORDERED: LIDOCAINE HCL 1%, 10 MG/ML (20ML VIAL) INF ONE (10:16)
--- NOTE | 2017-12-16 11:00 | EKG ---
Test Reason : Blood Pressure : / mmHG Vent. Rate : 066 BPM Atrial Rate : 066 BPM P-R Int : 134 ms QRS Dur : 096 ms QT Int : 458 ms P-R-T Axes : 045 -06 152 degrees QTc Int : 480 ms NORMAL SINUS RHYTHM NONSPECIFIC T WAVE ABNORMALITY PROLONGED QT ABNORMAL ECG WHEN COMPARED WITH ECG OF 02-APR-2017 14:32, NO SIGNIFICANT CHANGE WAS FOUND Confirmed by HANNAH SERVIN, LANCE ([id number]) on 12/16/2017 11:00:10 AM Referred By: JENNIFER SALCEDO Confirmed By:LANCE YOUNG MD
[2017-12-16 11:17] LABS: ANISOCYTOSIS 1+; MACROCYTOSIS 1+; OVALOCYTE 1+; PLATELET ESTIMATE NORMAL
[2017-12-16] MEDS ORDERED: POVIDONE-IODINE OINTMENT 10% - 28.4 GM TUBE TP ONE (11:20)
[2017-12-16] MEDS ORDERED: ACETAMINOPHEN WITH CODEINE 300MG/30MG TABLET PO PRN (11:30)
--- NOTE | 2017-12-16 11:30 | OP ---
Operative Note - Note: Operative Date: 12/16/17 Pre-Operative Diagnosis: Renal failure Operation: Creation AV fistula left arm Findings: Patent cephalic vein and brachial artery Post-Operative Diagnosis: Same as Pre-op Surgeon: Gerard López Adult Crossing Guard: Adriano Heard Anesthesiologist/PLUG DRILL OPERATOR: De Hoffman Anesthesia: Fractional Estimated Blood Loss (mls): 20
[2017-12-16] MEDS ORDERED: ACETAMINOPHEN 500 MG TABLET (FP) PO ONE (11:35)
[2017-12-16] MEDS ORDERED: oxyCODONE HCL 5 MG TABLET PO PRN (11:35)
[2017-12-16 11:44] VITALS: PULSE 63; TEMP 97.4
--- NOTE | 2017-12-16 12:20 | SURG ---
Surgery Vehicle Modification Technician Note Vehicle Modification Technician: Adriano Heard PA-C (Suzy) Date of Service: 12/16/17 Diagnosis: renal failure Procedure: Creation of arterio-venous fistula Left upper extremity I was present for the entirety of the operative procedure. For further detail, please refer to operative report.
[2017-12-16] MEDS ORDERED: oxyCODONE HCL 5 MG TABLET PO ONE (12:22)
[2017-12-16] MEDS ORDERED: oxyCODONE HCL 5 MG TABLET ONE (12:32)
--- NOTE | 2017-12-16 13:04 | OP ---
DATE OF OPERATION: 12/16/2017 SURGEON: Gerard López MD STAGECRAFT TEACHER: BROOK Heard PROCEDURE: Creation arteriovenous fistula, left arm. PREOPERATIVE DIAGNOSIS: Renal failure. POSTOPERATIVE DIAGNOSIS: Renal failure. ANESTHESIA: Fractional. ANESTHESIOLOGIST: De Hoffman MD OPERATIVE FINDINGS: The antecubital branch of the cephalic vein was patent with a diameter of approximately 4 mm. The brachial artery was patent with a diameter of approximately 3.5 mm. OPERATIVE PROCEDURE: Following routine patient identification with site and side verification, intravenous sedation was established. The left arm was prepped with ChloraPrep. A time-out was performed. Then 1% lidocaine was infiltrated in the antecubital fossa distal to the elbow crease. A longitudinal incision was made. The cephalic vein was identified and was mobilized from the surrounding tissues. Distal side branches were ligated and divided. The vein was incised and distended with heparin Papaverine solution. No. 8 feeding tube was passed proximally without resistance. The vein was occluded with a small Bulldog clamp. The wound was deepened through the muscle fascia. The brachial artery was identified and encircled proximally with a Vessel Loop. The large side branch, which was probably the radial artery was secured with a Vessel Loop, and the underlying deeper, larger branch was secured with a Vessel Loop. The artery was occluded with clamps and Vessel Loops and opened on exposed surface with a 6-mm arteriotomy distal to the takeoff of the radial branch. The vein was then spatulated and anastomosed to the side of the artery with a running suture of 6-0 Prolene. Prior to completion of the suture line, the artery was allowed to back bleed and flush, and the vein was flushed with heparin solution. Suture line was completed, and all vessels were released. There was good flow through the anastomosis with a palpable thrill in the vein. Surgicel was applied to control bleeding from the suture line. When hemostasis was achieved, the wounds were closed with interrupted suture of 3-0 Vicryl on the subcutaneous tissues then skin elaine. A sterile dressing was applied, and the patient was taken to the recovery room in stable condition. Kerri OGLESBY/[id number]
[2017-12-16 13:32] VITALS: BP 171/87
== END 2017-12-16 13:35 | disposition home or self-care (01) ==
LOC: JASU-SURG 07:34
PROVIDERS: ATTEND Surgery
PROC: 03180ZD Bypass Left Brachial Artery to Upper Arm Vein, Open Approach (ICD-10-PCS; principal; 2017-12-16 09:30)
DX: I12.0 Hypertensive chronic kidney disease with stage 5 chronic kidney disease or end stage renal disease (principal); E11.22 Type 2 diabetes mellitus with diabetic chronic kidney disease; N18.6 End stage renal disease
CPT/HCPCS: 36415; 80053; 85025; 85610; 93005; 93010; J1644

== ENCOUNTER 2018-02-20 05:25 | Inpatient (IN) | payer OTHER ==
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
[2018-02-20] MEDS ORDERED: LABETALOL HCL 100 MG TABLET (FP) PO ONE (05:59)
[2018-02-20] MEDS ORDERED: amLODIPine BESYLATE 10 MG TABLET (FP) PO ONE (05:59)
[2018-02-20] MEDS ORDERED: hydrALAZINE HCL 50 MG TABLET (FP) PO ONE (06:00)
[2018-02-20] MEDS ORDERED: amLODIPine BESYLATE 5 MG TABLET (FP) ONE (06:05)
[2018-02-20 06:18] LABS: BASO % 1.2 % (0-2.0); EOS % 2.5 % (0-4.5); HEMATOCRIT 25.6 % (35.4-49); HEMOGLOBIN 7.8 GM/dL (11.7-16.9); LYMPH % 22.8 % (8-40); MCH 21.4 pg (25.7-33.7); MCHC 30.5 g/dl (32.0-35.9); MEAN CELL VOLUME 70.2 fl (80-96); MEAN PLT VOLUME 9.6 fl (7.5-11.1); MONO % 6.5 % (3.8-10.2); PLATELET COUNT 173 K/MM3 (134-434); RBC 3.64 M/mm3 (4.00-5.60); RDW 19.1 % (11.9-15.9); WHITE BLOOD COUNT 5.6 K/mm3 (4.0-10.0)
[2018-02-20 06:41] LABS: ALBUMIN 3.3 g/dl (3.4-5.0); ALK PHOS 60 U/L (45-117); ANION GAP 10 MMOL/L (8-16); BILIRUBIN,TOTAL 0.3 mg/dL (0.2-1); BLOOD UREA NITROGEN 65 mg/dL (7-18); CHLORIDE 112 mmol/L (98-107); CO2 21 mmol/L (21-32); GLUCOSE,RANDOM 104 mg/dL (74-106); POTASSIUM 4.5 mmol/L (3.5-5.1); SGOT/AST 11 U/L (15-37); SGPT/ALT 22 U/L (13-61); SODIUM 143 mmol/L (136-145); TOT PROT 5.7 g/dl (6.4-8.2)
[2018-02-20 06:42] LABS: CREATININE 11.3 mg/dL (0.55-1.3)
[2018-02-20 06:43] LABS: CALCIUM 6.6 mg/dL (8.5-10.1)
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
[2018-02-20 11:42] LABS: ANISOCYTOSIS 1+; MACROCYTOSIS 0; PLATELET ESTIMATE NORMAL
[2018-02-20] MEDS ORDERED: LABETALOL HCL 200 MG TABLET (FP) PO SCH (12:30)
[2018-02-20] MEDS ORDERED: hydrALAZINE HCL 25 MG TABLET (FP) PO SCH (12:30)
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
[2018-02-20] MEDS: amLODIPine BESYLATE 10 MG TABLET (FP) PO SCH (12:38)
--- NOTE | 2018-02-20 13:26 | EKG ---
Test Reason : Blood Pressure : / mmHG Vent. Rate : 070 BPM Atrial Rate : 070 BPM P-R Int : 134 ms QRS Dur : 092 ms QT Int : 434 ms P-R-T Axes : 049 -09 084 degrees QTc Int : 468 ms NORMAL SINUS RHYTHM NONSPECIFIC T WAVE ABNORMALITY PROLONGED QT ABNORMAL ECG WHEN COMPARED WITH ECG OF 16-DEC-2017 07:44, NONSPECIFIC T WAVE ABNORMALITY NO LONGER EVIDENT IN INFERIOR LEADS Confirmed by JERONIMO SERVIN, TOMAS ([id number]) on 02/20/2018 1:25:50 PM Referred By: Confirmed By:TOMAS DECKER MD
[2018-02-20] MEDS ORDERED: ASPIRIN COATED 81 MG TABLET.EC ONE (14:16)
[2018-02-20] MEDS ORDERED: FERROUS SO4 325 MG TABLET (FP) ONE (14:17)
[2018-02-20] MEDS: CALCIUM ACETATE 667 MG CAPSULE (FP) PO SCH ×2 (14:22→18:02)
[2018-02-20] MEDS: FERROUS SO4 325 MG TABLET (FP) PO SCH ×2 (14:22→21:20)
[2018-02-20] MEDS: ASPIRIN COATED 81 MG TABLET.EC PO SCH (14:22)
[2018-02-20] MEDS ORDERED: CALCIUM GLUCONATE 10% - 1,000 MG/10 ML VIAL IVPB ONE (17:45)
[2018-02-20] MEDS: CALCIUM CARBONATE 650 MG TABLET PO SCH ×2 (19:20→21:20)
[2018-02-20] MEDS: hydrALAZINE HCL 50 MG TABLET (FP) PO SCH (21:09)
[2018-02-20] MEDS: LABETALOL HCL 100 MG TABLET (FP) PO SCH (21:21)
[2018-02-20] MEDS: ATORVASTATIN CA 20 MG TABLET (FP) PO SCH (21:22)
[2018-02-21 08:42] LABS: PHOSPHOROUS 7.7 mg/dL (2.5-4.9)
[2018-02-21] MEDS: CALCIUM ACETATE 667 MG CAPSULE (FP) PO SCH ×3 (08:56→16:42)
[2018-02-21] MEDS ORDERED: diazePAM 5 MG TABLET PO ONE (09:17)
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
[2018-02-21] MEDS: LABETALOL HCL 100 MG TABLET (FP) PO SCH ×2 (09:46→22:11)
[2018-02-21] MEDS: amLODIPine BESYLATE 10 MG TABLET (FP) PO SCH (09:47)
[2018-02-21] MEDS: hydrALAZINE HCL 50 MG TABLET (FP) PO SCH ×2 (09:47→22:09)
[2018-02-21] MEDS: FUROSEMIDE 40 MG TABLET (FP) PO SCH (09:47)
[2018-02-21] MEDS: FERROUS SO4 325 MG TABLET (FP) PO SCH ×2 (09:47→22:10)
[2018-02-21] MEDS: ASPIRIN COATED 81 MG TABLET.EC PO SCH (09:47)
[2018-02-21] MEDS: CALCITRIOL 0.25 MCG CAPSULE (FP) PO SCH (09:47)
[2018-02-21 10:11] LABS: HEMATOCRIT 24.4 % (35.4-49); LYMPH % 27.6 % (8-40); MCH 22.5 pg (25.7-33.7); MCHC 32.6 g/dl (32.0-35.9); MEAN CELL VOLUME 68.9 fl (80-96); MEAN PLT VOLUME 10.5 fl (7.5-11.1); MONO % 5.3 % (3.8-10.2); NEUT % 64.1 % (42.8-82.8); PLATELET COUNT 191 K/MM3 (134-434); RBC 3.54 M/mm3 (4.00-5.60); RDW 18.6 % (11.9-15.9); WHITE BLOOD COUNT 5.3 K/mm3 (4.0-10.0)
[2018-02-21] MEDS: CALCIUM CARBONATE 650 MG TABLET PO SCH ×2 (10:38→22:10)
[2018-02-21 10:57] LABS: ALBUMIN 2.9 g/dl (3.4-5.0); ALK PHOS 54 U/L (45-117); ANION GAP 11 MMOL/L (8-16); BILIRUBIN,TOTAL 0.4 mg/dL (0.2-1); BLOOD UREA NITROGEN 67 mg/dL (7-18); CALCIUM 7.3 mg/dL (8.5-10.1); CHLORIDE 109 mmol/L (98-107); CHOLESTEROL 145 mg/dL (50-200); CO2 20 mmol/L (21-32); GLUCOSE,RANDOM 148 mg/dL (74-106); HDL CHOLESTEROL 47 mg/dL (40-60); POTASSIUM 4.4 mmol/L (3.5-5.1); SGOT/AST 7 U/L (15-37); SGPT/ALT 20 U/L (13-61); SODIUM 140 mmol/L (136-145); TOT PROT 5.4 g/dl (6.4-8.2); TRIGLYCERIDES 63 mg/dL (0-150)
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
[2018-02-21 11:11] LABS: CREATININE 11.3 mg/dL (0.55-1.3)
[2018-02-21] MEDS ORDERED: LABETALOL HCL 200 MG TABLET (FP) PO ONE (14:45)
[2018-02-21] MEDS ORDERED: hydrALAZINE HCL 25 MG TABLET (FP) PO ONE (14:45)
[2018-02-21] MEDS ORDERED: PT OWN MED DRAWER 7, Y5N ONE (15:17)
[2018-02-21] MEDS: ATORVASTATIN CA 20 MG TABLET (FP) PO SCH (22:11)
[2018-02-22 04:07] LABS: SERUM IRON SATURATION 20 % (15-55); TOTAL IRON BINDING CAPACITY 279 ug/dL (250-450); UIBC 222 ug/dL (111-343)
[2018-02-22 06:17] LABS: BASO % 0.9 % (0-2.0); EOS % 2.5 % (0-4.5); HEMATOCRIT 23.8 % (35.4-49); HEMOGLOBIN 7.4 GM/dL (11.7-16.9); LYMPH % 26.8 % (8-40); MCH 21.4 pg (25.7-33.7); MCHC 30.9 g/dl (32.0-35.9); MEAN CELL VOLUME 69.3 fl (80-96); MEAN PLT VOLUME 10.3 fl (7.5-11.1); MONO % 6.8 % (3.8-10.2); PLATELET COUNT 163 K/MM3 (134-434); RBC 3.44 M/mm3 (4.00-5.60); RDW 18.7 % (11.9-15.9); WHITE BLOOD COUNT 5.2 K/mm3 (4.0-10.0)
[2018-02-22] MEDS ORDERED: PT OWN MED DRAWER 7, Y5N ONE ×2 (07:10→21:41)
[2018-02-22 07:30] LABS: ALBUMIN 2.7 g/dl (3.4-5.0); ALK PHOS 50 U/L (45-117); ANION GAP 11 MMOL/L (8-16); BILIRUBIN,TOTAL 0.6 mg/dL (0.2-1); BLOOD UREA NITROGEN 68 mg/dL (7-18); CALCIUM 7.5 mg/dL (8.5-10.1); CHLORIDE 109 mmol/L (98-107); CO2 20 mmol/L (21-32); GLUCOSE,RANDOM 102 mg/dL (74-106); POTASSIUM 4.3 mmol/L (3.5-5.1); SGOT/AST 8 U/L (15-37); SGPT/ALT 17 U/L (13-61); SODIUM 140 mmol/L (136-145)
[2018-02-22 07:48] LABS: CREATININE 11.4 mg/dL (0.55-1.3)
[2018-02-22] MEDS: CALCIUM ACETATE 667 MG CAPSULE (FP) PO SCH ×3 (08:27→17:26)
[2018-02-22] MEDS: CALCITRIOL 0.25 MCG CAPSULE (FP) PO SCH (10:30)
[2018-02-22] MEDS: amLODIPine BESYLATE 10 MG TABLET (FP) PO SCH (10:30)
[2018-02-22] MEDS: hydrALAZINE HCL 50 MG TABLET (FP) PO SCH ×2 (10:31→21:45)
[2018-02-22] MEDS: FUROSEMIDE 40 MG TABLET (FP) PO SCH (10:31)
[2018-02-22] MEDS: FERROUS SO4 325 MG TABLET (FP) PO SCH ×2 (10:31→21:45)
[2018-02-22] MEDS: LABETALOL HCL 100 MG TABLET (FP) PO SCH (10:31)
[2018-02-22] MEDS: SODIUM BICARBONATE 650 MG TABLET PO SCH (10:31)
[2018-02-22] MEDS: ASPIRIN COATED 81 MG TABLET.EC PO SCH (10:31)
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
[2018-02-22] MEDS ORDERED: LABETALOL HCL 100 MG TABLET (FP) PO ONE (11:30)
[2018-02-22 11:33] LABS: CHOLESTEROL 131 mg/dL (50-200); HDL CHOLESTEROL 48 mg/dL (40-60); TRIGLYCERIDES 38 mg/dL (0-150)
[2018-02-22] MEDS: CALCIUM CARBONATE 650 MG TABLET PO SCH ×2 (13:09→22:53)
--- NOTE | 2018-02-22 15:31 | ECHO ---
Name: LY SANABRIA Exam:Adult Echocardiogram Study Date: 02/22/2018 01:55 PM Age: 53 yrs Reason For Study: MRI SHOWS MULTIPLE SMALL AREAS OF STROKE Height: 73 in Weight: 271 lb BSA: 2.4 m2 MMode/2D Measurements & Calculations IVSd: 1.4 cm Ao root diam: 3.1 cm LVIDd: 6.0 cm LA dimension: 4.4 cm LVIDs: 4.1 cm LVPWd: 1.4 cm EDV(Teich): 182.5 ml TAPSE: 3.9 cm ESV(Teich): 73.1 ml Doppler Measurements & Calculations MV E max rei: 71.6 cm/sec MR max rei: 452.2 cm/sec MV A max rei: 99.2 cm/sec MR max P.4 mmHg MV E/A: 0.72 MV dec time: 0.25 sec TR max rei: 301.0 cm/sec Med Peak E' Rei: 6.9 cm/sec TR max P.2 mmHg Med E/e': 10.4 Lat Peak E' Rei: 5.5 cm/sec Lat E/e': 13.1 Procedure A complete two-dimensional transthoracic echocardiogram was performed (2D, M-mode, Doppler and color flow Doppler). Left Ventricle The left ventricle is mildly dilated. There is moderate concentric left ventricular hypertrophy. Left ventricular systolic function is normal. Ejection Fraction = 60-65%. No regional wall motion abnormal ities noted. Right Ventricle The right ventricle is normal size. The right ventricular systolic function is normal. Atria The left atrium is mildly dilated. The right atrium is mildly dilated. Mitral Valve There is mild mitral valve thickening. There is mild mitral regurgitation. Tricuspid Valve The tricuspid valve is normal in structure and function. There is mild to moderate tricuspid regurgit ation. Pulmonary artery systolic pressure is at least 44 mmHg assuming RA pressure of 8 mmHg. Aortic Valve The aortic valve is normal in structure and function. No aortic regurgitation is present. Pulmonic Valve The pulmonic valve is not well visualized. Great Vessels The aortic root is normal size. Pericardium/Pleura Small pericardial effusion (<1cm). There are no echocardiographic indications of cardiac tamponade. Interpretation Summary The left ventricle is mildly dilated. There is moderate concentric left ventricular hypertrophy. Left ventricular systolic function is normal. No regional wall motion abnormalities noted. Ejection Fraction = 60-65%. The right ventricular systolic function is normal. The left atrium is mildly dilated. The right atrium is mildly dilated. There is mild mitral valve thickening. There is mild mitral regurgitation. There is mild to moderate tricuspid regurgitation. Pulmonary artery systolic pressure is at least 44 mmHg assuming RA pressure of 8 mmHg Small pericardial effusion (<1cm) There are no echocardiographic indications of cardiac tamponade. Previous study is not available for comparison Geronimo Gonzalez MD 02/22/2018 03:30 PM
[2018-02-22 16:00] VITALS: BMI 35.7
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
[2018-02-22 19:07] LABS: CREATININE 11.4 mg/dL (0.55-1.3)
[2018-02-22] MEDS: LABETALOL HCL 200 MG TABLET (FP) PO SCH (21:45)
[2018-02-22] MEDS: ATORVASTATIN CA 20 MG TABLET (FP) PO SCH (21:45)
[2018-02-23 08:29] LABS: BASO % 0.7 % (0-2.0); EOS % 2.4 % (0-4.5); HEMATOCRIT 24.9 % (35.4-49); HEMOGLOBIN 7.6 GM/dL (11.7-16.9); MCH 21.3 pg (25.7-33.7); MCHC 30.5 g/dl (32.0-35.9); MEAN CELL VOLUME 69.7 fl (80-96); MEAN PLT VOLUME 10.3 fl (7.5-11.1); MONO % 7.2 % (3.8-10.2); NEUT % 65.7 % (42.8-82.8); PLATELET COUNT 170 K/MM3 (134-434); RBC 3.56 M/mm3 (4.00-5.60); RDW 18.5 % (11.9-15.9); WHITE BLOOD COUNT 5.2 K/mm3 (4.0-10.0)
[2018-02-23 08:56] LABS: ALK PHOS 54 U/L (45-117); ANION GAP 10 MMOL/L (8-16); BILIRUBIN,TOTAL 0.4 mg/dL (0.2-1); BLOOD UREA NITROGEN 70 mg/dL (7-18); CALCIUM 7.5 mg/dL (8.5-10.1); CHLORIDE 109 mmol/L (98-107); CO2 20 mmol/L (21-32); GLUCOSE,RANDOM 97 mg/dL (74-106); POTASSIUM 4.4 mmol/L (3.5-5.1); SGOT/AST 10 U/L (15-37); SGPT/ALT 17 U/L (13-61); SODIUM 139 mmol/L (136-145); TOT PROT 5.2 g/dl (6.4-8.2)
[2018-02-23 09:01] LABS: CREATININE 11.6 mg/dL (0.55-1.3)
[2018-02-23] MEDS ORDERED: PT OWN MED DRAWER 7, Y5N ONE ×2 (09:21→21:58)
[2018-02-23] MEDS: SODIUM BICARBONATE 650 MG TABLET PO SCH (09:24)
[2018-02-23] MEDS: hydrALAZINE HCL 50 MG TABLET (FP) PO SCH ×2 (09:24→22:03)
[2018-02-23] MEDS: FUROSEMIDE 40 MG TABLET (FP) PO SCH ×2 (09:24→14:03)
[2018-02-23] MEDS: ASPIRIN COATED 81 MG TABLET.EC PO SCH (09:24)
[2018-02-23] MEDS: LABETALOL HCL 200 MG TABLET (FP) PO SCH ×2 (09:24→22:03)
[2018-02-23] MEDS: amLODIPine BESYLATE 10 MG TABLET (FP) PO SCH (09:24)
[2018-02-23] MEDS: CALCIUM ACETATE 667 MG CAPSULE (FP) PO SCH ×3 (09:24→16:32)
[2018-02-23] MEDS: FERROUS SO4 325 MG TABLET (FP) PO SCH ×2 (09:25→22:04)
[2018-02-23] MEDS: CALCIUM CARBONATE 650 MG TABLET PO SCH ×2 (09:25→22:04)
[2018-02-23] MEDS: CALCITRIOL 0.25 MCG CAPSULE (FP) PO SCH (09:26)
[2018-02-23 11:36] LABS: ANISOCYTOSIS 0; MACROCYTOSIS 0; OVALOCYTE 1+; PLATELET ESTIMATE NORMAL
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
--- NOTE | 2018-02-23 12:58 | PN ---
Progress Note, Physician Chief Complaint: PATIENT SEEN AND EXAMINED AWAKE ALERT X 3 DENIES HEADACHE OR DIZZINESS - Current Medication List Current Medications: Active Medications Amlodipine Besylate (Norvasc -) 10 mg PO DAILY [facility] Last Admin: 02/23/18 09:24 Dose: 10 mg Aspirin (Ecotrin -) 81 mg PO DAILY [facility] Last Admin: 02/23/18 09:24 Dose: 81 mg Atorvastatin Calcium (Lipitor -) 20 mg PO HS [facility] Last Admin: 02/22/18 21:45 Dose: 20 mg Calcitriol (Rocaltrol -) 0.25 mcg PO DAILY [facility] Last Admin: 02/23/18 09:26 Dose: 0.25 mcg Calcium Acetate (Phoslo -) 667 mg PO TIDCM [facility] Last Admin: 02/23/18 12:19 Dose: 667 mg Calcium Carbonate (Calcium Carbonate -) 1,300 mg PO BID [facility] Last Admin: 02/23/18 09:25 Dose: 1,300 mg Epoetin Franco (Procrit -) 20,000 unit SQ ONCE ONE Stop: 02/21/18 10:01 Ferrous Sulfate (Feosol -) 325 mg PO BID [facility] Last Admin: 02/23/18 09:25 Dose: 325 mg Furosemide (Lasix -) 80 mg PO BID@0600,1400 [facility] Hydralazine HCl (Apresoline -) 100 mg PO BID [facility] Last Admin: 02/23/18 09:24 Dose: 100 mg Labetalol HCl (Normodyne -) 400 mg PO BID [facility] Last Admin: 02/23/18 09:24 Dose: 400 mg Sodium Bicarbonate (Sodium Bicarbonate -) 650 mg PO DAILY [facility] Last Admin: 02/23/18 09:24 Dose: 650 mg - Objective Vital Signs: Vital Signs Temperature 97.8 F 02/23/18 10:00 Pulse Rate 71 02/23/18 10:00 Respiratory Rate 20 02/23/18 10:00 Blood Pressure 164/80 02/23/18 10:00 O2 Sat by Pulse Oximetry (%) 97 02/23/18 09:00 Constitutional: Yes: No Distress Eyes: Yes: WNL HENT: Yes: WNL Neck: Yes: WNL Cardiovascular: Yes: WNL Respiratory: Yes: WNL Gastrointestinal: Yes: WNL Genitourinary: Yes: WNL Musculoskeletal: Yes: WNL Extremities: Yes: WNL Edema: No Peripheral Pulses WNL: Yes Integumentary: Yes: WNL Wound/Incision: Yes: Clean/Dry Neurological: Yes: WNL ...Motor Strength: WNL Psychiatric: Yes: WNL Labs: CBC, BMP 02/23/18 07:50 02/23/18 07:50 Problem List - Problems (1) Anemia Code(s): D64.9 - ANEMIA, UNSPECIFIED (2) Dysarthria Code(s): R47.1 - DYSARTHRIA AND ANARTHRIA (3) HTN (hypertension) Code(s): I10 - ESSENTIAL (PRIMARY) HYPERTENSION (4) Anemia in chronic kidney disease (CKD) Code(s): N18.9 - CHRONIC KIDNEY DISEASE, UNSPECIFIED; D63.1 - ANEMIA IN CHRONIC KIDNEY DISEASE Qualifiers: Chronic kidney disease stage: stage 5, not on chronic dialysis Qualified Code(s): N18.5 - Chronic kidney disease, stage 5; D63.1 - Anemia in chronic kidney disease; D63.1 - Anemia in chronic kidney disease (5) CVA (cerebral vascular accident) Code(s): I63.9 - CEREBRAL INFARCTION, UNSPECIFIED Qualifiers: Precerebral and cerebral artery: unspecified precerebral artery (6) Cerebrovascular small vessel disease Code(s): I67.9 - CEREBROVASCULAR DISEASE, UNSPECIFIED (7) Chronic kidney disease (CKD) Code(s): N18.9 - CHRONIC KIDNEY DISEASE, UNSPECIFIED Qualifiers: Chronic kidney disease stage: unspecified stage Qualified Code(s): N18.9 - Chronic kidney disease, unspecified (8) Hyperlipidemia associated with type 2 diabetes mellitus Code(s): E11.69 - TYPE 2 DIABETES MELLITUS WITH OTHER SPECIFIED COMPLICATION; E78.5 - HYPERLIPIDEMIA, UNSPECIFIED (9) Type 2 diabetes mellitus Code(s): E11.9 - TYPE 2 DIABETES MELLITUS WITHOUT COMPLICATIONS Qualifiers: Diabetes mellitus terminal supervisor insulin use: without terminal supervisor use Diabetes mellitus complication status: with kidney complications Diabetes mellitus complication detail: with chronic kidney disease Chronic kidney disease stage : stage 5, not on chronic dialysis Qualified Code(s): E11.22 - Type 2 diabetes mellitus with diabetic chronic kidney disease; N18.5 - Chronic kidney disease, stage 5 Assessment/Plan BRAIN MRI SHOWS SUBACUTE CVA NEURO EVAL STATIN THERAPY ASA BP CONTROL STRICT DM CONTROL AND ADA ENDOCRINE/NUTRITION CONSULT PT EVAL SYMPTOMS OF CVA IMPROVING
--- NOTE | 2018-02-23 13:37 | PN ---
Progress Note (short form) - Note Progress Note: I HAVE CONSULTED CARDIOLOGY FOR A RECOMMENDED HELLEN PER NEUROLOGY WITH ONSET OF CVA. Problem List - Problems (1) Anemia Code(s): D64.9 - ANEMIA, UNSPECIFIED (2) Dysarthria Code(s): R47.1 - DYSARTHRIA AND ANARTHRIA (3) HTN (hypertension) Code(s): I10 - ESSENTIAL (PRIMARY) HYPERTENSION (4) Anemia in chronic kidney disease (CKD) Code(s): N18.9 - CHRONIC KIDNEY DISEASE, UNSPECIFIED; D63.1 - ANEMIA IN CHRONIC KIDNEY DISEASE Qualifiers: Chronic kidney disease stage: stage 5, not on chronic dialysis Qualified Code(s): N18.5 - Chronic kidney disease, stage 5; D63.1 - Anemia in chronic kidney disease; D63.1 - Anemia in chronic kidney disease (5) CVA (cerebral vascular accident) Code(s): I63.9 - CEREBRAL INFARCTION, UNSPECIFIED Qualifiers: Precerebral and cerebral artery: unspecified precerebral artery (6) Cerebrovascular small vessel disease Code(s): I67.9 - CEREBROVASCULAR DISEASE, UNSPECIFIED (7) Chronic kidney disease (CKD) Code(s): N18.9 - CHRONIC KIDNEY DISEASE, UNSPECIFIED Qualifiers: Chronic kidney disease stage: unspecified stage Qualified Code(s): N18.9 - Chronic kidney disease, unspecified (8) Hyperlipidemia associated with type 2 diabetes mellitus Code(s): E11.69 - TYPE 2 DIABETES MELLITUS WITH OTHER SPECIFIED COMPLICATION; E78.5 - HYPERLIPIDEMIA, UNSPECIFIED (9) Type 2 diabetes mellitus Code(s): E11.9 - TYPE 2 DIABETES MELLITUS WITHOUT COMPLICATIONS Qualifiers: Diabetes mellitus long-term insulin use: without long-term use Diabetes mellitus complication status: with kidney complications Diabetes mellitus complication detail: with chronic kidney disease Chronic kidney disease stage : stage 5, not on chronic dialysis Qualified Code(s): E11.22 - Type 2 diabetes mellitus with diabetic chronic kidney disease; N18.5 - Chronic kidney disease, stage 5
[2018-02-23] MEDS ORDERED: EPOETIN ALFA 20,000 UNIT/1 ML VIAL SQ ONE (15:15)
[2018-02-23] MEDS: ATORVASTATIN CA 20 MG TABLET (FP) PO SCH (22:03)
[2018-02-24] MEDS: FUROSEMIDE 40 MG TABLET (FP) PO SCH ×2 (05:51→14:12)
[2018-02-24 07:20] LABS: BASO % 0.9 % (0-2.0); EOS % 2.6 % (0-4.5); HEMATOCRIT 23.9 % (35.4-49); HEMOGLOBIN 7.3 GM/dL (11.7-16.9); LYMPH % 28.3 % (8-40); MCH 21.4 pg (25.7-33.7); MCHC 30.7 g/dl (32.0-35.9); MEAN CELL VOLUME 69.7 fl (80-96); MONO % 7.5 % (3.8-10.2); NEUT % 60.7 % (42.8-82.8); PLATELET COUNT 168 K/MM3 (134-434); RBC 3.44 M/mm3 (4.00-5.60); RDW 18.4 % (11.9-15.9); WHITE BLOOD COUNT 5.1 K/mm3 (4.0-10.0)
[2018-02-24 07:43] LABS: MAGNESIUM 1.9 mg/dL (1.8-2.4); PHOSPHOROUS 7.5 mg/dL (2.5-4.9)
[2018-02-24 07:47] LABS: ALBUMIN 2.8 g/dl (3.4-5.0); ALK PHOS 61 U/L (45-117); ANION GAP 10 MMOL/L (8-16); BILIRUBIN,TOTAL 0.3 mg/dL (0.2-1); BLOOD UREA NITROGEN 76 mg/dL (7-18); CALCIUM 7.7 mg/dL (8.5-10.1); CHLORIDE 108 mmol/L (98-107); CO2 22 mmol/L (21-32); GLUCOSE,RANDOM 96 mg/dL (74-106); POTASSIUM 4.3 mmol/L (3.5-5.1); SGOT/AST 10 U/L (15-37); SGPT/ALT 19 U/L (13-61); SODIUM 140 mmol/L (136-145); TOT PROT 5.2 g/dl (6.4-8.2)
[2018-02-24 07:48] LABS: CREATININE 11.7 mg/dL (0.55-1.3)
[2018-02-24] MEDS: CALCIUM ACETATE 667 MG CAPSULE (FP) PO SCH ×3 (08:09→17:20)
[2018-02-24] MEDS ORDERED: PT OWN MED DRAWER 7, Y5N ONE (09:35)
[2018-02-24] MEDS: FERROUS SO4 325 MG TABLET (FP) PO SCH (09:47)
[2018-02-24] MEDS: hydrALAZINE HCL 50 MG TABLET (FP) PO SCH (09:47)
[2018-02-24] MEDS: ASPIRIN COATED 81 MG TABLET.EC PO SCH (09:48)
[2018-02-24] MEDS: SODIUM BICARBONATE 650 MG TABLET PO SCH (09:48)
[2018-02-24] MEDS: LABETALOL HCL 200 MG TABLET (FP) PO SCH (09:48)
[2018-02-24] MEDS: amLODIPine BESYLATE 10 MG TABLET (FP) PO SCH (09:48)
[2018-02-24] MEDS: CALCITRIOL 0.25 MCG CAPSULE (FP) PO SCH (09:48)
[2018-02-24] MEDS: CALCIUM CARBONATE 650 MG TABLET PO SCH (09:49)
[2018-02-24] MEDS ORDERED: IRON SUCROSE INJECTION 200 MG in SODIUM CHLORIDE 90 ML IVPB ONE (11:30)
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
[2018-02-24 14:34] VITALS: BP 161/82; PULSE 66; TEMP 97.8
--- NOTE | 2018-02-24 15:55 | PN ---
Progress Note, Physician - Current Medication List Current Medications: Active Medications Amlodipine Besylate (Norvasc -) 10 mg PO DAILY [facility] Last Admin: 02/24/18 09:48 Dose: 10 mg Aspirin (Ecotrin -) 81 mg PO DAILY [facility] Last Admin: 02/24/18 09:48 Dose: 81 mg Atorvastatin Calcium (Lipitor -) 20 mg PO HS [facility] Last Admin: 02/23/18 22:03 Dose: 20 mg Calcitriol (Rocaltrol -) 0.25 mcg PO DAILY [facility] Last Admin: 02/24/18 09:48 Dose: 0.25 mcg Calcium Acetate (Phoslo -) 1,334 mg PO TIDCM [facility] Last Admin: 02/24/18 12:02 Dose: 1,334 mg Calcium Carbonate (Calcium Carbonate -) 1,300 mg PO BID [facility] Last Admin: 02/24/18 09:49 Dose: 1,300 mg Ferrous Sulfate (Feosol -) 325 mg PO BID [facility] Last Admin: 02/24/18 09:47 Dose: 325 mg Furosemide (Lasix -) 80 mg PO BID@0600,1400 [facility] Last Admin: 02/24/18 14:12 Dose: 80 mg Hydralazine HCl (Apresoline -) 100 mg PO BID [facility] Last Admin: 02/24/18 09:47 Dose: 100 mg Labetalol HCl (Normodyne -) 400 mg PO BID [facility] Last Admin: 02/24/18 09:48 Dose: 400 mg Sodium Bicarbonate (Sodium Bicarbonate -) 650 mg PO DAILY [facility] Last Admin: 02/24/18 09:48 Dose: 650 mg - Objective Vital Signs: Vital Signs Temperature 97.8 F 02/24/18 14:31 Pulse Rate 66 02/24/18 14:31 Respiratory Rate 18 02/24/18 14:31 Blood Pressure 161/82 02/24/18 14:31 O2 Sat by Pulse Oximetry (%) 98 02/24/18 09:00 Labs: CBC, BMP 02/24/18 06:47 02/24/18 06:47 Problem List - Problems (1) Anemia Code(s): D64.9 - ANEMIA, UNSPECIFIED (2) Dysarthria Code(s): R47.1 - DYSARTHRIA AND ANARTHRIA (3) HTN (hypertension) Code(s): I10 - ESSENTIAL (PRIMARY) HYPERTENSION (4) Anemia in chronic kidney disease (CKD) Code(s): N18.9 - CHRONIC KIDNEY DISEASE, UNSPECIFIED; D63.1 - ANEMIA IN CHRONIC KIDNEY DISEASE Qualifiers: Qualified Code(s): N18.5 - Chronic kidney disease, stage 5; D63.1 - Anemia in chronic kidney disease (5) CVA (cerebral vascular accident) Code(s): I63.9 - CEREBRAL INFARCTION, UNSPECIFIED (6) Cerebrovascular small vessel disease Code(s): I67.9 - CEREBROVASCULAR DISEASE, UNSPECIFIED (7) Chronic kidney disease (CKD) Code(s): N18.9 - CHRONIC KIDNEY DISEASE, UNSPECIFIED Qualifiers: Qualified Code(s): N18.9 - Chronic kidney disease, unspecified (8) Hyperlipidemia associated with type 2 diabetes mellitus Code(s): E11.69 - TYPE 2 DIABETES MELLITUS WITH OTHER SPECIFIED COMPLICATION; E78.5 - HYPERLIPIDEMIA, UNSPECIFIED (9) Type 2 diabetes mellitus Code(s): E11.9 - TYPE 2 DIABETES MELLITUS WITHOUT COMPLICATIONS Qualifiers: Qualified Code(s): E11.22 - Type 2 diabetes mellitus with diabetic chronic kidney disease; N18.5 - Chronic kidney disease, stage 5
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
== END 2018-02-24 19:35 | disposition home or self-care (01) | DRG 45 ==
LOC: JER 05:25 → JERBED 11:24 → J8W 16:45 → OBSVTOIN 02-22 10:54 → J4S 02-22 15:46
PROVIDERS: ADMIT Family Medicine; ATTEND Family Medicine
DX: I63.9 Cerebral infarction, unspecified (principal); I13.2 Hypertensive heart and chronic kidney disease with heart failure and with stage 5 chronic kidney disease, or end stage renal disease; E11.22 Type 2 diabetes mellitus with diabetic chronic kidney disease; N18.6 End stage renal disease; I27.20 Pulmonary hypertension, unspecified; E83.51 Hypocalcemia; E83.39 Other disorders of phosphorus metabolism; S09.8XXA Other specified injuries of head, initial encounter; I16.0 Hypertensive urgency; I69.322 Dysarthria following cerebral infarction; I69.328 Other speech and language deficits following cerebral infarction; V43.52XA Car driver injured in collision with other type car in traffic accident, initial encounter; Y93.89 Activity, other specified; Y92.413 State road as the place of occurrence of the external cause; Y99.8 Other external cause status; D63.1 Anemia in chronic kidney disease; I34.0 Nonrheumatic mitral (valve) insufficiency; E78.5 Hyperlipidemia, unspecified; Z91.14 Patient's other noncompliance with medication regimen
CPT/HCPCS: 36415; 70450-TC; 70551-TC; 71046-TC-FY; 72125-TC; 80048; 80053; 80061; 82272; 82550; 82553; 82575; 82607; 82668; 82728; 83036; 83540; 83550; 83721; 83735; 84100; 84439; 84443; 84484; 85025; 93005; 93010; 93306-TC; 93880-TC; 99284-25; G0378; J0885; J1756

== ENCOUNTER 2018-03-16 11:21 | Inpatient (IN) | payer OTHER ==
--- NOTE | 2018-03-16 13:03 | PDOC ---
History of Present Illness - General Chief Complaint: Cold Symptoms Stated Complaint: Blood Pressure Problem Time Seen by Provider: 03/16/18 11:47 History Source: Patient Exam Limitations: No Limitations Past History - Past Medical History Allergies/Adverse Reactions: Allergies Allergy/AdvReac Type Severity Reaction Status Date / Time No Known Allergies Allergy Verified 03/16/18 11:35 Home Medications: Ambulatory Orders Furosemide [Lasix] 80 mg PO BID 04/03/17 Ferrous Sulfate [Iron] 325 mg PO DAILY 02/20/18 Amlodipine Besylate 10 mg PO DAILY #30 tablet 02/24/18 Aspirin Coated [Ecotrin -] 81 mg PO DAILY #30 tablet.ec 02/24/18 Atorvastatin Ca [Lipitor] 20 mg PO HS #30 tablet 02/24/18 Calcium Carbonate - 1,300 mg PO BID #60 tablet 02/24/18 Labetalol HCl [Normodyne -] 400 mg PO BID #60 tablet 02/24/18 Sodium Bicarbonate - 650 mg PO DAILY #30 tablet 02/24/18 hydrALAZINE HCL [Apresoline -] 100 mg PO BID #60 tablet 02/24/18 CVA: No COPD: No CHF: Yes Diabetes: Yes Disorders: Yes (chronic kidney) HTN: Yes Hypercholesterolemia: Yes - Immunization History Immunization Up to Date: (unknown) - Suicide/Smoking/Psychosocial Hx Smoking History: Never smoked Have you smoked in the past 12 months: No Number of Cigarettes Smoked Daily: 0 Cigars Per Day: 1 Information on smoking cessation initiated: No 'Breaking Loose' booklet given: 02/20/18 Hx Alcohol Use: No Drug/Substance Use Hx: No Substance Use Type: Marijuana Hx Substance Use Treatment: No *Physical Exam - Vital Signs Last Vital Signs Temp Pulse Resp BP Pulse Ox 100.3 F H 86 18 169/89 100 03/16/18 11:33 03/16/18 11:33 03/16/18 11:33 03/16/18 11:33 03/16/18 11:33 Moderate Sedation - Procedure Monitoring Vital Signs: Procedure Monitoring Vital Signs Temperature 100.3 F H 03/16/18 11:33 Pulse Rate 86 03/16/18 11:33 Respiratory Rate 18 03/16/18 11:33 Blood Pressure 169/89 03/16/18 11:33 O2 Sat by Pulse Oximetry (%) 100 03/16/18 11:33 ED Treatment Course - LABORATORY CBC & Chemistry Diagram: 03/17/18 05:35 03/17/18 05:35 *DC/Admit/Observation/Transfer Diagnosis at time of Disposition: Stage 4 chronic kidney disease, Troponin level elevated CHF (congestive heart failure) Qualifiers: Heart failure type: unspecified Heart failure chronicity: unspecified Qualified Code(s): I50.9 - Heart failure, unspecified HTN (hypertension) Qualifiers: Hypertension type: unspecified Qualified Code(s): I10 - Essential (primary) hypertension - Discharge Dispostion Decision to Admit order: Yes - Referrals - Patient Instructions - Post Discharge Activity
[2018-03-16] MEDS ORDERED: SODIUM CHLORIDE 1,000 ML IV STA (13:04)
[2018-03-16] MEDS ORDERED: ACETAMINOPHEN 1000 MG/100 ML VIAL (NON FORMULARY) IVPB ONE (13:04)
[2018-03-16] MEDS ORDERED: ACETAMINOPHEN INJECTION 100 ML IVPB ONE (13:46)
[2018-03-16] MEDS ORDERED: ALBUTEROL SO4 2.5/IPRATROPIUM 0.5 INH SOL 3 ML VIAL.NEB. NEB ONE ×2 (14:04→14:06)
[2018-03-16 14:09] LABS: HEMATOCRIT 28.3 % (35.4-49); HEMOGLOBIN 9.1 GM/dL (11.7-16.9); MCH 22.3 pg (25.7-33.7); MEAN CELL VOLUME 69.7 fl (80-96); MEAN PLT VOLUME 9.6 fl (7.5-11.1); PLATELET COUNT 164 K/MM3 (134-434); RBC 4.06 M/mm3 (4.00-5.60); RDW 18.9 % (11.9-15.9); WHITE BLOOD COUNT 8.3 K/mm3 (4.0-10.0)
--- NOTE | 2018-03-16 14:25 | PDOC ---
Attending Attestation - Medical Decision Making EXAM#: TYPE/EXAM: RESULT: [id number] RAD/CHEST PA LAT Shortness of breath. Chest 2 views. Bao study February 20, 2018. Is a widening of the superior mediastinum. Unremarkable contour of the thoracic aorta. Cardiomegaly. Clinically correlate for pericardial effusion. No evidence of vascular congestive. No evidence of pneumonia, atelectasis. No pleural effusion , or pneumothorax is seen. The visualized osseous structures appear intact. Impression Cardiomegaly. Clinically correlate for pericardial effusion. No evidence of pneumonia, CHF, pleural effusion, pleural effusion or pneumothorax. Reported By: Matt Biggs MD 03/16/18 1413 Documentation prepared by Navneet Whipple, acting as clinical medical transcriptionist for Alfie Acuna MD, <Navneet Whipple - Last Filed: 03/16/18 14:55> - Resident Resident Name: Rosalino Chand - ED Attending Attestation I have performed the following: I have examined & evaluated the patient, The case was reviewed & discussed with the resident, I agree w/resident's findings & plan, Exceptions are as noted - HPI HPI: 03/16/18 14:24 The patient is a 53 year old male, with a significant past medical history of DM , HTN, and ESRD not yet on HD who presents to the emergency department today complaining of chills, decreased appetite, diarrhea, and shortness of breath for the past 4 days. The patient denies blood in his stools. The patient denies recent sick contact. The patient denies chest pain, headache and dizziness. Denies fever, chills, nausea, vomit, and constipation. Denies dysuria, frequency, urgency and hematuria. Allergies: NKA Past surgical history: AV graft fistula (11/2017) Social history: None reported PCP: Ángela Worthington - Physicial Exam PE: 03/16/18 14:25 GENERAL: Awake, alert, and fully oriented, in no acute distress. HEAD: No signs of trauma EYES: PERRLA, EOMI, sclera anicteric, conjunctiva clear ENT: Auricles normal inspection, hearing grossly normal, nares patent, oropharynx clear without exudates. Moist mucosa NECK: Nontender, no stepoffs, Normal ROM, supple, no lymphadenopathy, JVD, or masses LUNGS: Breath sounds equal, clear to auscultation bilaterally. No wheezes, and no crackles HEART: Regular rate and rhythm, normal S1 and S2, no murmurs, rubs or gallops ABDOMEN: Soft, nontender, normoactive bowel sounds. No guarding, no rebound. No masses EXTREMITIES: Normal range of motion, no edema. No clubbing or cyanosis. No cords, erythema, or tenderness NEUROLOGICAL: Cranial nerves II through XII intact. 5/5 strength and sensation in all extremities, Normal speech, normal gait, normal cerebellar function SKIN: Warm, Dry, normal turgor, no rashes or lesions noted. - Medical Decision Making 03/16/18 14:25 53 M with malaise, SOB, diarrhea. Febrile in ED. Suspect viral illness, possible influenza. Pt with no clinical signs of volume overload. Will r/o PNA. - Labs, trop, BNP - CXR - Flu swab - Antipyretic 03/16/18 15:04 Labs notable for trop 0.12, elevated BNP CXR with cardiomegaly Will hold fluids at this time <Alfie Acuna - Last Filed: 03/16/18 15:05>
[2018-03-16 14:49] LABS: ALBUMIN 2.6 g/dl (3.4-5.0); ALK PHOS 52 U/L (45-117); ANION GAP 12 MMOL/L (8-16); BILIRUBIN,TOTAL 0.6 mg/dL (0.2-1); BLOOD UREA NITROGEN 85 mg/dL (7-18); CALCIUM 7.2 mg/dL (8.5-10.1); CHLORIDE 107 mmol/L (98-107); CO2 22 mmol/L (21-32); GLUCOSE,RANDOM 131 mg/dL (74-106); N-TERMINAL BNP 6603.8 pg/ml (5-125); POTASSIUM 4.8 mmol/L (3.5-5.1); SGOT/AST 16 U/L (15-37); SGPT/ALT 20 U/L (13-61); SODIUM 140 mmol/L (136-145)
[2018-03-16 15:05] LABS: CREATININE 12.3 mg/dL (0.55-1.3)
[2018-03-16 15:14] LABS: ACANTHOCYTES 1+; ANISOCYTOSIS 3+; MACROCYTOSIS 0; PLATELET ESTIMATE NORMAL
--- NOTE | 2018-03-16 16:04 | HP ---
Admitting History and Physical - Primary Care Physician PCP: Ramu Gatica - Admission Chief Complaint: CHEST PAIN WORSENING RENAL FAILURE History of Present Illness: HISTORY OF DM, HTN, LIPIDEMIA, OBESITY, CHRONIC RENAL FAILURE END STAGE 5, S/P OLD CVA, HERE WITH POOR APPETITE, DIARRHEA, CHEST PAIN. C/O CHRONIC NAUSEA AND WEAKNESS. History Source: Patient - Past Medical History Cardiovascular: Yes: HTN, Hyperlipdemia Renal/: Yes: Renal Inusuff Endocrine: Yes: Diabetes Mellitus - Smoking History Smoking history: Never smoked Have you smoked in the past 12 months: No Aproximately how many cigarettes per day: 0 - Alcohol/Substance Use Hx Alcohol Use: No History of Substance Use: reports: None - Social History ADL: Independent Home Medications - Allergies Allergies/Adverse Reactions: Allergies Allergy/AdvReac Type Severity Reaction Status Date / Time No Known Allergies Allergy Verified 03/16/18 11:35 - Home Medications Home Medications: Ambulatory Orders Furosemide [Lasix] 80 mg PO BID 04/03/17 Ferrous Sulfate [Iron] 325 mg PO DAILY 02/20/18 Amlodipine Besylate 10 mg PO DAILY #30 tablet 02/24/18 Aspirin Coated [Ecotrin -] 81 mg PO DAILY #30 tablet.ec 02/24/18 Atorvastatin Ca [Lipitor] 20 mg PO HS #30 tablet 02/24/18 Calcium Carbonate - 1,300 mg PO BID #60 tablet 02/24/18 Labetalol HCl [Normodyne -] 400 mg PO BID #60 tablet 02/24/18 Sodium Bicarbonate - 650 mg PO DAILY #30 tablet 02/24/18 hydrALAZINE HCL [Apresoline -] 100 mg PO BID #60 tablet 02/24/18 Review of Systems - Review of Systems Constitutional: reports: Lethargy, Loss of Appetite, Weakness Eyes: reports: No Symptoms HENT: reports: No Symptoms Neck: reports: No Symptoms Cardiovascular: reports: Chest Pain Respiratory: reports: No Symptoms Gastrointestinal: reports: Nausea Genitourinary: reports: Other Musculoskeletal: reports: Muscle Weakness Physical Examination Vital Signs: Vital Signs Temperature 100.3 F H 03/16/18 11:33 Pulse Rate 86 03/16/18 11:33 Respiratory Rate 18 03/16/18 11:33 Blood Pressure 169/89 03/16/18 11:33 O2 Sat by Pulse Oximetry (%) 100 03/16/18 11:33 Constitutional: Yes: Mild Distress Eyes: Yes: WNL HENT: Yes: WNL Neck: Yes: WNL Cardiovascular: Yes: Regular Rate and Rhythm Respiratory: Yes: WNL Gastrointestinal: Yes: WNL Renal/: Yes: WNL Musculoskeletal: Yes: Muscle Weakness Edema: Yes Peripheral Pulses WNL: Yes Integumentary: Yes: WNL Wound/Incision: Yes: Clean/Dry Neurological: Yes: Pre-Existing Deficit ...Motor Strength: WNL Psychiatric: Yes: WNL Labs: CBC, BMP 03/16/18 14:00 03/16/18 13:04 Problem List - Problems (1) HTN (hypertension) Code(s): I10 - ESSENTIAL (PRIMARY) HYPERTENSION Qualifiers: Hypertension type: unspecified Qualified Code(s): I10 - Essential (primary ) hypertension (2) Anemia Code(s): D64.9 - ANEMIA, UNSPECIFIED (3) Anemia in chronic kidney disease (CKD) Code(s): N18.9 - CHRONIC KIDNEY DISEASE, UNSPECIFIED; D63.1 - ANEMIA IN CHRONIC KIDNEY DISEASE Qualifiers: Chronic kidney disease stage: stage 5, not on chronic dialysis Qualified Code(s): N18.5 - Chronic kidney disease, stage 5; D63.1 - Anemia in chronic kidney disease; D63.1 - Anemia in chronic kidney disease (4) Cerebrovascular small vessel disease Code(s): I67.9 - CEREBROVASCULAR DISEASE, UNSPECIFIED (5) Chronic kidney disease (CKD) Code(s): N18.9 - CHRONIC KIDNEY DISEASE, UNSPECIFIED Qualifiers: Chronic kidney disease stage: unspecified stage Qualified Code(s): N18.9 - Chronic kidney disease, unspecified (6) Mediastinal adenopathy Code(s): R59.0 - LOCALIZED ENLARGED LYMPH NODES (7) Type 2 diabetes mellitus Code(s): E11.9 - TYPE 2 DIABETES MELLITUS WITHOUT COMPLICATIONS Qualifiers: Diabetes mellitus medical terminologist insulin use: without intermediate use Diabetes mellitus complication status: with kidney complications Diabetes mellitus complication detail: with chronic kidney disease Chronic kidney disease stage : stage 5, not on chronic dialysis Qualified Code(s): E11.22 - Type 2 diabetes mellitus with diabetic chronic kidney disease; N18.5 - Chronic kidney disease, stage 5 Assessment/Plan ESRD LIKELY WILL NEED HD D/W NEPHROLOGY DR NUÑEZ DM CONTROL NUTRITION CONSULT OLD CVA CARDIOLOGY EVAL FOR ISCHEMIA HEART DISEASE STARTING AN ANTIDEPRESSANT PATIENT IS NOT AT HARM TO HIMSELF OR OTHERS
[2018-03-16] MEDS ORDERED: amLODIPine BESYLATE 5 MG TABLET (FP) ONE (16:21)
[2018-03-16] MEDS: ACETAMINOPHEN 325 MG TABLET (FP) PO PRN (16:28)
[2018-03-16] MEDS ORDERED: ACETAMINOPHEN 325 MG TABLET (FP) ONE (16:30)
[2018-03-16] MEDS: amLODIPine BESYLATE 5 MG TABLET (FP) PO SCH (16:35)
--- NOTE | 2018-03-16 18:39 | CONSULT ---
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, HTN, HLD who presented with SOB, fatigue/lethargy and found to have BUN/Cr of 85/12.3 Home Medications Medication Instructions Recorded Furosemide [Lasix] 80 mg PO BID 04/03/17 Ferrous Sulfate [Iron] 325 mg PO DAILY 02/20/18 Amlodipine Besylate 10 mg PO DAILY #30 tablet 02/24/18 Aspirin Coated [Ecotrin -] 81 mg PO DAILY #30 tablet.ec 02/24/18 Atorvastatin Ca [Lipitor] 20 mg PO HS #30 tablet 02/24/18 Calcium Carbonate - 1,300 mg PO BID #60 tablet 02/24/18 Labetalol HCl [Normodyne -] 400 mg PO BID #60 tablet 02/24/18 Sodium Bicarbonate - 650 mg PO DAILY #30 tablet 02/24/18 hydrALAZINE HCL [Apresoline -] 100 mg PO BID #60 tablet 02/24/18 Vital Signs Temperature 101 F H 03/16/18 16:25 Pulse Rate 83 03/16/18 16:25 Respiratory Rate 20 03/16/18 16:25 Blood Pressure 157/62 03/16/18 16:25 O2 Sat by Pulse Oximetry (%) 94 L 03/16/18 16:25 NAD awake and alert neck supple, MMM RRR, No M/R CTA soft NT/ND trace LE edema CBC, BMP 03/16/18 14:00 03/16/18 13:04 Current Medications Acetaminophen (Tylenol -) 650 mg PO Q6H PRN PRN Reason: PAIN OR FEVER Last Admin: 03/16/18 16:28 Dose: 650 mg Amlodipine Besylate (Norvasc -) 10 mg PO DAILY [facility] Last Admin: 03/16/18 16:35 Dose: 10 mg Aspirin (Ecotrin -) 81 mg PO DAILY [facility] Atorvastatin Calcium (Lipitor -) 40 mg PO HS [facility] Heparin Sodium (Porcine) (Heparin -) 5,000 unit SQ BID [facility] Hydralazine HCl (Apresoline -) 25 mg PO TID [facility] Labetalol HCl (Normodyne -) 400 mg PO BID [facility] A/P 53 year old gentleman with hx of CKD stage 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 Discussed starting dialysis at this time and pt is agreeable. Will need vascular Sx to clear the use of the AVF as it may need a maturation procedure Continue current antihypertensive meds Check iron profile, may need JASMIN Trend serum Ca and Phos levels Dose all meds for CrCl < 10 Thank you
[2018-03-16] MEDS ORDERED: ONDANSETRON *ODT* 4 MG TABLET SL PRN (20:15)
[2018-03-16] MEDS ORDERED: hydrALAZINE HCL 25 MG TABLET (FP) ONE (23:27)
[2018-03-16] MEDS ORDERED: HEPARIN NA (PORCINE) 5,000 UNITS/ML 1ML VIAL ONE (23:28)
[2018-03-16] MEDS ORDERED: ATORVASTATIN CA 40 MG TABLET (FP) ONE (23:28)
[2018-03-16] MEDS: ATORVASTATIN CA 40 MG TABLET (FP) PO SCH (23:48)
[2018-03-16] MEDS: hydrALAZINE HCL 25 MG TABLET (FP) PO SCH (23:48)
[2018-03-16] MEDS: HEPARIN NA (PORCINE) 5,000 UNITS/ML 1ML VIAL SQ SCH (23:48)
[2018-03-16] MEDS: LABETALOL HCL 200 MG TABLET (FP) PO SCH (23:48)
[2018-03-17] MEDS: ACETAMINOPHEN 325 MG TABLET (FP) PO PRN ×2 (00:57→22:00)
[2018-03-17 06:31] LABS: HEMATOCRIT 25.2 % (35.4-49); HEMOGLOBIN 8.1 GM/dL (11.7-16.9); MCH 22.3 pg (25.7-33.7); MCHC 32.1 g/dl (32.0-35.9); MEAN CELL VOLUME 69.4 fl (80-96); MEAN PLT VOLUME 10.7 fl (7.5-11.1); PLATELET COUNT 175 K/MM3 (134-434); RBC 3.63 M/mm3 (4.00-5.60); RDW 18.9 % (11.9-15.9)
[2018-03-17] MEDS ORDERED: hydrALAZINE HCL 25 MG TABLET (FP) ONE (06:40)
[2018-03-17] MEDS: hydrALAZINE HCL 25 MG TABLET (FP) PO SCH ×2 (06:47→21:59)
[2018-03-17 07:24] LABS: ALBUMIN 2.3 g/dl (3.4-5.0); ALK PHOS 53 U/L (45-117); ANION GAP 13 MMOL/L (8-16); BILIRUBIN,TOTAL 0.6 mg/dL (0.2-1); BLOOD UREA NITROGEN 90 mg/dL (7-18); CALCIUM 7.1 mg/dL (8.5-10.1); CHLORIDE 108 mmol/L (98-107); CO2 18 mmol/L (21-32); GLUCOSE,RANDOM 131 mg/dL (74-106); MAGNESIUM 2.1 mg/dL (1.8-2.4); PHOSPHOROUS 5.6 mg/dL (2.5-4.9); POTASSIUM 4.8 mmol/L (3.5-5.1); SGOT/AST 25 U/L (15-37); SGPT/ALT 26 U/L (13-61); SODIUM 139 mmol/L (136-145); TOT PROT 5.5 g/dl (6.4-8.2)
[2018-03-17 07:28] LABS: CREATININE 12.4 mg/dL (0.55-1.3)
--- NOTE | 2018-03-17 09:28 | PN ---
Progress Note, Physician Chief Complaint: AWAKE ALERT FEELS WEAK FEVER OVERNIGHT FFRIEND BEDSIDE +DIARRHEA - Current Medication List Current Medications: Active Medications Acetaminophen (Tylenol -) 650 mg PO Q6H PRN PRN Reason: PAIN OR FEVER Last Admin: 03/17/18 00:57 Dose: 650 mg Albuterol/Ipratropium (Duoneb -) 1 amp NEB Q6H PRN PRN Reason: SHORTNESS OF BREATH Amlodipine Besylate (Norvasc -) 10 mg PO DAILY [facility] Last Admin: 03/16/18 16:35 Dose: 10 mg Aspirin (Ecotrin -) 81 mg PO DAILY [facility] Atorvastatin Calcium (Lipitor -) 40 mg PO HS [facility] Last Admin: 03/16/18 23:48 Dose: 40 mg Heparin Sodium (Porcine) (Heparin -) 5,000 unit SQ BID [facility] Last Admin: 03/16/18 23:48 Dose: 5,000 unit Hydralazine HCl (Apresoline -) 25 mg PO TID [facility] Last Admin: 03/17/18 06:47 Dose: 25 mg Labetalol HCl (Normodyne -) 400 mg PO BID [facility] Last Admin: 03/16/18 23:48 Dose: 400 mg Ondansetron HCl (Zofran Odt -) 4 mg SL Q6H PRN PRN Reason: NAUSEA AND/OR VOMITING - Objective Vital Signs: Vital Signs Temperature 102.8 F H 03/17/18 00:00 Pulse Rate 83 03/17/18 06:48 Respiratory Rate 22 H 03/17/18 06:48 Blood Pressure 149/59 L 03/17/18 06:48 O2 Sat by Pulse Oximetry (%) 89 L 03/17/18 06:48 Constitutional: Yes: Mild Distress Eyes: Yes: WNL HENT: Yes: WNL Neck: Yes: WNL Cardiovascular: Yes: Regular Rate and Rhythm Respiratory: Yes: WNL Gastrointestinal: Yes: Soft Genitourinary: Yes: Other Musculoskeletal: Yes: Muscle Weakness Edema: Yes Wound/Incision: Yes: Clean/Dry Neurological: Yes: Alert, Oriented ...Motor Strength: WNL Psychiatric: Yes: WNL Labs: CBC, BMP 03/17/18 05:35 03/17/18 05:35 Problem List - Problems (1) HTN (hypertension) Code(s): I10 - ESSENTIAL (PRIMARY) HYPERTENSION Qualifiers: Hypertension type: unspecified Qualified Code(s): I10 - Essential (primary ) hypertension (2) Anemia Code(s): D64.9 - ANEMIA, UNSPECIFIED (3) Anemia in chronic kidney disease (CKD) Code(s): N18.9 - CHRONIC KIDNEY DISEASE, UNSPECIFIED; D63.1 - ANEMIA IN CHRONIC KIDNEY DISEASE Qualifiers: Chronic kidney disease stage: stage 5, not on chronic dialysis Qualified Code(s): N18.5 - Chronic kidney disease, stage 5; D63.1 - Anemia in chronic kidney disease; D63.1 - Anemia in chronic kidney disease (4) Cerebrovascular small vessel disease Code(s): I67.9 - CEREBROVASCULAR DISEASE, UNSPECIFIED (5) Chronic kidney disease (CKD) Code(s): N18.9 - CHRONIC KIDNEY DISEASE, UNSPECIFIED Qualifiers: Chronic kidney disease stage: unspecified stage Qualified Code(s): N18.9 - Chronic kidney disease, unspecified (6) Mediastinal adenopathy Code(s): R59.0 - LOCALIZED ENLARGED LYMPH NODES (7) Type 2 diabetes mellitus Code(s): E11.9 - TYPE 2 DIABETES MELLITUS WITHOUT COMPLICATIONS Qualifiers: Diabetes mellitus oysterman insulin use: without oysterman use Diabetes mellitus complication status: with kidney complications Diabetes mellitus complication detail: with chronic kidney disease Chronic kidney disease stage : stage 5, not on chronic dialysis Qualified Code(s): E11.22 - Type 2 diabetes mellitus with diabetic chronic kidney disease; N18.5 - Chronic kidney disease, stage 5 (8) Fever Code(s): R50.9 - FEVER, UNSPECIFIED (9) Diarrhea Code(s): R19.7 - DIARRHEA, UNSPECIFIED Assessment/Plan SENDING BLOOD AND URINE CULTURES AWAITING VASC EVAL OF PATIENTS LEFT ARM FISTULA TO START HD RENAL/CARDIO FOLLOW UP SEND STOOL CDIFF BP CONTROL I REASSURED THE PATIENT I EXPLAINED THE PROCESS OF HD AND POSSIBLE CONTINUOUS HD THERAPY IN THE FUTURE.
[2018-03-17] MEDS ORDERED: ALBUTEROL SO4 2.5/IPRATROPIUM 0.5 INH SOL 3 ML VIAL.NEB. NEB ONE (09:50)
[2018-03-17] MEDS: ASPIRIN COATED 81 MG TABLET.EC PO SCH (09:55)
[2018-03-17] MEDS: LABETALOL HCL 200 MG TABLET (FP) PO SCH ×2 (09:55→21:59)
[2018-03-17] MEDS: amLODIPine BESYLATE 5 MG TABLET (FP) PO SCH (10:00)
[2018-03-17] MEDS: HEPARIN NA (PORCINE) 5,000 UNITS/ML 1ML VIAL SQ SCH ×2 (10:00→22:00)
[2018-03-17] MEDS ORDERED: oxyCODONE HCL 5 MG TABLET PO PRN (10:41)
[2018-03-17] MEDS: ALBUTEROL SO4 2.5/IPRATROPIUM 0.5 INH SOL 3 ML VIAL.NEB. NEB PRN (10:47)
[2018-03-17] MEDS ORDERED: oxyCODONE HCL 5 MG TABLET ONE (10:51)
--- NOTE | 2018-03-17 11:05 | PN ---
Progress Note (short form) - Note Progress Note: Renal follow up for CKD stage 5 Pt seen and examined in the ER Was febrile this am had loose stools yesterday night as well feels diffuse body pain has cough with some sputum production no abd pain, dysuria Vital Signs Temperature 102.8 F H 03/17/18 00:00 Pulse Rate 83 03/17/18 06:48 Respiratory Rate 22 H 03/17/18 06:48 Blood Pressure 149/59 L 03/17/18 06:48 O2 Sat by Pulse Oximetry (%) 89 L 03/17/18 06:48 Intake & Output 03/14/18 03/15/18 03/16/18 03/17/18 23:59 23:59 23:59 23:59 Intake Total 200 Balance 200 Weight 94.347 kg NAD awake and alert neck supple, MMM RRR, No M/R CTA soft NT/ND trace LE edema CBC, BMP 03/17/18 05:35 03/17/18 05:35 Current Medications Acetaminophen (Tylenol -) 650 mg PO Q6H PRN PRN Reason: PAIN OR FEVER Last Admin: 03/17/18 00:57 Dose: 650 mg Albuterol/Ipratropium (Duoneb -) 1 amp NEB Q6H PRN PRN Reason: SHORTNESS OF BREATH Last Admin: 03/17/18 10:47 Dose: 1 amp Amlodipine Besylate (Norvasc -) 10 mg PO DAILY [facility] Last Admin: 03/17/18 10:00 Dose: 10 mg Aspirin (Ecotrin -) 81 mg PO DAILY [facility] Last Admin: 03/17/18 09:55 Dose: 81 mg Atorvastatin Calcium (Lipitor -) 40 mg PO HS [facility] Last Admin: 03/16/18 23:48 Dose: 40 mg Heparin Sodium (Porcine) (Heparin -) 5,000 unit SQ BID [facility] Last Admin: 03/17/18 10:00 Dose: 5,000 unit Hydralazine HCl (Apresoline -) 25 mg PO TID [facility] Last Admin: 03/17/18 06:47 Dose: 25 mg Labetalol HCl (Normodyne -) 400 mg PO BID [facility] Last Admin: 03/17/18 09:55 Dose: 400 mg Ondansetron HCl (Zofran Odt -) 4 mg SL Q6H PRN PRN Reason: NAUSEA AND/OR VOMITING Oxycodone HCl (Roxicodone -) 5 mg PO Q6H PRN PRN Reason: PAIN LEVEL 6-10 A/P 53 year old gentleman with hx of CKD stage 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 Dose all meds for CrCl < 10 Thank you
--- NOTE | 2018-03-17 12:09 | CONSULT ---
Addendum entered and electronically signed by Adriano Heard PA 03/17/18 12:52 : Bedside ultrasound done by Dr López in ED. May attempt to use AVF. If any issues, please page [phone]. Message sent to Dr Andrade regarding above. Original Note: <Adriano Heard - Last Filed: 03/17/18 12:02> - Consultation REQUESTING PROVIDER: CONSULT REQUEST: We have been asked to surgically evaluate this patient for clearance to use LUE AVF. PCP:Ramu Gatica HISTORY OF PRESENT ILLNESS: 53 y/o M w/ PMHx DM, HTN, HKD, CKD stage V, s/p LUE brachial-cephalic AVF (Dr López, 12/16/17), h/o CVA with no residual deficits, now presents to ED with chest pain/body pain, found to have worsening renal failure. Asked to evaluate pt for clearance to use AVF. Pt reports seeing Dr López in the office a few weeks ago at which point he had a duplex done. States he was told fistula is maturing appropriately. PMHx: as above PSHx: as above Home Medications Medication Instructions Recorded Furosemide [Lasix] 80 mg PO BID 04/03/17 Ferrous Sulfate [Iron] 325 mg PO DAILY 02/20/18 Amlodipine Besylate 10 mg PO DAILY #30 tablet 02/24/18 Aspirin Coated [Ecotrin -] 81 mg PO DAILY #30 tablet.ec 02/24/18 Atorvastatin Ca [Lipitor] 20 mg PO HS #30 tablet 02/24/18 Calcium Carbonate - 1,300 mg PO BID #60 tablet 02/24/18 Labetalol HCl [Normodyne -] 400 mg PO BID #60 tablet 02/24/18 Sodium Bicarbonate - 650 mg PO DAILY #30 tablet 02/24/18 hydrALAZINE HCL [Apresoline -] 100 mg PO BID #60 tablet 02/24/18 Allergies Allergy/AdvReac Type Severity Reaction Status Date / Time No Known Allergies Allergy Verified 03/16/18 11:35 REVIEW OF SYSTEMS: CONSTITUTIONAL: Absent: fever, chills CARDIOVASCULAR: + chest pain RESPIRATORY: +cough, shortness of breath PHYSICAL EXAM: GENERAL: Awake, alert, and fully oriented, in no acute distress. Seen in ED ( holding area with family at bedside). HEAD: Normal with no signs of trauma. LUNGS: Unlabored on RA UPPER EXTREMITIES: LUE AVF thrill palpable at antecubital fossa. + thrill palpable proximal to antecubital fossa, vein palpable in proximal arm with slight pulsation. Hand warm, well perfused, ripsaw matcher strength intact, no ulcerations noted on fingertips. Vital Signs Temperature 102.8 F H 03/17/18 00:00 Pulse Rate 83 03/17/18 06:48 Respiratory Rate 22 H 03/17/18 06:48 Blood Pressure 149/59 L 03/17/18 06:48 O2 Sat by Pulse Oximetry (%) 89 L 03/17/18 06:48 Lab Results WBC 11.0 K/mm3 (4.0-10.0) H 03/17/18 05:35 RBC 3.63 M/mm3 (4.00-5.60) L 03/17/18 05:35 Hgb 8.1 GM/dL (11.7-16.9) L 03/17/18 05:35 Hct 25.2 % (35.4-49) L 03/17/18 05:35 MCV 69.4 fl (80-96) L 03/17/18 05:35 MCHC 32.1 g/dl (32.0-35.9) 03/17/18 05:35 RDW 18.9 % (11.9-15.9) H 03/17/18 05:35 Plt Count 175 K/MM3 (134-434) 03/17/18 05:35 Sodium 139 mmol/L (136-145) 03/17/18 05:35 Potassium 4.8 mmol/L (3.5-5.1) 03/17/18 05:35 Chloride 108 mmol/L (98-107) H 03/17/18 05:35 Carbon Dioxide 18 mmol/L (21-32) L 03/17/18 05:35 Anion Gap 13 MMOL/L (8-16) 03/17/18 05:35 BUN 90 mg/dL (7-18) H 03/17/18 05:35 Creatinine 12.4 mg/dL (0.55-1.3) H* 03/17/18 05:35 Random Glucose 131 mg/dL (74-106) H 03/17/18 05:35 Calcium 7.1 mg/dL (8.5-10.1) L 03/17/18 05:35 A/P: 53 y/o M w/ PMHx DM, HTN, HKD, CKD stage V, s/p LUE brachial-cephalic AVF ( Dr López, 12/16/17), h/o CVA with no residual deficits, now presents to ED with chest pain/body pain, found to have worsening renal failure. Asked to evaluate pt for clearance to use AVF. -Dr López will be by to evaluate readiness of AVF for use VS need for duplex above d/w attending Dr López <Gerard López - Last Filed: 03/17/18 19:20> - Consultation REQUESTING PROVIDER: CONSULT REQUEST: We have been asked to surgically evaluate this patient for ( specify). PCP:Ramu Gatica HISTORY OF PRESENT ILLNESS: PMHx: PSHx: Home Medications Medication Instructions Recorded Furosemide [Lasix] 80 mg PO BID 04/03/17 Ferrous Sulfate [Iron] 325 mg PO DAILY 02/20/18 Amlodipine Besylate 10 mg PO DAILY #30 tablet 02/24/18 Aspirin Coated [Ecotrin -] 81 mg PO DAILY #30 tablet.ec 02/24/18 Atorvastatin Ca [Lipitor] 20 mg PO HS #30 tablet 02/24/18 Calcium Carbonate - 1,300 mg PO BID #60 tablet 02/24/18 Labetalol HCl [Normodyne -] 400 mg PO BID #60 tablet 02/24/18 Sodium Bicarbonate - 650 mg PO DAILY #30 tablet 02/24/18 hydrALAZINE HCL [Apresoline -] 100 mg PO BID #60 tablet 02/24/18 Allergies Allergy/AdvReac Type Severity Reaction Status Date / Time No Known Allergies Allergy Verified 03/16/18 11:35 REVIEW OF SYSTEMS: CONSTITUTIONAL: Absent: fever, chills, diaphoresis, generalized weakness, malaise, loss of appetite, weight change CARDIOVASCULAR: Absent: chest pain, syncope, palpitations, irregular heart rate, lightheadedness , peripheral edema RESPIRATORY: Absent: cough, shortness of breath, dyspnea with exertion, wheezing, stridor, hemoptysis GASTROINTESTINAL: Absent: abdominal pain, abdominal distension, nausea, vomiting, diarrhea, constipation, melena, hematochezia GENITOURINARY: Absent: dysuria, frequency, urgency, hesitancy, hematuria, flank pain, genital pain MUSCULOSKELETAL: Absent: myalgia, arthralgia, joint swelling, back pain, neck pain SKIN: Absent: rash, itching, pallor HEMATOLOGIC/IMMUNOLOGIC: Absent: easy bleeding, easy bruising, lymphadenopathy NEUROLOGIC: Absent: headache, focal weakness, paresthesias, dizziness, unsteady gait, seizure, mental status changes, bladder or bowel incontinence PSYCHIATRIC: Absent: anxiety, depression, suicidal or homicidal ideation, hallucinations. PHYSICAL EXAM: GENERAL: Awake, alert, and fully oriented, in no acute distress. HEAD: Normal with no signs of trauma. EYES: PERRL, sclera anicteric, conjunctiva clear. NECK: Normal ROM, supple without lymphadenopathy, JVD, or masses. LUNGS: Clear to auscultation bilat anteriorly. No wheezes, and no crackles. No accessory muscle use. HEART: Regular rate and rhythm. No murmurs ABDOMEN: Soft, nontender, not distended, normoactive bowel sounds, no guarding, no rebound, no masses. No organomegaly. MUSCULOSKELETAL: Normal ROM at all joints. No bony deformities or tenderness. No CVA tenderness. UPPER EXTREMITIES: 2+ pulses, warm, well-perfused. No cyanosis. Cap refill <2 seconds. No peripheral edema. LOWER EXTREMITIES: 2+ pulses, warm, well-perfused. No calf tenderness. No peripheral edema. NEUROLOGICAL: Normal speech, gait not observed. PSYCH: Cooperative. Good eye contact. Appropriate mood and affect. SKIN: Warm, dry, normal turgor, no rashes or lesions noted. Vital Signs Temperature 98.6 F 03/17/18 17:54 Pulse Rate 78 03/17/18 17:54 Respiratory Rate 18 03/17/18 17:54 Blood Pressure 134/61 03/17/18 17:54 O2 Sat by Pulse Oximetry (%) 92 L 03/17/18 18:09 Lab Results WBC 11.0 K/mm3 (4.0-10.0) H 03/17/18 05:35 RBC 3.63 M/mm3 (4.00-5.60) L 03/17/18 05:35 Hgb 8.1 GM/dL (11.7-16.9) L 03/17/18 05:35 Hct 25.2 % (35.4-49) L 03/17/18 05:35 MCV 69.4 fl (80-96) L 03/17/18 05:35 MCHC 32.1 g/dl (32.0-35.9) 03/17/18 05:35 RDW 18.9 % (11.9-15.9) H 03/17/18 05:35 Plt Count 175 K/MM3 (134-434) 03/17/18 05:35 Sodium 139 mmol/L (136-145) 03/17/18 05:35 Potassium 4.8 mmol/L (3.5-5.1) 03/17/18 05:35 Chloride 108 mmol/L (98-107) H 03/17/18 05:35 Carbon Dioxide 18 mmol/L (21-32) L 03/17/18 05:35 Anion Gap 13 MMOL/L (8-16) 03/17/18 05:35 BUN 90 mg/dL (7-18) H 03/17/18 05:35 Creatinine 12.4 mg/dL (0.55-1.3) H* 03/17/18 05:35 Random Glucose 131 mg/dL (74-106) H 03/17/18 05:35 Calcium 7.1 mg/dL (8.5-10.1) L 03/17/18 05:35 Left arm AV fistula with thrill and bruit Duplex scan showed vein 6 mm with moderate distal stenosis near AV anastomosis. Fistula may be used. If adequate flow cannot be achieved a distal venoplasty will be done.
--- NOTE | 2018-03-17 13:14 | CON.CARD ---
Consult Consult Specialty:: cardiology Referred by:: En Reason for Consultation:: Chest wall pains - History of Present Illness Chief Complaint: Abdominal pain, diarrheas, diffuse body aches. History of Present Illness: The patient is a 53-year-old obese man, with a history of diabetes, hypertension , hyperlipidemia, end-stage renal disease approaching dialysis, stroke, now presenting with several days of diarrheas, fevers, diffuse body aches and abdominal discomfort. Next The patient denies chest pains, shortness of breath, palpitations. He seems lethargic. He is in no apparent distress. - History Source History Provided By: Patient, Medical Record Limitations to Obtaining History: No Limitations - Past Medical History Cardio/Vascular: Yes: CHF, HTN, Hyperlipdemia Renal/: Yes: Renal Failure, Renal Inusuff Endocrine: Yes: Diabetes Mellitus - Alcohol/Substance Use Hx Alcohol Use: No History of Substance Use: reports: None - Smoking History Smoking history: Never smoked Have you smoked in the past 12 months: No Aproximately how many cigarettes per day: 0 - Social History ADL: Independent Home Medications - Allergies Allergies/Adverse Reactions: Allergies Allergy/AdvReac Type Severity Reaction Status Date / Time No Known Allergies Allergy Verified 03/16/18 11:35 - Home Medications Home Medications: Ambulatory Orders Furosemide [Lasix] 80 mg PO BID 04/03/17 Ferrous Sulfate [Iron] 325 mg PO DAILY 02/20/18 Amlodipine Besylate 10 mg PO DAILY #30 tablet 02/24/18 Aspirin Coated [Ecotrin -] 81 mg PO DAILY #30 tablet.ec 02/24/18 Atorvastatin Ca [Lipitor] 20 mg PO HS #30 tablet 02/24/18 Calcium Carbonate - 1,300 mg PO BID #60 tablet 02/24/18 Labetalol HCl [Normodyne -] 400 mg PO BID #60 tablet 02/24/18 Sodium Bicarbonate - 650 mg PO DAILY #30 tablet 02/24/18 hydrALAZINE HCL [Apresoline -] 100 mg PO BID #60 tablet 02/24/18 Review of Systems - Review of Systems Constitutional: reports: Chills, Diaphoresis, Fever Eyes: reports: No Symptoms HENT: reports: No Symptoms Neck: reports: No Symptoms Cardiovascular: reports: No Symptoms Respiratory: reports: No Symptoms Gastrointestinal: reports: Abdominal Pain, Bloating, Diarrhea Genitourinary: reports: No Symptoms Breasts: reports: No Symptoms Reported Musculoskeletal: reports: Muscle Pain, Muscle Weakness Integumentary: reports: No Symptoms Neurological: reports: No Symptoms Endocrine: reports: No Symptoms Hematology/Lymphatic: reports: No Symptoms Psychiatric: reports: No Symptoms Vital Signs: Vital Signs Temperature 102.8 F H 03/17/18 00:00 Pulse Rate 83 03/17/18 06:48 Respiratory Rate 22 H 03/17/18 06:48 Blood Pressure 149/59 L 03/17/18 06:48 O2 Sat by Pulse Oximetry (%) 89 L 03/17/18 06:48 Constitutional: Yes: Calm, Obese Eyes: Yes: WNL, Conjunctiva Clear, EOM Intact HENT: Yes: WNL, Atraumatic, Normocephalic Neck: Yes: WNL, Supple, Trachea Midline Respiratory: Yes: WNL, Regular, CTA Bilaterally Gastrointestinal: Yes: Normal Bowel Sounds, Soft Renal/: Yes: WNL Cardiovascular: Yes: WNL, Regular Rate and Rhythm JVD: No Carotid Bruit: No PMI: Non-Displaced Heart Sounds: Yes: S1, S2 Murmur: Yes: Systolic Murmur, Grade 2 Musculoskeletal: Yes: Back Pain, Muscle Pain, Muscle Weakness Extremities: Yes: WNL Edema: No Peripheral Pulses: 2+ Left Carotid, 2+ Right Carotid, 2+ Left Femoral, 2+ Right Femoral, 2+ Left Popliteal, 2+ Right Popliteal, 2+ Left Doralis Pedis, 2+ Right Dorsalis Pedis Integumentary: Yes: WNL Neurological: Yes: WNL, Alert, Oriented Psychiatric: Yes: WNL, Alert, Oriented - Other Data Labs, Other Data: CBC, BMP 03/17/18 05:35 03/17/18 05:35 Troponin, BNP 03/16/18 13:04 Troponin I 0.12 H B-Natriuretic Peptide 6603.8 H Troponin, BNP 03/16/18 13:04 Troponin I 0.12 H B-Natriuretic Peptide 6603.8 H Assessment/Plan The patient is a 53-year-old obese man, with a history of diabetes, hypertension , hyperlipidemia, end-stage renal disease approaching dialysis, stroke, now presenting with several days of diarrheas, fevers, diffuse body aches and abdominal discomfort. Next The patient denies chest pains, shortness of breath, palpitations. He seems lethargic. He is in no apparent distress. The patient is approaching dialysis. Creatinine and troponins are elevated. There is no evidence of ischemia nor acute coronary syndrome. No angina. No CHF. There are no active cardiac issues at this point. There is no need for cardiac monitoring. Is no need for further cardiac workup at this point. Please do not hesitate to call us PRN
--- NOTE | 2018-03-17 13:24 | EKG ---
Test Reason : Blood Pressure : / mmHG Vent. Rate : 084 BPM Atrial Rate : 084 BPM P-R Int : 124 ms QRS Dur : 092 ms QT Int : 368 ms P-R-T Axes : 050 -05 043 degrees QTc Int : 434 ms NORMAL SINUS RHYTHM CANNOT RULE OUT ANTERIOR INFARCT , AGE UNDETERMINED ABNORMAL ECG WHEN COMPARED WITH ECG OF 20-FEB-2018 06:08, T WAVE INVERSION NO LONGER EVIDENT IN LATERAL LEADS Confirmed by HANNAH SERVIN, LANCE ([id number]) on 03/17/2018 1:24:08 PM Referred By: Confirmed By:LANCE YOUNG MD
[2018-03-17] MEDS ORDERED: CEFTRIAXONE 1 GM in DEXTROSE 5%-WATER - 50 ML IVPB ONE ×2 (13:45→19:00)
[2018-03-17] MEDS ORDERED: SODIUM CHLORIDE 250 ML IV PRN (14:30)
[2018-03-17 14:38] LABS: ANISOCYTOSIS 2+; MACROCYTOSIS 0; PLATELET ESTIMATE NORMAL; TARGET CELLS 1+
[2018-03-17] MEDS ORDERED: EPOETIN ALFA 10,000 UNIT/1 ML VIAL IVPUSH ONE (14:45)
[2018-03-17] MEDS ORDERED: cefTRIAXone SODIUM 1 GM VIAL ONE (18:55)
[2018-03-17] MEDS ORDERED: DEXTROSE 5%-WATER - 50 ML IVPB ONE (18:55)
[2018-03-17] MEDS: ATORVASTATIN CA 40 MG TABLET (FP) PO SCH (22:00)
[2018-03-18] MEDS: hydrALAZINE HCL 25 MG TABLET (FP) PO SCH ×3 (06:01→21:05)
[2018-03-18 07:23] LABS: SERUM IRON SATURATION 5 % (15-55); TOTAL IRON BINDING CAPACITY 159 ug/dL (250-450); UIBC 151 ug/dL (111-343)
[2018-03-18] MEDS: ASPIRIN COATED 81 MG TABLET.EC PO SCH (09:27)
[2018-03-18] MEDS: HEPARIN NA (PORCINE) 5,000 UNITS/ML 1ML VIAL SQ SCH ×2 (09:27→21:05)
[2018-03-18] MEDS: LABETALOL HCL 200 MG TABLET (FP) PO SCH ×2 (09:27→21:05)
[2018-03-18] MEDS: amLODIPine BESYLATE 5 MG TABLET (FP) PO SCH (09:27)
[2018-03-18] MEDS ORDERED: SODIUM CHLORIDE 250 ML IV PRN (12:15)
--- NOTE | 2018-03-18 12:22 | PN ---
Progress Note, Physician Chief Complaint: patient admitted for wrosening renal disease s/p HD yesterday iron panel noted - Current Medication List Current Medications: Active Medications Acetaminophen (Tylenol -) 650 mg PO Q6H PRN PRN Reason: PAIN OR FEVER Last Admin: 03/17/18 22:00 Dose: 650 mg Albuterol/Ipratropium (Duoneb -) 1 amp NEB Q6H PRN PRN Reason: SHORTNESS OF BREATH Last Admin: 03/17/18 10:47 Dose: 1 amp Amlodipine Besylate (Norvasc -) 10 mg PO DAILY [facility] Last Admin: 03/18/18 09:27 Dose: 10 mg Aspirin (Ecotrin -) 81 mg PO DAILY [facility] Last Admin: 03/18/18 09:27 Dose: 81 mg Atorvastatin Calcium (Lipitor -) 40 mg PO HS [facility] Last Admin: 03/17/18 22:00 Dose: 40 mg Heparin Sodium (Porcine) (Heparin -) 5,000 unit SQ BID [facility] Last Admin: 03/18/18 09:27 Dose: 5,000 unit Hydralazine HCl (Apresoline -) 25 mg PO TID [facility] Last Admin: 03/18/18 06:01 Dose: 25 mg Sodium Chloride (Normal Saline -) 250 mls @ 3,000 mls/hr IV PRN PRN PRN Reason: Hypotension during Dialysis Stop: 03/18/18 14:29 Sodium Chloride (Normal Saline -) 250 mls @ 3,000 mls/hr IV PRN PRN PRN Reason: Hypotension during Dialysis Stop: 03/19/18 12:15 Labetalol HCl (Normodyne -) 400 mg PO BID [facility] Last Admin: 03/18/18 09:27 Dose: 400 mg Ondansetron HCl (Zofran Odt -) 4 mg SL Q6H PRN PRN Reason: NAUSEA AND/OR VOMITING Oxycodone HCl (Roxicodone -) 5 mg PO Q6H PRN PRN Reason: PAIN LEVEL 6-10 Last Admin: 03/17/18 11:17 Dose: 5 mg - Objective Vital Signs: Vital Signs Temperature 98.4 F 03/18/18 10:00 Pulse Rate 76 03/18/18 10:00 Respiratory Rate 18 03/18/18 10:00 Blood Pressure 142/72 03/18/18 10:00 O2 Sat by Pulse Oximetry (%) 90 L 03/18/18 00:38 Constitutional: Yes: Calm Cardiovascular: Yes: Regular Rate and Rhythm, S1, S2 Respiratory: Yes: CTA Bilaterally Gastrointestinal: Yes: Normal Bowel Sounds, Soft Labs: CBC, BMP 03/17/18 05:35 Problem List - Problems (1) Stage 4 chronic kidney disease Assessment/Plan: s/p HD yesterday Code(s): N18.4 - CHRONIC KIDNEY DISEASE, STAGE 4 (SEVERE) (2) Diarrhea Assessment/Plan: juaquin monitor loose stool isend for c diff Code(s): R19.7 - DIARRHEA, UNSPECIFIED (3) Anemia in chronic kidney disease (CKD) Assessment/Plan: epogen with HD venofer given low iron saturation Code(s): N18.9 - CHRONIC KIDNEY DISEASE, UNSPECIFIED; D63.1 - ANEMIA IN CHRONIC KIDNEY DISEASE Qualifiers: Chronic kidney disease stage: stage 5, not on chronic dialysis Qualified Code(s): N18.5 - Chronic kidney disease, stage 5; D63.1 - Anemia in chronic kidney disease; D63.1 - Anemia in chronic kidney disease (4) Fever Assessment/Plan: emperic abx ID consult tmep 102.9 yesterday with elevated wbc of 11 cxr noted blood cultures negative send stool for c diff Code(s): R50.9 - FEVER, UNSPECIFIED
[2018-03-18 12:41] LABS: ANION GAP 12 MMOL/L (8-16); BLOOD UREA NITROGEN 89 mg/dL (7-18); CALCIUM 7.5 mg/dL (8.5-10.1); CHLORIDE 106 mmol/L (98-107); CO2 23 mmol/L (21-32); GLUCOSE,RANDOM 132 mg/dL (74-106); POTASSIUM 4.3 mmol/L (3.5-5.1); SODIUM 140 mmol/L (136-145)
[2018-03-18] MEDS ORDERED: IRON SUCROSE INJECTION 200 MG in SODIUM CHLORIDE 90 ML IVPB ONE (12:45)
--- NOTE | 2018-03-18 14:17 | PN ---
Progress Note (short form) - Note Progress Note: Renal follow up for CKD stage 5 Pt seen and examined during dialysis AVF being used for dialysis, BP stable goal UF is 0 access pressures acceptable had diarrhea last night again Tmax last night was 102 Vital Signs Temperature 98.9 F 03/18/18 13:30 Pulse Rate 71 03/18/18 13:35 Respiratory Rate 18 03/18/18 13:35 Blood Pressure 132/71 03/18/18 13:35 O2 Sat by Pulse Oximetry (%) 90 L 03/18/18 00:38 Intake & Output 03/15/18 03/16/18 03/17/18 03/18/18 23:59 23:59 23:59 23:59 Intake Total 200 Balance 200 Weight 94.347 kg 94.347 kg 94.347 kg NAD awake and alert neck supple, MMM RRR, No M/R CTA soft NT/ND trace LE edema CBC, BMP 03/17/18 05:35 03/18/18 11:45 Current Medications Acetaminophen (Tylenol -) 650 mg PO Q6H PRN PRN Reason: PAIN OR FEVER Last Admin: 03/17/18 22:00 Dose: 650 mg Albuterol/Ipratropium (Duoneb -) 1 amp NEB Q6H PRN PRN Reason: SHORTNESS OF BREATH Last Admin: 03/17/18 10:47 Dose: 1 amp Amlodipine Besylate (Norvasc -) 10 mg PO DAILY [facility] Last Admin: 03/18/18 09:27 Dose: 10 mg Aspirin (Ecotrin -) 81 mg PO DAILY [facility] Last Admin: 03/18/18 09:27 Dose: 81 mg Atorvastatin Calcium (Lipitor -) 40 mg PO HS [facility] Last Admin: 03/17/18 22:00 Dose: 40 mg Heparin Sodium (Porcine) (Heparin -) 5,000 unit SQ BID [facility] Last Admin: 03/18/18 09:27 Dose: 5,000 unit Hydralazine HCl (Apresoline -) 25 mg PO TID [facility] Last Admin: 03/18/18 13:46 Dose: 25 mg Sodium Chloride (Normal Saline -) 250 mls @ 3,000 mls/hr IV PRN PRN PRN Reason: Hypotension during Dialysis Stop: 03/18/18 14:29 Sodium Chloride (Normal Saline -) 250 mls @ 3,000 mls/hr IV PRN PRN PRN Reason: Hypotension during Dialysis Stop: 03/19/18 12:15 Labetalol HCl (Normodyne -) 400 mg PO BID [facility] Last Admin: 03/18/18 09:27 Dose: 400 mg Ondansetron HCl (Zofran Odt -) 4 mg SL Q6H PRN PRN Reason: NAUSEA AND/OR VOMITING Oxycodone HCl (Roxicodone -) 5 mg PO Q6H PRN PRN Reason: PAIN LEVEL 6-10 Last Admin: 03/17/18 11:17 Dose: 5 mg A/P 53 year old gentleman with hx of CKD stage 5 secondary to hypertensive nephrosclerosis, HTN, HLD who presented with SOB, fatigue/lethargy and found to have BUN/Cr of 85/12.3 #CKD stage 5 now ESRD on dialysis #Hypertension #CKD related anemia #Renal Osteoystrophy #Fever with diarrhea Pt tolerating 2nd HD session well will need outpatient HD placement Fevers now resolved, blood cultures negative thus far, CXR w/o signs of PNA ID consulted for Abx recommendations F/u urine and urine culture iron saturation is very low will plan to give IV iron with next HD Continue JASMIN with dialysis as well Trend Ca/Phos levels Thank you Severino Sanchez DO
--- NOTE | 2018-03-18 18:02 | PN ---
Progress Note (short form) - Note Progress Note: ID CONSULT DICTATED 53 Y/O MALE PMH ESRD ADMITTED WITH 4D HX ANOREXIA, CHILLS, DIARRHEA, DYSPNEA FEBRILE. REPORTS PROFUSE DIARRHEA ? ENTERITIS ? VIRAL ? CDIFFICILE NO DOCUMENTED ANTIBIOTIC USE OBTAIN STOOL STUDIES OBSERVE OFF ANTIBIOTICS
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
[2018-03-18] MEDS: ATORVASTATIN CA 40 MG TABLET (FP) PO SCH (21:05)
[2018-03-18] MEDS: ACETAMINOPHEN 325 MG TABLET (FP) PO PRN (21:06)
[2018-03-19] MEDS: hydrALAZINE HCL 25 MG TABLET (FP) PO SCH ×2 (06:33→14:57)
[2018-03-19] MEDS: ACETAMINOPHEN 325 MG TABLET (FP) PO PRN ×2 (06:33→22:44)
[2018-03-19 06:52] LABS: BASO % 0.6 % (0-2.0); EOS % 0.4 % (0-4.5); HEMATOCRIT 23.5 % (35.4-49); HEMOGLOBIN 7.7 GM/dL (11.7-16.9); LYMPH % 5.9 % (8-40); MCH 22.5 pg (25.7-33.7); MCHC 32.7 g/dl (32.0-35.9); MEAN CELL VOLUME 68.7 fl (80-96); MEAN PLT VOLUME 9.7 fl (7.5-11.1); MONO % 7.4 % (3.8-10.2); NEUT % 85.7 % (42.8-82.8); PLATELET COUNT 292 K/MM3 (134-434); RBC 3.41 M/mm3 (4.00-5.60); RDW 18.8 % (11.9-15.9); WHITE BLOOD COUNT 18.4 K/mm3 (4.0-10.0)
[2018-03-19 07:47] LABS: ALK PHOS 111 U/L (45-117); ANION GAP 11 MMOL/L (8-16); BILIRUBIN,TOTAL 0.6 mg/dL (0.2-1); BLOOD UREA NITROGEN 62 mg/dL (7-18); CALCIUM 7.6 mg/dL (8.5-10.1); CHLORIDE 103 mmol/L (98-107); CO2 26 mmol/L (21-32); GLUCOSE,RANDOM 165 mg/dL (74-106); POTASSIUM 4.5 mmol/L (3.5-5.1); SGOT/AST 86 U/L (15-37); SGPT/ALT 73 U/L (13-61); SODIUM 141 mmol/L (136-145); TOT PROT 5.5 g/dl (6.4-8.2)
[2018-03-19 07:50] LABS: CREATININE 8.8 mg/dL (0.55-1.3)
--- NOTE | 2018-03-19 09:32 | PN ---
Progress Note, Physician - Current Medication List Current Medications: Active Medications Acetaminophen (Tylenol -) 650 mg PO Q6H PRN PRN Reason: PAIN OR FEVER Last Admin: 03/19/18 06:33 Dose: 650 mg Albuterol/Ipratropium (Duoneb -) 1 amp NEB Q6H PRN PRN Reason: SHORTNESS OF BREATH Last Admin: 03/17/18 10:47 Dose: 1 amp Amlodipine Besylate (Norvasc -) 10 mg PO DAILY [facility] Last Admin: 03/18/18 09:27 Dose: 10 mg Aspirin (Ecotrin -) 81 mg PO DAILY [facility] Last Admin: 03/18/18 09:27 Dose: 81 mg Atorvastatin Calcium (Lipitor -) 40 mg PO HS [facility] Last Admin: 03/18/18 21:05 Dose: 40 mg Heparin Sodium (Porcine) (Heparin -) 5,000 unit SQ BID [facility] Last Admin: 03/18/18 21:05 Dose: 5,000 unit Hydralazine HCl (Apresoline -) 25 mg PO TID [facility] Last Admin: 03/19/18 06:33 Dose: 25 mg Sodium Chloride (Normal Saline -) 250 mls @ 3,000 mls/hr IV PRN PRN PRN Reason: Hypotension during Dialysis Stop: 03/19/18 12:15 Labetalol HCl (Normodyne -) 400 mg PO BID [facility] Last Admin: 03/18/18 21:05 Dose: 400 mg Ondansetron HCl (Zofran Odt -) 4 mg SL Q6H PRN PRN Reason: NAUSEA AND/OR VOMITING Oxycodone HCl (Roxicodone -) 5 mg PO Q6H PRN PRN Reason: PAIN LEVEL 6-10 Last Admin: 03/17/18 11:17 Dose: 5 mg - Objective Vital Signs: Vital Signs Temperature 101.6 F H 03/19/18 06:00 Pulse Rate 84 03/19/18 06:00 Respiratory Rate 20 03/19/18 06:00 Blood Pressure 156/58 L 03/19/18 06:00 O2 Sat by Pulse Oximetry (%) 94 L 03/18/18 21:00 Cardiovascular: Yes: S1, S2 Respiratory: Yes: Regular, CTA Bilaterally Gastrointestinal: Yes: Normal Bowel Sounds, Soft. No: Tenderness Labs: CBC, BMP 03/19/18 05:30 03/19/18 05:30 Assessment/Plan - Problems (1) Stage 4 chronic kidney disease Assessment/Plan: HD per renal Code(s): N18.4 - CHRONIC KIDNEY DISEASE, STAGE 4 (SEVERE) (2) Diarrhea Assessment/Plan: juaquin monitor loose stool send for c diff\id consult noted Code(s): R19.7 - DIARRHEA, UNSPECIFIED (3) Anemia in chronic kidney disease (CKD) Assessment/Plan: epogen with HD venofer given low iron saturation Code(s): N18.9 - CHRONIC KIDNEY DISEASE, UNSPECIFIED; D63.1 - ANEMIA IN CHRONIC KIDNEY DISEASE Qualifiers: Chronic kidney disease stage: stage 5, not on chronic dialysis Qualified Code(s): N18.5 - Chronic kidney disease, stage 5; D63.1 - Anemia in chronic kidney disease; D63.1 - Anemia in chronic kidney disease (4) Fever Assessment/Plan: emperic abx ID consult tmax 102.9 with elevated wbc of 11 cxr noted blood cultures negative send stool for c diff Code(s): R50.9 - FEVER, UNSPECIFIED
[2018-03-19] MEDS: ASPIRIN COATED 81 MG TABLET.EC PO SCH (09:39)
[2018-03-19] MEDS: LABETALOL HCL 200 MG TABLET (FP) PO SCH ×2 (09:41→22:44)
[2018-03-19] MEDS: HEPARIN NA (PORCINE) 5,000 UNITS/ML 1ML VIAL SQ SCH ×2 (09:42→22:43)
[2018-03-19] MEDS: amLODIPine BESYLATE 5 MG TABLET (FP) PO SCH (09:42)
[2018-03-19 12:20] LABS: HBSAG SCREEN Negative (Negative); HEP A AB, IGM Negative (Negative); HEP B CORE AB, TOT Negative (Negative)
[2018-03-19] MEDS ORDERED: SODIUM CHLORIDE 250 ML IV PRN (15:15)
--- NOTE | 2018-03-19 15:15 | PN ---
Progress Note (short form) - Note Progress Note: Renal follow up for CKD stage 5 Pt seen and examined at the bedside no acute complaints diarrhea improving, had formed stool s/p dialysis yesterday no sob, cough, chest pain, abd pain Vital Signs Temperature 97.8 F 03/19/18 14:00 Pulse Rate 84 03/19/18 14:00 Respiratory Rate 20 03/19/18 10:00 Blood Pressure 142/70 03/19/18 14:00 O2 Sat by Pulse Oximetry (%) 94 L 03/19/18 09:00 Intake & Output 03/16/18 03/17/18 03/18/18 03/19/18 23:59 23:59 23:59 23:59 Intake Total 200 120 440 Balance 200 120 440 Weight 94.347 kg 94.347 kg 94.347 kg 116.936 kg NAD neck supple, MMM RRR, No M/R CTA soft NT/ND trace LE edema CBC, BMP 03/19/18 05:30 03/19/18 05:30 Current Medications Acetaminophen (Tylenol -) 650 mg PO Q6H PRN PRN Reason: PAIN OR FEVER Last Admin: 03/19/18 06:33 Dose: 650 mg Albuterol/Ipratropium (Duoneb -) 1 amp NEB Q6H PRN PRN Reason: SHORTNESS OF BREATH Last Admin: 03/17/18 10:47 Dose: 1 amp Amlodipine Besylate (Norvasc -) 10 mg PO DAILY [facility] Last Admin: 03/19/18 09:42 Dose: 10 mg Aspirin (Ecotrin -) 81 mg PO DAILY [facility] Last Admin: 03/19/18 09:39 Dose: 81 mg Atorvastatin Calcium (Lipitor -) 40 mg PO HS [facility] Last Admin: 03/18/18 21:05 Dose: 40 mg Heparin Sodium (Porcine) (Heparin -) 5,000 unit SQ BID [facility] Last Admin: 03/19/18 09:42 Dose: 5,000 unit Hydralazine HCl (Apresoline -) 25 mg PO TID [facility] Last Admin: 03/19/18 14:57 Dose: 25 mg Sodium Chloride (Normal Saline -) 250 mls @ 3,000 mls/hr IV PRN PRN PRN Reason: Hypotension during Dialysis Stop: 03/19/18 12:15 Labetalol HCl (Normodyne -) 400 mg PO BID [facility] Last Admin: 03/19/18 09:41 Dose: 400 mg Ondansetron HCl (Zofran Odt -) 4 mg SL Q6H PRN PRN Reason: NAUSEA AND/OR VOMITING Oxycodone HCl (Roxicodone -) 5 mg PO Q6H PRN PRN Reason: PAIN LEVEL 6-10 Last Admin: 03/17/18 11:17 Dose: 5 mg A/P 53 year old gentleman with hx of CKD stage 5 secondary to hypertensive nephrosclerosis, HTN, HLD who presented with SOB, fatigue/lethargy and found to have BUN/Cr of 85/12.3 #CKD stage 5 now ESRD on dialysis #Hypertension #CKD related anemia #Renal Osteoystrophy #Fever with diarrhea s/p 2 sessions of dialysis no acute need for HOURLY SHIFT today, next treatment tomorrow outpatient HD placement arranged Renal diet can start Losartan 50mg Daily, discontinue hydralazine diarrhea improving ID following, cultures negative thus far Severino Sanchez DO
[2018-03-19] MEDS: LOSARTAN POTASSIUM 50 MG TABLET (FP) PO SCH (16:10)
[2018-03-19] MEDS: ATORVASTATIN CA 40 MG TABLET (FP) PO SCH (22:44)
[2018-03-20] MEDS: ALBUTEROL SO4 2.5/IPRATROPIUM 0.5 INH SOL 3 ML VIAL.NEB. NEB PRN ×2 (05:18→20:23)
[2018-03-20] MEDS: amLODIPine BESYLATE 5 MG TABLET (FP) PO SCH (09:04)
[2018-03-20] MEDS: LABETALOL HCL 200 MG TABLET (FP) PO SCH ×2 (09:04→22:03)
[2018-03-20] MEDS: LOSARTAN POTASSIUM 50 MG TABLET (FP) PO SCH (09:04)
[2018-03-20] MEDS: HEPARIN NA (PORCINE) 5,000 UNITS/ML 1ML VIAL SQ SCH ×2 (09:05→22:04)
[2018-03-20] MEDS: ASPIRIN COATED 81 MG TABLET.EC PO SCH (09:05)
--- NOTE | 2018-03-20 11:29 | PN ---
Progress Note (short form) - Note Progress Note: Renal follow up for CKD stage 5 Pt seen and examined at the bedside no acute complaints feels well, no further diarrhea still feels tired has cough no sob Vital Signs Temperature 98.0 F 03/20/18 10:00 Pulse Rate 80 03/20/18 10:00 Respiratory Rate 22 H 03/20/18 10:00 Blood Pressure 158/84 03/20/18 10:00 O2 Sat by Pulse Oximetry (%) 95 03/20/18 09:00 Intake & Output 03/17/18 03/18/18 03/19/18 03/20/18 23:59 23:59 23:59 23:59 Intake Total 120 450 0 Output Total 200 Balance 120 250 0 Weight 94.347 kg 94.347 kg 116.936 kg 105.143 kg NAD neck supple, MMM RRR, No M/R CTA soft NT/ND trace LE edema CBC, BMP 03/19/18 05:30 03/19/18 05:30 Current Medications Acetaminophen (Tylenol -) 650 mg PO Q6H PRN PRN Reason: PAIN OR FEVER Last Admin: 03/19/18 22:44 Dose: 650 mg Albuterol/Ipratropium (Duoneb -) 1 amp NEB Q6H PRN PRN Reason: SHORTNESS OF BREATH Last Admin: 03/20/18 05:18 Dose: 1 amp Amlodipine Besylate (Norvasc -) 10 mg PO DAILY [facility] Last Admin: 03/20/18 09:04 Dose: 10 mg Aspirin (Ecotrin -) 81 mg PO DAILY [facility] Last Admin: 03/20/18 09:05 Dose: 81 mg Atorvastatin Calcium (Lipitor -) 40 mg PO HS [facility] Last Admin: 03/19/18 22:44 Dose: 40 mg Epoetin Franco (Procrit -) 20,000 unit IVPUSH ONCE ONE Stop: 03/20/18 06:01 Heparin Sodium (Porcine) (Heparin -) 5,000 unit SQ BID [facility] Last Admin: 03/20/18 09:05 Dose: 5,000 unit Heparin Sodium (Porcine) (Heparin -) 500 unit IVPUSH ONCE ONE Stop: 03/20/18 07:01 Sodium Chloride (Normal Saline -) 250 mls @ 3,000 mls/hr IV PRN PRN PRN Reason: Hypotension during Dialysis Stop: 03/19/18 12:15 Sodium Chloride (Normal Saline -) 250 mls @ 3,000 mls/hr IV PRN PRN PRN Reason: Hypotension during Dialysis Stop: 03/20/18 15:15 Iron Sucrose 100 mg/ Sodium (Chloride) 100 mls @ 200 mls/hr IVPB ONCE ONE Stop: 03/20/18 08:29 Labetalol HCl (Normodyne -) 400 mg PO BID [facility] Last Admin: 03/20/18 09:04 Dose: 400 mg Losartan Potassium (Cozaar -) 50 mg PO DAILY [facility] Last Admin: 03/20/18 09:04 Dose: 50 mg Ondansetron HCl (Zofran Odt -) 4 mg SL Q6H PRN PRN Reason: NAUSEA AND/OR VOMITING Oxycodone HCl (Roxicodone -) 5 mg PO Q6H PRN PRN Reason: PAIN LEVEL 6-10 Last Admin: 03/17/18 11:17 Dose: 5 mg A/P 53 year old gentleman with hx of CKD stage 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
[2018-03-20] MEDS ORDERED: IRON SUCROSE INJECTION 100 MG in SODIUM CHLORIDE 95 ML IVPB ONE (13:00)
[2018-03-20] MEDS ORDERED: HEPARIN NA (PORCINE) 5,000 UNITS/ML 1ML VIAL IVPUSH ONE (13:00)
[2018-03-20] MEDS ORDERED: EPOETIN ALFA 20,000 UNIT/1 ML VIAL IVPUSH ONE (13:00)
[2018-03-20 13:16] LABS: HEMATOCRIT 22.9 % (35.4-49); HEMOGLOBIN 7.4 GM/dL (11.7-16.9); MCH 22.2 pg (25.7-33.7); MCHC 32.2 g/dl (32.0-35.9); MEAN CELL VOLUME 68.8 fl (80-96); MEAN PLT VOLUME 8.9 fl (7.5-11.1); PLATELET COUNT 352 K/MM3 (134-434); RBC 3.33 M/mm3 (4.00-5.60); RDW 18.4 % (11.9-15.9); WHITE BLOOD COUNT 24.1 K/mm3 (4.0-10.0)
[2018-03-20 13:43] LABS: ANION GAP 11 MMOL/L (8-16); BLOOD UREA NITROGEN 71 mg/dL (7-18); CALCIUM 7.1 mg/dL (8.5-10.1); CHLORIDE 102 mmol/L (98-107); CO2 25 mmol/L (21-32); GLUCOSE,RANDOM 154 mg/dL (74-106); PHOSPHOROUS 4.9 mg/dL (2.5-4.9); POTASSIUM 4.3 mmol/L (3.5-5.1); SODIUM 138 mmol/L (136-145)
[2018-03-20 13:55] LABS: CREATININE 10.1 mg/dL (0.55-1.3)
--- NOTE | 2018-03-20 18:45 | PN ---
Progress Note, Physician Chief Complaint: Chest Pain Diarrhea CKD on HD History of Present Illness: Previous notes and events reviewed awake and alert NAD denies diarrhea, chest pain afebrile - Current Medication List Current Medications: Active Medications Acetaminophen (Tylenol -) 650 mg PO Q6H PRN PRN Reason: PAIN OR FEVER Last Admin: 03/19/18 22:44 Dose: 650 mg Albuterol/Ipratropium (Duoneb -) 1 amp NEB Q6H PRN PRN Reason: SHORTNESS OF BREATH Last Admin: 03/20/18 05:18 Dose: 1 amp Amlodipine Besylate (Norvasc -) 10 mg PO DAILY [facility] Last Admin: 03/20/18 09:04 Dose: 10 mg Aspirin (Ecotrin -) 81 mg PO DAILY [facility] Last Admin: 03/20/18 09:05 Dose: 81 mg Atorvastatin Calcium (Lipitor -) 40 mg PO HS [facility] Last Admin: 03/19/18 22:44 Dose: 40 mg Heparin Sodium (Porcine) (Heparin -) 5,000 unit SQ BID [facility] Last Admin: 03/20/18 09:05 Dose: 5,000 unit Labetalol HCl (Normodyne -) 400 mg PO BID [facility] Last Admin: 03/20/18 09:04 Dose: 400 mg Losartan Potassium (Cozaar -) 50 mg PO DAILY [facility] Last Admin: 03/20/18 09:04 Dose: 50 mg Ondansetron HCl (Zofran Odt -) 4 mg SL Q6H PRN PRN Reason: NAUSEA AND/OR VOMITING Oxycodone HCl (Roxicodone -) 5 mg PO Q6H PRN PRN Reason: PAIN LEVEL 6-10 Last Admin: 03/17/18 11:17 Dose: 5 mg - Objective Vital Signs: Vital Signs Temperature 98.0 F 03/20/18 10:00 Pulse Rate 82 03/20/18 16:00 Respiratory Rate 18 03/20/18 16:00 Blood Pressure 165/72 03/20/18 16:00 O2 Sat by Pulse Oximetry (%) 95 03/20/18 09:00 Constitutional: Yes: No Distress, Calm Eyes: Yes: Conjunctiva Clear Neck: Yes: Supple Cardiovascular: Yes: Regular Rate and Rhythm Respiratory: Yes: Regular, CTA Bilaterally Gastrointestinal: Yes: Normal Bowel Sounds, Soft Musculoskeletal: Yes: Muscle Weakness Extremities: Yes: WNL Neurological: Yes: Alert, Oriented Psychiatric: Yes: Alert, Oriented Labs: CBC, BMP 03/20/18 13:00 03/20/18 13:00 <Lisa Lanza - Last Filed: 03/20/18 18:58> - Current Medication List Current Medications: Active Medications Acetaminophen (Tylenol -) 650 mg PO Q6H PRN PRN Reason: PAIN OR FEVER Last Admin: 03/21/18 06:18 Dose: 650 mg Albuterol/Ipratropium (Duoneb -) 1 amp NEB Q6H PRN PRN Reason: SHORTNESS OF BREATH Last Admin: 03/20/18 20:23 Dose: 1 amp Amlodipine Besylate (Norvasc -) 10 mg PO DAILY [facility] Last Admin: 03/20/18 09:04 Dose: 10 mg Aspirin (Ecotrin -) 81 mg PO DAILY [facility] Last Admin: 03/20/18 09:05 Dose: 81 mg Atorvastatin Calcium (Lipitor -) 40 mg PO HS [facility] Last Admin: 03/20/18 22:03 Dose: 40 mg Heparin Sodium (Porcine) (Heparin -) 5,000 unit SQ BID [facility] Last Admin: 03/20/18 22:04 Dose: 5,000 unit Piperacillin Sod/Tazobactam (Sod 2.25 gm/ Dextrose) 50 mls @ 100 mls/hr IVPB Q8H-IV [facility]; Protocol Vancomycin HCl (Vancomycin (Pre-Docked)) 1,000 mg in 250 mls @ 166.667 mls/hr IVPB ONCE ONE; Protocol Stop: 03/21/18 10:11 Labetalol HCl (Normodyne -) 400 mg PO BID [facility] Last Admin: 03/20/18 22:03 Dose: 400 mg Losartan Potassium (Cozaar -) 50 mg PO DAILY [facility] Last Admin: 03/20/18 09:04 Dose: 50 mg Ondansetron HCl (Zofran Odt -) 4 mg SL Q6H PRN PRN Reason: NAUSEA AND/OR VOMITING Oxycodone HCl (Roxicodone -) 5 mg PO Q6H PRN PRN Reason: PAIN LEVEL 6-10 Last Admin: 03/17/18 11:17 Dose: 5 mg - Objective Vital Signs: Vital Signs Temperature 99.2 F 03/21/18 01:19 Pulse Rate 75 03/21/18 01:19 Respiratory Rate 20 03/21/18 01:19 Blood Pressure 161/68 03/21/18 01:19 O2 Sat by Pulse Oximetry (%) 95 03/20/18 21:00 Labs: CBC, BMP 03/20/18 18:50 03/21/18 05:30 <Ramu Gatica - Last Filed: 03/21/18 09:10> Problem List - Problems (1) Diarrhea Assessment/Plan: -stool cultures pending -cdiff neg Code(s): R19.7 - DIARRHEA, UNSPECIFIED (2) Fever Assessment/Plan: -currently afebrile -will monitor -tylenol prn for fever >100F -BC negative Code(s): R50.9 - FEVER, UNSPECIFIED (3) HTN (hypertension) Assessment/Plan: -cont amlodipine, labetolol, losartaan -low Na diet Code(s): I10 - ESSENTIAL (PRIMARY) HYPERTENSION Qualifiers: Hypertension type: unspecified Qualified Code(s): I10 - Essential (primary ) hypertension (4) Stage 4 chronic kidney disease Assessment/Plan: -cont HD -renal diet -will monitor BUN/Cr Code(s): N18.4 - CHRONIC KIDNEY DISEASE, STAGE 4 (SEVERE) (5) Anemia in chronic kidney disease (CKD) Assessment/Plan: -hematology consult -monitor H/H Code(s): N18.9 - CHRONIC KIDNEY DISEASE, UNSPECIFIED; D63.1 - ANEMIA IN CHRONIC KIDNEY DISEASE Qualifiers: Chronic kidney disease stage: stage 5, not on chronic dialysis Qualified Code(s): N18.5 - Chronic kidney disease, stage 5; D63.1 - Anemia in chronic kidney disease; D63.1 - Anemia in chronic kidney disease (6) Chest pain Assessment/Plan: -tele monitoring -cardiology recommendation appreciated Code(s): R07.9 - CHEST PAIN, UNSPECIFIED Qualifiers: Chest pain type: chest pain on breathing Qualified Code(s): R07.1 - Chest pain on breathing; R07.81 - Pleurodynia <Lisa Lanza - Last Filed: 03/20/18 18:58> - Problems (1) HTN (hypertension) Code(s): I10 - ESSENTIAL (PRIMARY) HYPERTENSION Qualifiers: Hypertension type: unspecified Qualified Code(s): I10 - Essential (primary ) hypertension (2) Anemia Code(s): D64.9 - ANEMIA, UNSPECIFIED (3) Anemia in chronic kidney disease (CKD) Code(s): N18.9 - CHRONIC KIDNEY DISEASE, UNSPECIFIED; D63.1 - ANEMIA IN CHRONIC KIDNEY DISEASE Qualifiers: Chronic kidney disease stage: stage 5, not on chronic dialysis Qualified Code(s): N18.5 - Chronic kidney disease, stage 5; D63.1 - Anemia in chronic kidney disease; D63.1 - Anemia in chronic kidney disease (4) Cerebrovascular small vessel disease Code(s): I67.9 - CEREBROVASCULAR DISEASE, UNSPECIFIED (5) Chronic kidney disease (CKD) Code(s): N18.9 - CHRONIC KIDNEY DISEASE, UNSPECIFIED Qualifiers: Chronic kidney disease stage: unspecified stage Qualified Code(s): N18.9 - Chronic kidney disease, unspecified (6) Mediastinal adenopathy Code(s): R59.0 - LOCALIZED ENLARGED LYMPH NODES (7) Type 2 diabetes mellitus Code(s): E11.9 - TYPE 2 DIABETES MELLITUS WITHOUT COMPLICATIONS Qualifiers: Diabetes mellitus moth exterminator insulin use: without moth exterminator use Diabetes mellitus complication status: with kidney complications Diabetes mellitus complication detail: with chronic kidney disease Chronic kidney disease stage : stage 5, not on chronic dialysis Qualified Code(s): E11.22 - Type 2 diabetes mellitus with diabetic chronic kidney disease; N18.5 - Chronic kidney disease, stage 5 (8) Fever Code(s): R50.9 - FEVER, UNSPECIFIED (9) Diarrhea Code(s): R19.7 - DIARRHEA, UNSPECIFIED <Ramu Gatica - Last Filed: 03/21/18 09:10> Assessment/Plan PATIENT SEEN AND EXAMINED AND I AGREE WITH THE ABOVE NOTE <Ramu Gatica - Last Filed: 03/21/18 09:10>
[2018-03-20 19:21] LABS: HEMATOCRIT 24.2 % (35.4-49); HEMOGLOBIN 7.9 GM/dL (11.7-16.9); MCH 22.4 pg (25.7-33.7); MCHC 32.5 g/dl (32.0-35.9); MEAN PLT VOLUME 8.7 fl (7.5-11.1); PLATELET COUNT 406 K/MM3 (134-434); RBC 3.51 M/mm3 (4.00-5.60); RDW 18.2 % (11.9-15.9); WHITE BLOOD COUNT 26.2 K/mm3 (4.0-10.0)
[2018-03-20] MEDS: ACETAMINOPHEN 325 MG TABLET (FP) PO PRN (19:48)
[2018-03-20] MEDS: ATORVASTATIN CA 40 MG TABLET (FP) PO SCH (22:03)
[2018-03-21] MEDS ORDERED: LABETALOL HCL 200 MG TABLET (FP) PO ONE (05:55)
[2018-03-21] MEDS: ACETAMINOPHEN 325 MG TABLET (FP) PO PRN ×2 (06:18→22:47)
[2018-03-21 07:14] LABS: ALBUMIN 1.9 g/dl (3.4-5.0); ALK PHOS 202 U/L (45-117); ANION GAP 9 MMOL/L (8-16); BILIRUBIN,TOTAL 0.7 mg/dL (0.2-1); BLOOD UREA NITROGEN 44 mg/dL (7-18); CHLORIDE 100 mmol/L (98-107); CO2 30 mmol/L (21-32); GLUCOSE,RANDOM 157 mg/dL (74-106); POTASSIUM 4.3 mmol/L (3.5-5.1); SGOT/AST 49 U/L (15-37); SGPT/ALT 73 U/L (13-61); SODIUM 139 mmol/L (136-145); TOT PROT 5.8 g/dl (6.4-8.2)
[2018-03-21 08:12] LABS: CREATININE 7.4 mg/dL (0.55-1.3)
[2018-03-21 08:13] LABS: CALCIUM 6.9 mg/dL (8.5-10.1)
[2018-03-21] MEDS ORDERED: VANCOMYCIN 1 GRAM (PRE-DOCKED) 1,000 MG/250 ML BAG IVPB ONE (08:42)
[2018-03-21 10:01] LABS: HEMATOCRIT 24.9 % (35.4-49); HEMOGLOBIN 7.7 GM/dL (11.7-16.9); MCH 21.8 pg (25.7-33.7); MCHC 31.1 g/dl (32.0-35.9); MEAN CELL VOLUME 70.1 fl (80-96); MEAN PLT VOLUME 9.3 fl (7.5-11.1); PLATELET COUNT 410 K/MM3 (134-434); RBC 3.55 M/mm3 (4.00-5.60); RDW 18.4 % (11.9-15.9); WHITE BLOOD COUNT 26.1 K/mm3 (4.0-10.0)
[2018-03-21] MEDS ORDERED: PIPERACILLIN/TAZOBACTAM 2.25 GM VIAL IVPB ONE ×2 (10:01→17:39)
[2018-03-21] MEDS ORDERED: DEXTROSE 5%-WATER - 50 ML IVPB ONE ×2 (10:01→17:39)
[2018-03-21] MEDS: PIPERACILLIN/TAZOB 2.25 GM 2.25 GM in DEXTROSE 5%-WATER - 50 ML IVPB SCH ×2 (10:07→18:08)
[2018-03-21] MEDS: ASPIRIN COATED 81 MG TABLET.EC PO SCH (10:07)
[2018-03-21] MEDS: amLODIPine BESYLATE 5 MG TABLET (FP) PO SCH (10:07)
[2018-03-21] MEDS: LOSARTAN POTASSIUM 50 MG TABLET (FP) PO SCH (10:07)
[2018-03-21] MEDS: HEPARIN NA (PORCINE) 5,000 UNITS/ML 1ML VIAL SQ SCH ×2 (10:08→22:43)
[2018-03-21] MEDS: LABETALOL HCL 200 MG TABLET (FP) PO SCH ×2 (10:08→22:43)
--- NOTE | 2018-03-21 10:23 | PN ---
Progress Note (short form) - Note Progress Note: Renal follow up for CKD stage 5 Pt seen and examined at the bedside feels weak had fever last night on Abx diarrhea improving Vital Signs Temperature 99.2 F 03/21/18 01:19 Pulse Rate 75 03/21/18 01:19 Respiratory Rate 20 03/21/18 01:19 Blood Pressure 161/68 03/21/18 01:19 O2 Sat by Pulse Oximetry (%) 95 03/20/18 21:00 Intake & Output 03/18/18 03/19/18 03/20/18 03/21/18 23:59 23:59 23:59 23:59 Intake Total 120 450 60 50 Output Total 200 Balance 120 250 60 50 Weight 94.347 kg 116.936 kg 105.143 kg 104.95 kg NAD neck supple, MMM RRR, No M/R CTA soft NT/ND trace LE edema CBC, BMP 03/21/18 05:30 03/21/18 05:30 Current Medications Acetaminophen (Tylenol -) 650 mg PO Q6H PRN PRN Reason: PAIN OR FEVER Last Admin: 03/21/18 06:18 Dose: 650 mg Albuterol/Ipratropium (Duoneb -) 1 amp NEB Q6H PRN PRN Reason: SHORTNESS OF BREATH Last Admin: 03/20/18 20:23 Dose: 1 amp Amlodipine Besylate (Norvasc -) 10 mg PO DAILY [facility] Last Admin: 03/20/18 09:04 Dose: 10 mg Aspirin (Ecotrin -) 81 mg PO DAILY [facility] Last Admin: 03/20/18 09:05 Dose: 81 mg Atorvastatin Calcium (Lipitor -) 40 mg PO HS [facility] Last Admin: 03/20/18 22:03 Dose: 40 mg Heparin Sodium (Porcine) (Heparin -) 5,000 unit SQ BID [facility] Last Admin: 03/20/18 22:04 Dose: 5,000 unit Piperacillin Sod/Tazobactam (Sod 2.25 gm/ Dextrose) 50 mls @ 100 mls/hr IVPB Q8H-IV [facility]; Protocol Labetalol HCl (Normodyne -) 400 mg PO BID [facility] Last Admin: 03/20/18 22:03 Dose: 400 mg Losartan Potassium (Cozaar -) 50 mg PO DAILY [facility] Last Admin: 03/20/18 09:04 Dose: 50 mg Ondansetron HCl (Zofran Odt -) 4 mg SL Q6H PRN PRN Reason: NAUSEA AND/OR VOMITING Oxycodone HCl (Roxicodone -) 5 mg PO Q6H PRN PRN Reason: PAIN LEVEL 6-10 Last Admin: 03/17/18 11:17 Dose: 5 mg A/P 53 year old gentleman with hx of CKD stage 5 secondary to hypertensive nephrosclerosis, HTN, HLD who presented with SOB, fatigue/lethargy and found to have BUN/Cr of 85/12.3 #CKD stage 5 now ESRD on dialysis #Hypertension #CKD related anemia #Renal Osteoystrophy #Fever with diarrhea s/p HD yesterday, tolerated it well no indication for SUPERVISOR/PORT DIRECTOR today + fever, on Abx cultures negative thus far Severino Sanchez DO
--- NOTE | 2018-03-21 15:11 | PN ---
Progress Note, Physician Chief Complaint: Chest Pain Diarrhea CKD on HD History of Present Illness: Previous notes and events reviewed awake and alert NAD denies diarrhea, chest pain afebrile elev WBC complain of weakness - Current Medication List Current Medications: Active Medications Acetaminophen (Tylenol -) 650 mg PO Q6H PRN PRN Reason: PAIN OR FEVER Last Admin: 03/21/18 06:18 Dose: 650 mg Albuterol/Ipratropium (Duoneb -) 1 amp NEB Q6H PRN PRN Reason: SHORTNESS OF BREATH Last Admin: 03/20/18 20:23 Dose: 1 amp Amlodipine Besylate (Norvasc -) 10 mg PO DAILY [facility] Last Admin: 03/21/18 10:07 Dose: 10 mg Aspirin (Ecotrin -) 81 mg PO DAILY [facility] Last Admin: 03/21/18 10:07 Dose: 81 mg Atorvastatin Calcium (Lipitor -) 40 mg PO HS [facility] Last Admin: 03/20/18 22:03 Dose: 40 mg Heparin Sodium (Porcine) (Heparin -) 5,000 unit SQ BID [facility] Last Admin: 03/21/18 10:08 Dose: 5,000 unit Piperacillin Sod/Tazobactam (Sod 2.25 gm/ Dextrose) 50 mls @ 100 mls/hr IVPB Q8H-IV [facility]; Protocol Last Admin: 03/21/18 10:07 Dose: 100 mls/hr Labetalol HCl (Normodyne -) 400 mg PO BID [facility] Last Admin: 03/21/18 10:08 Dose: Not Given Losartan Potassium (Cozaar -) 50 mg PO DAILY [facility] Last Admin: 03/21/18 10:07 Dose: 50 mg Ondansetron HCl (Zofran Odt -) 4 mg SL Q6H PRN PRN Reason: NAUSEA AND/OR VOMITING - Objective Vital Signs: Vital Signs Temperature 99.1 F 03/21/18 10:00 Pulse Rate 70 03/21/18 10:00 Respiratory Rate 18 03/21/18 10:00 Blood Pressure 160/77 03/21/18 10:00 O2 Sat by Pulse Oximetry (%) 95 03/20/18 21:00 Constitutional: Yes: No Distress, Calm Eyes: Yes: Conjunctiva Clear Neck: Yes: Supple Cardiovascular: Yes: Regular Rate and Rhythm Respiratory: Yes: Regular, CTA Bilaterally Gastrointestinal: Yes: Normal Bowel Sounds, Soft Musculoskeletal: Yes: Muscle Weakness Extremities: Yes: WNL Edema: Yes Edema: LLE: Trace, RLE: Trace Neurological: Yes: Alert, Oriented Psychiatric: Yes: Alert, Oriented Labs: CBC, BMP 03/21/18 05:30 03/21/18 05:30 Microbiology 03/19/18 15:30 Salmonella/Shigella Culture - Preliminary Stool Pending Organism Yersinia Culture - Preliminary NO ENTERIC PATHOGENS, 24 HOURS, ON PRIMARY PLATES Vibrio Culture - Preliminary NO ENTERIC PATHOGENS, 24 HOURS, ON PRIMARY PLATES Escherichia coli 0157 Culture - Preliminary NO ENTERIC PATHOGENS, 24 HOURS, ON PRIMARY PLATES 03/17/18 11:35 Blood Culture - Preliminary Blood - Peripheral Venous NO GROWTH OBTAINED AFTER 96 HOURS, INCUBATION TO CONTINUE FOR 1 DAYS. 03/17/18 11:20 Blood Culture - Preliminary Blood - Peripheral Venous NO GROWTH OBTAINED AFTER 96 HOURS, INCUBATION TO CONTINUE FOR 1 DAYS. <Lisa Lanza - Last Filed: 03/21/18 15:08> - Current Medication List Current Medications: Active Medications Acetaminophen (Tylenol -) 650 mg PO Q6H PRN PRN Reason: PAIN OR FEVER Last Admin: 03/21/18 22:47 Dose: 650 mg Albuterol/Ipratropium (Duoneb -) 1 amp NEB Q6H PRN PRN Reason: SHORTNESS OF BREATH Last Admin: 03/22/18 21:44 Dose: 1 amp Amlodipine Besylate (Norvasc -) 10 mg PO DAILY [facility] Last Admin: 03/22/18 09:34 Dose: 10 mg Aspirin (Ecotrin -) 81 mg PO DAILY [facility] Last Admin: 03/22/18 09:34 Dose: 81 mg Atorvastatin Calcium (Lipitor -) 40 mg PO HS [facility] Last Admin: 03/22/18 21:32 Dose: 40 mg Heparin Sodium (Porcine) (Heparin -) 5,000 unit SQ BID [facility] Last Admin: 03/22/18 21:31 Dose: 5,000 unit Piperacillin Sod/Tazobactam (Sod 2.25 gm/ Dextrose) 50 mls @ 100 mls/hr IVPB Q8H-IV [facility]; Protocol Last Admin: 03/23/18 01:47 Dose: 100 mls/hr Labetalol HCl (Normodyne -) 400 mg PO BID [facility] Last Admin: 03/22/18 21:32 Dose: 400 mg Losartan Potassium (Cozaar -) 50 mg PO DAILY [facility] Last Admin: 03/22/18 09:35 Dose: 50 mg Ondansetron HCl (Zofran Odt -) 4 mg SL Q6H PRN PRN Reason: NAUSEA AND/OR VOMITING - Objective Vital Signs: Vital Signs Temperature 98.1 F 03/23/18 05:26 Pulse Rate 65 03/23/18 05:26 Respiratory Rate 18 03/23/18 05:26 Blood Pressure 147/57 L 03/23/18 05:26 O2 Sat by Pulse Oximetry (%) 92 L 03/22/18 21:00 Labs: CBC, BMP 03/22/18 05:30 03/22/18 05:30 <Ramu Gatica - Last Filed: 03/23/18 05:46> Problem List - Problems (1) Diarrhea Assessment/Plan: -stool cultures pending -cdiff neg Code(s): R19.7 - DIARRHEA, UNSPECIFIED (2) Fever Assessment/Plan: -currently afebrile -will monitor -tylenol prn for fever >100F -BC negative Code(s): R50.9 - FEVER, UNSPECIFIED (3) HTN (hypertension) Assessment/Plan: -cont amlodipine, labetolol, losartaan -low Na diet Code(s): I10 - ESSENTIAL (PRIMARY) HYPERTENSION Qualifiers: Hypertension type: unspecified Qualified Code(s): I10 - Essential (primary ) hypertension (4) Stage 4 chronic kidney disease Assessment/Plan: -cont HD -renal diet -will monitor BUN/Cr Code(s): N18.4 - CHRONIC KIDNEY DISEASE, STAGE 4 (SEVERE) (5) Anemia in chronic kidney disease (CKD) Assessment/Plan: -hematology consult -monitor H/H -current H/H 7.7/24.9 Code(s): N18.9 - CHRONIC KIDNEY DISEASE, UNSPECIFIED; D63.1 - ANEMIA IN CHRONIC KIDNEY DISEASE Qualifiers: Chronic kidney disease stage: stage 5, not on chronic dialysis Qualified Code(s): N18.5 - Chronic kidney disease, stage 5; D63.1 - Anemia in chronic kidney disease; D63.1 - Anemia in chronic kidney disease (6) Chest pain Assessment/Plan: -tele monitoring -cardiology recommendation appreciated Code(s): R07.9 - CHEST PAIN, UNSPECIFIED Qualifiers: Chest pain type: chest pain on breathing Qualified Code(s): R07.1 - Chest pain on breathing; R07.81 - Pleurodynia <Lisa Lanza - Last Filed: 03/21/18 15:08> - Problems (1) HTN (hypertension) Code(s): I10 - ESSENTIAL (PRIMARY) HYPERTENSION Qualifiers: Hypertension type: unspecified Qualified Code(s): I10 - Essential (primary ) hypertension (2) Anemia Code(s): D64.9 - ANEMIA, UNSPECIFIED (3) Anemia in chronic kidney disease (CKD) Code(s): N18.9 - CHRONIC KIDNEY DISEASE, UNSPECIFIED; D63.1 - ANEMIA IN CHRONIC KIDNEY DISEASE Qualifiers: Chronic kidney disease stage: stage 5, not on chronic dialysis Qualified Code(s): N18.5 - Chronic kidney disease, stage 5; D63.1 - Anemia in chronic kidney disease; D63.1 - Anemia in chronic kidney disease (4) Cerebrovascular small vessel disease Code(s): I67.9 - CEREBROVASCULAR DISEASE, UNSPECIFIED (5) Chronic kidney disease (CKD) Code(s): N18.9 - CHRONIC KIDNEY DISEASE, UNSPECIFIED Qualifiers: Chronic kidney disease stage: unspecified stage Qualified Code(s): N18.9 - Chronic kidney disease, unspecified (6) Mediastinal adenopathy Code(s): R59.0 - LOCALIZED ENLARGED LYMPH NODES (7) Type 2 diabetes mellitus Code(s): E11.9 - TYPE 2 DIABETES MELLITUS WITHOUT COMPLICATIONS Qualifiers: Diabetes mellitus oil heaterman insulin use: without oil heaterman use Diabetes mellitus complication status: with kidney complications Diabetes mellitus complication detail: with chronic kidney disease Chronic kidney disease stage : stage 5, not on chronic dialysis Qualified Code(s): E11.22 - Type 2 diabetes mellitus with diabetic chronic kidney disease; N18.5 - Chronic kidney disease, stage 5 (8) Fever Code(s): R50.9 - FEVER, UNSPECIFIED (9) Diarrhea Code(s): R19.7 - DIARRHEA, UNSPECIFIED <Ramu Gatica - Last Filed: 03/23/18 05:46> Assessment/Plan PATIENT SEEN AND EXAMINED AND I AGREE WITH THE ABOVE NOTE <Ramu Gatica - Last Filed: 03/23/18 05:46>
[2018-03-21] MEDS: ALBUTEROL SO4 2.5/IPRATROPIUM 0.5 INH SOL 3 ML VIAL.NEB. NEB PRN ×2 (16:48→20:55)
[2018-03-21] MEDS: ATORVASTATIN CA 40 MG TABLET (FP) PO SCH (22:43)
--- NOTE | 2018-03-21 22:49 | CONSULT ---
Consult Consult Specialty:: hematology Referred by:: En Reason for Consultation:: anemia - History of Present Illness Chief Complaint: chest pain History of Present Illness: 53 M with HTN c/b CKD V admitted with diarrhea, poor appetite and chest pain. Started on HD. Hematology consulted for chronic anemia. During a hospitalization last month, pt was evaluated by hematology for anemia (Hgb ~8), which was thought to be multifactorial but primarily due to CKD. Ferritin was found to be 81 and pt received IV iron. Erythropoietin level was 4. On current admission Hgb is 7.8, ferritin 500. Pt reports feeling tired all the time. Not willing to provide further history. - Past Medical History Cardio/Vascular: Yes: CHF, HTN, Hyperlipdemia Renal/: Yes: Renal Failure, Renal Inusuff Endocrine: Yes: Diabetes Mellitus - Alcohol/Substance Use Hx Alcohol Use: No History of Substance Use: reports: None - Smoking History Smoking history: Never smoked Have you smoked in the past 12 months: No Aproximately how many cigarettes per day: 0 - Social History ADL: Independent Home Medications - Allergies Allergies/Adverse Reactions: Allergies Allergy/AdvReac Type Severity Reaction Status Date / Time No Known Allergies Allergy Verified 03/16/18 11:35 - Home Medications Home Medications: Ambulatory Orders Furosemide [Lasix] 80 mg PO BID 04/03/17 Ferrous Sulfate [Iron] 325 mg PO DAILY 02/20/18 Amlodipine Besylate 10 mg PO DAILY #30 tablet 02/24/18 Aspirin Coated [Ecotrin -] 81 mg PO DAILY #30 tablet.ec 02/24/18 Atorvastatin Ca [Lipitor] 20 mg PO HS #30 tablet 02/24/18 Calcium Carbonate - 1,300 mg PO BID #60 tablet 02/24/18 Labetalol HCl [Normodyne -] 400 mg PO BID #60 tablet 02/24/18 Sodium Bicarbonate - 650 mg PO DAILY #30 tablet 02/24/18 hydrALAZINE HCL [Apresoline -] 100 mg PO BID #60 tablet 02/24/18 Review of Systems Unable to obtain ROS, reason: pt declines Physical Exam Vital Signs: Vital Signs Temperature 99.3 F 03/21/18 18:00 Pulse Rate 73 03/21/18 18:00 Respiratory Rate 18 03/21/18 14:24 Blood Pressure 154/69 03/21/18 14:24 O2 Sat by Pulse Oximetry (%) 92 L 03/21/18 09:00 Constitutional: Yes: No Distress, Calm Eyes: Yes: Conjunctiva Clear Cardiovascular: Yes: Regular Rate and Rhythm Respiratory: Yes: Regular, CTA Bilaterally Gastrointestinal: Yes: WNL, Soft Edema: Yes Edema: LLE: 2+, RLE: 2+ Labs: CBC, BMP 03/21/18 05:30 03/21/18 05:30 Assessment/Plan 53M hypertensive nephropathy, newly started on HD. Hematology consulted for chronic anemia. Currently no evidence of nutritional deficiency. Anemia is likely primarily 2/2 CKD. Would start weekly aranesp 40 mcg. Ordered folate level (low normal in 03/2017)
[2018-03-22] MEDS ORDERED: PIPERACILLIN/TAZOBACTAM 2.25 GM VIAL IVPB ONE ×2 (02:02→09:25)
[2018-03-22] MEDS ORDERED: DEXTROSE 5%-WATER - 50 ML IVPB ONE ×2 (02:03→09:25)
[2018-03-22] MEDS: PIPERACILLIN/TAZOB 2.25 GM 2.25 GM in DEXTROSE 5%-WATER - 50 ML IVPB SCH ×3 (02:44→18:02)
[2018-03-22 06:41] LABS: HEMATOCRIT 22.3 % (35.4-49); HEMOGLOBIN 7.3 GM/dL (11.7-16.9); MCH 22.7 pg (25.7-33.7); MCHC 32.7 g/dl (32.0-35.9); MEAN CELL VOLUME 69.5 fl (80-96); MEAN PLT VOLUME 8.6 fl (7.5-11.1); PLATELET COUNT 471 K/MM3 (134-434); RBC 3.21 M/mm3 (4.00-5.60); RDW 18.4 % (11.9-15.9); WHITE BLOOD COUNT 23.1 K/mm3 (4.0-10.0)
[2018-03-22 07:41] LABS: ALBUMIN 1.9 g/dl (3.4-5.0); ALK PHOS 214 U/L (45-117); ANION GAP 9 MMOL/L (8-16); BILIRUBIN,TOTAL 0.7 mg/dL (0.2-1); BLOOD UREA NITROGEN 51 mg/dL (7-18); CALCIUM 7.1 mg/dL (8.5-10.1); CHLORIDE 100 mmol/L (98-107); CO2 31 mmol/L (21-32); GLUCOSE,RANDOM 113 mg/dL (74-106); POTASSIUM 4.1 mmol/L (3.5-5.1); SGOT/AST 44 U/L (15-37); SGPT/ALT 65 U/L (13-61); SODIUM 139 mmol/L (136-145)
[2018-03-22] MEDS: ASPIRIN COATED 81 MG TABLET.EC PO SCH (09:34)
[2018-03-22] MEDS: LABETALOL HCL 200 MG TABLET (FP) PO SCH ×2 (09:34→21:32)
[2018-03-22] MEDS: amLODIPine BESYLATE 5 MG TABLET (FP) PO SCH (09:34)
[2018-03-22] MEDS: HEPARIN NA (PORCINE) 5,000 UNITS/ML 1ML VIAL SQ SCH ×2 (09:35→21:31)
[2018-03-22] MEDS: LOSARTAN POTASSIUM 50 MG TABLET (FP) PO SCH (09:35)
[2018-03-22 09:49] LABS: CREATININE 8.6 mg/dL (0.55-1.3)
--- NOTE | 2018-03-22 11:26 | PN ---
Progress Note, Physician History of Present Illness: Awake in bed Cultures repeated and empiric antibiotics started for persistant fever/ leukocytosis C/O loose BMs, occasional cough No c/o chest pain/ dyspnea Temps lower grade today WBC remains elevated 23K LFTs elevated - Current Medication List Current Medications: Active Medications Acetaminophen (Tylenol -) 650 mg PO Q6H PRN PRN Reason: PAIN OR FEVER Last Admin: 03/21/18 22:47 Dose: 650 mg Amlodipine Besylate (Norvasc -) 10 mg PO DAILY [facility] Last Admin: 03/22/18 09:34 Dose: 10 mg Aspirin (Ecotrin -) 81 mg PO DAILY [facility] Last Admin: 03/22/18 09:34 Dose: 81 mg Atorvastatin Calcium (Lipitor -) 40 mg PO HS [facility] Last Admin: 03/21/18 22:43 Dose: 40 mg Heparin Sodium (Porcine) (Heparin -) 5,000 unit SQ BID [facility] Last Admin: 03/22/18 09:35 Dose: 5,000 unit Piperacillin Sod/Tazobactam (Sod 2.25 gm/ Dextrose) 50 mls @ 100 mls/hr IVPB Q8H-IV [facility]; Protocol Last Admin: 03/22/18 09:34 Dose: 100 mls/hr Labetalol HCl (Normodyne -) 400 mg PO BID [facility] Last Admin: 03/22/18 09:34 Dose: 400 mg Losartan Potassium (Cozaar -) 50 mg PO DAILY [facility] Last Admin: 03/22/18 09:35 Dose: 50 mg Ondansetron HCl (Zofran Odt -) 4 mg SL Q6H PRN PRN Reason: NAUSEA AND/OR VOMITING - Objective Vital Signs: Vital Signs Temperature 98.4 F 03/22/18 10:00 Pulse Rate 67 03/22/18 10:00 Respiratory Rate 18 03/22/18 10:00 Blood Pressure 153/76 03/22/18 10:00 O2 Sat by Pulse Oximetry (%) 93 L 03/21/18 21:00 Constitutional: Yes: No Distress Eyes: Yes: Conjunctiva Clear Cardiovascular: Yes: Regular Rate and Rhythm, S1, S2 Respiratory: Yes: Rhonchi Gastrointestinal: Yes: Normal Bowel Sounds, Soft. No: Tenderness Edema: Yes Labs: CBC, BMP 03/22/18 05:30 03/22/18 05:30 Assessment/Plan Fever/ leukocytosis ? source R/O infectious enteritis ESRD Await repeat c/s Continue empiric zosyn I advised CT C/A/P for evaluiation of fever/ leukocytosis but pt refuses stating " I don't have any more fever"
[2018-03-22 14:43] VITALS: BMI 30.6
--- NOTE | 2018-03-22 15:38 | PN ---
Progress Note, Physician Chief Complaint: AWAKE ALERT TRANSFERRING TO RADIOLOGY FOR CT ABD DENIES CHEST PAIN OR SOB - Current Medication List Current Medications: Active Medications Acetaminophen (Tylenol -) 650 mg PO Q6H PRN PRN Reason: PAIN OR FEVER Last Admin: 03/21/18 22:47 Dose: 650 mg Amlodipine Besylate (Norvasc -) 10 mg PO DAILY [facility] Last Admin: 03/22/18 09:34 Dose: 10 mg Aspirin (Ecotrin -) 81 mg PO DAILY [facility] Last Admin: 03/22/18 09:34 Dose: 81 mg Atorvastatin Calcium (Lipitor -) 40 mg PO HS [facility] Last Admin: 03/21/18 22:43 Dose: 40 mg Heparin Sodium (Porcine) (Heparin -) 5,000 unit SQ BID [facility] Last Admin: 03/22/18 09:35 Dose: 5,000 unit Piperacillin Sod/Tazobactam (Sod 2.25 gm/ Dextrose) 50 mls @ 100 mls/hr IVPB Q8H-IV [facility]; Protocol Last Admin: 03/22/18 09:34 Dose: 100 mls/hr Labetalol HCl (Normodyne -) 400 mg PO BID [facility] Last Admin: 03/22/18 09:34 Dose: 400 mg Losartan Potassium (Cozaar -) 50 mg PO DAILY [facility] Last Admin: 03/22/18 09:35 Dose: 50 mg Ondansetron HCl (Zofran Odt -) 4 mg SL Q6H PRN PRN Reason: NAUSEA AND/OR VOMITING - Objective Vital Signs: Vital Signs Temperature 98.4 F 03/22/18 14:15 Pulse Rate 70 03/22/18 14:15 Respiratory Rate 18 03/22/18 14:15 Blood Pressure 150/67 03/22/18 14:15 O2 Sat by Pulse Oximetry (%) 92 L 03/22/18 09:00 Constitutional: Yes: No Distress Eyes: Yes: WNL HENT: Yes: WNL Neck: Yes: WNL Cardiovascular: Yes: WNL Respiratory: Yes: WNL Gastrointestinal: Yes: WNL Genitourinary: Yes: WNL Musculoskeletal: Yes: WNL Extremities: Yes: WNL Edema: No Peripheral Pulses WNL: Yes Integumentary: Yes: WNL Wound/Incision: Yes: Clean/Dry Neurological: Yes: Pre-Existing Deficit ...Motor Strength: WNL Psychiatric: Yes: WNL Labs: CBC, BMP 03/22/18 05:30 03/22/18 05:30 Problem List - Problems (1) HTN (hypertension) Code(s): I10 - ESSENTIAL (PRIMARY) HYPERTENSION Qualifiers: Hypertension type: unspecified Qualified Code(s): I10 - Essential (primary ) hypertension (2) Anemia Code(s): D64.9 - ANEMIA, UNSPECIFIED (3) Anemia in chronic kidney disease (CKD) Code(s): N18.9 - CHRONIC KIDNEY DISEASE, UNSPECIFIED; D63.1 - ANEMIA IN CHRONIC KIDNEY DISEASE Qualifiers: Chronic kidney disease stage: stage 5, not on chronic dialysis Qualified Code(s): N18.5 - Chronic kidney disease, stage 5; D63.1 - Anemia in chronic kidney disease; D63.1 - Anemia in chronic kidney disease (4) Cerebrovascular small vessel disease Code(s): I67.9 - CEREBROVASCULAR DISEASE, UNSPECIFIED (5) Chronic kidney disease (CKD) Code(s): N18.9 - CHRONIC KIDNEY DISEASE, UNSPECIFIED Qualifiers: Chronic kidney disease stage: unspecified stage Qualified Code(s): N18.9 - Chronic kidney disease, unspecified (6) Mediastinal adenopathy Code(s): R59.0 - LOCALIZED ENLARGED LYMPH NODES (7) Type 2 diabetes mellitus Code(s): E11.9 - TYPE 2 DIABETES MELLITUS WITHOUT COMPLICATIONS Qualifiers: Diabetes mellitus residential insulin use: without residential use Diabetes mellitus complication status: with kidney complications Diabetes mellitus complication detail: with chronic kidney disease Chronic kidney disease stage : stage 5, not on chronic dialysis Qualified Code(s): E11.22 - Type 2 diabetes mellitus with diabetic chronic kidney disease; N18.5 - Chronic kidney disease, stage 5 (8) Fever Code(s): R50.9 - FEVER, UNSPECIFIED (9) Diarrhea Code(s): R19.7 - DIARRHEA, UNSPECIFIED Assessment/Plan CT ABDOMEN PENDING PT EVAL FOR UNSTEADY GAIT DIETARY EVAL FOR RENAL DIET/LOW FAT/HTN I HAVE DISCUSSED THE IMPORTANCE OF COMPLIANCE WITH THE PATIENT FOR CONTROL OF HIS ILLNESS. HE AGREES TO F/U WITH HIS PMD DR DÍAZ RENAL EVAL APPRECIATED ANEMIA WORKUP WITH DR ALEXANDER IN PROGRESS OOB TO CHAIR
--- NOTE | 2018-03-22 15:56 | PN ---
Progress Note (short form) - Note Progress Note: Renal follow up for CKD stage 5 Pt seen and examined at the bedside was febrile last night continues to have cough, no cp no diarrhea now, no abd pain Vital Signs Temperature 98.4 F 03/22/18 14:15 Pulse Rate 70 03/22/18 14:15 Respiratory Rate 18 03/22/18 14:15 Blood Pressure 150/67 03/22/18 14:15 O2 Sat by Pulse Oximetry (%) 92 L 03/22/18 09:00 Intake & Output 03/19/18 03/20/18 03/21/18 03/22/18 23:59 23:59 23:59 23:59 Intake Total 450 60 270 50 Output Total 200 Balance 250 60 270 50 Weight 116.936 kg 105.143 kg 104.95 kg 105.233 kg NAD neck supple, MMM RRR, No M/R CTA soft NT/ND trace LE edema CBC, BMP 03/22/18 05:30 03/22/18 05:30 Current Medications Acetaminophen (Tylenol -) 650 mg PO Q6H PRN PRN Reason: PAIN OR FEVER Last Admin: 03/21/18 22:47 Dose: 650 mg Amlodipine Besylate (Norvasc -) 10 mg PO DAILY [facility] Last Admin: 03/22/18 09:34 Dose: 10 mg Aspirin (Ecotrin -) 81 mg PO DAILY [facility] Last Admin: 03/22/18 09:34 Dose: 81 mg Atorvastatin Calcium (Lipitor -) 40 mg PO HS [facility] Last Admin: 03/21/18 22:43 Dose: 40 mg Heparin Sodium (Porcine) (Heparin -) 5,000 unit SQ BID [facility] Last Admin: 03/22/18 09:35 Dose: 5,000 unit Piperacillin Sod/Tazobactam (Sod 2.25 gm/ Dextrose) 50 mls @ 100 mls/hr IVPB Q8H-IV [facility]; Protocol Last Admin: 03/22/18 09:34 Dose: 100 mls/hr Labetalol HCl (Normodyne -) 400 mg PO BID [facility] Last Admin: 03/22/18 09:34 Dose: 400 mg Losartan Potassium (Cozaar -) 50 mg PO DAILY [facility] Last Admin: 03/22/18 09:35 Dose: 50 mg Ondansetron HCl (Zofran Odt -) 4 mg SL Q6H PRN PRN Reason: NAUSEA AND/OR VOMITING A/P 53 year old gentleman with hx of CKD stage 5 secondary to hypertensive nephrosclerosis, HTN, HLD who presented with SOB, fatigue/lethargy and found to have BUN/Cr of 85/12.3 #CKD stage 5 now ESRD on dialysis #Hypertension #CKD related anemia #Renal Osteoystrophy #Fever with diarrhea no 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
[2018-03-22] MEDS: ATORVASTATIN CA 40 MG TABLET (FP) PO SCH (21:32)
[2018-03-22] MEDS: ALBUTEROL SO4 2.5/IPRATROPIUM 0.5 INH SOL 3 ML VIAL.NEB. NEB PRN (21:44)
[2018-03-23] MEDS ORDERED: DEXTROSE 5%-WATER - 50 ML IVPB ONE ×3 (01:36→18:01)
[2018-03-23] MEDS ORDERED: PIPERACILLIN/TAZOBACTAM 2.25 GM VIAL IVPB ONE ×3 (01:36→18:01)
[2018-03-23] MEDS: PIPERACILLIN/TAZOB 2.25 GM 2.25 GM in DEXTROSE 5%-WATER - 50 ML IVPB SCH ×3 (01:47→18:30)
--- NOTE | 2018-03-23 08:45 | PN ---
Progress Note, Physician Chief Complaint: AWAKE ALERT C/O COUGH WITH SOME PHLEGM NO FEVERS NO SOB/OR CHEST PAIN - Current Medication List Current Medications: Active Medications Acetaminophen (Tylenol -) 650 mg PO Q6H PRN PRN Reason: PAIN OR FEVER Last Admin: 03/21/18 22:47 Dose: 650 mg Albuterol/Ipratropium (Duoneb -) 1 amp NEB Q6H PRN PRN Reason: SHORTNESS OF BREATH Last Admin: 03/22/18 21:44 Dose: 1 amp Amlodipine Besylate (Norvasc -) 10 mg PO DAILY [facility] Last Admin: 03/22/18 09:34 Dose: 10 mg Aspirin (Ecotrin -) 81 mg PO DAILY [facility] Last Admin: 03/22/18 09:34 Dose: 81 mg Atorvastatin Calcium (Lipitor -) 40 mg PO HS [facility] Last Admin: 03/22/18 21:32 Dose: 40 mg Heparin Sodium (Porcine) (Heparin -) 5,000 unit SQ BID [facility] Last Admin: 03/22/18 21:31 Dose: 5,000 unit Piperacillin Sod/Tazobactam (Sod 2.25 gm/ Dextrose) 50 mls @ 100 mls/hr IVPB Q8H-IV [facility]; Protocol Last Admin: 03/23/18 01:47 Dose: 100 mls/hr Labetalol HCl (Normodyne -) 400 mg PO BID [facility] Last Admin: 03/22/18 21:32 Dose: 400 mg Losartan Potassium (Cozaar -) 50 mg PO DAILY [facility] Last Admin: 03/22/18 09:35 Dose: 50 mg Ondansetron HCl (Zofran Odt -) 4 mg SL Q6H PRN PRN Reason: NAUSEA AND/OR VOMITING - Objective Vital Signs: Vital Signs Temperature 98.1 F 03/23/18 05:26 Pulse Rate 65 03/23/18 05:26 Respiratory Rate 18 03/23/18 05:26 Blood Pressure 147/57 L 03/23/18 05:26 O2 Sat by Pulse Oximetry (%) 92 L 03/22/18 21:00 Constitutional: Yes: Mild Distress Eyes: Yes: WNL HENT: Yes: WNL Neck: Yes: WNL Cardiovascular: Yes: WNL Respiratory: Yes: Wheezes Gastrointestinal: Yes: WNL Genitourinary: Yes: WNL Musculoskeletal: Yes: WNL Extremities: Yes: WNL Integumentary: Yes: WNL Wound/Incision: Yes: Clean/Dry Neurological: Yes: Pre-Existing Deficit ...Motor Strength: LLE, RLE Psychiatric: Yes: WNL Labs: CBC, BMP 03/22/18 05:30 03/22/18 05:30 Problem List - Problems (1) HTN (hypertension) Code(s): I10 - ESSENTIAL (PRIMARY) HYPERTENSION Qualifiers: Hypertension type: unspecified Qualified Code(s): I10 - Essential (primary ) hypertension (2) Anemia Code(s): D64.9 - ANEMIA, UNSPECIFIED (3) Anemia in chronic kidney disease (CKD) Code(s): N18.9 - CHRONIC KIDNEY DISEASE, UNSPECIFIED; D63.1 - ANEMIA IN CHRONIC KIDNEY DISEASE Qualifiers: Chronic kidney disease stage: stage 5, not on chronic dialysis Qualified Code(s): N18.5 - Chronic kidney disease, stage 5; D63.1 - Anemia in chronic kidney disease; D63.1 - Anemia in chronic kidney disease (4) Cerebrovascular small vessel disease Code(s): I67.9 - CEREBROVASCULAR DISEASE, UNSPECIFIED (5) Chronic kidney disease (CKD) Code(s): N18.9 - CHRONIC KIDNEY DISEASE, UNSPECIFIED Qualifiers: Chronic kidney disease stage: unspecified stage Qualified Code(s): N18.9 - Chronic kidney disease, unspecified (6) Mediastinal adenopathy Code(s): R59.0 - LOCALIZED ENLARGED LYMPH NODES (7) Type 2 diabetes mellitus Code(s): E11.9 - TYPE 2 DIABETES MELLITUS WITHOUT COMPLICATIONS Qualifiers: Diabetes mellitus longterm insulin use: without still operator batch or continuous use Diabetes mellitus complication status: with kidney complications Diabetes mellitus complication detail: with chronic kidney disease Chronic kidney disease stage : stage 5, not on chronic dialysis Qualified Code(s): E11.22 - Type 2 diabetes mellitus with diabetic chronic kidney disease; N18.5 - Chronic kidney disease, stage 5 (8) Fever Code(s): R50.9 - FEVER, UNSPECIFIED (9) Diarrhea Code(s): R19.7 - DIARRHEA, UNSPECIFIED Assessment/Plan AWAITING CT SCAN RESULTS PT EVAL PULM EVAL NEBS/OOB TO CHAIR ESRD WORKUP IN PROGRESS RENAL DIET NUTRITION EVAL WITH DIETARY COUGH SUPPRESANTS OLD CVA WITH B/L LEG WEAKNESS NEURO EVAL
[2018-03-23] MEDS ORDERED: PT OWN MED DRAWER 7, Y5N ONE ×2 (08:50→17:33)
[2018-03-23] MEDS: amLODIPine BESYLATE 5 MG TABLET (FP) PO SCH (09:45)
[2018-03-23] MEDS: LOSARTAN POTASSIUM 50 MG TABLET (FP) PO SCH (09:45)
[2018-03-23] MEDS: ASPIRIN COATED 81 MG TABLET.EC PO SCH (09:45)
[2018-03-23] MEDS: HEPARIN NA (PORCINE) 5,000 UNITS/ML 1ML VIAL SQ SCH ×2 (09:46→21:48)
[2018-03-23] MEDS: LABETALOL HCL 200 MG TABLET (FP) PO SCH ×2 (09:46→21:48)
--- NOTE | 2018-03-23 11:51 | PN ---
Progress Note (short form) - Note Progress Note: Renal follow up for CKD stage 5 Pt seen and examined at the bedside no fevers in 24 hours feels better, still has cough walked with PT today, wants to walk more, requesting a walker Vital Signs Temperature 98.6 F 03/23/18 08:37 Pulse Rate 67 03/23/18 08:37 Respiratory Rate 18 03/23/18 08:37 Blood Pressure 150/59 L 03/23/18 08:37 O2 Sat by Pulse Oximetry (%) 92 L 03/23/18 09:00 Intake & Output 03/20/18 03/21/18 03/22/18 03/23/18 23:59 23:59 23:59 23:59 Intake Total 60 270 200 150 Balance 60 270 200 150 Weight 105.143 kg 104.95 kg 105.233 kg NAD neck supple, MMM RRR, No M/R CTA soft NT/ND trace LE edema CBC, BMP 03/22/18 05:30 03/22/18 05:30 Current Medications Acetaminophen (Tylenol -) 650 mg PO Q6H PRN PRN Reason: PAIN OR FEVER Last Admin: 03/21/18 22:47 Dose: 650 mg Albuterol/Ipratropium (Duoneb -) 1 amp NEB Q6H PRN PRN Reason: SHORTNESS OF BREATH Last Admin: 03/22/18 21:44 Dose: 1 amp Amlodipine Besylate (Norvasc -) 10 mg PO DAILY [facility] Last Admin: 03/23/18 09:45 Dose: 10 mg Aspirin (Ecotrin -) 81 mg PO DAILY [facility] Last Admin: 03/23/18 09:45 Dose: 81 mg Atorvastatin Calcium (Lipitor -) 40 mg PO HS [facility] Last Admin: 03/22/18 21:32 Dose: 40 mg Guaifenesin (Diabetic Tussin Dm -) 5 ml PO Q4H PRN PRN Reason: COUGH Heparin Sodium (Porcine) (Heparin -) 5,000 unit SQ BID [facility] Last Admin: 03/23/18 09:46 Dose: 5,000 unit Piperacillin Sod/Tazobactam (Sod 2.25 gm/ Dextrose) 50 mls @ 100 mls/hr IVPB Q8H-IV [facility]; Protocol Last Admin: 03/23/18 09:42 Dose: 100 mls/hr Labetalol HCl (Normodyne -) 400 mg PO BID [facility] Last Admin: 03/23/18 09:46 Dose: 400 mg Losartan Potassium (Cozaar -) 50 mg PO DAILY [facility] Last Admin: 03/23/18 09:45 Dose: 50 mg Ondansetron HCl (Zofran Odt -) 4 mg SL Q6H PRN PRN Reason: NAUSEA AND/OR VOMITING A/P 53 year old gentleman with hx of CKD stage 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
[2018-03-23] MEDS ORDERED: SODIUM CHLORIDE 250 ML IV PRN (11:52)
[2018-03-23 13:23] LABS: HEMATOCRIT 23.5 % (35.4-49); HEMOGLOBIN 7.8 GM/dL (11.7-16.9); MCH 22.9 pg (25.7-33.7); MEAN CELL VOLUME 69.4 fl (80-96); MEAN PLT VOLUME 8.2 fl (7.5-11.1); PLATELET COUNT 519 K/MM3 (134-434); RBC 3.39 M/mm3 (4.00-5.60); RDW 18.1 % (11.9-15.9); WHITE BLOOD COUNT 13.3 K/mm3 (4.0-10.0)
[2018-03-23 13:54] LABS: ANION GAP 9 MMOL/L (8-16); BLOOD UREA NITROGEN 57 mg/dL (7-18); CALCIUM 7.1 mg/dL (8.5-10.1); CHLORIDE 98 mmol/L (98-107); CO2 28 mmol/L (21-32); GLUCOSE,RANDOM 132 mg/dL (74-106); POTASSIUM 4.1 mmol/L (3.5-5.1); SODIUM 135 mmol/L (136-145)
[2018-03-23] MEDS ORDERED: EPOETIN ALFA 20,000 UNIT/1 ML VIAL IVPUSH ONE (14:00)
[2018-03-23] MEDS: HEPARIN NA (PORCINE) 5,000 UNITS/ML 1ML VIAL IVPUSH SCH ×3 (14:00→16:00)
[2018-03-23] MEDS ORDERED: HEPARIN NA (PORCINE) 5,000 UNITS/ML 1ML VIAL IVPUSH ONE (14:00)
[2018-03-23 14:04] LABS: CREATININE 9.7 mg/dL (0.55-1.3)
--- NOTE | 2018-03-23 14:30 | CON.PULM ---
Consult Consult Specialty:: PULMONARY Referred by:: Dr. Gatica Reason for Consultation:: shortness of breath - History of Present Illness Chief Complaint: weakness History of Present Illness: 53yo male with h/o HTN, hyperlipidemia who was admitted with generalized weakness and lethargy. Found to be in acute on chronic renal failure. Febrile earlier this admission, CT chest done yesterday showing multilobar infiltrates. He reports his fevers have improved. No chest pain. +nonproductive cough without wheezing. Denies history of asthma or COPD. Remote smoker. Does not use inhalers at home. - History Source History Provided By: Patient, Medical Record Limitations to Obtaining History: No Limitations - Past Medical History Cardio/Vascular: Yes: CHF, HTN, Hyperlipdemia Renal/: Yes: Renal Failure, Renal Inusuff Endocrine: Yes: Diabetes Mellitus - Alcohol/Substance Use Hx Alcohol Use: No History of Substance Use: reports: None - Smoking History Smoking history: Never smoked Have you smoked in the past 12 months: No Aproximately how many cigarettes per day: 0 - Social History ADL: Independent Home Medications - Allergies Allergies/Adverse Reactions: Allergies Allergy/AdvReac Type Severity Reaction Status Date / Time No Known Allergies Allergy Verified 03/16/18 11:35 - Home Medications Home Medications: Ambulatory Orders Furosemide [Lasix] 80 mg PO BID 04/03/17 Ferrous Sulfate [Iron] 325 mg PO DAILY 02/20/18 Amlodipine Besylate 10 mg PO DAILY #30 tablet 02/24/18 Aspirin Coated [Ecotrin -] 81 mg PO DAILY #30 tablet.ec 02/24/18 Atorvastatin Ca [Lipitor] 20 mg PO HS #30 tablet 02/24/18 Calcium Carbonate - 1,300 mg PO BID #60 tablet 02/24/18 Labetalol HCl [Normodyne -] 400 mg PO BID #60 tablet 02/24/18 Sodium Bicarbonate - 650 mg PO DAILY #30 tablet 02/24/18 hydrALAZINE HCL [Apresoline -] 100 mg PO BID #60 tablet 02/24/18 Review of Systems - Review of Systems Constitutional: reports: Chills, Fever, Weakness Eyes: denies: Recent Change in Vision HENT: denies: Nasal Congestion, Throat Pain Neck: denies: Stiffness, Tenderness Cardiovascular: reports: Shortness of Breath. denies: Chest Pain Respiratory: reports: Cough. denies: Hemoptysis, Wheezing Gastrointestinal: denies: Abdominal Pain, Nausea, Vomiting Genitourinary: denies: Dysuria, Hematuria Neurological: denies: Dizziness, Headache Endocrine: denies: Unexplained Weight Loss Physical Exam Vital Sings: Vital Signs Temperature 98.4 F 03/23/18 13:53 Pulse Rate 80 03/23/18 14:10 Respiratory Rate 18 03/23/18 14:10 Blood Pressure 152/101 H 03/23/18 14:10 O2 Sat by Pulse Oximetry (%) 92 L 03/23/18 09:00 Constitutional: Yes: Calm Eyes: Yes: Conjunctiva Clear, EOM Intact HENT: Yes: Atraumatic, Normocephalic Neck: Yes: Supple, Trachea Midline Cardiovascular: Yes: Regular Rate and Rhythm Respiratory: Yes: Rales (basilar) ...Clubbing: No Gastrointestinal: Yes: Normal Bowel Sounds, Soft. No: Tenderness Edema: Yes (distal) Neurological: Yes: Alert, Oriented Labs: CBC, BMP 03/23/18 13:00 03/23/18 13:00 Imaging - Results Chest X-ray: Report Reviewed, Image Reviewed Cat Scan: Report Reviewed, Image Reviewed (multilobar infiltrates) Problem List - Problems (1) Pneumonia Code(s): J18.9 - PNEUMONIA, UNSPECIFIED ORGANISM (2) ESRD (end stage renal disease) Code(s): N18.6 - END STAGE RENAL DISEASE (3) HTN (hypertension) Code(s): I10 - ESSENTIAL (PRIMARY) HYPERTENSION Qualifiers: Hypertension type: unspecified Qualified Code(s): I10 - Essential (primary ) hypertension (4) Hyperlipidemia associated with type 2 diabetes mellitus Code(s): E11.69 - TYPE 2 DIABETES MELLITUS WITH OTHER SPECIFIED COMPLICATION; E78.5 - HYPERLIPIDEMIA, UNSPECIFIED Assessment/Plan Pneumonia Sepsis +Troponins likely Demand Ischemia ESRD on HD HTN Hyperlipidemia - continue antibiotics per ID - f/u pending cultures - O2 to keep SpO2>90% - HD per renal - will need outpt f/u of chest imaging to ensure resolution of infiltrates - DVT prophylaxis Thank you for this consult Otto Beck MD
[2018-03-23] MEDS: ALBUTEROL SO4 2.5/IPRATROPIUM 0.5 INH SOL 3 ML VIAL.NEB. NEB PRN (20:05)
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
[2018-03-23] MEDS: ATORVASTATIN CA 40 MG TABLET (FP) PO SCH (21:48)
[2018-03-23] MEDS: guaiFENesin/D-M SUGAR-FREE/ACLHOL-FREE 118 ML BOTTLE PO PRN (21:49)
[2018-03-24] MEDS ORDERED: PIPERACILLIN/TAZOBACTAM 2.25 GM VIAL IVPB ONE ×3 (00:47→17:25)
[2018-03-24] MEDS ORDERED: DEXTROSE 5%-WATER - 50 ML IVPB ONE ×3 (00:48→17:26)
[2018-03-24] MEDS: PIPERACILLIN/TAZOB 2.25 GM 2.25 GM in DEXTROSE 5%-WATER - 50 ML IVPB SCH ×3 (01:46→17:31)
[2018-03-24] MEDS ORDERED: PT OWN MED DRAWER 7, Y5N ONE ×2 (09:12→20:35)
[2018-03-24] MEDS: LABETALOL HCL 200 MG TABLET (FP) PO SCH ×2 (09:16→21:45)
[2018-03-24] MEDS: ASPIRIN COATED 81 MG TABLET.EC PO SCH (09:16)
[2018-03-24] MEDS: amLODIPine BESYLATE 5 MG TABLET (FP) PO SCH (09:16)
[2018-03-24] MEDS: LOSARTAN POTASSIUM 50 MG TABLET (FP) PO SCH (09:16)
[2018-03-24] MEDS: guaiFENesin/D-M SUGAR-FREE/ACLHOL-FREE 118 ML BOTTLE PO PRN ×2 (09:16→21:45)
[2018-03-24] MEDS: HEPARIN NA (PORCINE) 5,000 UNITS/ML 1ML VIAL SQ SCH ×2 (09:16→21:45)
--- NOTE | 2018-03-24 10:35 | PN ---
Progress Note, Physician - Current Medication List Current Medications: Active Medications Acetaminophen (Tylenol -) 650 mg PO Q6H PRN PRN Reason: PAIN OR FEVER Last Admin: 03/21/18 22:47 Dose: 650 mg Albuterol/Ipratropium (Duoneb -) 1 amp NEB Q6H PRN PRN Reason: SHORTNESS OF BREATH Last Admin: 03/23/18 20:05 Dose: 1 amp Amlodipine Besylate (Norvasc -) 10 mg PO DAILY [facility] Last Admin: 03/24/18 09:16 Dose: 10 mg Aspirin (Ecotrin -) 81 mg PO DAILY [facility] Last Admin: 03/24/18 09:16 Dose: 81 mg Atorvastatin Calcium (Lipitor -) 40 mg PO HS [facility] Last Admin: 03/23/18 21:48 Dose: 40 mg Guaifenesin (Diabetic Tussin Dm -) 5 ml PO Q4H PRN PRN Reason: COUGH Last Admin: 03/24/18 09:16 Dose: 5 ml Heparin Sodium (Porcine) (Heparin -) 5,000 unit SQ BID [facility] Last Admin: 03/24/18 09:16 Dose: 5,000 unit Piperacillin Sod/Tazobactam (Sod 2.25 gm/ Dextrose) 50 mls @ 100 mls/hr IVPB Q8H-IV [facility]; Protocol Last Admin: 03/24/18 09:16 Dose: 100 mls/hr Sodium Chloride (Normal Saline -) 250 mls @ 3,000 mls/hr IV PRN PRN PRN Reason: Hypotension during Dialysis Stop: 03/24/18 11:52 Labetalol HCl (Normodyne -) 400 mg PO BID [facility] Last Admin: 03/24/18 09:16 Dose: 400 mg Losartan Potassium (Cozaar -) 50 mg PO DAILY [facility] Last Admin: 03/24/18 09:16 Dose: 50 mg Ondansetron HCl (Zofran Odt -) 4 mg SL Q6H PRN PRN Reason: NAUSEA AND/OR VOMITING - Objective Vital Signs: Vital Signs Temperature 98.5 F 03/24/18 06:00 Pulse Rate 68 03/24/18 06:00 Respiratory Rate 18 03/24/18 06:00 Blood Pressure 167/80 03/24/18 06:00 O2 Sat by Pulse Oximetry (%) 91 L 03/23/18 21:00 Cardiovascular: Yes: S1, S2 Respiratory: Yes: Regular, CTA Bilaterally Gastrointestinal: Yes: Normal Bowel Sounds, Soft Labs: CBC, BMP 03/23/18 13:00 03/23/18 13:00 Assessment/Plan - Problems (1) Stage 4 chronic kidney disease Assessment/Plan: HD per renal Code(s): N18.4 - CHRONIC KIDNEY DISEASE, STAGE 4 (SEVERE) (2) Diarrhea Assessment/Plan: juaquin monitor loose stool send for c diff\id consult noted Code(s): R19.7 - DIARRHEA, UNSPECIFIED (3) Anemia in chronic kidney disease (CKD) Assessment/Plan: epogen with HD venofer given low iron saturation Code(s): N18.9 - CHRONIC KIDNEY DISEASE, UNSPECIFIED; D63.1 - ANEMIA IN CHRONIC KIDNEY DISEASE Qualifiers: Chronic kidney disease stage: stage 5, not on chronic dialysis Qualified Code(s): N18.5 - Chronic kidney disease, stage 5; D63.1 - Anemia in chronic kidney disease; D63.1 - Anemia in chronic kidney disease (4) Fever Assessment/Plan: resolved emperic abx ID consult noted--Follow up Microbiology 03/21/18 09:40 Blood - Peripheral Venous Blood Culture - Preliminary NO GROWTH OBTAINED AFTER 72 HOURS, INCUBATION TO CONTINUE FOR 2 DAYS. 03/21/18 09:45 Blood - Peripheral Venous Blood Culture - Preliminary NO GROWTH OBTAINED AFTER 72 HOURS, INCUBATION TO CONTINUE FOR 2 DAYS. 03/19/18 15:30 Stool Cryptosporidium Antigen - Final 03/19/18 15:30 Stool Giardia Antigen (XAVI) - Final 03/19/18 15:30 Stool Isospora Smear - Preliminary 03/17/18 11:35 Blood - Peripheral Venous Blood Culture - Final NO GROWTH AFTER 5 DAYS INCUBATION 03/17/18 11:20 Blood - Peripheral Venous Blood Culture - Final NO GROWTH AFTER 5 DAYS INCUBATION 03/19/18 15:30 Stool Salmonella/Shigella Culture - Final 03/19/18 15:30 Stool Campylobacter Culture - Final NO GROWTH OF CAMPYLOBACTER SPECIES OBTAINED 03/19/18 15:30 Stool Yersinia Culture - Final NO GROWTH OF YERSINIA SPECIES OBTAINED 03/19/18 15:30 Stool Vibrio Culture - Final NO GROWTH OF VIBRIO SPECIES OBTAINED 03/19/18 15:30 Stool Escherichia coli 0157 Culture - Final NO GROWTH OF E COLI 0157 OBTAINED 03/19/18 15:30 Stool Clostridium difficile Antigen (XAVI) - Final 03/19/18 15:30 Stool Clostridium difficile Toxin Assay - Final blood cultures negative send stool for c diff Code(s): R50.9 - FEVER, UNSPECIFIED
--- NOTE | 2018-03-24 12:11 | PN ---
Progress Note (short form) - Note Progress Note: Renal follow up for CKD stage 5 Pt seen and examined at the bedside awake and alert feels better has cough but is better no sob, cp, abd pain, N/V/D s/p dialysis yesterday Vital Signs Temperature 98.5 F 03/24/18 06:00 Pulse Rate 68 03/24/18 06:00 Respiratory Rate 18 03/24/18 06:00 Blood Pressure 167/80 03/24/18 06:00 O2 Sat by Pulse Oximetry (%) 91 L 03/23/18 21:00 Intake & Output 03/21/18 03/22/18 03/23/18 03/24/18 23:59 23:59 23:59 23:59 Intake Total 270 200 960 50 Output Total 0 Balance 270 200 960 50 Weight 104.95 kg 105.233 kg NAD neck supple, MMM RRR, No M/R CTA soft NT/ND trace LE edema CBC, BMP 03/23/18 13:00 03/23/18 13:00 Current Medications Acetaminophen (Tylenol -) 650 mg PO Q6H PRN PRN Reason: PAIN OR FEVER Last Admin: 03/21/18 22:47 Dose: 650 mg Albuterol/Ipratropium (Duoneb -) 1 amp NEB Q6H PRN PRN Reason: SHORTNESS OF BREATH Last Admin: 03/23/18 20:05 Dose: 1 amp Amlodipine Besylate (Norvasc -) 10 mg PO DAILY [facility] Last Admin: 03/24/18 09:16 Dose: 10 mg Aspirin (Ecotrin -) 81 mg PO DAILY [facility] Last Admin: 03/24/18 09:16 Dose: 81 mg Atorvastatin Calcium (Lipitor -) 40 mg PO HS [facility] Last Admin: 03/23/18 21:48 Dose: 40 mg Guaifenesin (Diabetic Tussin Dm -) 5 ml PO Q4H PRN PRN Reason: COUGH Last Admin: 03/24/18 09:16 Dose: 5 ml Heparin Sodium (Porcine) (Heparin -) 5,000 unit SQ BID [facility] Last Admin: 03/24/18 09:16 Dose: 5,000 unit Piperacillin Sod/Tazobactam (Sod 2.25 gm/ Dextrose) 50 mls @ 100 mls/hr IVPB Q8H-IV [facility]; Protocol Last Admin: 03/24/18 09:16 Dose: 100 mls/hr Labetalol HCl (Normodyne -) 400 mg PO BID [facility] Last Admin: 03/24/18 09:16 Dose: 400 mg Losartan Potassium (Cozaar -) 50 mg PO DAILY [facility] Last Admin: 03/24/18 09:16 Dose: 50 mg Ondansetron HCl (Zofran Odt -) 4 mg SL Q6H PRN PRN Reason: NAUSEA AND/OR VOMITING A/P 53 year old gentleman with hx of CKD stage 5 secondary to hypertensive nephrosclerosis, HTN, HLD who presented with SOB, fatigue/lethargy and found to have BUN/Cr of 85/12.3 #CKD stage 5 now ESRD on dialysis #Hypertension #CKD related anemia #Renal Osteoystrophy #Fever with diarrhea s/p dialysis yesterday, no acute indication for GUIDE [facility]ER today will continue HD 3x weekly dose all meds for intermittent HD WBC improving, no fevers for 2 days continue Abx as per ID will continue high dose Epogen with HD for anemia Severino aSnchez DO
--- NOTE | 2018-03-24 13:03 | PN ---
Progress Note, Physician History of Present Illness: PULMONARY ALERT,FEELING BETTER,-CP,-SOB,-COUGH - Current Medication List Current Medications: Active Medications Acetaminophen (Tylenol -) 650 mg PO Q6H PRN PRN Reason: PAIN OR FEVER Last Admin: 03/21/18 22:47 Dose: 650 mg Albuterol/Ipratropium (Duoneb -) 1 amp NEB Q6H PRN PRN Reason: SHORTNESS OF BREATH Last Admin: 03/23/18 20:05 Dose: 1 amp Amlodipine Besylate (Norvasc -) 10 mg PO DAILY [facility] Last Admin: 03/24/18 09:16 Dose: 10 mg Aspirin (Ecotrin -) 81 mg PO DAILY [facility] Last Admin: 03/24/18 09:16 Dose: 81 mg Atorvastatin Calcium (Lipitor -) 40 mg PO HS [facility] Last Admin: 03/23/18 21:48 Dose: 40 mg Epoetin Franco (Procrit -) 20,000 unit IVPUSH ONCE ONE Stop: 03/25/18 06:01 Guaifenesin (Diabetic Tussin Dm -) 5 ml PO Q4H PRN PRN Reason: COUGH Last Admin: 03/24/18 09:16 Dose: 5 ml Heparin Sodium (Porcine) (Heparin -) 5,000 unit SQ BID [facility] Last Admin: 03/24/18 09:16 Dose: 5,000 unit Heparin Sodium (Porcine) (Heparin -) 500 unit IVPUSH ONCE ONE Stop: 03/25/18 06:01 Heparin Sodium (Porcine) (Heparin -) 300 unit IVPUSH Q1H [facility] Stop: 03/25/18 09:01 Piperacillin Sod/Tazobactam (Sod 2.25 gm/ Dextrose) 50 mls @ 100 mls/hr IVPB Q8H-IV [facility]; Protocol Last Admin: 03/24/18 09:16 Dose: 100 mls/hr Sodium Chloride (Normal Saline -) 250 mls @ 3,000 mls/hr IV PRN PRN PRN Reason: Hypotension during Dialysis Stop: 03/25/18 12:11 Labetalol HCl (Normodyne -) 400 mg PO BID [facility] Last Admin: 03/24/18 09:16 Dose: 400 mg Losartan Potassium (Cozaar -) 50 mg PO DAILY [facility] Last Admin: 03/24/18 09:16 Dose: 50 mg Ondansetron HCl (Zofran Odt -) 4 mg SL Q6H PRN PRN Reason: NAUSEA AND/OR VOMITING - Objective Vital Signs: Vital Signs Temperature 97.5 F L 03/24/18 10:00 Pulse Rate 69 03/24/18 10:00 Respiratory Rate 20 03/24/18 10:00 Blood Pressure 157/73 03/24/18 10:00 O2 Sat by Pulse Oximetry (%) 94 L 03/24/18 09:00 Constitutional: Yes: Well Nourished, Calm Eyes: Yes: WNL HENT: Yes: WNL Neck: Yes: WNL Cardiovascular: Yes: Regular Rate and Rhythm, S1, S2 Respiratory: Yes: Diminished Gastrointestinal: Yes: Normal Bowel Sounds, Soft Extremities: Yes: WNL Edema: No Labs: CBC, BMP Assessment/Plan Problem List - Problems (1) Pneumonia Code(s): J18.9 - PNEUMONIA, UNSPECIFIED ORGANISM (2) ESRD (end stage renal disease) Code(s): N18.6 - END STAGE RENAL DISEASE (3) HTN (hypertension) Code(s): I10 - ESSENTIAL (PRIMARY) HYPERTENSION Qualifiers: Hypertension type: unspecified Qualified Code(s): I10 - Essential (primary ) hypertension (4) Hyperlipidemia associated with type 2 diabetes mellitus Code(s): E11.69 - TYPE 2 DIABETES MELLITUS WITH OTHER SPECIFIED COMPLICATION; E78.5 - HYPERLIPIDEMIA, UNSPECIFIED Assessment/Plan Pneumonia Sepsis +Troponins likely Demand Ischemia ESRD on HD HTN Hyperlipidemia - antibiotics per ID - O2 to keep SpO2>90% - HD per renal - will need outpt f/u of chest imaging to ensure resolution of infiltrates - DVT prophylaxis DR LUCAS
--- NOTE | 2018-03-24 15:38 | CONSULT ---
Consult Consult Specialty:: PM&R Dr Tobias for Dr Mayberry - History of Present Illness Chief Complaint: weakness which is improving History of Present Illness: This is a 53 year old man with a medical history of obesity, CVA, HTN, HLD, CRD5 , DM, who presented to the ED 03/16/18 with decreased appetite, diarrhea and chest pain as well as chronic nausea and weakness. He was admitted for ESRD for which HD was initiated and Renal was consulted. Cardiology was consulted for possible ischemic heart disease. Pulm and ID were consulted for PNA. His diarrhea has persisted, with 03/19/18 C diff negative. Neurology was consulted for gait dysfunction which is multifactorial. He was seen by PT, and on 03/24/18 he was Contact Guard in Transfers, and ambulated 125ft Contact Guard with Rolling Walker. Physiatry is being consulted for further recommendations and consideration for EMG to evaluate for peripheral neuropathy. - Past Medical History Cardio/Vascular: Yes: CHF, HTN, Hyperlipdemia Renal/: Yes: Renal Failure, Renal Inusuff Endocrine: Yes: Diabetes Mellitus - Alcohol/Substance Use Hx Alcohol Use: No History of Substance Use: reports: None - Smoking History Smoking history: Never smoked Have you smoked in the past 12 months: No Aproximately how many cigarettes per day: 0 - Social History Usual Living Arrangement: With Parent (lives in 5th floor walk-up apartment with 50 steps to enter, previously Independent in ADLs without AD) ADL: Independent Home Medications - Allergies Allergies/Adverse Reactions: Allergies Allergy/AdvReac Type Severity Reaction Status Date / Time No Known Allergies Allergy Verified 03/16/18 11:35 - Home Medications Home Medications: Ambulatory Orders Furosemide [Lasix] 80 mg PO BID 04/03/17 Ferrous Sulfate [Iron] 325 mg PO DAILY 02/20/18 Amlodipine Besylate 10 mg PO DAILY #30 tablet 02/24/18 Aspirin Coated [Ecotrin -] 81 mg PO DAILY #30 tablet.ec 02/24/18 Atorvastatin Ca [Lipitor] 20 mg PO HS #30 tablet 02/24/18 Calcium Carbonate - 1,300 mg PO BID #60 tablet 02/24/18 Labetalol HCl [Normodyne -] 400 mg PO BID #60 tablet 02/24/18 Sodium Bicarbonate - 650 mg PO DAILY #30 tablet 02/24/18 hydrALAZINE HCL [Apresoline -] 100 mg PO BID #60 tablet 02/24/18 Review of Systems Findings/Remarks: Denies fevers, chills, changes in vision/ hearing/ mood, CP, SOB, abdominal pain , nausea, vomiting, constipation, dysuria, numbness/ paresthesias. Notes cough, diarrhea (2-3 BM in 24 hours), and BLE tightness and weakness which is improving. Physical Exam Vital Signs: Vital Signs Temperature 98.7 F 03/24/18 13:28 Pulse Rate 72 03/24/18 13:28 Respiratory Rate 18 03/24/18 13:28 Blood Pressure 138/69 03/24/18 13:28 O2 Sat by Pulse Oximetry (%) 94 L 03/24/18 09:00 Musculoskeletal: Yes: Other (General: calm AAM sitting EOB NAD, AAO x3 N/M: B shoulder flexion to 120 degrees, 5-/5 BUE/ BLE; Pinprick Intact BUE and decreased B feet Extremities: no BLE pitting edema, no B calf tenderness) Labs: CBC, BMP 03/23/18 13:00 03/23/18 13:00 Assessment/Plan Impression: 1) Deficits mobility/ ADLs 2) Deconditioning 3) Gait abnormality which is multifactorial 4) PNA 5) Diarrhea 6) ESRD now on HD 7) Obesity 8) hx CVA 9) hx HTN, HLD 10) Anemia due to renal disease 11) DM with likely diabetic neuropathy 12) Up to date flu shot, no documented pneumovax Recommendations: 1) PT for stretching strengthening ROM and functional mobility including stairs 2) Falls, safety precautions 3) Pulmonary, diabetic precautions 4) EMG can be performed as outpatient as his gait is improving. Call to make an appointment with Dr Mayberry 5) DVT ppx: on HD 6) F/u repeat C diff 7) Nutrition consult for obesity 8) Discharge planning: depending on progress in therapy, may benefit from short - course inpatient rehabilitation to work on stairs, or if progress well with therapy can return home with home services. Thank you for this referral.
--- NOTE | 2018-03-24 16:13 | PN ---
Progress Note (short form) - Note Progress Note: Patient seen and examined Begun on H.D. Review of lab data- Fe++---8 TIBC---159 Ferritin 500 Noral B-12 , folate Picture compatible with chronic disease,although low serum Fe++ suggests possibility of component of blood loss Consider GI work up if not recently done Stool guaics Parenteral Fe++ therapy-- IV Venofer Erythropoietin --either procrit or aranesp per renal protocol/
[2018-03-24] MEDS: ATORVASTATIN CA 40 MG TABLET (FP) PO SCH (21:45)
[2018-03-25] MEDS ORDERED: PIPERACILLIN/TAZOBACTAM 2.25 GM VIAL IVPB ONE ×2 (00:46→09:07)
[2018-03-25] MEDS ORDERED: DEXTROSE 5%-WATER - 50 ML IVPB ONE ×2 (00:46→09:07)
[2018-03-25] MEDS: PIPERACILLIN/TAZOB 2.25 GM 2.25 GM in DEXTROSE 5%-WATER - 50 ML IVPB SCH ×3 (01:22→18:31)
[2018-03-25] MEDS: HEPARIN NA (PORCINE) 5,000 UNITS/ML 1ML VIAL SQ SCH ×2 (09:16→21:25)
[2018-03-25] MEDS: ASPIRIN COATED 81 MG TABLET.EC PO SCH (09:16)
[2018-03-25] MEDS: LABETALOL HCL 200 MG TABLET (FP) PO SCH ×2 (11:00→21:25)
--- NOTE | 2018-03-25 11:48 | PN ---
Progress Note (short form) - Note Progress Note: PULMONARY Feeling better. Still with nonproductive cough. No fevers. Vital Signs Period Temp Pulse Resp BP Sys/Wilson Pulse Ox Last 24 Hr 98.1 F-99.3 F 60-75 18-19 138-170/69-77 95 Gen: NAD at rest Heart: RRR Lung: decreased breath sounds at the bases Abd: soft, nontender Ext: no edema CBC, BMP 03/23/18 13:00 03/23/18 13:00 Active Medications Acetaminophen (Tylenol -) 650 mg PO Q6H PRN PRN Reason: PAIN OR FEVER Last Admin: 03/21/18 22:47 Dose: 650 mg Albuterol/Ipratropium (Duoneb -) 1 amp NEB Q6H PRN PRN Reason: SHORTNESS OF BREATH Last Admin: 03/23/18 20:05 Dose: 1 amp Amlodipine Besylate (Norvasc -) 10 mg PO DAILY [facility] Last Admin: 03/24/18 09:16 Dose: 10 mg Aspirin (Ecotrin -) 81 mg PO DAILY [facility] Last Admin: 03/25/18 09:16 Dose: 81 mg Atorvastatin Calcium (Lipitor -) 40 mg PO HS [facility] Last Admin: 03/24/18 21:45 Dose: 40 mg Epoetin Franco (Procrit -) 20,000 unit IVPUSH ONCE ONE Stop: 03/25/18 06:01 Guaifenesin (Diabetic Tussin Dm -) 5 ml PO Q4H PRN PRN Reason: COUGH Last Admin: 03/24/18 21:45 Dose: 5 ml Heparin Sodium (Porcine) (Heparin -) 5,000 unit SQ BID [facility] Last Admin: 03/25/18 09:16 Dose: 5,000 unit Heparin Sodium (Porcine) (Heparin -) 500 unit IVPUSH ONCE ONE Stop: 03/25/18 06:01 Heparin Sodium (Porcine) (Heparin -) 300 unit IVPUSH Q1H [facility] Stop: 03/25/18 09:01 Piperacillin Sod/Tazobactam (Sod 2.25 gm/ Dextrose) 50 mls @ 100 mls/hr IVPB Q8H-IV [facility]; Protocol Last Admin: 03/25/18 01:22 Dose: 100 mls/hr Sodium Chloride (Normal Saline -) 250 mls @ 3,000 mls/hr IV PRN PRN PRN Reason: Hypotension during Dialysis Stop: 03/25/18 12:11 Labetalol HCl (Normodyne -) 400 mg PO BID [facility] Last Admin: 03/24/18 21:45 Dose: 400 mg Losartan Potassium (Cozaar -) 50 mg PO DAILY [facility] Last Admin: 03/24/18 09:16 Dose: 50 mg Ondansetron HCl (Zofran Odt -) 4 mg SL Q6H PRN PRN Reason: NAUSEA AND/OR VOMITING A/P Pneumonia Sepsis +Troponins likely Demand Ischemia ESRD on HD HTN Hyperlipidemia - continue antibiotics per ID - O2 to keep SpO2>90% - HD per renal - will need outpt f/u of chest imaging to ensure resolution of infiltrates - DVT prophylaxis Problem List - Problems (1) Pneumonia Code(s): J18.9 - PNEUMONIA, UNSPECIFIED ORGANISM (2) ESRD (end stage renal disease) Code(s): N18.6 - END STAGE RENAL DISEASE (3) HTN (hypertension) Code(s): I10 - ESSENTIAL (PRIMARY) HYPERTENSION Qualifiers: Hypertension type: unspecified Qualified Code(s): I10 - Essential (primary ) hypertension (4) Hyperlipidemia associated with type 2 diabetes mellitus Code(s): E11.69 - TYPE 2 DIABETES MELLITUS WITH OTHER SPECIFIED COMPLICATION; E78.5 - HYPERLIPIDEMIA, UNSPECIFIED
[2018-03-25] MEDS ORDERED: PT OWN MED DRAWER 7, Y5N ONE (13:10)
[2018-03-25] MEDS: guaiFENesin/D-M SUGAR-FREE/ACLHOL-FREE 118 ML BOTTLE PO PRN ×2 (13:13→21:25)
[2018-03-25] MEDS ORDERED: IRON SUCROSE INJECTION 200 MG in SODIUM CHLORIDE 90 ML IVPB ONE (13:13)
--- NOTE | 2018-03-25 13:17 | PN ---
Progress Note, Physician Chief Complaint: patient seen and examined in bed no distress - Current Medication List Current Medications: Active Medications Acetaminophen (Tylenol -) 650 mg PO Q6H PRN PRN Reason: PAIN OR FEVER Last Admin: 03/21/18 22:47 Dose: 650 mg Albuterol/Ipratropium (Duoneb -) 1 amp NEB Q6H PRN PRN Reason: SHORTNESS OF BREATH Last Admin: 03/23/18 20:05 Dose: 1 amp Amlodipine Besylate (Norvasc -) 10 mg PO DAILY [facility] Last Admin: 03/24/18 09:16 Dose: 10 mg Aspirin (Ecotrin -) 81 mg PO DAILY [facility] Last Admin: 03/25/18 09:16 Dose: 81 mg Atorvastatin Calcium (Lipitor -) 40 mg PO HS [facility] Last Admin: 03/24/18 21:45 Dose: 40 mg Epoetin Franco (Procrit -) 20,000 unit IVPUSH ONCE ONE Stop: 03/25/18 06:01 Guaifenesin (Diabetic Tussin Dm -) 5 ml PO Q4H PRN PRN Reason: COUGH Last Admin: 03/24/18 21:45 Dose: 5 ml Heparin Sodium (Porcine) (Heparin -) 5,000 unit SQ BID [facility] Last Admin: 03/25/18 09:16 Dose: 5,000 unit Heparin Sodium (Porcine) (Heparin -) 500 unit IVPUSH ONCE ONE Stop: 03/25/18 06:01 Heparin Sodium (Porcine) (Heparin -) 300 unit IVPUSH Q1H [facility] Stop: 03/25/18 09:01 Piperacillin Sod/Tazobactam (Sod 2.25 gm/ Dextrose) 50 mls @ 100 mls/hr IVPB Q8H-IV [facility]; Protocol Last Admin: 03/25/18 01:22 Dose: 100 mls/hr Sodium Chloride (Normal Saline -) 250 mls @ 3,000 mls/hr IV PRN PRN PRN Reason: Hypotension during Dialysis Stop: 03/25/18 12:11 Iron Sucrose 200 mg/ Sodium (Chloride) 100 mls @ 100 mls/hr IVPB ONCE ONE Stop: 03/25/18 14:12 Labetalol HCl (Normodyne -) 400 mg PO BID [facility] Last Admin: 03/24/18 21:45 Dose: 400 mg Losartan Potassium (Cozaar -) 50 mg PO DAILY [facility] Last Admin: 03/24/18 09:16 Dose: 50 mg Ondansetron HCl (Zofran Odt -) 4 mg SL Q6H PRN PRN Reason: NAUSEA AND/OR VOMITING - Objective Vital Signs: Vital Signs Temperature 98.4 F 03/25/18 09:31 Pulse Rate 66 03/25/18 09:31 Respiratory Rate 18 03/25/18 09:31 Blood Pressure 170/77 03/25/18 09:31 O2 Sat by Pulse Oximetry (%) 94 L 03/25/18 09:00 Labs: CBC, BMP 03/23/18 13:00 03/23/18 13:00 Problem List - Problems (1) Stage 4 chronic kidney disease Code(s): N18.4 - CHRONIC KIDNEY DISEASE, STAGE 4 (SEVERE) (2) Diarrhea Code(s): R19.7 - DIARRHEA, UNSPECIFIED (3) Anemia in chronic kidney disease (CKD) Code(s): N18.9 - CHRONIC KIDNEY DISEASE, UNSPECIFIED; D63.1 - ANEMIA IN CHRONIC KIDNEY DISEASE Qualifiers: Chronic kidney disease stage: stage 5, not on chronic dialysis Qualified Code(s): N18.5 - Chronic kidney disease, stage 5; D63.1 - Anemia in chronic kidney disease; D63.1 - Anemia in chronic kidney disease (4) Fever Code(s): R50.9 - FEVER, UNSPECIFIED
--- NOTE | 2018-03-25 13:20 | PN ---
Progress Note, Physician Chief Complaint: seen in bed no distress - Current Medication List Current Medications: Active Medications Acetaminophen (Tylenol -) 650 mg PO Q6H PRN PRN Reason: PAIN OR FEVER Last Admin: 03/21/18 22:47 Dose: 650 mg Albuterol/Ipratropium (Duoneb -) 1 amp NEB Q6H PRN PRN Reason: SHORTNESS OF BREATH Last Admin: 03/23/18 20:05 Dose: 1 amp Amlodipine Besylate (Norvasc -) 10 mg PO DAILY [facility] Last Admin: 03/24/18 09:16 Dose: 10 mg Aspirin (Ecotrin -) 81 mg PO DAILY [facility] Last Admin: 03/25/18 09:16 Dose: 81 mg Atorvastatin Calcium (Lipitor -) 40 mg PO HS [facility] Last Admin: 03/24/18 21:45 Dose: 40 mg Epoetin Franco (Procrit -) 20,000 unit IVPUSH ONCE ONE Stop: 03/25/18 06:01 Guaifenesin (Diabetic Tussin Dm -) 5 ml PO Q4H PRN PRN Reason: COUGH Last Admin: 03/25/18 13:13 Dose: 5 ml Heparin Sodium (Porcine) (Heparin -) 5,000 unit SQ BID [facility] Last Admin: 03/25/18 09:16 Dose: 5,000 unit Heparin Sodium (Porcine) (Heparin -) 500 unit IVPUSH ONCE ONE Stop: 03/25/18 06:01 Heparin Sodium (Porcine) (Heparin -) 300 unit IVPUSH Q1H [facility] Stop: 03/25/18 09:01 Piperacillin Sod/Tazobactam (Sod 2.25 gm/ Dextrose) 50 mls @ 100 mls/hr IVPB Q8H-IV [facility]; Protocol Last Admin: 03/25/18 01:22 Dose: 100 mls/hr Sodium Chloride (Normal Saline -) 250 mls @ 3,000 mls/hr IV PRN PRN PRN Reason: Hypotension during Dialysis Stop: 03/25/18 12:11 Iron Sucrose 200 mg/ Sodium (Chloride) 100 mls @ 100 mls/hr IVPB ONCE ONE Stop: 03/25/18 14:12 Labetalol HCl (Normodyne -) 400 mg PO BID [facility] Last Admin: 03/24/18 21:45 Dose: 400 mg Losartan Potassium (Cozaar -) 50 mg PO DAILY [facility] Last Admin: 03/24/18 09:16 Dose: 50 mg Ondansetron HCl (Zofran Odt -) 4 mg SL Q6H PRN PRN Reason: NAUSEA AND/OR VOMITING - Objective Vital Signs: Vital Signs Temperature 98.4 F 03/25/18 09:31 Pulse Rate 66 03/25/18 09:31 Respiratory Rate 18 03/25/18 09:31 Blood Pressure 170/77 03/25/18 09:31 O2 Sat by Pulse Oximetry (%) 94 L 03/25/18 09:00 Constitutional: Yes: Calm Cardiovascular: Yes: Regular Rate and Rhythm, S1, S2 Respiratory: Yes: Diminished Gastrointestinal: Yes: Normal Bowel Sounds, Soft Labs: CBC, BMP 03/23/18 13:00 03/23/18 13:00 Problem List - Problems (1) Stage 4 chronic kidney disease Assessment/Plan: s/p HD yesterday Code(s): N18.4 - CHRONIC KIDNEY DISEASE, STAGE 4 (SEVERE) (2) Diarrhea Assessment/Plan: c diff negative Code(s): R19.7 - DIARRHEA, UNSPECIFIED (3) Anemia in chronic kidney disease (CKD) Assessment/Plan: epogen with HD venofer given low iron saturation Code(s): N18.9 - CHRONIC KIDNEY DISEASE, UNSPECIFIED; D63.1 - ANEMIA IN CHRONIC KIDNEY DISEASE Qualifiers: Chronic kidney disease stage: stage 5, not on chronic dialysis Qualified Code(s): N18.5 - Chronic kidney disease, stage 5; D63.1 - Anemia in chronic kidney disease; D63.1 - Anemia in chronic kidney disease (4) Fever Assessment/Plan: emperic abx on zosyn blood cultures negative send stool for c diff Code(s): R50.9 - FEVER, UNSPECIFIED (5) HTN (hypertension) Assessment/Plan: norvasc and losartan labetolol Code(s): I10 - ESSENTIAL (PRIMARY) HYPERTENSION Qualifiers: Hypertension type: unspecified Qualified Code(s): I10 - Essential (primary ) hypertension
--- NOTE | 2018-03-25 15:00 | PN ---
Progress Note (short form) - Note Progress Note: Renal follow up for CKD stage 5 Pt seen and examined during dialysis no acute complaints BP stable, Access with good flow goal UF 0.5 making urine still Vital Signs Temperature 98.3 F 03/25/18 14:16 Pulse Rate 64 03/25/18 14:16 Respiratory Rate 18 03/25/18 14:16 Blood Pressure 153/74 03/25/18 14:16 O2 Sat by Pulse Oximetry (%) 94 L 03/25/18 09:00 Intake & Output 03/22/18 03/23/18 03/24/18 03/25/18 23:59 23:59 23:59 23:59 Intake Total 200 960 550 50 Output Total 0 Balance 200 960 550 50 Weight 105.233 kg NAD neck supple, MMM RRR, No M/R CTA soft NT/ND trace LE edema Current Medications Acetaminophen (Tylenol -) 650 mg PO Q6H PRN PRN Reason: PAIN OR FEVER Last Admin: 03/21/18 22:47 Dose: 650 mg Albuterol/Ipratropium (Duoneb -) 1 amp NEB Q6H PRN PRN Reason: SHORTNESS OF BREATH Last Admin: 03/23/18 20:05 Dose: 1 amp Amlodipine Besylate (Norvasc -) 10 mg PO DAILY [facility] Last Admin: 03/24/18 09:16 Dose: 10 mg Aspirin (Ecotrin -) 81 mg PO DAILY [facility] Last Admin: 03/25/18 09:16 Dose: 81 mg Atorvastatin Calcium (Lipitor -) 40 mg PO HS [facility] Last Admin: 03/24/18 21:45 Dose: 40 mg Epoetin Franco (Procrit -) 20,000 unit IVPUSH ONCE ONE Stop: 03/25/18 06:01 Guaifenesin (Diabetic Tussin Dm -) 5 ml PO Q4H PRN PRN Reason: COUGH Last Admin: 03/25/18 13:13 Dose: 5 ml Heparin Sodium (Porcine) (Heparin -) 5,000 unit SQ BID [facility] Last Admin: 03/25/18 09:16 Dose: 5,000 unit Heparin Sodium (Porcine) (Heparin -) 500 unit IVPUSH ONCE ONE Stop: 03/25/18 06:01 Heparin Sodium (Porcine) (Heparin -) 300 unit IVPUSH Q1H [facility] Stop: 03/25/18 09:01 Piperacillin Sod/Tazobactam (Sod 2.25 gm/ Dextrose) 50 mls @ 100 mls/hr IVPB Q8H-IV [facility]; Protocol Last Admin: 03/25/18 01:22 Dose: 100 mls/hr Sodium Chloride (Normal Saline -) 250 mls @ 3,000 mls/hr IV PRN PRN PRN Reason: Hypotension during Dialysis Stop: 03/25/18 12:11 Labetalol HCl (Normodyne -) 400 mg PO BID [facility] Last Admin: 03/24/18 21:45 Dose: 400 mg Losartan Potassium (Cozaar -) 50 mg PO DAILY [facility] Last Admin: 03/24/18 09:16 Dose: 50 mg Ondansetron HCl (Zofran Odt -) 4 mg SL Q6H PRN PRN Reason: NAUSEA AND/OR VOMITING A/P 53 year old gentleman with hx of CKD stage 5 secondary to hypertensive nephrosclerosis, HTN, HLD who presented with SOB, fatigue/lethargy and found to have BUN/Cr of 85/12.3 #CKD stage 5 now ESRD on dialysis #Hypertension #CKD related anemia #Renal Osteoystrophy #Fever with diarrhea tolerating dialysis well can plan for discharge tomorrow if medically cleared with outpatient HD planned to start on Thursday at 2:30 pm will continue JASMIN with HD continue Abx as per RUBEN Sanchez DO
[2018-03-25] MEDS ORDERED: SODIUM CHLORIDE 250 ML IV PRN ×2 (15:07→21:59)
[2018-03-25 15:10] LABS: BASO % 0.8 % (0-2.0); EOS % 1.8 % (0-4.5); HEMATOCRIT 23.2 % (35.4-49); HEMOGLOBIN 7.5 GM/dL (11.7-16.9); LYMPH % 14.3 % (8-40); MCH 22.8 pg (25.7-33.7); MCHC 32.5 g/dl (32.0-35.9); MEAN CELL VOLUME 70.2 fl (80-96); MEAN PLT VOLUME 8.2 fl (7.5-11.1); MONO % 5.6 % (3.8-10.2); NEUT % 77.5 % (42.8-82.8); PLATELET COUNT 541 K/MM3 (134-434); RBC 3.31 M/mm3 (4.00-5.60); RDW 18.2 % (11.9-15.9); WHITE BLOOD COUNT 10.4 K/mm3 (4.0-10.0)
[2018-03-25] MEDS: HEPARIN NA (PORCINE) 5,000 UNITS/ML 1ML VIAL IVPUSH SCH ×3 (15:15→17:15)
[2018-03-25] MEDS ORDERED: EPOETIN ALFA 20,000 UNIT/1 ML VIAL IVPUSH ONE (15:15)
[2018-03-25] MEDS ORDERED: HEPARIN NA (PORCINE) 5,000 UNITS/ML 1ML VIAL IVPUSH ONE (15:15)
[2018-03-25 15:38] LABS: ALK PHOS 174 U/L (45-117); ANION GAP 9 MMOL/L (8-16); BILIRUBIN,TOTAL 0.4 mg/dL (0.2-1); BLOOD UREA NITROGEN 41 mg/dL (7-18); CHLORIDE 98 mmol/L (98-107); CO2 30 mmol/L (21-32); GLUCOSE,RANDOM 126 mg/dL (74-106); PHOSPHOROUS 6.3 mg/dL (2.5-4.9); POTASSIUM 3.9 mmol/L (3.5-5.1); SGOT/AST 43 U/L (15-37); SGPT/ALT 84 U/L (13-61); SODIUM 137 mmol/L (136-145)
[2018-03-25 15:40] LABS: CALCIUM 6.7 mg/dL (8.5-10.1); CREATININE 8.3 mg/dL (0.55-1.3)
[2018-03-25] MEDS: amLODIPine BESYLATE 5 MG TABLET (FP) PO SCH (18:29)
[2018-03-25] MEDS: LOSARTAN POTASSIUM 50 MG TABLET (FP) PO SCH (18:30)
[2018-03-25 18:53] LABS: CREATININE 3.9 mg/dL (0.55-1.3)
[2018-03-25] MEDS: ATORVASTATIN CA 40 MG TABLET (FP) PO SCH (21:25)
[2018-03-26] MEDS ORDERED: DEXTROSE 5%-WATER - 50 ML IVPB ONE (01:22)
[2018-03-26] MEDS ORDERED: PIPERACILLIN/TAZOBACTAM 2.25 GM VIAL IVPB ONE (01:22)
[2018-03-26] MEDS: PIPERACILLIN/TAZOB 2.25 GM 2.25 GM in DEXTROSE 5%-WATER - 50 ML IVPB SCH (01:28)
--- NOTE | 2018-03-26 10:29 | PN ---
Progress Note, Physician History of Present Illness: Ambulatory Reports improvement in cough No c/o chest pain/ dyspnea Temps remain down Afebrile WBC improved LFTs elevated - Current Medication List Current Medications: Active Medications Acetaminophen (Tylenol -) 650 mg PO Q6H PRN PRN Reason: PAIN OR FEVER Last Admin: 03/21/18 22:47 Dose: 650 mg Albuterol/Ipratropium (Duoneb -) 1 amp NEB Q6H PRN PRN Reason: SHORTNESS OF BREATH Last Admin: 03/23/18 20:05 Dose: 1 amp Amlodipine Besylate (Norvasc -) 10 mg PO DAILY [facility] Last Admin: 03/25/18 18:29 Dose: 10 mg Aspirin (Ecotrin -) 81 mg PO DAILY [facility] Last Admin: 03/25/18 09:16 Dose: 81 mg Atorvastatin Calcium (Lipitor -) 40 mg PO HS [facility] Last Admin: 03/25/18 21:25 Dose: 40 mg Guaifenesin (Diabetic Tussin Dm -) 5 ml PO Q4H PRN PRN Reason: COUGH Last Admin: 03/25/18 21:25 Dose: 5 ml Heparin Sodium (Porcine) (Heparin -) 5,000 unit SQ BID [facility] Last Admin: 03/25/18 21:25 Dose: 5,000 unit Piperacillin Sod/Tazobactam (Sod 2.25 gm/ Dextrose) 50 mls @ 100 mls/hr IVPB Q8H-IV [facility]; Protocol Last Admin: 03/26/18 01:28 Dose: 100 mls/hr Sodium Chloride (Normal Saline -) 250 mls @ 3,000 mls/hr IV PRN PRN PRN Reason: Hypotension during Dialysis Stop: 03/26/18 21:59 Labetalol HCl (Normodyne -) 400 mg PO BID [facility] Last Admin: 03/25/18 21:25 Dose: 400 mg Losartan Potassium (Cozaar -) 50 mg PO DAILY [facility] Last Admin: 03/25/18 18:30 Dose: 50 mg Ondansetron HCl (Zofran Odt -) 4 mg SL Q6H PRN PRN Reason: NAUSEA AND/OR VOMITING - Objective Vital Signs: Vital Signs Temperature 98.8 F 03/26/18 10:10 Pulse Rate 67 03/26/18 10:15 Respiratory Rate 18 03/26/18 10:15 Blood Pressure 168/89 03/26/18 10:15 O2 Sat by Pulse Oximetry (%) 95 03/25/18 21:00 Constitutional: Yes: No Distress Eyes: Yes: Conjunctiva Clear Cardiovascular: Yes: Regular Rate and Rhythm, S1, S2 Respiratory: Yes: CTA Bilaterally Gastrointestinal: Yes: Normal Bowel Sounds, Soft. No: Tenderness Labs: CBC, BMP 03/25/18 14:20 03/25/18 17:43 Assessment/Plan Pneumonia Fever/leukocytosis-improved ESRD Substitute Augmentin 500mg po qd x 7d
[2018-03-26] MEDS ORDERED: AMOX TR/POT CLAV 500MG/125MG TABLETS (FP) PO SCH (10:45)
[2018-03-26 11:06] LABS: ANION GAP 11 MMOL/L (8-16); BLOOD UREA NITROGEN 25 mg/dL (7-18); CALCIUM 7.8 mg/dL (8.5-10.1); CHLORIDE 101 mmol/L (98-107); CO2 28 mmol/L (21-32); GLUCOSE,RANDOM 158 mg/dL (74-106); POTASSIUM 3.9 mmol/L (3.5-5.1); SODIUM 140 mmol/L (136-145)
--- NOTE | 2018-03-26 11:26 | DS ---
Physical Examination Vital Signs: Vital Signs Temperature 98.8 F 03/26/18 10:10 Pulse Rate 65 03/26/18 11:15 Respiratory Rate 18 03/26/18 11:15 Blood Pressure 174/99 H 03/26/18 11:15 O2 Sat by Pulse Oximetry (%) 95 03/25/18 21:00 Constitutional: Yes: Calm Cardiovascular: Yes: Regular Rate and Rhythm, S1, S2 Respiratory: Yes: CTA Bilaterally Gastrointestinal: Yes: Normal Bowel Sounds, Soft Neurological: Yes: Alert, Oriented Labs: CBC, BMP 03/25/18 14:20 03/26/18 09:29 Discharge Summary Reason For Visit: STAGE 4 CKD/ELEVATED TROPONIN LEVEL/HTN Current Active Problems CHF (congestive heart failure) (Acute) Diarrhea (Acute) ESRD (end stage renal disease) (Acute) Fever (Acute) HTN (hypertension) (Acute) Pneumonia (Acute) Stage 4 chronic kidney disease (Acute) Troponin level elevated (Acute) Hospital Course: - Primary Care Physician PCP: Ramu Gatica - Admission Chief Complaint: CHEST PAIN WORSENING RENAL FAILURE History of Present Illness: HISTORY OF DM, HTN, LIPIDEMIA, OBESITY, CHRONIC RENAL FAILURE END STAGE 5, S/P OLD CVA, HERE WITH POOR APPETITE, DIARRHEA, CHEST PAIN. C/O CHRONIC NAUSEA AND WEAKNESS. patient got HD in hospital treated for fever and leukocytosis with iv zosyn change to po augmentin 500mg daily for 7 days- for pna chest ct shows patchy opacites seen by neurology as well repeat chest ct in one month to see resolution of infiltrate to get outpatient HD at [facility] [place][note 3] starting thursday Condition: Improved - Instructions Referrals: Ángela Worthington [Primary Care Provider] - Disposition: HOME - Home Medications Comprehensive Discharge Medication List: Ambulatory Orders Furosemide [Lasix] 80 mg PO BID 04/03/17 Ferrous Sulfate [Iron] 325 mg PO DAILY 02/20/18 Amlodipine Besylate 10 mg PO DAILY #30 tablet 02/24/18 Aspirin Coated [Ecotrin -] 81 mg PO DAILY #30 tablet.ec 02/24/18 Atorvastatin Ca [Lipitor] 20 mg PO HS #30 tablet 02/24/18 Calcium Carbonate - 1,300 mg PO BID #60 tablet 02/24/18 Labetalol HCl [Normodyne -] 400 mg PO BID #60 tablet 02/24/18 Sodium Bicarbonate - 650 mg PO DAILY #30 tablet 02/24/18 hydrALAZINE HCL [Apresoline -] 100 mg PO BID #60 tablet 02/24/18
--- NOTE | 2018-03-26 13:49 | PN ---
Progress Note (short form) - Note Progress Note: Renal follow up for CKD stage 5 Pt seen and examined during dialysis had short 2 hour HD today tolerated it well no sob, cp, abd pain for discharge home today Vital Signs Temperature 98.8 F 03/26/18 10:10 Pulse Rate 60 03/26/18 12:20 Respiratory Rate 18 03/26/18 12:20 Blood Pressure 174/100 H 03/26/18 12:20 O2 Sat by Pulse Oximetry (%) 95 03/25/18 21:00 Intake & Output 03/23/18 03/24/18 03/25/18 03/26/18 23:59 23:59 23:59 23:59 Intake Total 960 550 800 300 Output Total 0 0 Balance 960 550 800 300 Weight 107.133 kg NAD neck supple, MMM RRR, No M/R CTA soft NT/ND trace LE edema CBC, BMP 03/25/18 14:20 03/26/18 09:29 Current Medications Acetaminophen (Tylenol -) 650 mg PO Q6H PRN PRN Reason: PAIN OR FEVER Last Admin: 03/21/18 22:47 Dose: 650 mg Albuterol/Ipratropium (Duoneb -) 1 amp NEB Q6H PRN PRN Reason: SHORTNESS OF BREATH Last Admin: 03/23/18 20:05 Dose: 1 amp Amlodipine Besylate (Norvasc -) 10 mg PO DAILY [facility] Last Admin: 03/25/18 18:29 Dose: 10 mg Amoxicillin/Clavulanate Potassium (Augmentin - 500mg Tablet) 1 tab PO DAILY [facility] Aspirin (Ecotrin -) 81 mg PO DAILY [facility] Last Admin: 03/25/18 09:16 Dose: 81 mg Atorvastatin Calcium (Lipitor -) 40 mg PO HS [facility] Last Admin: 03/25/18 21:25 Dose: 40 mg Guaifenesin (Diabetic Tussin Dm -) 5 ml PO Q4H PRN PRN Reason: COUGH Last Admin: 03/25/18 21:25 Dose: 5 ml Heparin Sodium (Porcine) (Heparin -) 5,000 unit SQ BID [facility] Last Admin: 03/25/18 21:25 Dose: 5,000 unit Sodium Chloride (Normal Saline -) 250 mls @ 3,000 mls/hr IV PRN PRN PRN Reason: Hypotension during Dialysis Stop: 03/26/18 21:59 Labetalol HCl (Normodyne -) 400 mg PO BID [facility] Last Admin: 03/25/18 21:25 Dose: 400 mg Losartan Potassium (Cozaar -) 50 mg PO DAILY [facility] [place] Last Admin: 03/25/18 18:30 Dose: 50 mg Ondansetron HCl (Zofran Odt -) 4 mg SL Q6H PRN PRN Reason: NAUSEA AND/OR VOMITING A/P 53 year old gentleman with hx of CKD stage 5 secondary to hypertensive nephrosclerosis, HTN, HLD who presented with SOB, fatigue/lethargy and found to have BUN/Cr of 85/12.3 #CKD stage 5 now ESRD on dialysis #Hypertension #CKD related anemia #Renal Osteoystrophy #Fever with diarrhea tolerated HD well to start outpatient dialysis on Thursday at 2:30 pm at [facility] Renal diet continue Losartan 50mg Daily Continue Norvasc Continue oral abx as per ID stable for discharge case discussed with primary team Severino Sanchez DO
[2018-03-26] MEDS ORDERED: PT OWN MED DRAWER 7, Y5N ONE (14:15)
[2018-03-26] MEDS: ASPIRIN COATED 81 MG TABLET.EC PO SCH (14:24)
[2018-03-26] MEDS: amLODIPine BESYLATE 5 MG TABLET (FP) PO SCH (14:24)
[2018-03-26] MEDS: LOSARTAN POTASSIUM 50 MG TABLET (FP) PO SCH (14:24)
[2018-03-26] MEDS: LABETALOL HCL 200 MG TABLET (FP) PO SCH (14:24)
[2018-03-26] MEDS: HEPARIN NA (PORCINE) 5,000 UNITS/ML 1ML VIAL SQ SCH (14:25)
[2018-03-26 14:58] VITALS: BP 164/76; PULSE 76; TEMP 98
== END 2018-03-26 14:57 | disposition home or self-care (01) | DRG 194 ==
LOC: JER 11:21 → JERBED 16:01 → J4W 03-17 17:34 → J5S 03-23 18:13
PROVIDERS: ADMIT Family Medicine; ATTEND Family Medicine
PROC: 5A1D70Z Performance of Urinary Filtration, Intermittent, Less than 6 Hours Per Day (ICD-10-PCS; principal; 2018-03-25)
DX: I13.2 Hypertensive heart and chronic kidney disease with heart failure and with stage 5 chronic kidney disease, or end stage renal disease (principal); N18.6 End stage renal disease; D63.1 Anemia in chronic kidney disease; R59.0 Localized enlarged lymph nodes; R50.9 Fever, unspecified; R19.7 Diarrhea, unspecified; E66.9 Obesity, unspecified; D72.829 Elevated white blood cell count, unspecified; N25.0 Renal osteodystrophy; E11.22 Type 2 diabetes mellitus with diabetic chronic kidney disease; I25.10 Atherosclerotic heart disease of native coronary artery without angina pectoris; E11.40 Type 2 diabetes mellitus with diabetic neuropathy, unspecified; R27.0 Ataxia, unspecified; N17.9 Acute kidney failure, unspecified; I24.8 Other forms of acute ischemic heart disease; J18.9 Pneumonia, unspecified organism; Z99.2 Dependence on renal dialysis; E78.5 Hyperlipidemia, unspecified; Z68.31 Body mass index [BMI] 31.0-31.9, adult; R07.9 Chest pain, unspecified
CPT/HCPCS: 36415; 71046-TC-FY; 71250-TC; 74176-TC; 80048; 80053; 82550; 82553; 82565; 82607; 82728; 82746; 82962; 83540; 83550; 83735; 83880; 84100; 84484; 84520; 85025; 85027; 86704; 86706; 86708; 86803; 86850; 86900; 86901; 86922; 87040; 87045; 87046; 87177; 87186; 87207; 87209; 87324; 87328; 87329; 87340; 87425; 87449; 87804; 93005; 93010; 94640; 97116-GP; 97161-GP; 99283-25; J0131; J0885; J1644; J1756; J7030; Q9967